=== PATIENT | male | born 1950 | race Caucasian/White ===

== ENCOUNTER 2019-02-28 13:32 | Emergency (ER) | payer OTHER, SELFPAY ==
[2019-02-28 13:33] VITALS: BP 149/76; PULSE 112; RESP 16; TEMP 37.3; O2SAT 96; BMI 23.6
--- NOTE | 2019-02-28 15:13 | RAD_ITS ---
STUDY: X-RAY - LEFT FEMUR REASON FOR STUDY: Male, 68 years old. Fall 3 days ago. Pain. TECHNIQUE: 4 view(s) of the femur. COMPARISON: None. FINDINGS: There is generalized osteopenia. There is a femoral neck fracture with minimal varus angulation at the fracture site. There is osteoarthrosis of the knee. There is soft tissue ossification medial to the distal femur.. RAD/Femur Min 2 Views IMPRESSION: Osteopenia with femoral neck fracture as described. Electronically Signed: Ignacio Valle MD at 16:43 EDT , Service support ,
--- NOTE | 2019-02-28 15:13 | RAD_ITS ---
STUDY: X-RAY CHEST REASON FOR EXAM: Male, 68 years old. Fall 3 days ago out of wheelchair. Pain. TECHNIQUE: Frontal and lateral views of the chest. COMPARISON: None. FINDINGS: The lungs are hyperexpanded. There is no demonstrated pleural abnormality. There is borderline cardiomegaly. Normal mediastinum and xavier. Normal visualized pulmonary arteries. Normal visualized aortic arch and descending thoracic aorta. There are diffuse degenerative changes of the visualized thoracic spine. There are David rods in the lower thoracic spine. Normal visualized ribs, clavicles, and shoulders. There is no demonstrated abnormality of the visualized soft tissue structures of the upper abdomen. RAD/Chest PA and Lateral IMPRESSION: Cardiomegaly with hyperexpansion. No acute finding. Electronically Signed: Ignacio Valle MD at 16:42 EDT , Service support ,
--- NOTE | 2019-02-28 15:13 | RAD_ITS ---
STUDY: X-RAY - PELVIS REASON FOR EXAM: Male, 68 years old. Fall 3 days ago. Pain. TECHNIQUE: One view of the pelvis was obtained. COMPARISON: None. FINDINGS: There is a non-specific bowel gas pattern. Normal visualized soft tissue structures. Normal bilateral iliac wings, sacroiliac joints and visualized sacrum. Normal visualized bilateral superior and inferior pubic rami. Normal pubic symphysis. Normal ischial tuberosities. There is moderate arthrosis of the right hip. There is a femoral neck fracture with slight varus angulation at the fracture site. RAD/Pelvis 1 or 2 Views IMPRESSION: Osteopenia with osteoarthrosis of the right hip. Left femoral neck fracture. Electronically Signed: Ignacio Valle MD at 16:43 EDT , Service support ,
--- NOTE | 2019-02-28 15:13 | ED.VIS.FALL ---
History of Present Illness Chief Complaint: Lower Extremity Injury Informant: Patient, Significant Other Occurred: Days - 3 Mechanism/Context: - - accidentally fell out of wheelchair Quality of Pain: Aching Current Severity: Mild Maximum Severity: Moderate Worsened by: n/a Relieved by: pain pills Associated Symptoms: Parasthesias - chronic BLE, Weakness - chronic BLE. Negative for: Loss of consciousness, Amnesia Narrative: Patient is a paraplegic from a remote spinal injury, wheelchair-bound. He accidentally fell out of bed onto his buttock hitting his left thigh on part of his wheelchair when he accidentally fell out of it 3 days ago. He noticed some fevers lately up to 100's, and was concerned because of the appearance of his left thigh that it might be infected. He has had urinary tract infections in the past. He does not have to self cath. However, he does not have sensation there. He can tell he is hurting in his thigh/buttock somewhere but he cannot tell where. He had no bleeding at the time of the injury. 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 Past Medical History - Allergies and Home Meds Allergies/Adverse Reactions: Allergies amoxicillin Allergy (Verified 02/28/19 13:36) UTI Primary Care Physician: Care Physician,No Primary [Primary Care Provider] - Surgical History: - - back Lives: Spouse/ Significant Other Smoking Status: Never smoker Review of Systems General: Reports: Fever, Malaise Eyes: Denies: Visual changes - bilaterally, Diplopia ENT: Denies: Rhinorrhea, Sore throat Cardiovascular: Denies: Chest pain, Palpitations Respiratory: Denies: Dyspnea, Cough, Dyspnea on exertion Gastrointestinal: Denies: Abdominal pain, Nausea, Vomiting, Diarrhea, Melena, Hematochezia Genitourinary: Denies: Dysuria, Hematuria, Frequency Musculoskeletal: Reports: Swelling - at site of trauma, Extremity Pain Skin: Reports: Wounds - contusion/hematoma left thigh. Denies: Rash Neurological: Reports: Weakness - preexisting deficit, Numbness - preexisting deficit. Denies: Headache Physical Exam Vital Signs/Narrative: Vital Signs Temp Pulse Resp BP Pulse Ox 02/28/19 13:33 99.2 F H 112 H 16 149/76 H 96 Inital Vital Signs reviewed: Yes General: Well nourished, Well developed, - - well-appearing, nad, conversive Head: Normocephalic, Atraumatic Eyes: Perrl, EOMI ENT: No trauma Neck: Nontender, Full ROM Cardiovascular: Regular rate, Regular rhythm, No murmurs. Negative for: Tachycardia Respiratory: No distress, CTA bilaterally, Chest nontender Abdomen: Soft, Nontender, Nondistended, Normal bowel sounds Rectal: Nontender, - - small contusion x 2 mons pubis, no testicular tend or other evidence of scrotal trauma/hematoma; no blood at meatus Back: Nontender. Negative for: CVA Tenderness - Right, CVA Tenderness - Left Skin: No rash, Trauma - large contusion/hematoma left prox medial thigh with majority of it seen dependent at posterior aspect. no breaks in skin. swollen compared with contralateral side, but only at site of hematoma; no distal edema or asymmetry. 3sec CR toes bilat, symmetric; pulses in feet not able to be palpated. Neurological: Alert, Oriented x3, Cranial nerves II-XII grossly intact, Parasthesia - below waist, Weakness - BLE flaccid paralysis Diagnostic/Tx/Re-eval Impressions Chest X-Ray 02/28/19 15:13 IMPRESSION: Cardiomegaly with hyperexpansion. No acute finding. Electronically Signed: Ignacio Valle MD at 16:42 EDT , Service support , Femur X-Ray 02/28/19 15:13 IMPRESSION: Osteopenia with femoral neck fracture as described. Electronically Signed: Ignacio Valle MD at 16:43 EDT , Service support , Pelvis X-Ray 02/28/19 15:13 IMPRESSION: Osteopenia with osteoarthrosis of the right hip. Left femoral neck fracture. Electronically Signed: Ignacio Valle MD at 16:43 EDT , Service support , 02/28/19 15:13 Chest PA and Lateral [RAD] Stat Femur Min 2 Views [RAD] Stat Pelvis 1 or 2 Views [RAD] Stat Laboratory Results 02/28/19 02/28/19 02/28/19 15:35 15:35 15:35 WBC 13.2 H RBC 4.27 L Hgb 12.3 L Hct 36.4 L MCV 85.2 MCH 28.8 MCHC 33.8 RDW 14.0 RDW Differential 43.5 Plt Count 329 MPV 9.1 Immature Gran % (Auto) 0.300 Neut % (Auto) 69.2 Lymph % (Auto) 16.4 L [place] % (Auto) 12.7 H Eos % (Auto) 1.1 Baso % (Auto) 0.3 Absolute Neuts (auto) 9.1 H Absolute Lymphs (auto) 2.17 Total Counted Not Reportable Differential Comment SCANNED Diff Path Review May foll Sodium 135 L Potassium 3.4 L Chloride 102 Carbon Dioxide 25.0 Anion Gap 8 BUN 19 H Creatinine 0.71 Estim Creat Clear Calc 68.40 Est GFR (MDRD) Af Amer 142 Est GFR (MDRD) Non-Af 118 BUN/Creatinine Ratio 26.9 H Glucose 98 Calcium 8.2 L Urine Color Yellow Urine Clarity Clear Urine pH 5.0 Ur Specific Zachary 1.020 Urine Protein 30 H Urine Glucose (UA) Normal Urine Ketones 150 H Urine Occult Blood 10 H Urine Nitrite Negative Urine Bilirubin Negative Urine Urobilinogen 4 H Ur Leukocyte Esterase 25 H Urine RBC 0-5 SEEN Urine WBC 0-5 SEEN Ur Squamous Epith Cells 0-5 SEEN Urine Bacteria RARE Urine Mucus 2+ - Medical Decision Making Blood counts are stable, kidney function is okay, he has no objective sign of any treatable infection to account for the fevers he was experiencing. He is in the 99 range here. He is well-appearing and not clinically septic. X-ray of his chest shows no pneumonia, however x-ray of his femur and pelvis show a femoral neck fracture. He states he is having pain but is tolerating it, and states he has been wheelchair-bound for 43 years and has no interest in seeing an orthopedic surgeon. He does not even want to see one as an outpatient and states he will not require a referral. He states he will let it heal. I advised him with regards to avascular necrosis and other possibilities, and give him a referral anyhow in case he feels that he changes his mind. He is asking for something for pain, will give him a prescription for tramadol after we discussed options. He wants to be discharged home. ED Disposition - Plan for ED Patient: Disposition: Home or Assisted Living Diagnosis: Left displaced femoral neck fracture Instructions: Understanding Hip Fractures, After a Hip Fracture: Common Questions Prescriptions: traMADol [Ultram] 50 mg PO Q4H PRN PRN 3 Days #20 tablet PRN Reason: Pain Referrals: Doctor,Your [STAFF PHYSICIAN] - Kong Anthony DO [STAFF PHYSICIAN] - (Hip fractures can result in a chronic degenerative hip problem called avascular necrosis which can give you chronic pain. If you change your mind about seeing an orthopedic surgeon for a consultation, call this number and schedule an appointment.)
[2019-02-28 15:47] LABS: Color, Urine Yellow (Yellow); Glucose, Dipstick Normal (Normal); Leukocyte Esterase-Dipstick 25 /ul (Negative); Nitrite-Dipstick Negative (Negative); Occult Blood-Urine 10 /ul (Negative); Protein-Dipstick 30 mg/dl (Negative); Urine Bilirubin Dipstick Negative (Negative); Urine Clarity Clear (Clear); Urine Urobilinogen 4 mg/dl (Normal)
[2019-02-28 15:52] LABS: Absolute Lymphocyte Count 2.17 X10^3/ul (0.83-4.51); Absolute Neutrophil Count 9.1 X10^3/uL (2.0-7.7); Basophil# 0.04 X10^3/uL; Basophil% 0.3 % (0-1); Eosinophil# 0.14 X10^3/uL; Eosinophils% 1.1 % (0-5); Hematocrit 36.4 % (40-54); Hemoglobin 12.3 g/dl (13.0-16.5); Lymphocyte # 2.17 X10^3/ul (4.0); Lymphocyte % 16.4 % (19-41); Mean Corp Hgb Conc 33.8 g/gl (32-36); Mean Corpuscular Hgb 28.8 pg (27.0-32.0); Mean Corpuscular Volume 85.2 fL (80-94); Mean Platelet Vol. 9.1 fl (6.2-12.0); Monocyte# 1.68 X10^3/uL; Monocyte% 12.7 % (0-10); Neutrophil # 9.13 X10^3/uL (2.7-7.7); Neutrophil % 69.2 % (47-70); Platelet Count 329 K/mm3 (150-450); RBC Distribution Width SD 43.5 fl (35.1-43.9); Red Blood Count 4.27 M/mm3 (4.6-6.2); White Blood Count 13.2 K/mm3 (4.4-11.0)
[2019-02-28 15:55] LABS: Anion Gap 8 (5-15); BUN 19 mg/dL (7-18); BUN/Creat Ratio 26.9 RATIO (10-20); Calcium,Total 8.2 mg/dL (8.5-10.1); Chloride 102 mmol/L (98-107); Creatinine, Serum 0.71 mg/dL (0.70-1.30); Differential Indicated SCAN CRITERIA MET; EST Glomerular Filtration Rate 118 mL/min (>60); Est Glom Filt Rate - Afr Amer 142 mL/min (>60); Glucose 98 mg/dL (74-106); POSITIVE COUNT NO; POSITIVE DIFFERENTIAL YES; POSITIVE MORPHOLOGY NO; Potassium 3.4 mmol/L (3.5-5.1); Sodium Level 135 mmol/L (136-145)
[2019-02-28 16:06] LABS: Differential Comment SCANNED
[2019-02-28 16:33] LABS: Ketone-Dipstick 150 mg/dl (Negative)
[2019-02-28 16:35] LABS: Bacteria RARE /hpf (None Seen); Mucous, Urine 2+ /hpf (<or=2+); Red Blood Cells-Urine 0-5 SEEN /hpf (0-5); Squamous Epithelial Cells - UA 0-5 SEEN /hpf (0-5); White Blood Cells 0-5 SEEN /hpf (0-5)
[2019-02-28 18:09] VITALS: BP 147/68; PULSE 98; RESP 16; O2SAT 99
[2019-03-03 12:58] LABS: Pathologist Review Reviewed
== END 2019-02-28 18:13 | disposition home or self-care (01) ==
PROVIDERS: Emergency Provider Emergency Medicine
DX: S72.002A Fracture of unspecified part of neck of left femur, initial encounter for closed fracture (principal); G82.20 Paraplegia, unspecified; Z99.3 Dependence on wheelchair; Z87.440 Personal history of urinary (tract) infections; W06.XXXA Fall from bed, initial encounter; Y93.89 Activity, other specified; Y92.89 Other specified places as the place of occurrence of the external cause; Y99.8 Other external cause status
CPT/HCPCS: 36415; 71046; 72170; 73552; 80048; 81001; 85025; 99282

== ENCOUNTER → 2021-08-30 13:06 | Outpatient (CLI) | payer OTHER, SELFPAY ==
--- NOTE | 2021-08-30 13:16 | CT_ITS ---
STUDY: CT ABDOMEN AND PELVIS WITHOUT CONTRAST REASON FOR EXAM: Male, 71 years old. BLADDER-NECK OBSTRUCTION RADIATION DOSAGE (If Supplied By Facility): CTDIvol = ( 7.77 ) mGy, DLP = ( 617.12 ) mGycm TECHNIQUE: Transaxial images were obtained from the dome of the diaphragm to the symphysis pubis without oral contrast, and without intravenous contrast. Sagittal and coronal images were reconstructed. Individualized dose optimization techniques were used for this CT. COMPARISON: None. FINDINGS: The visualized lung bases are unremarkable. The visualized portions of the heart are within normal limits. Normal liver. Normal gallbladder and extrahepatic biliary system. Granulomatous calcifications in the spleen. Normal pancreas. Normal bilateral adrenal glands. Normal right kidney. Normal left kidney. There is a hiatal hernia. Normal small intestine. Normal colon. The appendix is not visualized. Mildly calcified abdominal aorta. Normal inferior vena cava. Normal retroperitoneum. Wall thickening of the urinary bladder. Mild hydrocele. Normal abdominal wall. Degenerative vertebral changes with mild scoliosis. Degenerative changes of the hips. Old left femoral neck fracture. CT/Abdomen/Pelvis without Cont IMPRESSION: Hiatal hernia. Mild hydrocele. Wall thickening of the urinary bladder. Electronically Signed: Jens Askew DO at 19:37 EST Tel [phone], Service support ,
== END ==
PROVIDERS: PCP Nurse Practitioner Family; Referring Provider Urology; Visit Provider Urology
DX: N32.0 Bladder-neck obstruction (principal)
CPT/HCPCS: 74176

== ENCOUNTER 2024-12-12 15:44 | Emergency (ER) | payer MEDICARE, SELFPAY ==
[2024-12-12 15:45] VITALS: BP 159/64; PULSE 83; RESP 16; TEMP 36.6; O2SAT 99; BMI 23.5
--- NOTE | 2024-12-12 15:52 | ED.RN ---
PT BROUGHT IN BY [facility]. C/O RIGHT BACK PAIN, DISTAL TO SHOULDER. ON SUNDAY PT WAS SITTING ON A TOWEL ON THE SIDE OF THE TUB AND LOST BALANCE AND COULD NOT GRAB HIM. STATES HE HIT HIS HEAD VERY HARD BUT DENIES LOC. NO VISIBLE LAC OR ABRASIONS TO THE HEAD. PT IS A PARAPALEGIC FROM 1974 AND USES WHEELCHAIR.
--- NOTE | 2024-12-12 15:58 | ED.VIS.BACK ---
HPI History of Present Illness Chief Complaint: Back Informant: patient Onset/Context/Timing Onset: Days (2) Context: Sudden Onset Injury: fall Timing: Waxes and wanes Quality: Sharp Location: Thoracic Worsened by: improves with Movement Relieved by: Remaining Still Associated Symptoms Associated Symptoms: Unable to Ambulate; Negative for Numbness, Tingling, Abdominal Pain, Dysuria, Urinary Retention, Urinary Incontinence, Constipation or Fecal Incontinence Narrative Narrative: Patient presents with right thoracic back pain that began after a fall 2 days ago. Patient states he fell trying to get out of the bathtub. Patient states he does not ambulate due to a prior spinal cord injury. Patient states he hit his right thoracic area on the edge of the tub when he fell. Patient denies any head injury or loss of consciousness. Patient denies any new paresthesias or weakness. Patient denies any bowel or bladder changes. [facility] Medical History Paraplegic immobility syndrome Liver masses Asthma Candidiasis Pruritus, unspecified Home Medications ?Medication ?Instructions ?Recorded ?Last Taken ?Type aspirin 81 mg tablet,delayed 81 mg PO QDAY 10/20/24 Unknown History release loratadine 10 mg tablet 10 mg PO QDAY 10/20/24 Unknown History multivitamin 1 tab PO QAM 10/20/24 Unknown History Liquid probiotic PO 10/23/24 Unknown History 4 life transfer factor PO 10/23/24 Unknown History D- manose PO 10/23/24 Unknown History Liquid heart drops PO 10/23/24 Unknown History Liquid kidney and bladder PO 10/23/24 Unknown History Resolution PO 10/23/24 Unknown History hydrocodone-acetaminophen 5-325mg 1 tab PO Q6H PRN PRN Pain 3 days 12/12/24 Unknown Rx 5mg-325mg #10 TABLETS Allergy/AdvReac Type Severity Reaction Status Date / Time amoxicillin Allergy UTI Verified 12/12/24 15:53 Family History Father Cancer Brother Cancer Surgical History H/O skin graft Hx of appendectomy Hx of tonsillectomy Social History Smoking Status: Never smoker alcohol intake: never ROS ROS ED Constitutional Constitutional ED: Denies chills or fever(s) Eyes Eyes: Denies blurry vision or change in vision ENT ENT ED: Denies rhinorrhea or sore throat Cardiovascular Cardiovascular: Denies chest pain or palpitations Respiratory/Chest Respiratory/Chest: Denies cough or dyspnea Gastrointestinal Gastrointestinal: Denies nausea or vomiting Genitourinary Genitourinary ED: Denies dysuria or hematuria Musculoskeletal Musculoskeletal: Reports back pain; Denies neck pain Integumentary Denies abscess or rash Neurologic Neurologic: Denies headache(s) or weakness Allergic/Immunologic Allergic/Immunologic ED: Denies mouth swelling or urticaria EXAM Physical Exam Const Vital Signs: 12/12/24 15:45 Temperature 97.9 F Temperature Source Oral Pulse Rate 83 Respiratory Rate 16 Blood Pressure 159/64 H Blood Pressure Mean 95 Pulse Ox 99 Oxygen Delivery Method Room Air Positive well nourished and well developed General Appearance ED: well developed HEENT Reports moist mucous membranes Neck supple and no JVD Resp normal respiratory effort and clear to auscultation bilaterally Cardio regular rate and regular rhythm GI soft to palpation, non-tender and non-distended Back/Spine Back/Spine Narrative: There is tenderness over the right posterior rib just below the scapula on the right. There is no bony crepitance or step-off. There is no subcutaneous emphysema palpated. Neuro oriented x3 and no sensory deficits noted Sensorium / Orientation: alert Motor Exam: strength 5/5 throughout Psych mental status grossly normal MDM MDM MDM Narrative Medical decision making narrative: Differential diagnosis includes rib fracture and contusion. X-rays of the right ribs will be obtained to assess for rib fracture or pneumothorax. Radiography Diagnostic Testing: Clinical Impression(s) from Imaging Studies Ribs w/Chest X-Ray 12/12/24 16:30 IMPRESSION: No acute fracture. [facility] X-[facility] of the right ribs were obtained. There are 5 views. On my independent interpretation, there is no acute fracture. There is no pneumothorax noted. Radiologist also interpreted the x-rays and agrees. Treatment and Re-Evaluation Narrative: Patient was given a dose of [place] here. Patient was advised of his findings. Patient was given a prescription for a short course of [place]. Patient was instructed to take 10-15 deep breaths every hour while awake to prevent atelectasis and pneumonia. Patient was instructed to follow-up with his primary care physician in 5 to 7 days. Patient was instructed to return if worse in any way. Patient understood and was agreeable with the plan. All questions were answered. Discharge Plan Triage Chief Complaint: Back ED Provider: Chevy Mishra Dx/Rx/DC Orders Clinical Impression: Contusion of rib on right side, Fall Instructions: ED Bruise, Rib Prescriptions: New hydrocodone-acetaminophen 5-325 mg tablet 1 tab PO Q6H PRN PRN (Reason: Pain) 3 Days Qty: 10 0RF No Action Liquid kidney and bladder PO Liquid probiotic PO 4 life transfer factor PO Liquid heart drops PO D- manose PO Resolution PO loratadine 10 mg tablet 10 mg PO QDAY aspirin 81 mg tablet,delayed release (DR/EC) 81 mg PO QDAY multivitamin Tablet 1 tab PO QAM Primary Care Provider: Ifeanyi Reese NP Referrals: Ifeanyi Reese NP, [employer] [Primary Care Provider] - 5-7 Days Print Language: Turkmen Disposition Disposition: Home, Self Care
[2024-12-12] MEDS: HYDROcodone Bitartrate/Apap 5/325 Tablet PO (16:20)
--- NOTE | 2024-12-12 16:30 | RAD_ITS ---
PROCEDURE: RIBS UNI MIN 3V W/PA CHEST 12/12/2024 REASON FOR EXAM: PAIN TECHNIQUE: Frontal and bilateral oblique views of the right ribs. Frontal view of the chest. COMPARISON: Chest radiograph dated 02/28/2019 FINDINGS: Heart: The heart size is normal. Lungs: The lungs are clear. Pleura: No pneumothorax. Ribs: No acute fracture. Degenerative changes of the thoracic spine and bilateral shoulder joints. Fixation hardware transverse the lumbar spine. Other: RAD/Ribs Uni Min 3V w/PA Chest IMPRESSION: No acute fracture. Reading Location: [facility]
[2024-12-12 17:45] VITALS: BP 138/72; PULSE 72; RESP 16; O2SAT 96
[2024-12-12 17:56] VITALS: BP 138/82; PULSE 66; RESP 16; TEMP 36.6; O2SAT 96
== END 2024-12-12 18:00 | disposition home or self-care (01) ==
PROVIDERS: Emergency Provider Emergency Medicine; PCP Nurse Practitioner Family; Visit Provider Emergency Medicine
DX: S20.211A Contusion of right front wall of thorax, initial encounter (principal); W18.2XXA Fall in (into) shower or empty bathtub, initial encounter; Y93.E1 Activity, personal bathing and showering; Z88.0 Allergy status to penicillin
CPT/HCPCS: 71101; 99284

== ENCOUNTER 2025-02-23 15:03 | Outpatient (CLI) | payer MEDICARE, SELFPAY | END 2025-02-23 23:59 | disposition home or self-care (01) | LOC: MEDOUTP 15:04 | PROVIDERS: PCP Nurse Practitioner Family; Referring Provider Specialist; Visit Provider Specialist | DX: D50.8 Other iron deficiency anemias (principal); C79.51 Secondary malignant neoplasm of bone; C18.8 Malignant neoplasm of overlapping sites of colon; D64.81 Anemia due to antineoplastic chemotherapy ==

== ENCOUNTER 2025-02-25 06:53 | Day surgery (SDC) | payer MEDICARE, SELFPAY ==
[2025-02-25] VITALS (9 sets, daily range): BP systolic 120–159; BP diastolic 55–75; PULSE 81–88; RESP 16–18; TEMP 36.3–36.6; O2SAT 99–100; BMI 20.5
--- OUTSIDE RECORDS SUMMARY | 2025-02-25 07:06 | XMS RPT_ITS | CCD ---
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 09995, 763, 4698 #### [facility] [address], [address] [place], [place] [id number] Residential Team Leader: Willy Jolly MD #### 211 #### [facility] [address] [place] Residential Team Leader: Marco A Zhang M.D.,PhD CEAon 12-17-2024 CEA 24.3 ng/mL High See Note: [facility] Comment on above: Result Comment: Alphonse pack Range: Non-Smoker: <2.5 Smoker: <5.0 This test was performed using the Siemens chemiluminescent method. Values obtained from different assay methods cannot be used interchangeably. CEA levels, regardless of value, should not be interpreted as absolute evidence of the presence or absence of disease. Performed By: #### 8 99, 978, 367, 21911, 763, 4698 #### [facility] [address] [facility], [address] [place] [address] Residential Team Leader: Willy Jolly MD #### 211 #### [facility] [address] [facility] [place] [address] Residential Team Leader: Marco A Zhang M.D.,PhD Emergency Department Summary on 12-12-2024 Emergency Department Summary [facility] Medical Records Department [address] [place] [address] Emergency Department Summary 12/12/24 MR#: [id number] Acct: [id number] Name: DEXTER RAHMAN Rep #: [id number] : 1950 74 From: Chevy Mishra DO PCP: Kristina Reese NP-Kurtis Status:DEP ER Location: ED HPI History of Present Illness Chief Complaint: Back Informant: patient Onset/Context/Timing Onset: Days (2) Context: Sudden Onset Injury: fall Timing: Waxes and wanes Quality: Sharp Location: Thoracic Worsened by: improves with Movement Relieved by: Remaining Still Associated Symptoms Associated Symptoms: Unable to Ambulate; Negative for Numbness, Tingling, Abdominal Pain, Dysuria, Urinary Retention, Urinary Incontinence, Constipation or Fecal Incontinence Narrative Narrative: Patient presents with right thoracic back pain that began after a fall 2 days ago. Patient states he fell trying to get out of the bathtub. Patient states he does not ambulate due to a prior spinal cord injury. Patient states he hit his right thoracic area on the edge of the tub when he fell. Patient denies any head injury or loss of consciousness. Patient denies any new paresthesias or weakness. Patient denies any bowel or bladder changes. [facility] Medical History Paraplegic immobility syndrome Liver masses Asthma Candidiasis Pruritus, unspecified Home Medications ???Medication ???Instructions ???Recorded ???Last Taken ???Type aspirin 81 mg tablet,delayed 81 mg PO QDAY 10/20/24 Unknown His tory release loratadine 10 mg tablet 10 mg PO QDAY 10/20/24 Unknown His tory multivitamin 1 tab PO QAM 10/20/24 Unknown Hist ory Liquid probiotic PO 10/23/24 Unknown History 4 life transfer factor PO 10/23/24 Unknown History D- manose PO 10/23/24 Unknown History Liquid heart drops PO 10/23/24 Unknown History Liquid kidney and bladder PO 10/23/24 Unknown History Resolution PO 10/23/24 Unknown History hydrocodone-acetaminophen 5-325mg 1 tab PO Q6H PRN PRN Pain 3 days 12/12/24 Unknown Rx 5mg-325mg #10 TABLETS Allergy/AdvReac Type Severity Reaction Status Date / Time amoxicillin Allergy UTI Verified 12/12/24 15:53 Family History Father Cancer Brother Cancer Surgical History H/O skin graft Hx of appendectomy Hx of tonsillectomy Social History Smoking Status: Never smoker alcohol intake: never ROS ROS ED Constitutional Constitutional ED: Denies chills or fever(s) Eyes Eyes: Denies blurry vision or change in vision ENT ENT ED: Denies rhinorrhea or sore throat Cardiovascular Cardiovascular: Denies chest pain or palpitations Respiratory/Chest Respiratory/Chest: Denies cough or dyspnea Gastrointestinal Gastrointestinal: Denies nausea or vomiting Genitourinary Genitourinary ED: Denies dysuria or hematuria Musculoskeletal Musculoskeletal: Reports back pain; Denies neck pain Integumentary Denies abscess or rash Neurologic Neurologic: Denies headache(s) or weakness Allergic/Immunologic Allergic/Immunologic ED: Denies mouth swelling or urticaria EXAM Physical Exam Const Vital Signs: 12/12/24 15:45 Temperature 97.9 F Temperature Source Oral Pulse Rate 83 Respiratory Rate 16 Blood Pressure 159/64 H Blood Pressure Mean 95 Pulse Ox 99 Oxygen Delivery Method Room Air Positive well nourished and well developed General Appearance ED: well developed HEENT Reports moist mucous membranes Neck supple and no JVD Resp normal respiratory effort and clear to auscultation bilaterally Cardio regular rate and regular rhythm GI soft to palpation, non-tender and non-distended Back/Spine Back/Spine Narrative: There is tenderness over the right posterior rib just below the scapula on the right. There is no bony crepitance or step-off. There is no subcutaneous emphysema palpated. Neuro oriented x3 and no sensory deficits noted Sensorium / Orientation: alert Motor Exam: strength 5/5 throughout Psych mental status grossly normal MDM MDM MDM Narrative Medical decision making narrative: Differential diagnosis includes rib fracture and contusion. X-rays of the right ribs will be obtained to assess for rib fracture or pneumothorax. Radiography Diagnostic Testing: Clinical Impression(s) from Imaging Studies Ribs w/Chest X-Ray 12/12/24 16:30 IMPRESSION: No acute fracture. [facility] of the right ribs were obtained. There are 5 views. On my independent interpretati (more content not included)... Normal [facility] Ribs Uni Min 3V w/PA Cheston 12-12-2024 Ribs Uni Min 3V w/PA Chest [facility] Imaging Services [address] [place], [place] [address] Ribs Uni Min 3V w/PA Chest MR#: [id number] Acct: [id number] Name: DEXTER RAHMAN Rep #: [id number] : 1950 M 74 From: Abisai Berg DO PCP: JOURDAN TyC Status: REG ER Study: Ribs Uni Min 3V w/PA Chest Date of Exam: 12/12 Exam# [id number] Ordering Dr: Chevy Mishra DO PROCEDURE: RIBS UNI MIN 3V W/PA CHEST 12/12/2024 REASON FOR EXAM: PAIN TECHNIQUE: Frontal and bilateral oblique views of the right ribs. Frontal view of the chest. COMPARISON: Chest radiograph dated 02/28/2019 FINDINGS: Heart: The heart size is normal. Lungs: The lungs are clear. Pleura: No pneumothorax. Ribs: No acute fracture. Degenerative changes of the thoracic spine and bilateral shoulder joints. Fixation hardware transverse the lumbar spine. Other: RAD/Ribs Uni Min 3V w/PA Chest IMPRESSION: No acute fracture. Reading Location: [facility] CC: ALEKSANDAR Reese; Dr. Chevy Mishra, Trolley Car Mechanic: Signed Normal [facility] ACTH, PLASMAon 11-01-2024 ACTH, PLASMA 7 pg/mL Normal 6-50 [facility] Comment on above: Result Comment: Reference range applies only to specimens collected between 7am-10am. Performed By: #### 8 99, 978, 367, 51899, 763, 4698 #### [facility] [place] [address] Residential Team Leader: Willy Jolly MD #### 211 #### [facility]/[address] [place], [place] Residential Team Leader: Marco A Zhang M.D.,PhD CA 19-9on 11-01-2024 CA 19-9 22 U/mL Normal <34 [facility] Comment on above: Result Comment: This test was performed using the Siemens chemiluminescent method. Values obtained from different assay methods cannot be used interchangeably. CA 19-9 levels, regardless of value, should not be interpreted as absolute evidence of the presence or absence of disease. Performed By: #### 8 99, 978, 367, 40388, 763, 4698 #### [facility] [place] [address] Residential Team Leader: Willy Jolly MD #### 211 #### [facility] [address] [facility] [address] [place], [place] Residential Team Leader: Marco A Zhang M.D.,PhD CEAon 11-01-2024 CEA 67.4 ng/mL High See Note: [facility] Comment on above: Result Comment: Refe rence Range: Non-Smoker: <2.5 Smoker: <5.0 This test was performed using the Siemens chemiluminescent method. Values obtained from different assay methods cannot be used interchangeably. CEA levels, regardless of value, should not be interpreted as absolute evidence of the presence or absence of disease. Performed By: #### 8 99, 978, 367, 01326, 763, 4698 #### [facility] [address] [place] [address], [address] [place] [address] Residential Team Leader: Willy Jolly MD #### 211 #### [facility]/[place] [id number] [facility] [place], [place] Residential Team Leader: Marco A Zhang M.D.,PhD CORTISOL, TOTALon 11-01-2024 CORTISOL, TOTAL 21.1 mcg/dL Normal [facility] Comment on above: Result Comment: Refe rence Range: For 8 a.m.(7-9 a.m.) Specimen: 4.0-22.0 Reference Range: For 4 p.m.(3-5 p.m.) Specimen: 3.0-17.0 * Please interpret above results accordingly * Performed By: #### 8 99, 978, 367, 97726, 763, 4698 #### [facility] [address], [address] [place], [place] [address] Residential Team Leader: Willy Jolly MD #### 211 #### [facility]/[place] [id number] [facility] [place], [place] Residential Team Leader: Marco A Zhang M.D.,PhD PARTIAL THROMBOPLASTIN TIME, ACTIVATEDon 11-01-2024 PARTIAL THROMBOPLASTIN TIME, ACTIVATED 30 sec Normal 23-32 [facility] Comment on above: Result Comment: This test has not been validated for monitoring unfractionated heparin therapy. For testing that is validated for this type of therapy, please refer to the Heparin Anti-Xa assay (test code 07622). For additional information, please refer to http://education.Ontela/faq/WWD964 (This link is being provided for informational/educational purposes only.) Performed By: #### 8 99, 978, 367, 98963, 763, 4698 #### [facility] [address], [address] [place] [address] Residential Team Leader: Willy Jolly MD #### 211 #### [facility]/[address] [place], [place] Residential Team Leader: Marco A Zhang M.D.,PhD TROPONIN I, HIGH SENSITIVITY on 11-01-2024 TROPONIN I, HIGH SENSITIVITY 3 ng/L Normal < OR = 47 [facility] Comment on above: Result Comment: In accord with published recommendations, serial testing of troponin I at intervals of 2 to 4 hours for up to 12 to 24 hours is suggested in order to corroborate a single troponin I result. An elevated troponin alone is not sufficient to make the diagnosis of NM. Performed By: #### 8 99, 978, 367, 24101, 763, 4698 #### [facility] [address], [address] [place] [address] Residential Team Leader: Willy Jolly MD #### 211 #### [facility]/[address] [place], [place] Residential Team Leader: Marco A Zhang M.D.,PhD [facility] TSH Qn 3.27 m[IU]/L Normal 0.40-4.50 [facility] Comment on above: Performed By: #### 8 99, 978, 367, 94612, 763, 4698 #### [facility] [address], [address] [place] [address] Residential Team Leader: Willy Jolly MD #### 211 #### [facility]/[place] [id number] [facility] [place], [place] Residential Team Leader: Marco A Zhang M.D.,PhD XR CHEST 2 VIEWSon XR CHEST 2 VIEWS ORIGINAL EXAMINATION: TWO XRAY VIEWS OF THE CHEST 10/30/2024 11:21 am COMPARISON: None. HISTORY: ORDERING SYSTEM PROVIDED HISTORY: Reason for Exam: cough FINDINGS: Lungs are clear. There is a normal cardiac and pulmonary contour. There is severe osteoarthritis of both shoulders, more marked on the right. No lobar consolidation, pleural effusion or pneumothorax is seen. Skeletal elements show no acute process. IMPRESSION: 1. No acute chest process. 2. Severe osteoarthritis of both shoulders. Interpreted by: Sami Falcon DO Preliminary Report By: Sami Falcon DO Electronically signed By Sami Falcon DO Dictated Date: 10/30/2024 1:12:04 PM Prelim Date: 10/30/2024 1:13:18 PM Sign Date: 10/30/2024 1:13:18 PM Ordering Provider: CHINTAN RILEY [facility] ALPHA FETOPROTEIN, TUMOR MAR Rajesh 10-29-2024 ALPHA FETOPROTEIN, TUMOR MARKER 1.4 ng/mL Normal <6.1 [facility] Comment on above: Result Comment: This test was performed using the Lucy Goltry chemiluminescent method. Values obtained from different assay methods cannot be used interchangeably. AFP levels, regardless of value, should not be interpreted as absolute evidence of the presence or absence of disease. Performed By: #### 2 37 #### [facility] [place] [address] Residential Team Leader: Willy Jolly MD URINALYSIS, COMPLETEon 10-29 Appearance (U) CLEAR Normal CLEAR [facility] Comment on above: Performed By: #### 5 463 #### [facility] [place] [address] Residential Team Leader: Willy Jolly MD BACTERIA NONE SEEN Normal NONE SEEN [facility] Comment on above: Performed By: #### 5 463 #### [facility] [place] [address] Residential Team Leader: Willy Jolly MD Bilirubin Ql (U) Negative Normal NEGATIVE [facility] Comment on above: Performed By: #### 5 463 #### [facility] [place] [address] Residential Team Leader: Willy Jolly MD Color (U) YELLOW Normal YELLOW [facility] Comment on above: Performed By: #### 5 463 #### [facility] of [place] [address] Residential Team Leader: Willy Jolly MD Glucose Ql (U) Negative Normal NEGATIVE [facility] Comment on above: Performed By: #### 5 463 #### [facility] [place] [address] Residential Team Leader: Willy Jolly MD HYALINE CAST NONE SEEN Normal NONE SEEN [facility] Comment on above: Performed By: #### 5 463 #### [facility] [place] [address] Residential Team Leader: Willy Jolly MD Ketones Ql (U) Negative Normal NEGATIVE [facility] Comment on above: Performed By: #### 5 463 #### [facility] [place] [address] Residential Team Leader: Willy Jolly MD Leukocyte esterase Test strip Ql (U) Negative Normal NEGATIVE [facility] Comment on above: Performed By: #### 5 463 #### [facility] [place] [address] Residential Team Leader: Willy Jolly MD Nitrite Ql (U) Negative Normal NEGATIVE [facility] Comment on above: Performed By: #### 5 463 #### [facility] [place] [address] Residential Team Leader: Willy Jolly MD NOTE Normal [facility] Comment on above: Result Comment: This urine was analyzed for the presence of WBC, RBC, bacteria, casts, and other formed elements. Only those elements seen were reported. Performed By: #### 5 463 #### [facility] [place] [address] Residential Team Leader: Willy Jolly MD OCCULT BLOOD Negative Normal NEGATIVE [facility] Comment on above: Performed By: #### 5 463 #### [facility] of [place] [address] Residential Team Leader: Willy Jolly MD pH (U) 5.5 [pH] Normal 5.0-8.0 [facility] Comment on above: Performed By: #### 5 463 #### [facility] [place] [address] Residential Team Leader: Willy Jolly MD Protein Ql (U) Negative Normal NEGATIVE [facility] Comment on above: Performed By: #### 5 463 #### [facility] [place] [address] Residential Team Leader: Willy Jolly MD RBC NONE SEEN Normal < OR = 2 [facility] Comment on above: Performed By: #### 5 463 #### [facility] [place] [address] Residential Team Leader: Willy Jolly MD Specific gravity (U) [Rel density] 1.016 Normal 1.001-1.03 5 [facility] Comment on above: Performed By: #### 5 463 #### [facility] [place] [address] Residential Team Leader: Willy Jolly MD SQUAMOUS EPITHELIAL CELLS NONE SEEN Normal < OR = 5 [facility] Comment on above: Performed By: #### 5 463 #### [facility] [place] [address] Residential Team Leader: Willy Jolly MD WBC NONE SEEN Normal < OR = 5 [facility] Comment on above: Performed By: #### 5 463 #### [facility] of [place] [address] Residential Team Leader: Willy Jolly MD Urine Cultureon 10-26-2024 URC #2 Organism is too fastidious for routine susceptibility studies. Staphylococcus epidermidis [place] Count 80,000-100,000 Aerococcus urinae Aerococcus urinae Staphylococcus epidermidis: REACTION cefOXitin Susc Islt POS Doxycycline Islt NAPOLEON 8 Clindamycin.induced Susc Islt NEG Gentamicin Islt NAPOLEON 1 S Linezolid Islt NAPOLEON 1 S Nitrofurantoin Islt NAPOLEON <=16 S Oxacillin Susc Islt >=4 R Tetracycline Islt NAPOLEON >=16 R TMP SMX Islt NAPOLEON 80 R Vancomycin Islt NAPOLEON 1 S Normal [facility] Comment on above: Performed By: #### M 100.2200, L100.0100, L400.0001, L3300.0700, L500.4050 #### [facility] [address] [place], [place], [id number] AFP, Tumor Markeron 10-25-19 25 AFP TUMOR MAYNOR < 1.8 Normal 0.0-8.4 [facility] Comment on above: Order Comment: N Result Comment: [facility] Electrochemiluminescence Immunoassay (ECLIA) Values obtained with different assay methods or kits cannot be used interchangeably. Results cannot be interpreted as absolute evidence of the presence or absence of malignant disease. This test is not interpretable in females. Performed at: [facility] [id number] Restaurant Maintenance Technician: Pelon Fermin PhD, Phone: [phone] Performed By: #### M 100.2200, L100.0100, L400.0001, L3300.0700, L500.4050 #### [facility] [address] [place], [address] Absolute neutrophil countOrd ered By: Jenny Millard on 10-23-2024 Neutrophils (Bld) [#/Vol] 9.1 10*3/uL High 2.0-7.7 [facility] Albumin to globulin ratioOrd ered By: Jenny Millard on 10-23-2024 Albumin/Globulin [Mass ratio] 0.4 {ratio} Low 0.9-2.4 [facility] Alpha fetoprotein measuremen t as tumor markerOrdered By: Jenny Millard on 10-23-2024 Tumor Marker Alpha Fetoprotein < 1.8 ng/mL 0.0-8.4 [facility] Comment on above: [facility] El ectrochemiluminescence Immunoassay(ECLIA)Values obtained with different assay methods or kits cannotbe used interchangeably. Results cannot be interpreted asabsolute evidence of the presence or absence of malignantdisease.This test is not interpretable in females.Performed at: [address] [id number] Director: Pelon Fermin PhD, Phone: [phone] Bacteria LM.HPF (Urine sed) [#/Area]Ordered By: Jenny Millard on 10-23-2024 Urine Bacteria RARE /hpf None Seen [facility] Basophil percentageOrdered B y: Jenny Millard on 10-23-2024 Basophils/100 WBC (Bld) 1.0 % 0-1 [facility] Bilirubin Test strip Ql (U)O rdered By: Jenny Millard on 10-23-2024 Bilirubin Ql (U) Negative Negative [facility] Bilirubin, totalOrdered By: Jenny Millard on 10-23-2024 Bilirubin [Mass/Vol] 0.60 mg/dL 0.20-1.00 [facility] Comment on above: For patients on eltr ombopag therapy, use of Dimension [place] TBIL is not recommended. Blood urea nitrogen (BUN)/cr eatinine ratioOrdered By: Jenny Milalrd on 10-23-2024 Urea nitrogen/Creatinine [Mass ratio] 20.4 mg/mg High 10-20 [facility] CBC W/Diff, Automatedon 09-26 Absolute Lymph 1.71 X10 3/uL Normal 0.83-4.51 [facility] Comment on above: Performed By: #### M 100.2200, L100.0100, L400.0001, L3300.0700, L500.4050 #### [facility] [address] [place], [address] Absolute Neut 9.1 X10 3/uL High 2.0-7.7 [facility] Comment on above: Performed By: #### M 100.2200, L100.0100, L400.0001, L3300.0700, L500.4050 #### [facility] [address] [place], [address] Basophils/100 WBC (Bld) 1.0 % Normal 0-1 [facility] Comment on above: Performed By: #### M 100.2200, L100.0100, L400.0001, L3300.0700, L500.4050 #### [facility] [address] [place], [address] Eosinophils/100 WBC (Bld) 3.6 % Normal 0-5 [facility] Comment on above: Performed By: #### M 100.2200, L100.0100, L400.0001, L3300.0700, L500.4050 #### [facility] [address] [place], [address] Erythrocyte distribution width (RBC) [Ratio] 16.1 % High 11.6-14.6 [facility] Comment on above: Performed By: #### M 100.2200, L100.0100, L400.0001, L3300.0700, L500.4050 #### [facility] [address] [place], [address] Hematocrit (Bld) [Volume fraction] 36.9 % Low 40-54 [facility] Comment on above: Performed By: #### M 100.2200, L100.0100, L400.0001, L3300.0700, L500.4050 #### [facility] [address] [place], [address] Hemoglobin (Bld) [Mass/Vol] 11.4 g/dL Low 13.0-16.5 [facility] Comment on above: Performed By: #### M 100.2200, L100.0100, L400.0001, L3300.0700, L500.4050 #### [facility] [address] [place], [address] IG% 0.300 Normal 0.0-0.9 [facility] Comment on above: Result Comment: IG% - Immature Granulocytes (promyelocytes, myelocytes and metamyelocytes) > 1% indicates that a LEFT SHIFT is Present. Performed By: #### M 100.2200, L100.0100, L400.0001, L3300.0700, L500.4050 #### [facility] [address] [place], [address] Lymphocytes/100 WBC (Bld) 13.5 % Low 19-41 [facility] Comment on above: Performed By: #### M 100.2200, L100.0100, L400.0001, L3300.0700, L500.4050 #### [facility] [address] [place], [address] MCH (RBC) [Entitic mass] 24.7 pg Low 27.0-32.0 [facility] Comment on above: Performed By: #### M 100.2200, L100.0100, L400.0001, L3300.0700, L500.4050 #### [facility] [address] [place], [address] MCHC (RBC) [Mass/Vol] 30.9 g/dL Low 32-36 [facility] Comment on above: Performed By: #### M 100.2200, L100.0100, L400.0001, L3300.0700, L500.4050 #### [facility] [address] [place], [address] MCV (RBC) [Entitic vol] 80.0 fL Normal 80-94 [facility] Comment on above: Performed By: #### M 100.2200, L100.0100, L400.0001, L3300.0700, L500.4050 #### [facility] [address] [place], [address] Monocytes/100 WBC (Bld) 9.3 % Normal 0-10 [facility] Comment on above: Performed By: #### M 100.2200, L100.0100, L400.0001, L3300.0700, L500.4050 #### [facility] [address] [place], [address] Neutrophils/100 WBC (Bld) 72.3 % High 47-70 [facility] Comment on above: Performed By: #### M 100.2200, L100.0100, L400.0001, L3300.0700, L500.4050 #### [facility] [address] [place], [address] Nucleated RBC (Bld) [#/Vol] 0 10*3/uL Normal 0-5 [facility] Comment on above: Performed By: #### M 100.2200, L100.0100, L400.0001, L3300.0700, L500.4050 #### [facility] [address] [place], [address] Platelet mean volume (Bld) [Entitic vol] 8.7 fL Normal 6.2-12.0 [facility] Comment on above: Performed By: #### M 100.2200, L100.0100, L400.0001, L3300.0700, L500.4050 #### [facility] [address] [place], [address] Platelets (Bld) [#/Vol] 476 10*3/uL High 150-450 [facility] Comment on above: Performed By: #### M 100.2200, L100.0100, L400.0001, L3300.0700, L500.4050 #### [facility] [address] [place], [address] RBC (Bld) [#/Vol] 4.61 10*6/uL Normal 4.6-6.2 [facility] Comment on above: Performed By: #### M 100.2200, L100.0100, L400.0001, L3300.0700, L500.4050 #### [facility] [address] [place], [address] RDW SD 46.7 fl High 35.1-43.9 [facility] Comment on above: Performed By: #### M 100.2200, L100.0100, L400.0001, L3300.0700, L500.4050 #### [facility] [address] [place], [address] WBC (Bld) [#/Vol] 12.7 10*3/uL High 4.4-11.0 [facility] Comment on above: Performed By: #### M 100.2200, L100.0100, L400.0001, L3300.0700, L500.4050 #### [facility] [address] [place], [address] Carbon dioxide measurementOr dered By: Jenny Millard on 10-23-2024 CO2 [Moles/Vol] 25.0 mmol/L 21.0-32.0 [facility] Chloride measurementOrdered By: Jenny Millard on 10-23-2024 Chloride [Moles/Vol] 102 mmol/L 98-107 [facility] Comprehensive Metabolic Prof ilon 10-23-2024 Albumin [Mass/Vol] 2.6 g/dL Low 3.2-5.0 [facility] Comment on above: Performed By: #### M 100.2200, L100.0100, L400.0001, L3300.0700, L500.4050 #### [facility] [address] [place], [address] Albumin/Globulin [Mass ratio] 0.4 {ratio} Low 0.9-2.4 [facility] Comment on above: Performed By: #### M 100.2200, L100.0100, L400.0001, L3300.0700, L500.4050 #### [facility] [address] [place], [address] ALK P 117 U/L Normal 45-117 [facility] Comment on above: Performed By: #### M 100.2200, L100.0100, L400.0001, L3300.0700, L500.4050 #### [facility] [address] [place], [address] ALT [Catalytic activity/Vol] 22 U/L Normal 16-61 [facility] Comment on above: Performed By: #### M 100.2200, L100.0100, L400.0001, L3300.0700, L500.4050 #### [facility] [address] [place], [address] AST [Catalytic activity/Vol] 95 U/L High 15-37 [facility] Comment on above: Performed By: #### M 100.2200, L100.0100, L400.0001, L3300.0700, L500.4050 #### [facility] [address] [place], [address] Bilirubin [Mass/Vol] 0.60 mg/dL Normal 0.20-1.00 [facility] Comment on above: Result Comment: For patients on eltrombopag therapy, use of Dimension [place] TBIL is not recommended. Performed By: #### M 100.2200, L100.0100, L400.0001, L3300.0700, L500.4050 #### [facility] [address] [place], [address] BUN/CRE 20.4 RATIO High 10-20 [facility] Comment on above: Performed By: #### M 100.2200, L100.0100, L400.0001, L3300.0700, L500.4050 #### [facility] [address] [place], [address] CA,Total 9.2 mg/dL Normal 8.5-10.1 [facility] Comment on above: Performed By: #### M 100.2200, L100.0100, L400.0001, L3300.0700, L500.4050 #### [facility] [address] [place], [address] Chloride [Moles/Vol] 102 mmol/L Normal 98-107 [facility] Comment on above: Performed By: #### M 100.2200, L100.0100, L400.0001, L3300.0700, L500.4050 #### [facility] [address] [place], [address] CO2 [Moles/Vol] 25.0 mmol/L Normal 21.0-32.0 [facility] Comment on above: Performed By: #### M 100.2200, L100.0100, L400.0001, L3300.0700, L500.4050 #### [facility] [address] [place], [address] Creatinine [Mass/Vol] 0.74 mg/dL Normal 0.70-1.30 [facility] Comment on above: Result Comment: The validity of the calculated GFR GFRAA in patients over 70 years has not been determined. Clinical correlation is essential. Performed By: #### M 100.2200,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 thickness burn of left thigh, initial encounter Scald burn Castellon involving less than 10% of body surface Burn (any degree) involving less than 10% of body surface with third degree burn of less than 10% or unspecified amount [facility] Diagnosis Scald burn- Primary Scald burn Third degree burn of left thigh Full-thickness skin loss due to burn (third degree nos) of thigh (any part) Castellon involving less than 10% of body surface Burn (any degree) involving less than 10% of body surface with third degree burn of less than 10% or unspecified amount documented [facility]* Diagnosis Castellon involving less than 10% of body surface- Primary Burn (any degree) involving less than 10% of body surface with third degree burn of less than 10% or unspecified amount Scald burn S/P split thickness skin graft Skin donor [facility] Diagnosis Castellon involving less than 10% of body surface- Primary Burn (any degree) involving less than 10% of body surface with third degree burn of less than 10% or unspecified amount Full thickness burn of left thigh, subsequent encounter S/P split thickness skin graft [facility] Diagnosis Onset Date Resolution Status Admit Date Encounter for insertion of v enous access port acute February 23, 2025 3 :34pm Liver cancer acute February 23 3:34pm [facility] Work Phone: Hospital course Narrative No data available for this section [facility] Discharge instructions No data available for this section [facility] Progress note No data available for this section [facility] Reason for referral (narrative)No reason for referral [facility] Work Phone: Summary Purpose Family History No Family History Records Found Relationship Condition Age at Onset Recorded Date/T ben father Malignant neoplasm Unknown brother Malignant neoplasm Unknown Advance Directives No Advanced Directives Records Found Advance Directive Response Recorded Date/ Time Living Will No December 12, 2024 3:49pm Do you have a Healthcare Power of Postal Service Clerk? No December 12, 2024 3:49pm Chief Complaint and Reason for Visit Chief Complaint Admit Date Amb Documentation October 20, 2024 4 :24pm SUSPECT MALIGNANCY LIVER AND BILIARY TRA CT October 23, 2024 2:38pm BACK INJURY December 12, 2024 3:4 4pm Reason for Visit Admit Date Liver masses October 23, 2024 2 :38pm Chief Complaint Admit Date BACK INJURY December 12, 2024 3:4 4pm Malignant neoplasm of overlapping sites of colon February 23, 2025 3:03pm PORT PLACEMENT February 23, 2025 3:34p m Reason for Visit Admit Date Encounter for insertion of venous access port February 23, 2025 3:34pm Liver cancer February 23, 2025 3:34p m Additional Source Comments (unrecognized sect ion and content) No Status Records FoundNo Status Records FoundNo Status Records FoundNo Status Records FoundNo Status Records FoundNo Status Records Found INFORMATION SOURCE (unrecogn ized section and content) DATE CREATED AUTHOR 08/16/2020 [facility] DATE CREATED AUTHOR AUTHOR'S ORGANIZ ATION 08/22/2021 [facility] ([place]) DATE CREATED AUTHOR AUTHOR'S ORGANIZ ATION 05/16/2023 [facility] DATE CREATED AUTHOR AUTHOR'S ORGANIZ ATION 11/01/[address] [facility] DATE CREATED AUTHOR AUTHOR'S ORGANIZ ATION 02/19/2025 [facility] DATE CREATED AUTHOR AUTHOR'S ORGANIZ ATION 02/24/2025 [facility] Care Teams (unrecognized sec tion and content) Long Distance Operator Relationship Specialty Start Date End Date No Primary Care[place] [address] PCP - General Pediatrics 12/07/22 Long Distance Operator Relationship Specialty Start Date End Date No Primary Care, MD [place] [place] [address] PCP - General Pediatrics 12/07/22 Long Distance Operator Relationship Specialty Start Date End Date No Primary Care, MD [place] [facility] [place] [address] PCP - General Pediatrics 12/07/22 Long Distance Operator Relationship Specialty Start Date End Date No Primary Care, MD [place] [facility] [place] [address] PCP - General Pediatrics 12/07/22 Long Distance Operator Relationship Specialty Start Date End Date No Primary Care, MD [place] [facility] [place] [address] PCP - General Pediatrics 12/07/22 Team Status: Active Member Role Status Dates Kristina Reese COURSE DEVELOPER, COURSE DEVELOPER-C Primary Care Provider Active Team Status: Active Member Role Status Dates Kristina Reese COURSE DEVELOPER, COURSE DEVELOPER-C Primary Care Provider Active Start: September Crista Fry Attending Provider Active Start: October 20, 2024 Team Status: Inactive Member Role Status Dates Kristina Reese COURSE DEVELOPER, COURSE DEVELOPER-C Primary Care Provider Active Start: September End: October 23, 2024 Kristina Reese COURSE DEVELOPER, COURSE DEVELOPER-C Referring Provider Active Start: October 23, 2024 End: October 23, 2024 Dr. Jenny Millard MD Attending Provider Active Start: October 23, 2024 End: October 23, 2024 Team Status: Active Member Role Status Dates Kristina Reese COURSE DEVELOPER, COURSE DEVELOPER-C Primary Care Provider Active Start: September Dr. Jenny Millard MD Attending Provider Active Start: October 23, 2024 Dr. Jenny Millard MD Referring Provider Active Start: October 23, 2024 Team Status: Inactive Member Role Status Dates Kristina Reese COURSE DEVELOPER, COURSE DEVELOPER-C Primary Care Provider Active Start: December 12, 2024 End: December 12, 2024 Dr. Chevy iMshra DO Emergency Provider Active Start: December 12, 2024 End: December 12, 2024 Team Status: Active Member Role Status Dates Elzbieta Ivory COURSE DEVELOPER, COURSE DEVELOPER-C Primary Care Provider Active Team Status: Inactive Member Role Status Dates Kristina Reese COURSE DEVELOPER, COURSE DEVELOPER-C Primary Care Provider Active Start: December 12, 2024 End: December 12, 2024 Dr. Chevy Mishra DO Attending Provider Active Start: December 12, 2024 End: December 12, 2024 Dr. Chevy Mishra DO Emergency Provider Active Start: December 12, 2024 End: December 12, 2024 Team Status: Active Member Role Status Dates Kristina Reese COURSE DEVELOPER, COURSE DEVELOPER-C Primary Care Provider Active Start: February 23, 2025 JENNIFER MANCERA MD Attending Provider Active St art: February 23, 2025 JENNIFER MANCERA MD Referring Provider Active St art: February 23, 2025 Team Status: Inactive Member Role Status Dates Kristina Reese COURSE DEVELOPER, COURSE DEVELOPER-C Referring Provider Ac tive Start: February 23, 2025 End: February 23, 2025 Dr. Alicia Benedict MD Attending Provider Active Start: February 23, 2025 End: February 23, 2025 Elzbieta Ivory COURSE DEVELOPER, COURSE DEVELOPER-C Primary Care Provider Active Start: February 23, 2025 End: February 23, 2025 Team Status: Inactive Member Role Status Dates Kristina Reese COURSE DEVELOPER, COURSE DEVELOPER-C Primary Care Provider Active Start: February 23, 2025 End: February 23, 2025 JENNIFER MANCERA MD Attending Provider Active St art: February 23, 2025 End: February 23, 2025 JENNIFER MANCERA MD Referring Provider Active St art: February 23, 2025 End: February 23, 2025 Reason for Visit (unrecogniz ed section and content) Reason Comments Burn Specialty Diagnoses / Procedures Referred By Contximena t Referred To Contact Diagnoses Full thickness burn of left thigh, initial encounter Scald burn Castellon involving less than 10% of body surface Full thickness burn of left thigh, initial encounter [T24.312A] Scald burn [T30.0] Castellon involving less than 10% of body surface [T31.0] Procedures SKIN GRAFT SPLIT THICKNESS - LIMITED AREA (<5% TBSA) [place] [address] Referral ID Status Reason Start Date Expiration Date Visits Re quested Visits Authorized [id number] 1 1 Reason Comments Burn Follow Up PRN Active and Recently Administ ered Medications (unrecognized section and content) Medication Order 12/10/2022 12/11/2022 12/12/2022 BUPivacaine HCl (MARCAINE) 10 mL (CANCELED) PRN, Starting on e 12/12/22 at 1540, Intra-op 1540 (Given - Provid er: Kristina Hairston MD) BUPivacaine liposome (EXPAREL) 1.3 % injection (CANCELED) PRN, Starting on Sun12/12/22 at 1540, Until Sun12/12/22 at 1545, Intra-op 1540 (Given - Provid er: Kristina Hairston MD) EPINEPHrine 1 mL in NaCl 0.9% 1,000 mL (CANCELED) PRN, Starting on Sun12/12/22 at 1448, Intra-op 1448 (Given - Provid er: Kristina Hairston MD - Comment: local injection at skin graft donor site) EPINEPHrine 1:1000 topical (ADRENALIN) 0.1 % 10 mL in NaCl 0.9% for irrigation 1,000 mL (CANCELED) PRN, Starting on Sun12/12/22 at 1452, Intra-op 1452 (Given - Provid er: Kristina Hairston MD - Comment: used throughout procedure) mineral oil (MURILUBE) sterile liquid (CANCELED) PRN, Starting on Sun12/12/22 at 1449, Until 12/12/22 at 1545, Intra-op 1449 (Given - Provid er: Kristina Hairston MD) Oxygen (CANCELED) See Flowsheet Row, PRN, Starting on Sun12/12/22 at 1616, Until Sun12/12/22 at 1649, Keep sats greater or equal to 95% 1545 (Gas Start - Pr ovider: Gala Toscano RN)1555 (Gas Stop - Provider: Gala Toscano RN) XEROFORM PETROLAT GAUZE 5X9 (XEROFORM) 5 x 9 dressing (CANCELED) PRN, Starting on Sun12/12/22 at 1456, Until Sun12/12/22 at 1545, Intra-op 1456 (Given - Provid er: Kristina Hairston MD) Goals (unrecognized section and content) Goals may be documented in a n alternate section FOR RECORDS PERTAINING TO PATIENTS WHO ARE OR HAVE BEEN ENROLLED IN A CHEMICAL DEPENDENCY/SUBSTANCEABUSE PROGRAM, SOME INFORMATION MAY BE OMITTED. This clinical summary was aggregated from multiple sources. Caution should be exercised in using it in the provision of clinical care. This summary normalizes information from multiple sources, and as a consequence, information in this document may materially change the coding, format and clinical context of patient data. In addition, data may be omitted in some cases. CLINICAL DECISIONS SHOULD BE BASED ON THE PRIMARY CLINICAL RECORDS. [facility] [employer] [facility]. provides no warranty or guarantee of the accuracy or completeness of information in this document.
[2025-02-25] MEDS: Lactated Ringers 1,000 ML 15 ML IV (08:02)
--- NOTE | 2025-02-25 08:33 | PCM.PRE.AN2 ---
ASA Classification* ASA Classification ASA Classification: 3 (paraplegic, liver cancer, asthma ) Assessment & Plan Anesthesia* Anesthesia Assessment Anesthesia Assessment: Discussed sedation and/or anesthesia options, risks, benefits, and alternatives with patient/parents/legal guardian/POA. Questions invited. The patient/parents/legal guardian/POA seems to understand and agrees to proceed with anesthesia plan. Reviewed the physical assessment, medical history, allergy history and patient home medications list prior to surgery/procedure/anesthetic and documented any changes. Performed airway and anesthesia risk assessments. Anesthesia Type Anesthesia Type: General (LMA) History Source History Obtained from:: Patient and Chart Anesthesia Focused Assessment* Temperature: 97.9 F Pulse Rate: 82 Blood Pressure: 120/55 Respiratory Rate: 16 Pulse Ox: 100 Oxygen Delivery Method: Room Air Airway Assessment Mouth opens: >3 cm Mallampati Score: II Teeth Condition: Intact Neck Range of motion (ROM): Full ROM Focused Labs Anesthesia Preop lab: CBC WBC 12.7 K/mm3 (4.4-11.0) H 10/23/24 16:10 10/23/24 RBC 4.61 M/mm3 (4.6-6.2) 10/23/24 16:10 10/23/24 Hgb 11.4 g/dL (13.0-16.5) L 10/23/24 16:10 10/23/24 Hct 36.9 % (40-54) L 10/23/24 16:10 10/23/24 Plt Count 476 K/mm3 (150-450) H 10/23/24 16:10 10/23/24 CHEMISTRY Potassium 4.0 mmol/L (3.5-5.1) 10/23/24 16:10 10/23/24 Sodium 134 mmol/L (136-145) L 10/23/24 16:10 10/23/24 BUN 15 mg/dL (7-18) 10/23/24 16:10 10/23/24 Creatinine 0.74 mg/dL (0.70-1.30) 10/23/24 16:10 10/23/24 Glucose 98 mg/dL (74-106) 10/23/24 16:10 10/23/24 COAG Pre-Assessment Diagnosis/Proposed Procedure Planned Operative Procedure(s): LEFT PORT PLACEMENT Anesthesia History Anesthesia History - telegraph office route aide: Anesthesia History - telegraph office route aide Hx Hospitalization No 02/24/25 10:53 Any Problems With Anesthesia No 02/24/25 10:53 Cholinesterase deficiency No 02/24/25 10:53 You/Your Family Experience No 02/24/25 10:53 fever (hyperthermia) with Relationship Recent Exposure to Contagious No 02/25/25 07:58 Disease Does patient have nerve No 02/24/25 10:53 stimulator Patient instructed to have device shut off --Does patient have Pacemaker No 02/25/25 07:58 or ICD? When Was Last Pacemaker Check QUESTION #4 FULL TEXT: You/Your Family Experience fever (hyperthermia) with Anesthesia Last Oral Intake Last Oral intake: Last Oral Intake NPO since 23:00 02/25/25 07:58 Meds taken in AM with sips of No 02/25/25 07:58 water? Meds patient instructed to take am of surgery PONV PONV - telegraph office route aide: PONV - telegraph office route aide Female No 02/24/25 10:53 HX of Motion Sickness No 02/24/25 10:53 HX of N/V After Surgery No 02/24/25 10:53 Non-Smoker Yes 02/24/25 10:53 Duration of Surgery greater No 02/24/25 10:53 than 60 minutes Number of Risk Factors 1 02/24/25 10:53 PONV Score Low Risk 02/24/25 10:53 Height & Weight Height & Weight: Anesthesia: Height & Weight Height 5 ft 8 in 02/25/25 07:58 Weight: 61.235 kg 02/25/25 07:58 Body Mass Index (BMI) 20.5 02/25/25 07:58 Respiratory Assessment Respiratory Assessment - telegraph office route aide: Respiratory Tract Infection Hx - telegraph office route aide Hx Respiratory Tract Infection No 02/24/25 10:53 STOP Sleep Apnea STOP Sleep Apnea - telegraph office route aide: STOP Sleep Apnea - telegraph office route aide Hx Hypertension No 02/24/25 10:53 Hx Sleep Apnea No 02/24/25 10:53 CPAP BIPAP Do you snore loudly (louder No 02/24/25 10:53 than talking or can be heard Do you often feel tired/ No 02/24/25 10:53 fatigued/ sleepy during daytime? Has anyone observed you stop No 02/24/25 10:53 breathing during sleep? STOP Results Negative 02/24/25 10:53 QUESTION #5 FULL TEXT : Do you snore loudly (louder than talking or can be heard through closed doors)? Tobacco Use History Tobacco Use History - telegraph office route aide: Tobacco Use History - telegraph office route aide Tobacco Use Smoking Status Never smoker 02/24/25 10:53 Hx Tobacco Use No 02/24/25 10:53 Years Smoking Packs Smoked per Day Smoking Cessation Date was within the last 15 years Hx Smoking Cessation Date Hx Smoking Cessation Counseling Hematologic Medial History Hematologic Hx - telegraph office route aide: Hematologic Medical Hx - documentation lead Hx of Blood Transfusion No 02/24/25 10:53 Hx of Transfusion in last 3 No 02/24/25 10:53 Months Date of Last Transfusion (if within last 3 months) Ever experience any problems No 02/24/25 10:53 with transfusion(s)? Specify any problems Hx of Preganancy in last 3 N/A 02/24/25 10:53 Months Nurse Filling Out Transfusion [facility] 02/24/25 10:53 & Questions: Date: 02/24/25 02/24/25 10:53 Time: 10:54 02/24/25 10:53 Patient unable to answer at this time (ie. confused, unrespo /Reproduction History /Reproductive History - telegraph office route aide: /Reproductive Hx- telegraph office route aide Hx Now Gestational Age (in weeks): EDC: Hx Hx Para Hx Section SAB Active Medications Active Medications: Current Medications Generic Name Dose Route Start Last Admin Trade Name Freq PRN Reason Stop Dose Admin Cefazolin Sodium 2 gm/ Sodium 110 mls @ 150 mls/hr 02/25/25 09:00 Chloride IV 02/25/25 09:43 INTRAOP ONE Lactated Ringer's 1,000 mls @ 15 mls/hr 02/25/25 07:15 02/25/25 08:02 IV 15 mls/hr .Q48H VINCENZO Administration PFSH Medical History (Updated 02/24/25 @ 11:00 by Ashtyn West) Wears hearing aid Wears glasses Cancer Uses wheelchair Functional voiding disorder Non-smoker Paraplegic immobility syndrome Liver masses Asthma Candidiasis Pruritus, unspecified Home Medications ?Medication ?Instructions ?Recorded ?Last Taken ?Type Liquid probiotic 5 ml PO DAILY 10/23/24 02/24/25 History D- manose 1 ea PO 2XD 10/23/24 02/24/25 History Liquid heart drops 2 gtt PO QHS 10/23/24 02/24/25 History Liquid kidney and bladder 2 gtt PO 1XD 10/23/24 02/24/25 History Resolution 2 ea PO BID 10/23/24 02/24/25 History hydrocodone-acetaminophen 5-325mg 1 tab PO Q6H PRN PRN Pain 3 days 12/12/24 Unknown Rx 5mg-325mg #10 TABLETS Allergy/AdvReac Type Severity Reaction Status Date / Time amoxicillin Allergy UTI Verified 02/25/25 07:56 Family History Father Cancer Brother Cancer Surgical History H/O skin graft Hx of appendectomy Hx of tonsillectomy Social History Smoking Status: Never smoker alcohol intake: never Review of Systems (Anesthesia) ROS Narrative System reviewed and no additional complaints, except as documented. Physical Exam Const alert, oriented x3 and average body habitus Resp normal respiratory effort, normal air movement and clear to auscultation bilaterally Cardio regular rate, regular rhythm, no murmurs and diaphoretic
--- NOTE | 2025-02-25 08:34 | PCM.HP.STD ---
HPI - General General Date of Admission: 02/25/25 Date of Service: 02/25/25 Chief Complaint: Need for Mediport placement HPI Narrative TERI RAHMAN, is a 74 M who presents for elective Mediport placement surgery today. He is undergoing chemotherapy and he was recommended to have a Mediport placement [facility] Medical History (Updated 02/24/25 @ 11:00 by Ashtyn West) Wears hearing aid Wears glasses Cancer Uses wheelchair Functional voiding disorder Non-smoker Paraplegic immobility syndrome Liver masses Asthma Candidiasis Pruritus, unspecified Home Medications ?Medication ?Instructions ?Recorded ?Last Taken ?Type Liquid probiotic 5 ml PO DAILY 10/23/24 02/24/25 History D- manose 1 ea PO 2XD 10/23/24 02/24/25 History Liquid heart drops 2 gtt PO QHS 10/23/24 02/24/25 History Liquid kidney and bladder 2 gtt PO 1XD 10/23/24 02/24/25 History Resolution 2 ea PO BID 10/23/24 02/24/25 History hydrocodone-acetaminophen 5-325mg 1 tab PO Q6H PRN PRN Pain 3 days 12/12/24 Unknown Rx 5mg-325mg #10 TABLETS Allergy/AdvReac Type Severity Reaction Status Date / Time amoxicillin Allergy UTI Verified 02/25/25 07:56 Family History Father Cancer Brother Cancer Surgical History H/O skin graft Hx of appendectomy Hx of tonsillectomy Social History Smoking Status: Never smoker alcohol intake: never Vital Signs Vital Signs Vital Signs: 02/25/25 07:58 02/25/25 07:58 Temperature 97.9 F Temperature Source Temporal Pulse Rate 82 Respiratory Rate 16 Respiratory Pattern Normal Blood Pressure 120/55 L Blood Pressure Mean 76 Blood Pressure Source Monitor Blood Pressure Position Sitting Blood Pressure Location Left Arm Pulse Ox 100 Oxygen Delivery Method Room Air Weight Weight: 135 lb Body Mass Index (BMI) 20.5 Physical Exam Const alert, oriented x3 and no apparent distress Assessment & Plan Assessment/Plan (1) Liver cancer: PLAN: Plan The patient is a 74-year-old male in need of a Mediport placement for chemotherapy purposes. He was seen by one of my partners. They discussed the details of the planned procedure including risks benefits and alternatives. He wishes to proceed. The surgery will begin momentarily. Charges/Coding Visit Charges Inpatient E&M: 46597 Init Hosp L3
[2025-02-25] MEDS: Cefazolin 2 GM in 0.9% Normal Saline (100mL Bag) 100 ML IV (08:44)
[2025-02-25] MEDS: Bupivacaine Mpf 0.5% 30 ML VIAL (09:45)
[2025-02-25] MEDS: Lidocaine 1% /Epi 1:100 (20ml) 20 ML Vial (09:45)
--- NOTE | 2025-02-25 10:12 | PCM.POST.ANE ---
Anesthesia: Postop Eval I Current Vital Signs Temperature: 97.7 F Pulse Rate: 85 Blood Pressure: 159/75 Respiratory Rate: 16 Pulse Ox: 100 Oxygen Delivery Method: Room Air Assessment Airway patent: Yes Spontaneous unlabored respirations: Yes Mental status: Awake and Calm nausea: No Vomiting: No Anesthesia Complication: No Fluid Hydration Crystalloid volume administer (ml): 400 Total IV fluid infused: 400 Progress Note Anesthesia document: Postop Eval 1 completed: Yes
--- NOTE | 2025-02-25 10:14 | EX.PCM.DISCH ---
Discharge Instructions Diet Discharge Diet: Light diet - advance as tolerated Activity Discharge Activity: Return to Normal Activity May shower in (days): 1 Ice area for (Minutes): 30 Dressing / Incision Call your doctor if your incision/area has: Continuous Slow Oozing, Sudden Increased Bleeding, Increased Pain/ Swelling, Increased Redness, Foul Smelling Discharge and Swelling at the incision site Call your doctor if you observe: Fever of 101 or Higher Remove Dressing in: 3 days Cleanse incision/area with: Soap & Water Follow Up Care Please Follow Up With: Harlan Jackson MD When: As needed Test Results: Test results from this visit will be discussed in further detail at your follow-up appointment, if applicable. Discharge Plan Admission Primary Reason for Your Visit: Port placement Attending Provider: Harlan Jackson Primary Care Provider: CHINTAN RILEY Instructions Print Language: Yi Discharge Orders/Prescriptions Prescriptions: New oxycodone-acetaminophen [Percocet] 5-325 mg tablet 1 tab PO Q8H PRN (Reason: pain) 3 Days Qty: 7 0RF Continued Liquid kidney and bladder 2 gtt PO 1XD Liquid probiotic 5 ml PO DAILY Liquid heart drops 2 gtt PO QHS D- manose 1 ea PO 2XD Resolution 2 ea PO BID hydrocodone-acetaminophen 5-325 mg tablet 1 tab PO Q6H PRN PRN (Reason: Pain) 3 Days Qty: 10 0RF Referrals / Follow Up: CHINTAN RILEY, [employer] [Primary Care Provider] - Disposition Disposition (needs filled in before D/C Order can be placed): Home, Self Care
--- NOTE | 2025-02-25 10:17 | SUR.PHASEI ---
NOTED TO HAVE PERIODS OF OBSTRUCTED BREATHING AND APNEA, CURRENTLY NONE NOTED LONGER THAN 10 SECONDS.
--- NOTE | 2025-02-25 10:17 | PCM.OPRPT ---
Problems Associated Problem List Diagnoses (1) Liver cancer: Procedures Cardiovascular CF Procedures [id number]: [id number] Insert tunneled cv cath Operative Report (Standard) Operative Information Date of Procedure: 02/25/25 Pre-Operative Diagnosis: Liver cancer Post-Operative Diagnosis: Same Surgery/Procedure Performed: 1. Attempted left Mediport insertion 2. Successful right subclavian Mediport placement with C arm general assembler installer: No Type of Anesthesia: MAC RN Documented Start/Stop Times: Operation Date: 02/25/25 09:00 Case Time Into Pre-Op 02/25/25 07:07 Anesthesia Start 02/25/25 08:44 Into Room 02/25/25 08:44 Procedure Start 02/25/25 09:07 Procedure End 02/25/25 10:03 Anesthesia End 02/25/25 10:04 Out of Room 02/25/25 10:04 Into Recovery 02/25/25 10:06 Procedure Start Time: 09:07 Procedure Stop Time: 10:03 Select all DRAINS/GRAFTS/IMPLANTS that apply: None Special Medications: 2 g Ancef IV Estimated Blood Loss: 10 mL Specimen collected: No Description of surgery: The patient is a 74-year-old male who is being seen today for Mediport placement. He was seen by 1 my partners day before yesterday to discuss Mediport placement. I was asked to place the port. This was scheduled as a left possible right port placement. We discussed the details of the planned procedure including risks benefits and alternatives. He wished to proceed. He was brought to the operative room today following informed consent. Preoperative antibiotics were given and a timeout was performed. He was placed supine on the operative table with arms at the sides. MAC anesthesia was induced. He was placed in mild Trendelenburg position. Axillary roll was placed between the shoulder blades. The left chest was prepped and draped in the usual sterile manner. Local anesthetic was infiltrated in the left periclavicular area. I was able to gain access to the left subclavian vein on the first pass. Unfortunately, the guidewire did not advance without resistance. This seemed to take a somewhat nontraditional path. This seemed to dive inferiorly and then did cross midline however then stopped rather abruptly and did not go down into the vena cava as this normally would. This was attempted several times. I then switched to a left IJ approach under ultrasound. A similar finding was noted with the guidewire. I did not feel comfortable placing the port on the left side. We then took the drapes down and prepped the right side as well as the left. Local anesthetic was then injected into the right periclavicular area. I was able to gain access to the right subclavian vein on the first pass. Guidewire initially had resistance however under fluoroscopy I was able to direct the guidewire inferiorly into the vena cava and the more traditional path. At this point a marking pen was used to indicate the site of planned incision. Additional local anesthetic was infiltrated. #15 blade was then used to make a skin incision. Bovie electrocautery was then used dissect down through subcutaneous tissues down to the level of the pectoralis fascia. At this level a subcutaneous pocket was created. A #15 blade was also used to make a small skin incision at the entry point of the guidewire. The tubing was then connected to the tunneling device and this was inserted into the larger incision and brought up and out through the smaller incision. the tubing was trimmed to about 21 or 22 cm. The tubing was then connected to the Mediport hub. The hub was then affixed to the chest wall using Prolene suture x 2. The dilator and tear-away sheath were then threaded over the guidewire and advanced. This was performed under C arm fluoroscopy. The dilator and guidewire were then removed thus leaving the sheath in place. This was performed under ultrasound as well. The free end of the tubing was then threaded down the sheath. The sheath was then extracted. This was removed without difficulty. The port was tested. It junie and flushed very easily. It was initially thought that his chemotherapy was to be performed tomorrow and the port was accessed. This junie and flushed easily. It was then flushed with heparin. Gauze dressing was applied. He tolerated the procedure well. Surgical Findings: See operative note Complications Complications: No Admit VTE Documentation VTE Present on Admission: No VTE Mechan Device Prophylaxis: SCD's VTE Pharm Prophylaxis ordered?: No Reason prophylaxis not ordered: Treatment Not Indicated
--- NOTE | 2025-02-25 10:25 | RAD_ITS ---
PROCEDURE: CXR FOR LINE PLACEMENT 02/25/2025 REASON FOR EXAM: PORT INSERTION TECHNIQUE: AP portable upright chest COMPARISON: Chest x-ray 12/12/2024. RAD/CXR for Line Placement IMPRESSION: No interval osseous changes seen. Prominent degenerative changes are seen of t he shoulder joints. Partially visualized thoracolumbar fixation device appear stable. A right subclavian central venous catheter with port is seen, with tip projecti ng near the expected junction of the SVC and right atrium. Chronic lung changes are again seen, but no acute pneumonic process is noted. No pleural effusion or pneumothorax is seen. The cardiomediastinal silhouette is stable, without evidence of cardiomegaly. Reading Location: [id number]
--- NOTE | 2025-02-25 10:55 | POSTOPAN2_ITS ---
Anesthesia Postop Eval I Sum Postop Eval Completion status Anesthesia document: Postop Eval 1 completed: Yes Anesthesia Postop Eval I Summary Anesthesia Postop Eval I Summary: Anesthesia Postop Eval I: Assessment Summary Airway patent Yes 02/25/25 10:13 [email or web address] Spontaneous unlabored Yes 02/25/25 10:13 [email or web address] [email or web address] respirations Mental status Awake,Calm 02/25/25 10:13 [email or web address] [email or web address] nausea No 02/25/25 10:13 [email or web address] [email or web address] Vomiting No 02/25/25 10:13 [email or web address] Anesthesia Postop Eval I: Fluid Summary Crystalloid volume administer 400 02/25/25 10:13 [email or web address] (ml) Colloids volume administered ( ml) Blood Product volume administered (ml) Total IV fluid infused 400 02/25/25 10:13 [email or web address] Anesthesia Postop Eval I: Summary Notes Anesthesia Complication No 02/25/25 10:13 [email or web address] Anesthesia Complication Comment: Post-operative progress note Anesthesia: Postop Eval II Evaluation Mental status: Awake Pain Level: 0 nausea: No Vomiting: No Complications Anesthesia Complication: No
--- NOTE | 2025-02-25 10:55 | PCM.POSTANE2 ---
Anesthesia Postop Eval I Sum Postop Eval Completion status Anesthesia document: Postop Eval 1 completed: Yes Anesthesia Postop Eval I Summary Anesthesia Postop Eval I Summary: Anesthesia Postop Eval I: Assessment Summary Airway patent Yes 02/25/25 10:13 [email or web address] Spontaneous unlabored Yes 02/25/25 10:13 [email or web address] respirations Mental status Awake,Calm 02/25/25 10:13 [email or web address] nausea No 02/25/25 10:13 [email or web address] Vomiting No 02/25/25 10:13 [email or web address] Anesthesia Postop Eval I: Fluid Summary Crystalloid volume administer 400 02/25/25 10:13 [email or web address] (ml) Colloids volume administered ( ml) Blood Product volume administered (ml) Total IV fluid infused 400 02/25/25 10:13 [email or web address] Anesthesia Postop Eval I: Summary Notes Anesthesia Complication No 02/25/25 10:13 [email or web address] [email or web address] Anesthesia Complication Comment: Post-operative progress note Anesthesia: Postop Eval II Evaluation Mental status: Awake Pain Level: 0 nausea: No Vomiting: No Complications Anesthesia Complication: No
== END 2025-02-25 11:50 | disposition home or self-care (01) ==
LOC: SDC 06:54 → AC 06:55
PROVIDERS: PCP Nurse Practitioner Family; Referring Provider Surgery; Visit Provider Surgery
PROC: (CPT 36561; principal; 2025-02-25 08:45)
DX: Z45.2 Encounter for adjustment and management of vascular access device (principal); C22.9 Malignant neoplasm of liver, not specified as primary or secondary
CPT/HCPCS: 36561; 00532; 71045; 77001; A4216; C1788; J2405

== ENCOUNTER 2025-06-23 08:00 | Outpatient (RCR) | payer MEDICARE, SELFPAY ==
[2025-06-18 10:53] VITALS: BP 153/75; PULSE 73; RESP 18; TEMP 35.6
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
--- NOTE | 2025-06-18 14:30 | WC ---
PHOTO-RIGHT LATERAL ANKLE 06/18/25
--- NOTE | 2025-06-18 14:38 | WC ---
PHOTO-RIGHT LAT FOOT 06/18/25
--- NOTE | 2025-06-18 14:46 | WC ---
PHOTO-RIGHT MED ANKLE 06/18/25
--- NOTE | 2025-06-18 14:53 | WC ---
PHOTO-LEFT LAT ANKLE 06/18/25
--- NOTE | 2025-06-18 15:00 | WC ---
PHOTO-LEFT LATERAL FOOT 06/18/25
[2025-06-22 14:28] VITALS: BP 134/76; PULSE 78; RESP 18; TEMP 36.3
--- NOTE | 2025-06-23 07:49 | VDLE_ITS ---
Reason For Study Reason For Study: BLE Wounds RIGHT LEFT CFV is compressible, spontaneous, phasic, competent CFV is compressible, spontaneous, phasic, competent, and demonstrates normal augmentation. and demonstrates normal augmentation. FV is compressible, spontaneous, phasic, competent FV is compressible, spontaneous, phasic, competent and demonstrates normal augmentation. and demonstrates normal augmentation. POP V is compressible, spontaneous, phasic, competent POP V is compressible, spontaneous, phasic, competent and demonstrates normal augmentation. and demonstrates normal augmentation. T/P Trunk is compressible. T/P Trunk is compressible. PTV is compressible. PTV is compressible. RT PerV is compressible. LT PerV is compressible. SFJ is competent and measures 0.41 cm. SFJ is competent and measures 0.44 cm. GSV proximal thigh measures 0.24 x 0.31 cm. GSV proximal thigh measures 0.21 x 0.24 cm. GSV at knee measures 0.21x 0.25 cm. GSV at knee measures 0.19 x 0.21 cm. GSV is competent throughout. GSV is competent throughout. SSV mid calf is competent and measures 0.25 x 0.31 SSV mid calf is competent and measures 0.31x 0.42 cm. cm. Procedure Exam performed in department. This is a venous duplex using B-mode, color flow and spectral Doppler. The exam was diagnostic. Patient was scanned in reverse Trendelenburg position during reflux assessment. VL/Venous Duplex US - Jakob Extrem Interpretation Summary Deep veins of the lower extremities are bilaterally patent and compressible seg mentally. There is no evidence of deep vein thrombosis on either side. Valvular competence appears intact within the p roximal deep venous systems bilaterally. The great saphenous veins appear bilaterally patent and compressible segmentall y. Sapheno-femoral junctions are bilaterally competent . Valvular competence appears to be intact segmentally wi thin the great saphenous veins bilaterally. Small saphenous veins are patent and competent bilaterally. Ordering Physician: Hank Mac Referring Physician: David Camp Performed By: Terry Stafford RVT
--- NOTE | 2025-06-23 07:49 | ART_ITS ---
Reason For Study Reason For Study: PVD Procedure A bilateral lower extremity continuous wave Doppler with analog waveform analysis,segmental pressures,and ankle brachial indexes without exercise. Left Segmental Pressures Left brachial= 137mmHg. Left low thigh = 154mmHg. Left calf = 144mmHg. Left posterior tibial artery = 144mmHg. Left dorsalis pedis artery = 156mmHg. Left digit = 103 mmHg. The left posterior tibial artery waveforms are triphasic. The left dorsalis pedis waveforms are triphasic. Right Segmental Pressures Right brachial= 129mmHg. Right low thigh = 117mmHg. Right posterior tibial artery = 100mmHg. Right dorsalis pedis artery = 104mmHg. Right digit = 53 mmHg. The right posterior tibial artery waveforms are biphasic. The right dorsalis pedis waveforms are biphasic. Indices The right ankle brachial index by the posterior tibial artery is 0.73. The right ankle brachial index by the dorsalis pedis is 0.76. The right digital-brachial index is 0.39. The left ankle brachial index by the posterior tibial artery is 1.05. The left ankle brachial index by the dorsalis pedis is 1.14. The left digital-brachial index is 0.75. VL/Lower Ext Art Exam w/o Exercis Interpretation Summary Biphasic Doppler waveforms are noted at ankle level on the right. Triphasic Dop pler waveforms are noted at ankle level on the left. Pulse-volume recordings appear diminished at digital level on the right, but satisfactory at all other levels bilaterally. The resting right ankle-brachial index is moderately dimini shed. The resting left ankle-brachial index is normal. The right digital-brachial index is moderately diminished. The left digital-brachial index is normal. 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 There is no evidence of significant arterial occlusive disease in the left lower extr emity. Ordering Physician: Hank Mac Referring Physician: David Camp Performed By: JESSICA MACHADO RVT
--- NOTE | 2025-06-23 08:23 | WC ---
Dr. Hines transfers care of this patient over to Dr. Mac as of 06/18/25
--- NOTE | 2025-06-23 09:10 | RAD_ITS ---
PROCEDURE: ANKLE MIN 3 VIEWS 06/23/2025 REASON FOR EXAM: FOOT ULCERS TECHNIQUE: Procedure Code: RADANK Modality: DX Procedure: ANKLE MIN 3 VIEWS Three views of the left ankle COMPARISON: None FINDINGS: There is a soft tissue defect overlying the lateral malleolus. 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 The ankle mortise is not widened. There is no fracture identified. Osteopenia is noted. Atherosclerotic calcifications are visible. RAD/Ankle min 3 Views IMPRESSION: There is a soft tissue defect overlying the lateral malleolus. There is no rad iographically visible osteomyelitis. MRI with and without contrast or three-phase bone scan could be helpful for further characte rization if clinically indicated. Reading Location: [facility]
--- NOTE | 2025-06-23 09:10 | RAD_ITS ---
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 There is no acute fracture or dislocation identified. Osteopenia is noted. There is no focal soft tissue abnormality or visible radiopaque foreign body. Vascular calcifications are visible. RAD/Foot min 3 Views IMPRESSION: No acute fracture or dislocation is identified. Reading Location: [facility]
--- NOTE | 2025-06-23 09:10 | RAD_ITS ---
PROCEDURE: FOOT MIN 3 VIEWS 06/23/2025 REASON FOR EXAM: FOOT ULCERS TECHNIQUE: Procedure Code: RADFO Modality: DX Procedure: FOOT MIN 3 VIEWS Three views of the left foot COMPARISON: None FINDINGS: There is moderate osteoarthritis in the midfoot and 1st tarsometatarsal articulation. No acute fracture or dislocation is identified. Osteopenia is noted. There is no focal soft tissue abnormality or radiopaque foreign body. RAD/Foot min 3 Views IMPRESSION: Degenerative changes with no acute fracture or dislocation identified. Reading Location: [facility]
--- NOTE | 2025-06-23 09:10 | RAD_ITS ---
PROCEDURE: ANKLE MIN 3 VIEWS 06/23/2025 REASON FOR EXAM: FOOT ULCERS TECHNIQUE: Procedure Code: RADANK Modality: DX Procedure: ANKLE MIN 3 VIEWS Three views of the right ankle COMPARISON: None FINDINGS: There is an old healed fracture of the distal 3rd of the tibia which appears well corticated. 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 No acute fracture or dislocation is identified. There is a soft tissue defect over the lateral malleolus. There is no visible osteomyelitis. Vascular calcifications are visible. RAD/Ankle min 3 Views IMPRESSION: There is an old healed fracture of the distal 3rd of the tibia which appears we ll corticated. There is a soft tissue defect over the lateral malleolus. There is no radiogra phically visible osteomyelitis. Reading Location: [facility]
--- NOTE | 2025-06-24 13:17 | HP.PCM_ITS ---
History of Present Illness Date of Service: 06/22/25 Chief Complaint: Bilateral lower extremity ulcerations History of Wound: The patient is a 74-year-old male presenting with severe ankle wounds with exposed bone. 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 Recently, the patient has been undergoing chemotherapy for liver cancer (he takes Avastin), which has contributed to the deterioration of his skin integrity and the development of the current wounds which have been present for several weeks. The ankle wounds have been present for approximately three weeks and are characterized by exposed fibula bone at the lateral malleolus. The patient is neutropenic, with a low white blood cell count of 3.1 and low neutrophils at 25%, which complicates the healing process. The patient has been managing his condition with pressure offloading techniques, including the use of a hobo mattress and sheepskin, to prevent further pressure sores. He has not yet received assistance from home health services for wound care, although they are scheduled to begin soon. ROS: - Musculoskeletal: Reports inability to move legs due to paraplegia. - Integumentary: Reports presence of ankle wounds with exposed bone. - Hematologic: Reports neutropenia. Attestation: Documentation on this patient encounter was supported using ambient scribe technology/ voice AI technology. The patient consented to recording for the purpose of documenting the encounter. Provider reviewed content of the generated note prior to signature. [facility] Medical History (Updated 06/18/25 @ 12:[address] Demarcus Hines, DPM) Wears hearing aid Wears glasses Cancer Uses wheelchair Functional voiding disorder Non-smoker Paraplegic immobility syndrome Liver masses Asthma Candidiasis Pruritus, unspecified Home Medications Medication Instructions Recorded Last Taken Type Liquid probiotic 5 ml PO DAILY 10/23/2402/24 History Liquid heart drops 2 gtt PO QHS 10/23/24 History Liquid kidney and bladder 2 gtt PO 1XD 10/23/24 History Resolution 2 ea PO BID 10/23/24 5 History tramadol 50 mg tablet 50 mg PO Q6H PRN PRN pain Unknown History Allergy/AdvReac Type Severity Reaction Status Date / Time amoxicillin Allergy UTI Verified 02/25/25 07:56 Family History Father Cancer Brother Cancer Surgical History H/O skin graft Hx of appendectomy Hx of tonsillectomy Social History Smoking Status: Never smoker alcohol intake: never Vital Signs Vital Signs Vital Signs: Weight Weight: 140 lb Body Mass Index (BMI) 20.0 Physical Exam Narrative - Musculoskeletal: Exposed fibula bone at the lateral malleolus of the ankles bilaterally and a right medial ankle eschar. - Vascular: Diminished pulses in the lower extremities thready 1+ dorsalis pedis. 6 different pedal/ankle wounds Debridement Note Debridement Note No debridement was completed: No debridement was completed today Post-Debridement Measurements and Additional Note: Post-Debridement Measurements/Treatment WC - Nurse 1 - General Ulcer Assessment Start: 06/18/25 10:48 Freq: Status: Active Protocol: VERNON Activity Type Activity Date Activity User E-sign Co-sign Detail Recorded Client Recorded Date Recorded By Document 06/18/25 10:53 RB [id number] 06/18/25 11:02 RB Document 06/22/25 14:28 [id number] 06/22/25 14:40 06/18/25 06/22/25 10:53 14:28 - Today's Visit Information Type of service Initial Visit Follow-up Visit (Physician/BORDEREAU CLERK ) Arrival Mode Wheelchair Wheelchair Transfer Assistance Manual None Accompanied by Patient Identification Verified (Name & Yes Yes ) Patient Requires Transmission-Based No Precautions Height and Weight Height 5 ft 10 in Weight 140 lb Weight in Pounds 140.0 lbs Body Mass Index (BMI) 20.0 20.0 BMI Classification Normal Normal Vital Signs Temperature (97.8 F-99.1 F) 96.1 F L 97.3 F L Temperature Source Temporal Temporal Pulse Rate (60-100) 73 78 Pulse Location Monitor Monitor Respiratory Rate (12-18) 18 18 Respiratory rate source Observation Observation Oxygen Delivery Method Room Air Blood Pressure (90/60-120/80) 153/75 H 134/76 H Blood Pressure Mean 101 95 Source Monitor Monitor Position Semi-Fowlers Sitting Blood Pressure Location Left Arm Right Arm History Since Last Visit- (Skip if this is Patient's initial visit) Have you changed medications since your No last visit? Any new allergies or adverse reactions No Had a fall/change in ADL's that may No increase risk of falls Signs or symptoms of abuse and/or No neglect since last visit Have you been in the hospital since your No last visit? Has dressing in place as prescribed Yes Has compression in place as prescribed N/A Has offloadiing in place as prescribed Yes Experienced any changes in pain level or No management Left Footwear Regular Shoe Other Footwear (Comment) Right Footwear Regular Shoe Other Footwear (Comment) Other Footwear HEEL BOOTS Pain Scale: 0-10 Numeric Is Patient Pain Free? Yes Yes Neuropathy Assessment Feet - Top Side and Bottom <Entered> (a) Communication Assessment Preferred language Amharic Online Marketing Strategist Required No Able to Read Yes Able to Write Yes Communication Tools None Right Hearing Abillity Normal Left Hearing Abillity Normal Visual Assistive Devices Glasses Teaching Assessment Preferences Written Barriers to Learning None Readiness To Learn Good Willingness to Engage in Self Management Med Activies Readiness to Engage in Self Management Med Activities Anxiety Level Calm Cooperation Cooperative Perception Coherent Interest in Health Problem Asks Questions Education Importance Acknowledges Need Does Patient Smoke tobacco or other No substances Smoking Status Never smoker Is Patient Diabetic No Functional Assessment Recent Decline in Ability to Perform Denies Any Declines Culture/Sikh/Palletiser Operator Cultural/Sikh Needs that may affect No Treatment Plan Would you allow our hospital mental health professional to No meet you for the purpose of spiritual/ emotional support? Palletiser Operator to contact place of evangelical No Teaching: Wound Center *Welcome to the Wound Center -Person Taught Patient,Family -Teaching Method Discussion -Response to teaching Verbalize Understanding (a) 1 - - throughout WC - Nurse 1 - General Ulcer Measurement Start: 06/18/25 10:48 Freq: Status: Active Protocol: Activity Type Activity Date Activity User E-sign Co-sign Detail Recorded Client Recorded Date Recorded By Document 06/18/25 10:53 RB [id number] 06/18/25 11:02 RB Document 06/22/25 14:28 [id number] 06/22/25 14:40 06/18/25 06/22/25 10:53 14:28 Wound Center Nurse 1 #6 left med knee -Current Size (cm) - Length 0.1 -Current Size (cm) - Width 0.1 -Current Size (cm) - Depth 0.1 -Total Square Cm 0.01 -Photo Taken No -Epithelialization Small 1-33% -Tunneling No -Undermining/Tunneling No -Circular Undermining No -Exudate Type Yellow/Green -Granulation Amt Medium (34-66%) -Granulation Quality [place] -Slough/Fibrin No -Necrosis Amt None Present (0 %) -Texture (Ora-wound Skin Appearance) Assessed -Moisture (Ora-wound Skin Appearance) Assessed -Color (Ora-wound Skin Appearance) Assessed -Temperature (Ora-wound Skin No Abnormality Appearance) (Pt Warm) -Tenderness on Palpation (Ora-wound No Skin Appearance) 5. L lat ankle -Combined with other wound No -Current Size (cm) - Length 3.5 0.1 -Current Size (cm) - Width 3 0.1 -Current Size (cm) - Depth 0.3 0.1 -Total Square Cm 10.5 0.01 -Photo Taken Yes No -Epithelialization None Present -Tunneling No No -Undermining/Tunneling No No -Circular Undermining No No -Exudate Amt Medium Medium -Exudate Type Serosanguineous Yellow/Green -Wound Margin Distinct, Distinct, Outline Outline Attached Attached -Granulation Amt Medium (34-66%) Medium (34-66%) -Granulation Quality [place] -Slough/Fibrin Yes Yes -Necrosis Amt Medium (34-66%) Small (1-33%) -Necrotic Tissue Type Adherent Slough Adherent Slough -Structure Exposed N/A -Texture (Ora-wound Skin Appearance) Assessed Assessed -Moisture (Ora-wound Skin Appearance) Assessed Assessed -Color (Ora-wound Skin Appearance) Assessed Assessed -Temperature (Ora-wound Skin No Abnormality No Abnormality Appearance) (Pt Warm) (Pt Warm) -Tenderness on Palpation (Ora-wound No No Skin Appearance) -Ulcer Cleansing Wound Cleanser Soap and Water -Foul Odor after Cleansing No No 4. L lat foot -Combined with other wound No -Current Size (cm) - Length 0.1 0.1 -Current Size (cm) - Width 0.1 0.1 -Current Size (cm) - Depth 0.1 0.1 -Total Square Cm 0.01 0.01 -Photo Taken Yes No -Epithelialization Small 1-33% -Tunneling No No -Undermining/Tunneling No No -Circular Undermining No No -Exudate Amt Medium Small -Exudate Type Serosanguineous Yellow/Green -Wound Margin Distinct, Distinct, Outline Outline Attached Attached -Granulation Amt Medium (34-66%) Small (1-33%) -Granulation Quality [place] -Slough/Fibrin Yes Yes -Necrosis Amt Medium (34-66%) Small (1-33%) -Necrotic Tissue Type Adherent Slough Adherent Slough -Structure Exposed N/A -Texture (Ora-wound Skin Appearance) Assessed, Assessed Friable -Moisture (Ora-wound Skin Appearance) Assessed Assessed -Color (Ora-wound Skin Appearance) Assessed Assessed -Temperature (Ora-wound Skin No Abnormality No Abnormality Appearance) (Pt Warm) (Pt Warm) -Tenderness on Palpation (Ora-wound No No Skin Appearance) -Ulcer Cleansing Wound Cleanser Soap and Water -Foul Odor after Cleansing No No 3. R medial ankle -Combined with other wound No -Current Size (cm) - Length 2 0.1 -Current Size (cm) - Width 1.7 0.1 -Current Size (cm) - Depth 0.1 0.1 -Total Square Cm 3.4 0.01 -Photo Taken Yes No -Epithelialization Small 1-33% -Tunneling No No -Undermining/Tunneling No No -Circular Undermining No No -Exudate Amt Medium Medium -Exudate Type Serosanguineous Yellow/Green -Wound Margin Thickened & Distinct, Rolled Under Outline Attached -Granulation Amt Medium (34-66%) Small (1-33%) -Granulation Quality [place] -Slough/Fibrin Yes No -Necrosis Amt Medium (34-66%) Small (1-33%) -Necrotic Tissue Type Adherent Slough Adherent Slough -Structure Exposed N/A -Texture (Ora-wound Skin Appearance) Assessed Assessed -Moisture (Ora-wound Skin Appearance) Assessed Assessed -Color (Ora-wound Skin Appearance) Assessed Assessed -Temperature (Ora-wound Skin No Abnormality No Abnormality Appearance) (Pt Warm) (Pt Warm) -Tenderness on Palpation (Ora-wound No No Skin Appearance) -Ulcer Cleansing Wound Cleanser Soap and Water -Foul Odor after Cleansing No No 2. R lateral ankle -Combined with other wound No -Current Size (cm) - Length 3.9 0.1 -Current Size (cm) - Width 4 0.1 -Current Size (cm) - Depth 0.3 0.1 -Total Square Cm 15.6 0.01 -Photo Taken Yes No -Epithelialization Small 1-33% -Tunneling No No -Undermining/Tunneling No No -Circular Undermining No No -Exudate Amt Medium Medium -Exudate Type Serosanguineous Yellow/Green -Wound Margin Distinct, Distinct, Outline Outline Attached Attached -Granulation Amt Medium (34-66%) Medium (34-66%) -Granulation Quality [place] -Slough/Fibrin Yes Yes -Necrosis Amt Medium (34-66%) Medium (34-66%) -Necrotic Tissue Type Necrosis of Adherent Slough Bone -Structure Exposed N/A -Texture (Ora-wound Skin Appearance) Assessed Assessed -Moisture (Ora-wound Skin Appearance) Assessed Assessed -Color (Ora-wound Skin Appearance) Assessed Assessed -Temperature (Ora-wound Skin No Abnormality No Abnormality Appearance) (Pt Warm) (Pt Warm) -Tenderness on Palpation (Ora-wound No No Skin Appearance) -Ulcer Cleansing Wound Cleanser Soap and Water -Foul Odor after Cleansing No No -Anesthetic Used 5% Lidocaine Gel 1.R lateral foot/ 5th metatarsal -Combined with other wound No -Current Size (cm) - Length 1.5 0.1 -Current Size (cm) - Width 1 0.1 -Current Size (cm) - Depth 0.1 0.1 -Total Square Cm 1.5 0.01 -Photo Taken Yes No -Epithelialization None Present -Tunneling No No -Undermining/Tunneling No No -Circular Undermining No No -Exudate Amt Medium Small -Exudate Type Serosanguineous Yellow/Green -Wound Margin Distinct, Distinct, Outline Outline Attached Attached -Granulation Amt Medium (34-66%) Small (1-33%) -Granulation Quality [place] -Slough/Fibrin Yes Yes -Necrosis Amt Small (1-33%) Small (1-33%) -Necrotic Tissue Type Adherent Slough Adherent Slough -Structure Exposed N/A -Texture (Ora-wound Skin Appearance) Assessed, Assessed Friable, Localized Edema -Moisture (Ora-wound Skin Appearance) Assessed Assessed -Color (Ora-wound Skin Appearance) Assessed Assessed -Temperature (Ora-wound Skin No Abnormality No Abnormality Appearance) (Pt Warm) (Pt Warm) -Tenderness on Palpation (Ora-wound No No Skin Appearance) -Ulcer Cleansing Wound Cleanser Soap and Water -Foul Odor after Cleansing No No Lower Limb Edema Present Yes Right Calf (cm) 25.5 Right Ankle (cm) 21.5 Left Calf (cm) 26.5 Left Ankle (cm) 21.5 WC - Nurse 2 - General Ulcer CM Notes Start: 06/18/25 10:48 Freq: Status: Active Protocol: Activity Type Activity Date Activity User E-sign Co-sign Detail Recorded Client Recorded Date Recorded By Document 06/18/25 11:25 DS [id number] 06/18/25 11:45 DS Edit Result 06/18/25 11:25 DS (1) [id number] 06/18/25 11:46 DS Edit Result 06/18/25 11:25 DS (2) [id number] 06/19/25 07:29 DS Document 06/22/25 15:05 JF [id number] 06/22/25 15:30 JF (1) #6 left med knee - Time => 11:46 - Correct Patient => Yes - Correct Side, Site, Position => Yes - Procedure Performed => No - Post Debridement (cm) - Length => 0.1 - Post Debridement (cm) - Width => 0.1 - Post Debridement (cm) - Depth => 0.1 - Total Square (Post) (cm) => 0.01 - Area of Debridement (cm) - Length => 0.1 - Area of Debridement (cm) - Width => 0.1 - Total Square (Area) (cm) => 0.01 - Tunneling => No - Undermining/Tunneling => No - Circular Undermining => No - Wound/Ulcer Outcome => Not Healed (2) 4. L lat foot - Clinical Debridement => Subcutaneous - Tissue Removed => Subcutaneous - Debridement - Subq, 1st 20sq cm => No 2. R lateral ankle - Debridement, Bone, ea addt'l 20sq cm => 1 or part thereof 06/18/25 06/22/25 11:25 15:05 Wound Center Nurse 2 #6 left med knee -Time 11:46 -Correct Patient Yes Yes -Correct Side, Site, Position Yes No -Correct Procedure No -Procedure Performed No No -Post Debridement (cm) - Length 0.1 0 -Post Debridement (cm) - Width 0.1 0 -Post Debridement (cm) - Depth 0.1 0 -Total Square (Post) (cm) 0.01 0 -Area of Debridement (cm) - Length 0.1 0 -Area of Debridement (cm) - Width 0.1 0 -Total Square (Area) (cm) 0.01 0 -Tunneling No -Undermining/Tunneling No -Circular Undermining No -Wound/Ulcer Outcome Not Healed Healed- Epithelialized 5. L lat ankle -Time 11:25 -Correct Patient Yes Yes -Correct Side, Site, Position Yes No -Correct Procedure Yes No -Procedure Performed Yes No -Type of Procedure Debridement -Clinical Debridement Bone -Tissue Removed Fascia -Post Debridement (cm) - Length 4.0 -Post Debridement (cm) - Width 3.2 -Post Debridement (cm) - Depth 0.5 -Total Square (Post) (cm) 12.80 -Area of Debridement (cm) - Length 4.0 -Area of Debridement (cm) - Width 3.2 -Total Square (Area) (cm) 12.80 -Tunneling No -Undermining/Tunneling No -Circular Undermining No -Wound/Ulcer Outcome Not Healed -Ulcer Cleansing Rinsed/ Irrigated with Saline -Foul Odor after Cleansing No -Bioengineered Tissue No -Bleeding Controlled with Pressure -Treatment Response Procedure Tolerated Well -Debridement - Bone, 1st 20sq cm No 4. L lat foot -Time 11:26 -Correct Patient Yes Yes -Correct Side, Site, Position Yes No -Correct Procedure Yes No -Procedure Performed Yes No -Type of Procedure Debridement -Clinical Debridement Subcutaneous -Tissue Removed Subcutaneous -Post Debridement (cm) - Length 0.1 -Post Debridement (cm) - Width 0.1 -Post Debridement (cm) - Depth 0.1 -Total Square (Post) (cm) 0.01 -Area of Debridement (cm) - Length 0.1 -Area of Debridement (cm) - Width 0.1 -Total Square (Area) (cm) 0.01 -Tunneling No -Undermining/Tunneling No -Circular Undermining No -Wound/Ulcer Outcome Not Healed Not Healed -Ulcer Cleansing Rinsed/ Irrigated with Saline -Foul Odor after Cleansing No -Bioengineered Tissue No -Bleeding Controlled with Pressure -Treatment Response Procedure Tolerated Well -Debridement - Subq, 1st 20sq cm No 3. R medial ankle -Time 11:26 -Correct Patient Yes Yes -Correct Side, Site, Position Yes No -Correct Procedure Yes No -Procedure Performed Yes No -Type of Procedure Debridement -Clinical Debridement Subcutaneous -Tissue Removed Subcutaneous -Post Debridement (cm) - Length 2.0 -Post Debridement (cm) - Width 1.8 -Post Debridement (cm) - Depth 0.1 -Total Square (Post) (cm) 3.60 -Area of Debridement (cm) - Length 2.0 -Area of Debridement (cm) - Width 1.8 -Total Square (Area) (cm) 3.60 -Tunneling No -Undermining/Tunneling No -Circular Undermining No -Wound/Ulcer Outcome Not Healed Not Healed -Ulcer Cleansing Rinsed/ Irrigated with Saline -Foul Odor after Cleansing No -Bioengineered Tissue No -Bleeding Controlled with Pressure -Treatment Response Procedure Tolerated Well -Debridement - Subq, 1st 20sq cm Yes 2. R lateral ankle -Time 11: 15:27 -Correct Patient Yes Yes -Correct Side, Site, Position Yes No -Correct Procedure Yes No -Procedure Performed Yes No -Type of Procedure Debridement -Clinical Debridement Bone -Tissue Removed Fascia,Tendon -Post Debridement (cm) - Length 3.6 5.7 -Post Debridement (cm) - Width 4.3 4.5 -Post Debridement (cm) - Depth 0.5 0.3 -Total Square (Post) (cm) 15.48 25.65 -Area of Debridement (cm) - Length 3.6 5.7 -Area of Debridement (cm) - Width 4.3 4.5 -Total Square (Area) (cm) 15.48 25.65 -Tunneling No No -Undermining/Tunneling No No -Circular Undermining No No -Wound/Ulcer Outcome Not Healed Not Healed -Ulcer Cleansing Rinsed/ Rinsed/ Irrigated with Irrigated with Saline Saline -Foul Odor after Cleansing No No -Bioengineered Tissue No No -Bleeding Controlled with Pressure Pressure -Treatment Response Procedure Procedure Tolerated Well Tolerated Well -Offloading No -Debridement - Muscle / Fascia, 1st No 20sq cm -Debridement - Bone, 1st 20sq cm Yes -Debridement, Bone, ea addt'l 20sq cm 1 or part thereof 1.R lateral foot/ 5th metatarsal -Time 11:26 -Correct Patient Yes Yes -Correct Side, Site, Position Yes No -Correct Procedure Yes No -Procedure Performed Yes No -Type of Procedure Debridement -Clinical Debridement Subcutaneous -Tissue Removed Subcutaneous -Post Debridement (cm) - Length 1.0 -Post Debridement (cm) - Width 1.5 -Post Debridement (cm) - Depth 0.1 -Total Square (Post) (cm) 1.50 -Area of Debridement (cm) - Length 1.0 -Area of Debridement (cm) - Width 1.5 -Total Square (Area) (cm) 1.50 -Tunneling No -Undermining/Tunneling No -Circular Undermining No -Wound/Ulcer Outcome Not Healed Not Healed -Ulcer Cleansing Rinsed/ Irrigated with Saline -Foul Odor after Cleansing No -Bioengineered Tissue No -Bleeding Controlled with Pressure -Treatment Response Procedure Tolerated Well -Debridement - Subq, 1st 20sq cm No Pain Scale: 0-10 Numeric Is Patient Pain Free? Yes Yes - Nurse 3 - General Ulcer D/C NN Start: 06/18/25 10:48 Freq: Status: Active Protocol: Activity Type Activity Date Activity User E-sign Co-sign Detail Recorded Client Recorded Date Recorded By Document 06/18/25 12:26 RB [id number] 06/18/25 12:28 RB Edit Result 06/18/25 12:26 RB (1) [id number] 06/18/25 12:29 RB Document 06/22/25 15:50 GM [id number] 06/22/25 15:52 GM (1) 5. L lat ankle - Primary Dressing Applied => Hysept - Hysept => 1 06/18/25 06/22/25 12:26 15:50 Wound Care Center Nurse 3 #6 left med knee -Primary Dressing Applied Silicone Border Foam 4x4 -Silicone Border Foam 4x4 2 5. L lat ankle -Ulcer Cleansing Not Cleansed -Foul Odor after Cleansing No -Primary Dressing Applied Hysept -Other Dressing dakins/ABD -Primary Dressing Covered/Secured with Dry Gauze & Dry Gauze & Roll Gauze, Roll Gauze, Secured with Secured with Tape Tape -Other Covering saline wet to dry -Hysept 1 4. L lat foot -Ulcer Cleansing Not Cleansed -Foul Odor after Cleansing No -Primary Dressing Applied Silicone Border Other Foam 4x4 -Other Covering saline wet to dry -Silicone Border Foam 4x4 1 3. R medial ankle -Ulcer Cleansing Not Cleansed -Foul Odor after Cleansing No -Other Dressing dakins saline wet to moistened gauze dry ABD -Primary Dressing Covered/Secured with Dry Gauze & Roll Gauze, Secured with Tape 2. R lateral ankle -Ulcer Cleansing Not Cleansed -Foul Odor after Cleansing No -Other Dressing dakins moistened gauze / ABD -Primary Dressing Covered/Secured with Dry Gauze & Roll Gauze, Secured with Tape -Other Covering saline wet to dry 1.R lateral foot/ 5th metatarsal -Ulcer Cleansing Not Cleansed -Foul Odor after Cleansing No -Primary Dressing Applied Silicone Border Foam 4x4 -Other Covering saline wet to dry -Silicone Border Foam 4x4 1 Treatment Response Procedure Tolerated Well Pain Scale: 0-10 Numeric Is Patient Pain Free? Yes Yes WC - Visit Discharge Discharge Condition Stable Stable Ambulatory Status Wheelchair Wheelchair Transportation Private Auto Private Auto Medication Reconcilliation completed & No provided to patient/care provider Clinical Summary of Care Provided Yes Lab / Micro Data Lab results narrative: - Labs: White blood cell count 3.1, hemoglobin 8.1, neutrophils 25%, albumin 2.6. Micro: Microbiology 06/18/25 15:02 Wound - Leg Gram Stain - Final 06/18/25 15:02 Wound - Leg Wound Culture - Final Enterococcus faecalis Acinetobacter baumannii 06/18/25 15:02 Wound - Leg Anaerobic Culture - Final Bacteroides vulgatus Anaerobic cocci 06/18/25 15:01 Wound - Leg, Right Gram Stain - Final 06/18/25 15:01 Wound - Leg, Right Wound Culture - Final Enterococcus faecalis Staphylococcus lugdunensis 06/18/25 15:01 Wound - Leg, Right Anaerobic Culture - Final No anaerobic bacteria isolated. Imaging Radiology Impression Extremity Arterial Study 06/23/25 07:49 Interpretation Summary Biphasic Doppler waveforms are noted at ankle level on the right. Triphasic Doppler waveforms are noted at ankle level on the left. Pulse-volume recordings appear diminished at digital level on the right, but satisfactory at all other levels bilaterally. The resting right ankle-brachial index is moderately diminished. The resting left ankle-brachial index is normal. The right digital-brachial index is moderately diminished. The left digital-brachial index is normal. 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 There is no evidence of significant arterial occlusive disease in the left lower extremity. Ordering Physician: Hank Mac Referring Physician: David Camp Performed By: TERRY STAFFORD RVT Venous Doppler Study 06/23/25 07:49 Interpretation Summary Deep veins of the lower extremities are bilaterally patent and compressible segmentally. There is no evidence of deep vein thrombosis on either side. Valvular competence appears intact within the proximal deep venous systems bilaterally. The great saphenous veins appear bilaterally patent and compressible segmentally. Sapheno-femoral junctions are bilaterally competent . Valvular competence appears to be intact segmentally within the great saphenous veins bilaterally. Small saphenous veins are patent and competent bilaterally. Ordering Physician: Hank Mac Referring Physician: David Camp Performed By: Terry Stafford RVT Ankle X-Ray 06/23/25 09:10 IMPRESSION: There is a soft tissue defect overlying the lateral malleolus. There is no radiographically visible osteomyelitis. MRI with and without contrast or three-phase bone scan could be helpful for further characterization if clinically indicated. [facility] Ankle X-Ray 06/23/25 09:10 IMPRESSION: There is an old healed fracture of the distal 3rd of the tibia which appears well corticated. There is a soft tissue defect over the lateral malleolus. There is no radiographically visible osteomyelitis. Reading [facility] Foot X-Ray 06/23/25 09:10 IMPRESSION: Degenerative changes with no acute fracture or dislocation identified. Reading Location: [facility] Foot X-Ray 06/23/25 09:10 IMPRESSION: No acute fracture or dislocation is identified. Reading Location: [facility] Charges/Coding Visit Charges Office Visits / Consults: 30101 OV L4 New 45min Assessment/Plan Assessment/Plan (1) Pressure ulcer of left ankle, stage 4: CODE(S): L89.524 - Pressure ulcer of left ankle, stage 4 (2) Pressure ulcer of right ankle, stage 4: CODE(S): L89.514 - Pressure ulcer of right ankle, stage 4 (3) Pressure ulcer of left foot, stage 1: CODE(S): L89.891 - Pressure ulcer of other site, stage 1 (4) Pressure ulcer of right foot, stage 2: CODE(S): L89.892 - Pressure ulcer of other site, stage 2 PLAN: Assessment and Plan 74-year-old male with a history of paraplegia presenting with severe ankle wounds with exposed bone. The patient's paraplegia has led to limited mobility and increased risk for pressure sores, which have been exacerbated by ongoing chemotherapy for liver cancer. The current wounds are complicated by neutropenia, making healing challenging. The exposed fibula bone at the lateral malleolus presents a significant risk for infection and requires careful management to prevent further complications. 1. Liver Cancer The patient is undergoing chemotherapy for liver cancer, which is contributing to the deterioration of skin integrity and complicating wound healing. Coordination with the oncology team is necessary to manage the cancer treatment while addressing the wound care needs. 2. Neutropenia The patient's neutropenia, with a white blood cell count of 3.1 and neutrophils at 25%, poses a challenge for wound healing and increases the risk of infection. Monitoring of blood counts and coordination with hematology is recommended to manage this condition. 3. Ankle Wounds With Exposed Bone The patient presents with severe ankle wounds characterized by exposed fibula bone at the lateral malleolus, requiring urgent intervention to prevent infection and promote healing. A plan for surgical intervention, including debridement and potential use of dermal substitutes, is discussed to facilitate wound closure. Coordination with vascular surgery for assessment of blood flow and potential improvement is also planned. 4. Paraplegia The patient's paraplegia, resulting from an accident 50 years ago, has led to limited mobility and increased risk for pressure sores. Pressure offloading techniques are being utilized to prevent further sores, and ongoing monitoring is necessary to manage this condition. (5) Liver cancer: CODE(S): C22.9 - Malignant neoplasm of liver, not specified as primary or secondary PLAN: Plan - Change dressings twice a day using wet-to-dry or [id number]-ftenu techniques. - Monitor for signs of infection such as redness, fever, or chills and seek emergency care if these occur. - Coordinate with home health services for wound care assistance. - Follow up with vascular surgery for blood flow assessment and potential improvement. - Maintain pressure offloading techniques to prevent further sores. I talked to the patient extensively about return precautions and the seriousness of the wounds. His ABIs were diminished and therefore we are referring to vascular. I spoke to the hematology oncology physician Dr. Kalpesh Haynes over the phone about this patient and we are coordinating care. The Avastin is a veg F inhibitor and will inhibit wound healing. He is going to remove Avastin at this time from the chemotherapy regimen and continue other 2 chemotherapy agents so as to give us a window for wound healing. I am going to coordinate carefully. He reports that the Avastin should be out of the system in about 3 weeks, and therefore this would be a good timeframe for debridement and reconstruction of the wounds versus above-knee amputations. He is also going to provide him with medication to improve the neutropenia in the office visit on 24 June 2025. I talked to the patient regarding the potential for life-threatening infection of lower extremity wounds. He was resistant at this time for above-knee amputations despite his history of paraplegia. I therefore discussed strict return precautions and symptoms and signs of infection. Currently the wounds appear to be colonized and there is no signs of osteomyelitis or any infection of the ankle joints based on clinical exam and x-rays. The lateral malleolus is exposed however and likely colonized and will require significant debridement, followed by likely dermal substitute placement and skin grafting if we are able to get him healed. I will continue to talk to him about my concerns for limb salvage. In the meantime I recommended strict pressure offloading and excellent wound care with wet-to-dry dressings and optimization by vascular surgery for optimization of lower extremity blood flow in the setting of severe limb threatening wounds. Patient will follow-up with me within a week and see vascular surgery. Patient happy with the plan
== END 2025-06-23 23:59 | disposition home or self-care (01) ==
LOC: WC 08:00
PROVIDERS: PCP Nurse Practitioner Family; Referring Provider Specialist; Visit Provider Surgery Plastic and Reconstructive Surgery
DX: L89.514 Pressure ulcer of right ankle, stage 4 (principal); L89.524 Pressure ulcer of left ankle, stage 4; C22.9 Malignant neoplasm of liver, not specified as primary or secondary; G82.20 Paraplegia, unspecified; L89.892 Pressure ulcer of other site, stage 2; D70.9 Neutropenia, unspecified; L89.891 Pressure ulcer of other site, stage 1; I73.9 Peripheral vascular disease, unspecified; I77.1 Stricture of artery; R09.89 Other specified symptoms and signs involving the circulatory and respiratory systems; R60.0 Localized edema
CPT/HCPCS: 11042; 11044; 11047; 73610; 73630; 87070; 87075; 87077; 87186; 87205; 93923; 93970; 99213; 99214; G0463

== ENCOUNTER 2025-07-06 13:00 | Outpatient (RCR) | payer MEDICARE, SELFPAY ==
[2025-06-29 14:07] VITALS: BP 146/85; PULSE 77; RESP 18; TEMP 36.9
--- NOTE | 2025-06-29 14:39 | PN.PCM_ITS ---
History of Present Illness Date of Service: 06/29/25 Chief Complaint: Bilateral lower extremity ulcerations History of Wound: HPI: 06/22/25 Chief Complaint: Bilateral lower extremity ulcerations History of Wound: The patient is a 74-year-old male presenting with severe ankle wounds with exposed bone. 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 Recently, the patient has been undergoing chemotherapy for liver cancer (he takes Avastin), which has contributed to the deterioration of his skin integrity and the development of the current wounds which have been present for several weeks. The ankle wounds have been present for approximately three weeks and are characterized by exposed fibula bone at the lateral malleolus. The patient is neutropenic, with a low white blood cell count of 3.1 and low neutrophils at 25%, which complicates the healing process. The patient has been managing his condition with pressure offloading techniques, including the use of a hobo mattress and sheepskin, to prevent further pressure sores. He has not yet received assistance from home health services for wound care, although they are scheduled to begin soon. ROS: - Musculoskeletal: Reports inability to move legs due to paraplegia. - Integumentary: Reports presence of ankle wounds with exposed bone. - Hematologic: Reports neutropenia. Attestation: Documentation on this patient encounter was supported using ambient scribe technology/ voice AI technology. The patient consented to recording for the purpose of documenting the encounter. Provider reviewed content of the generated note prior to signature. Subjective Subjective Current encounter, 29 June 2025: Patient is here and they endorse excellent dressing changes with wet-to-dry dressings 3 times per day using Dakin's. They also report that they have been following up with her professor of early childhood education for blood draws. I discussed with the patient and his my plans for potential reconstruction as well as my discussion with his medical oncologist. Objective Data Objective Data Vital Signs: Vital Signs Temp Pulse Resp BP O2 Del Method 98.4 F 77 18 146/85 H Room Air 06/29/25 14:07 06/29/25 14:07 06/29/25 14:07 06/29/25 14:07 06/29/25 14:07 Oxygen Delivery Method Room Air Charges/Coding Visit Charges Office Visits / Consults: 96970 OV L2 Est 10min Physical Exam Narrative - Musculoskeletal: Exposed fibula bone at the lateral malleolus of the ankles bilaterally and a right medial ankle eschar. - Vascular: Diminished pulses in the lower extremities thready 1+ dorsalis pedis. 6 different pedal/ankle wounds No signs of infection today Photos taken 24 June 2025 and are largely unchanged Debridement Note Debridement Note No debridement was completed: No debridement was completed today Post-Debridement Measurements and Additional Note: Post-Debridement Measurements/Treatment WC - Nurse 1 - General Ulcer Assessment Start: 06/29/25 14:07 Freq: Status: Active Protocol: VERNON Activity Type Activity Date Activity User E-sign Co-sign Detail Recorded Client Recorded Date Recorded By Document 06/29/25 14:07 DS [id number] 06/29/25 14:09 DS 06/29/25 14:07 Vital Signs Temperature (97.8 F-99.1 F) 98.4 F Temperature Source Temporal Pulse Rate (60-100) 77 Pulse Location Monitor Respiratory Rate (12-18) 18 Respiratory rate source Observation Oxygen Delivery Method Room Air Blood Pressure (90/60-120/80) 146/85 H Blood Pressure Mean (mm Hg) 105 Source Monitor Position Sitting Blood Pressure Location Right Arm History Since Last Visit- (Skip if this is Patient's initial visit) Have you changed medications since your No last visit? Any new allergies or adverse reactions No Had a fall/change in ADL's that may No increase risk of falls Signs or symptoms of abuse and/or No neglect since last visit Have you been in the hospital since your No last visit? Has dressing in place as prescribed Yes Has compression in place as prescribed N/A Has offloadiing in place as prescribed N/A Experienced any changes in pain level or No management Left Footwear No Footwear Right Footwear No Footwear Pain Scale: 0-10 Numeric Is Patient Pain Free? Yes WC - Nurse 1 - General Ulcer Measurement Start: 06/29/25 14:07 Freq: Status: Active Protocol: Activity Type Activity Date Activity User E-sign Co-sign Detail Recorded Client Recorded Date Recorded By Document 06/29/25 14:09 DS [id number] 06/29/25 14:19 DS 06/29/25 14:09 Wound Center Nurse 1 5. L lat ankle -Current Size (cm) - Length 3.5 -Current Size (cm) - Width 3.1 -Current Size (cm) - Depth 0.7 -Total Square Cm 10.85 -Exudate Amt Medium -Exudate Type Serosanguineous -Wound Margin Distinct, Outline Attached -Granulation Amt Small (1-33%) -Granulation Quality [place] -Necrosis Amt Large (67-100%) -Necrotic Tissue Type Adherent Slough -Texture (Ora-wound Skin Appearance) Assessed -Moisture (Ora-wound Skin Appearance) Assessed -Color (Ora-wound Skin Appearance) Assessed -Temperature (Ora-wound Skin No Abnormality Appearance) (Pt Warm) -Tenderness on Palpation (Ora-wound No Skin Appearance) -Ulcer Cleansing Soap and Water -Foul Odor after Cleansing No -Anesthetic Used 5% Lidocaine Gel 4. L lat foot -Current Size (cm) - Length 0.6 -Current Size (cm) - Width 0.3 -Current Size (cm) - Depth 0.1 -Total Square Cm 0.18 3. R medial ankle -Current Size (cm) - Length 3.0 -Current Size (cm) - Width 1.6 -Current Size (cm) - Depth 0.2 -Total Square Cm 4.80 -Exudate Amt Medium -Exudate Type Serosanguineous -Wound Margin Distinct, Outline Attached -Granulation Amt Small (1-33%) -Granulation Quality [place] -Slough/Fibrin Yes -Necrosis Amt Large (67-100%) -Necrotic Tissue Type Adherent Slough -Texture (Ora-wound Skin Appearance) Assessed -Moisture (Ora-wound Skin Appearance) Assessed -Color (Ora-wound Skin Appearance) Assessed -Temperature (Ora-wound Skin No Abnormality Appearance) (Pt Warm) -Tenderness on Palpation (Ora-wound No Skin Appearance) -Ulcer Cleansing Soap and Water -Foul Odor after Cleansing No -Anesthetic Used 5% Lidocaine Gel 2. R lateral ankle -Current Size (cm) - Length 5.2 -Current Size (cm) - Width 3.7 -Current Size (cm) - Depth 0.3 -Total Square Cm 19.24 -Exudate Amt Medium -Exudate Type Serosanguineous -Wound Margin Distinct, Outline Attached -Granulation Amt Small (1-33%) -Granulation Quality [place] -Slough/Fibrin Yes -Necrosis Amt Large (67-100%) -Necrotic Tissue Type Adherent Slough -Texture (Ora-wound Skin Appearance) Assessed -Moisture (Ora-wound Skin Appearance) Assessed -Color (Ora-wound Skin Appearance) Assessed -Temperature (Ora-wound Skin No Abnormality Appearance) (Pt Warm) -Tenderness on Palpation (Ora-wound No Skin Appearance) -Ulcer Cleansing Soap and Water -Foul Odor after Cleansing No -Anesthetic Used 5% Lidocaine Gel 1.R lateral foot/ 5th metatarsal -Current Size (cm) - Length 1.0 -Current Size (cm) - Width 0.8 -Current Size (cm) - Depth 0.1 -Total Square Cm 0.80 -Tunneling No -Undermining/Tunneling No -Circular Undermining No -Exudate Amt Small -Exudate Type Serosanguineous -Necrosis Amt Large (67-100%) -Necrotic Tissue Type Adherent Slough -Texture (Ora-wound Skin Appearance) Assessed -Moisture ([place]-wound Skin Appearance) Assessed -Color (Ora-wound Skin Appearance) Assessed -Temperature (Ora-wound Skin No Abnormality Appearance) (Pt Warm) -Tenderness on Palpation (Ora-wound No Skin Appearance) -Ulcer Cleansing Soap and Water -Foul Odor after Cleansing No -Anesthetic Used 5% Lidocaine Gel WC - Nurse 2 - General Ulcer CM Notes Start: 06/29/25 14:07 Freq: Status: Active Protocol: Activity Type Activity Date Activity User E-sign Co-sign Detail Recorded Client Recorded Date Recorded By Document 06/29/25 14:28 DS [id number] 06/29/25 14:30 DS 06/29/25 14:28 Wound Center Nurse 2 5. L lat ankle -Time 14:28 -Correct Patient Yes -Correct Side, Site, Position Yes -Procedure Performed No -Post Debridement (cm) - Length 3.5 -Post Debridement (cm) - Width 3.5 -Total Square (Post) (cm) 12.25 -Area of Debridement (cm) - Length 3.5 -Area of Debridement (cm) - Width 3.5 -Total Square (Area) (cm) 12.25 -Wound/Ulcer Outcome Not Healed 4. L lat foot -Time 14:29 -Correct Patient Yes -Correct Side, Site, Position Yes -Procedure Performed No -Wound/Ulcer Outcome Not Healed 3. R medial ankle -Time 14:29 -Correct Patient Yes -Correct Side, Site, Position Yes -Procedure Performed No -Post Debridement (cm) - Length 2.0 -Post Debridement (cm) - Width 1.0 -Total Square (Post) (cm) 2.00 -Area of Debridement (cm) - Length 2.0 -Area of Debridement (cm) - Width 1.0 -Total Square (Area) (cm) 2.00 -Wound/Ulcer Outcome Not Healed 2. R lateral ankle -Time 14:29 -Correct Patient Yes -Correct Side, Site, Position Yes -Procedure Performed No -Post Debridement (cm) - Length 4.0 -Post Debridement (cm) - Width 3.5 -Total Square (Post) (cm) 14.00 -Area of Debridement (cm) - Length 4.0 -Area of Debridement (cm) - Width 3.5 -Total Square (Area) (cm) 14.00 -Wound/Ulcer Outcome Not Healed 1.R lateral foot/ 5th metatarsal -Time 14:30 -Correct Patient Yes -Correct Side, Site, Position Yes -Correct Procedure No -Procedure Performed No -Wound/Ulcer Outcome Not Healed Pain Scale: 0-10 Numeric Is Patient Pain Free? Yes Assessment/Plan Assessment/Plan (1) Pressure ulcer of right ankle, stage 4: CODE(S): L89.514 - Pressure ulcer of right ankle, stage 4 (2) Pressure ulcer of left ankle, stage 4: CODE(S): L89.524 - Pressure ulcer of left ankle, stage 4 (3) Pressure ulcer of left foot, stage 1: CODE(S): L89.891 - Pressure ulcer of other site, stage 1 (4) Pressure ulcer of right foot, stage 2: CODE(S): L89.892 - Pressure ulcer of other site, stage 2 (5) Liver cancer: CODE(S): C22.9 - Malignant neoplasm of liver, not specified as primary or secondary (6) Spinal cord injury: PLAN: Plan I talked to the patient extensively about return precautions and the seriousness of the wounds. His ABIs were diminished and therefore we are referring to vascular. I spoke to the hematology oncology physician Dr. Kalpesh Haynes over the phone about this patient and we are coordinating care. The Avastin is a VEGF inhibitor and will inhibit wound healing. He is going to remove Avastin at this time from the chemotherapy regimen and continue other 2 chemotherapy agents so as to give us a window for wound healing. I am going to coordinate carefully. He reports that the Avastin should be out of the system in about 3 weeks, and therefore this would be a good timeframe for debridement and reconstruction of the wounds versus above-knee amputations. He is also going to provide him with medication to improve the neutropenia in the office visit on 24 June 2025. I talked to the patient regarding the potential for life-threatening infection of lower extremity wounds. He was resistant at this time for above-knee amputations despite his history of paraplegia. I therefore discussed strict return precautions and symptoms and signs of infection. Currently the wounds appear to be colonized and there is no signs of osteomyelitis or any infection of the ankle joints based on clinical exam and x-rays. The lateral malleolus is exposed however and likely colonized and will require significant debridement, followed by likely dermal substitute placement and skin grafting if we are able to get him healed. I will continue to talk to him about my concerns for limb salvage. In the meantime I recommended strict pressure offloading and excellent wound care with wet-to-dry dressings and optimization by vascular surgery for optimization of lower extremity blood flow in the setting of severe limb threatening wounds. Patient will follow-up with me within a week and see vascular surgery. Plan from 29 June 2025: I reiterated the seriousness of the problem with the patient and his and gave them strict return precautions for signs of ascending infection. I talked to him about the risks of limb salvage in the setting of severe wounds and neutropenia. He understands that he may need an amputation regardless, but he would like to try limb salvage (not interested in an amputation at this time). I spoke to him extensively about the benefits of limb salvage in a paraplegic patient. He agrees that with positioning and sitting in his chair, his legs balance him and he is not interested in amputation (above-knee is what I offered) as he believes the balancing provides him significant benefit (even though the legs do not move). I will continue to coordinate with his hematology oncology team as they are currently weaning his Avastin and giving him infusions to increase his neutrophil count. In approximately 3 weeks there will be a window where the Avastin is out of his system and we can consider surgical intervention. In the meantime I ordered ABIs and they came back with concern for occlusive disease at the ankle. I am going to refer him to vascular surgery (he has an appointment later this week) for assistance with regards to blood flow and wound healing. Follow-up with me in 1 week for wound check
[2025-07-06 12:58] VITALS: BP 122/61; PULSE 65; RESP 14; TEMP 35.7
--- NOTE | 2025-07-06 13:34 | PCM.WC.PN ---
History of Present Illness Date of Service: 07/06/25 Chief Complaint: Bilateral lower extremity ulcerations History of Wound: HPI: 06/22/25 Chief Complaint: Bilateral lower extremity ulcerations History of Wound: The patient is a 74-year-old male presenting with severe ankle wounds with exposed bone. 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 Recently, the patient has been undergoing chemotherapy for liver cancer (he takes Avastin), which has contributed to the deterioration of his skin integrity and the development of the current wounds which have been present for several weeks. The ankle wounds have been present for approximately three weeks and are characterized by exposed fibula bone at the lateral malleolus. The patient is neutropenic, with a low white blood cell count of 3.1 and low neutrophils at 25%, which complicates the healing process. The patient has been managing his condition with pressure offloading techniques, including the use of a hobo mattress and sheepskin, to prevent further pressure sores. He has not yet received assistance from home health services for wound care, although they are scheduled to begin soon. ROS: - Musculoskeletal: Reports inability to move legs due to paraplegia. - Integumentary: Reports presence of ankle wounds with exposed bone. - Hematologic: Reports neutropenia. Attestation: Documentation on this patient encounter was supported using ambient scribe technology/ voice AI technology. The patient consented to recording for the purpose of documenting the encounter. Provider reviewed content of the generated note prior to signature. Subjective Subjective 29 June 2025: Patient is here and they endorse excellent dressing changes with wet-to-dry dressings 3 times per day using Dakin's. They also report that they have been following up with her meteorological observer for blood draws. I discussed with the patient and his my plans for potential reconstruction as well as my discussion with his medical oncologist. Current encounter, 06 Jul 2025: Doing well overall. Was evaluated by vascular surgery and they are going to recommend coordinating an angiogram. He has not yet seen infectious disease but they are consulted and he is being given appointment. He has been following up with oncology who is discontinuing the Avastin and attempting to increase his white blood cell count in anticipation for surgery and attempted wound healing. Patient is still adamant about keeping his legs. He and his feel that the legs provide help with transfers and with stability in a wheelchair. He is not interested in amputation at this time (I talked him about the risks, benefits, and alternatives of limb salvage, notably in the setting of paraplegia). He would like to attempt continued limb salvage, even in the setting of severe ankle wounds with exposed bone and neutropenia. The wounds could kill him as they could get infected quickly and cause sepsis (I counseled them extensively about this). Patient and his know this and would like to continue with attempted limb salvage. Objective Data Objective Data Vital Signs: Vital Signs Temp Pulse Resp BP O2 Del Method 96.3 F L 65 14 122/61 H Room Air 07/06/25 12:58 07/06/25 12:58 07/06/25 12:58 07/06/25 12:58 06/29/25 14:07 Oxygen Delivery Method Room Air Charges/Coding Procedures Integumentary [id number]: 10843 Jeanne musc/fascia 20 sq cm/< Physical Exam Narrative - Musculoskeletal: Exposed fibula bone at the lateral malleolus of the ankles bilaterally and a right medial ankle eschar. - Vascular: Diminished pulses in the lower extremities thready 1+ dorsalis pedis. The right lateral ankle wound had significant necrotic fibrinous exudate and debris and necrotic tendon that was desiccated. This wound measured 4 x 5 cm and was 0.4 cm deep 6 different pedal/ankle wounds No signs of infection today Photos taken 24 June 2025 and are largely unchanged Debridement Note Debridement Note Wound debrided: Right lateral ankle wound Laterality: Right Wound Grade/Stage: Stage IV Type of Debridement: Selective debridement Anesthesia Used: 4% Lidocaine Solution Depth: to muscle (Fascia was debrided as well as tendon) Percentage of wound debrided: 100 Instrument Used: Forceps and - (Scissors for sharp excision) Tissue Removed: Necrotic desiccated tendon and fibrinous exudate Severity: Necrosis of Bone Amount of bleeding with debridement: Moderate Bleeding Controlled with: Compression and gauze Patient tolerated procedure: Patient tolerated procedure well Post-Debridement Measurements and Additional Note: Post-Debridement Measurements/Treatment REBEL - Nurse 1 - General Ulcer Assessment Start: 06/29/25 14:07 Freq: Status: Active Protocol: VERNON Activity Type Activity Date Activity User E-sign Co-sign Detail Recorded Client Recorded Date Recorded By Document 06/29/25 14:07 DS [id number] 06/29/25 14:09 DS Document 07/06/25 12:58 ML [id number] 07/06/25 13:10 ML 06/29/25 07/06/25 14:07 12:58 - Today's Visit Information Type of service Follow-up Visit (Physician/[employer] ) Arrival Mode Wheelchair Transfer Assistance Manual Patient Identification Verified (Name & Yes ) Patient Requires Transmission-Based No Precautions Vital Signs Temperature (97.8 F-99.1 F) 98.4 F 96.3 F L Temperature Source Temporal Oral Pulse Rate (60-100) 77 65 Pulse Location Monitor Monitor Respiratory Rate (12-18) 18 14 Respiratory rate source Observation Observation Oxygen Delivery Method Room Air Blood Pressure (90/60-120/80) 146/85 H 122/61 H Blood Pressure Mean (mm Hg) 105 81 Source Monitor Monitor Position Sitting Sitting Blood Pressure Location Right Arm Right Arm History Since Last Visit- (Skip if this is Patient's initial visit) Have you changed medications since your No No last visit? Any new allergies or adverse reactions No No Had a fall/change in ADL's that may No No increase risk of falls Signs or symptoms of abuse and/or No No neglect since last visit Have you been in the hospital since your No No last visit? Has dressing in place as prescribed Yes Yes Has compression in place as prescribed N/A Yes Has offloadiing in place as prescribed N/A Yes Experienced any changes in pain level or No No management Left Footwear No Footwear Right Footwear No Footwear Pain Scale: 0-10 Numeric Is Patient Pain Free? Yes Yes - Nurse 1 - General Ulcer Measurement Start: 06/29/25 14:07 Freq: Status: Active Protocol: Activity Type Activity Date Activity User E-sign Co-sign Detail Recorded Client Recorded Date Recorded By Document 06/29/25 14:09 DS [id number] 06/29/25 14:19 DS Document 07/06/25 12:58 ML [id number] 07/06/25 13:10 ML 06/29/25 07/06/25 14:09 12:58 Wound Center Nurse 1 5. L lat ankle -Current Size (cm) - Length 3.5 3.9 -Current Size (cm) - Width 3.1 3.3 -Current Size (cm) - Depth 0.7 0.7 -Total Square Cm 10.85 12.87 -Exudate Amt Medium Medium -Exudate Type Serosanguineous Serosanguineous -Wound Margin Distinct, Distinct, Outline Outline Attached Attached -Granulation Amt Small (1-33%) Medium (34-66%) -Granulation Quality [place] -Necrosis Amt Large (67-100%) Medium (34-66%) -Necrotic Tissue Type Adherent Slough -Structure Exposed Bone -Texture (Ora-wound Skin Appearance) Assessed Assessed -Moisture (Ora-wound Skin Appearance) Assessed Assessed -Color (Ora-wound Skin Appearance) Assessed Assessed -Temperature (Ora-wound Skin No Abnormality No Abnormality Appearance) (Pt Warm) (Pt Warm) -Tenderness on Palpation (Ora-wound No No Skin Appearance) -Ulcer Cleansing Soap and Water Rinsed/ Irrigated with Saline -Foul Odor after Cleansing No No -Anesthetic Used 5% Lidocaine 4% Lidocaine Gel Solution 4. L lat foot -Current Size (cm) - Length 0.6 0.9 -Current Size (cm) - Width 0.3 6 -Current Size (cm) - Depth 0.1 0.1 -Total Square Cm 0.18 5.4 -Epithelialization Medium 34-66% -Exudate Amt Medium -Exudate Type Serosanguineous -Granulation Amt Medium (34-66%) -Necrosis Amt Medium (34-66%) -Necrotic Tissue Type Adherent Slough -Structure Exposed Bone -Texture (Ora-wound Skin Appearance) Assessed -Moisture (Ora-wound Skin Appearance) Assessed -Color (Ora-wound Skin Appearance) Assessed -Temperature (Ora-wound Skin No Abnormality Appearance) (Pt Warm) -Tenderness on Palpation (Ora-wound No Skin Appearance) -Ulcer Cleansing Rinsed/ Irrigated with Saline -Foul Odor after Cleansing No -Anesthetic Used 4% Lidocaine Solution 3. R medial ankle -Current Size (cm) - Length 3.0 3.1 -Current Size (cm) - Width 1.6 2.6 -Current Size (cm) - Depth 0.2 3.1 -Total Square Cm 4.80 8.06 -Epithelialization Medium 34-66% -Exudate Amt Medium Medium -Exudate Type Serosanguineous Serosanguineous -Wound Margin Distinct, Outline Attached -Granulation Amt Small (1-33%) Medium (34-66%) -Granulation Quality [place] -Slough/Fibrin Yes -Necrosis Amt Large (67-100%) Medium (34-66%) -Necrotic Tissue Type Adherent Slough Adherent Slough -Structure Exposed Bone -Texture (Ora-wound Skin Appearance) Assessed Assessed -Moisture (Ora-wound Skin Appearance) Assessed Assessed -Color (Ora-wound Skin Appearance) Assessed Assessed -Temperature (Ora-wound Skin No Abnormality No Abnormality Appearance) (Pt Warm) (Pt Warm) -Tenderness on Palpation (Ora-wound No No Skin Appearance) -Ulcer Cleansing Soap and Water Rinsed/ Irrigated with Saline -Foul Odor after Cleansing No No -Anesthetic Used 5% Lidocaine 4% Lidocaine Gel Solution 2. R lateral ankle -Current Size (cm) - Length 5.2 5 -Current Size (cm) - Width 3.7 4 -Current Size (cm) - Depth 0.3 0.4 -Total Square Cm 19.24 20 -Exudate Amt Medium Medium -Exudate Type Serosanguineous Serosanguineous -Wound Margin Distinct, Distinct, Outline Outline Attached Attached -Granulation Amt Small (1-33%) Medium (34-66%) -Granulation Quality [place] -Slough/Fibrin Yes -Necrosis Amt Large (67-100%) Medium (34-66%) -Necrotic Tissue Type Adherent Slough Adherent Slough -Structure Exposed Bone -Texture (Ora-wound Skin Appearance) Assessed Assessed -Moisture (Ora-wound Skin Appearance) Assessed Assessed -Color (Ora-wound Skin Appearance) Assessed Assessed -Temperature (Ora-wound Skin No Abnormality No Abnormality Appearance) (Pt Warm) (Pt Warm) -Tenderness on Palpation (Ora-wound No No Skin Appearance) -Ulcer Cleansing Soap and Water Rinsed/ Irrigated with Saline -Foul Odor after Cleansing No No -Anesthetic Used 5% Lidocaine 4% Lidocaine Gel Solution 1.R lateral foot/ 5th metatarsal -Current Size (cm) - Length 1.0 5 -Current Size (cm) - Width 0.8 4 -Current Size (cm) - Depth 0.1 0.4 -Total Square Cm 0.80 20 -Tunneling No -Undermining/Tunneling No -Circular Undermining No -Exudate Amt Small Medium -Exudate Type Serosanguineous Serosanguineous -Granulation Amt Medium (34-66%) -Necrosis Amt Large (67-100%) Medium (34-66%) -Necrotic Tissue Type Adherent Slough Adherent Slough -Structure Exposed Bone -Texture (Ora-wound Skin Appearance) Assessed Assessed -Moisture (Ora-wound Skin Appearance) Assessed Assessed -Color (Ora-wound Skin Appearance) Assessed Assessed -Temperature (Ora-wound Skin No Abnormality No Abnormality Appearance) (Pt Warm) (Pt Warm) -Tenderness on Palpation (Ora-wound No No Skin Appearance) -Ulcer Cleansing Soap and Water Rinsed/ Irrigated with Saline -Foul Odor after Cleansing No No -Anesthetic Used 5% Lidocaine 4% Lidocaine Gel Solution WC - Nurse 2 - General Ulcer CM Notes Start: 06/29/25 14:07 Freq: Status: Active Protocol: Activity Type Activity Date Activity User E-sign Co-sign Detail Recorded Client Recorded Date Recorded By Document 06/29/25 14:28 DS [id number] 06/29/25 14:30 DS Document 07/06/25 13:22 JF [id number] 07/06/25 13:30 JF 06/29/25 07/06/25 14:28 13:22 Wound Center Nurse 2 5. L lat ankle -Time 14:28 13:23 -Correct Patient Yes Yes -Correct Side, Site, Position Yes No -Correct Procedure No -Procedure Performed No No -Post Debridement (cm) - Length 3.5 -Post Debridement (cm) - Width 3.5 -Total Square (Post) (cm) 12.25 -Area of Debridement (cm) - Length 3.5 -Area of Debridement (cm) - Width 3.5 -Total Square (Area) (cm) 12.25 -Tunneling No -Undermining/Tunneling No -Circular Undermining No -Wound/Ulcer Outcome Not Healed Not Healed -Ulcer Cleansing Rinsed/ Irrigated with Saline -Foul Odor after Cleansing No -Bioengineered Tissue No -Bleeding Controlled with Pressure -Treatment Response Procedure Tolerated Well -Offloading No 4. L lat foot -Time 14:29 13:23 -Correct Patient Yes Yes -Correct Side, Site, Position Yes No -Correct Procedure No -Procedure Performed No No -Tunneling No -Undermining/Tunneling No -Circular Undermining No -Wound/Ulcer Outcome Not Healed Not Healed -Ulcer Cleansing Rinsed/ Irrigated with Saline -Foul Odor after Cleansing No -Bioengineered Tissue No -Bleeding Controlled with Pressure -Treatment Response Procedure Tolerated Well -Offloading No 3. R medial ankle -Time 14:29 13:23 -Correct Patient Yes Yes -Correct Side, Site, Position Yes No -Correct Procedure No -Procedure Performed No No -Post Debridement (cm) - Length 2.0 -Post Debridement (cm) - Width 1.0 -Total Square (Post) (cm) 2.00 -Area of Debridement (cm) - Length 2.0 -Area of Debridement (cm) - Width 1.0 -Total Square (Area) (cm) 2.00 -Tunneling No -Undermining/Tunneling No -Circular Undermining No -Wound/Ulcer Outcome Not Healed Not Healed -Ulcer Cleansing Rinsed/ Irrigated with Saline -Foul Odor after Cleansing No -Bioengineered Tissue No -Bleeding Controlled with Pressure -Treatment Response Procedure Tolerated Well -Offloading No 2. R lateral ankle -Time 14: 13:24 -Correct Patient Yes Yes -Correct Side, Site, Position Yes Yes -Correct Procedure Yes -Procedure Performed No Yes -Type of Procedure Debridement -Clinical Debridement Muscle / Fascia -Tissue Removed Fascia -Post Debridement (cm) - Length 4.0 5 -Post Debridement (cm) - Width 3.5 4 -Post Debridement (cm) - Depth 0.4 -Total Square (Post) (cm) 14.00 20 -Area of Debridement (cm) - Length 4.0 5 -Area of Debridement (cm) - Width 3.5 4 -Total Square (Area) (cm) 14.00 20 -Tunneling No -Undermining/Tunneling No -Circular Undermining No -Wound/Ulcer Outcome Not Healed Not Healed -Ulcer Cleansing Rinsed/ Irrigated with Saline -Foul Odor after Cleansing No -Bioengineered Tissue No -Bleeding Controlled with Pressure -Treatment Response Procedure Tolerated Well -Offloading No -Debridement - Muscle / Fascia, 1st Yes 20sq cm 1.R lateral foot/ 5th metatarsal -Time 14:30 13:26 -Correct Patient Yes Yes -Correct Side, Site, Position Yes No -Correct Procedure No No -Procedure Performed No No -Tunneling No -Undermining/Tunneling No -Circular Undermining No -Wound/Ulcer Outcome Not Healed Not Healed -Ulcer Cleansing Rinsed/ Irrigated with Saline -Foul Odor after Cleansing No -Bioengineered Tissue No Pain Scale: 0-10 Numeric Is Patient Pain Free? Yes Yes - Nurse 3 - General Ulcer D/C NN Start: 06/29/25 14:07 Freq: Status: Active Protocol: Activity Type Activity Date Activity User E-sign Co-sign Detail Recorded Client Recorded Date Recorded By Document 06/29/25 15:04 [id number] 06/29/25 15:06 06/29/25 15:04 Wound Care Center Nurse 3 5. L lat ankle -Ulcer Cleansing Not Cleansed -Foul Odor after Cleansing No -Negative Pressure Wound Therapy N/A -Primary Dressing Applied Hysept -Primary Dressing Covered/Secured with Dry Gauze & Roll Gauze, Secured with Tape -Other Covering Dakins wet to dry -Hysept 1 4. L lat foot -Ulcer Cleansing Not Cleansed -Primary Dressing Covered/Secured with Dry Gauze -Other Covering Dakins wet to dry 3. R medial ankle -Ulcer Cleansing Not Cleansed -Foul Odor after Cleansing No -Other Dressing Dakins wet to dry -Primary Dressing Covered/Secured with Dry Gauze & Roll Gauze 2. R lateral ankle -Ulcer Cleansing Not Cleansed -Foul Odor after Cleansing No -Primary Dressing Covered/Secured with Dry Gauze -Other Covering Dakins wet to dry 1.R lateral foot/ 5th metatarsal -Ulcer Cleansing Not Cleansed -Foul Odor after Cleansing No -Primary Dressing Covered/Secured with Dry Gauze -Other Covering Dakins wet to dry Pain Scale: 0-10 Numeric Is Patient Pain Free? Yes - Visit Discharge Discharge Condition Stable Ambulatory Status Wheelchair Transportation Private Auto Assessment/Plan Assessment/Plan (1) Pressure ulcer of right ankle, stage 4: CODE(S): L89.514 - Pressure ulcer of right ankle, stage 4 (2) Pressure ulcer of left ankle, stage 4: CODE(S): L89.524 - Pressure ulcer of left ankle, stage 4 (3) Pressure ulcer of left foot, stage 1: CODE(S): L89.891 - Pressure ulcer of other site, stage 1 (4) Pressure ulcer of right foot, stage 2: CODE(S): L89.892 - Pressure ulcer of other site, stage 2 (5) Liver cancer: CODE(S): C22.9 - Malignant neoplasm of liver, not specified as primary or secondary (6) Spinal cord injury: PLAN: Plan I talked to the patient extensively about return precautions and the seriousness of the wounds. His ABIs were diminished and therefore we are referring to vascular. I spoke to the hematology oncology physician Dr. Kalpesh Haynes over the phone about this patient and we are coordinating care. The Avastin is a VEGF inhibitor and will inhibit wound healing. He is going to remove Avastin at this time from the chemotherapy regimen and continue other 2 chemotherapy agents so as to give us a window for wound healing. I am going to coordinate carefully. He reports that the Avastin should be out of the system in about 3 weeks, and therefore this would be a good timeframe for debridement and reconstruction of the wounds versus above-knee amputations. He is also going to provide him with medication to improve the neutropenia in the office visit on 24 June 2025. I talked to the patient regarding the potential for life-threatening infection of lower extremity wounds. He was resistant at this time for above-knee amputations despite his history of paraplegia. I therefore discussed strict return precautions and symptoms and signs of infection. Currently the wounds appear to be colonized and there is no signs of osteomyelitis or any infection of the ankle joints based on clinical exam and x-rays. The lateral malleolus is exposed however and likely colonized and will require significant debridement, followed by likely dermal substitute placement and skin grafting if we are able to get him healed. I will continue to talk to him about my concerns for limb salvage. In the meantime I recommended strict pressure offloading and excellent wound care with wet-to-dry dressings and optimization by vascular surgery for optimization of lower extremity blood flow in the setting of severe limb threatening wounds. Patient will follow-up with me within a week and see vascular surgery. Plan from 29 June 2025: I reiterated the seriousness of the problem with the patient and his and gave them strict return precautions for signs of ascending infection. I talked to him about the risks of limb salvage in the setting of severe wounds and neutropenia. He understands that he may need an amputation regardless, but he would like to try limb salvage (not interested in an amputation at this time). I spoke to him extensively about the benefits of limb salvage in a paraplegic patient. He agrees that with positioning and sitting in his chair, his legs balance him and he is not interested in amputation (above-knee is what I offered) as he believes the balancing provides him significant benefit (even though the legs do not move). I will continue to coordinate with his hematology oncology team as they are currently weaning his Avastin and giving him infusions to increase his neutrophil count. In approximately 3 weeks there will be a window where the Avastin is out of his system and we can consider surgical intervention. In the meantime I ordered ABIs and they came back with concern for occlusive disease at the ankle. I am going to refer him to vascular surgery (he has an appointment later this week) for assistance with regards to blood flow and wound healing. Follow-up with me in 1 week for wound check Plan from 06 July 2025: Continue to follow-up with hematology (next appointment tomorrow). I will continue to coordinate with vascular surgery and we will plan on angiogram (potentially at the same time as the debridement). I talked the patient about the risks, benefits, and alternatives to continued wound salvage versus amputation versus palliative care. I talked to him about debridement of bone and placement of dermal substitute, followed by hopefully eventual skin grafting. I talked him about pressure offloading and continued pressure offloading with the boots as well as return precautions for signs and symptoms of infection (discussed returning to the emergency department immediately if any signs or symptoms of infection occur). They understand that there is no guarantee with limb salvage. I talked to the patient extensively about the risks of surgery, including bleeding, infection, damage to surrounding structures, poor scaring, surgical site dehiscence and wound formation, need for wound care, need for repeat operations, failure to obtain the desired result (eventual amputation despite our best efforts), recurrence of the pressure ulcers, DVT/PE, and the risks of anesthesia including , including stroke (from low blood pressure/ischemia or clot). The benefits and alternatives of this surgery were also discussed. All of their questions were answered, and they agreed to proceed with surgery once the Avastin levels have subsided (I am going to coordinate with the oncology team).
--- NOTE | 2025-07-08 13:52 | WC ---
PHOTO-RIGHT ANKLE/RIGHT LATERAL FOOT 07/06/25
--- NOTE | 2025-07-08 13:54 | WC ---
PHOTO-RIGHT MED ANKLE 07/06/25
--- NOTE | 2025-07-08 13:56 | WC ---
PHOTO-LL ANKLE/LL FOOT 07/06/25
== END 2025-07-24 23:59 | disposition home or self-care (01) ==
LOC: WC 13:00
PROVIDERS: PCP Nurse Practitioner Family; Visit Provider Surgery Plastic and Reconstructive Surgery
DX: L89.524 Pressure ulcer of left ankle, stage 4 (principal); L89.514 Pressure ulcer of right ankle, stage 4; C22.9 Malignant neoplasm of liver, not specified as primary or secondary; G82.20 Paraplegia, unspecified; L89.892 Pressure ulcer of other site, stage 2; D70.9 Neutropenia, unspecified
CPT/HCPCS: 11043; 99213; G0463

== ENCOUNTER 2025-08-11 12:55 | Inpatient (IN) | payer MEDICARE, SELFPAY ==
[2025-08-11] VITALS (11 sets, daily range): BP systolic 92–130; BP diastolic 35–74; PULSE 67–81; RESP 12–16; TEMP 36.4–36.8; O2SAT 96–100; BMI 21.5; BMI 21.4
--- NOTE | 2025-08-11 10:44 | PCM.HP.STD ---
HPI - General General Date of Service: 08/11/25 HPI Narrative TERI RAHMAN, is a 75 M who presents today for bilateral debridement of severe ankle wounds with exposed bone with intraoperative wound VAC placement bilaterally with plans for right leg angiogram with Dr. Menjivar on . Denies changes in health. Denies fever, chills, URI, dental infection. HPI from 07/27/2025: The patient is a 74-year-old male presenting with severe ankle wounds with exposed bone. 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 Recently, the patient has been undergoing chemotherapy for colon cancer that is metastatic to the liver (he takes Avastin), which has contributed to the deterioration of his skin integrity and the development of the current wounds which have been present for several weeks. The ankle wounds have been present for approximately three weeks and are characterized by exposed fibula bone at the lateral malleolus. The patient is neutropenic, with a low white blood cell count of 3.1 and low neutrophils at 25%, which complicates the healing process. The patient has been managing his condition with pressure offloading techniques, including the use of a hobo mattress and sheepskin, to prevent further pressure sores. He has not yet received assistance from home health services for wound care, although they are scheduled to begin soon. ROS: - Musculoskeletal: Reports inability to move legs due to paraplegia. - Integumentary: Reports presence of ankle wounds with exposed bone. - Hematologic: Reports neutropenia. Attestation: Documentation on this patient encounter was supported using ambient scribe technology/ voice AI technology. The patient consented to recording for the purpose of documenting the encounter. Provider reviewed content of the generated note prior to signature. 29 June 2025: Patient is here and they endorse excellent dressing changes with wet-to-dry dressings 3 times per day using Dakin's. They also report that they have been following up with her plant sciences professor for blood draws. I discussed with the patient and his my plans for potential reconstruction as well as my discussion with his medical oncologist. 06 Jul 2025: Doing well overall. Was evaluated by vascular surgery and they are going to recommend coordinating an angiogram. He has not yet seen infectious disease but they are consulted and he is being given appointment. He has been following up with oncology who is discontinuing the Avastin and attempting to increase his white blood cell count in anticipation for surgery and attempted wound healing. Patient is still adamant about keeping his legs. He and his feel that the legs provide help with transfers and with stability in a wheelchair. He is not interested in amputation at this time (I talked him about the risks, benefits, and alternatives of limb salvage, notably in the setting of paraplegia). He would like to attempt continued limb salvage, even in the setting of severe ankle wounds with exposed bone and neutropenia. The wounds could kill him as they could get infected quickly and cause sepsis (I counseled them extensively about this). Patient and his know this and would like to continue with attempted limb salvage. 27 Jul 2025: Patient has been compliant with wound care and has seen vascular. Plan for right leg angiogram is off of his Avastin and seeing his plant sciences professor and rechecking his levles. Dr. Mac have been in contact with his plant sciences professor. His metastatic colon cancer (to liver) is stable based on recent CT scan. FORMERLY [facility], [facility]–1983 Medical History Open wound History of steroid therapy Low iron Difficulty swallowing History of edema Hx of peripheral vascular disease Wears hearing aid Wears glasses Cancer Uses wheelchair Functional voiding disorder Non-smoker Paraplegic immobility syndrome Liver masses Candidiasis Pruritus, unspecified Home Medications ?Medication ?Instructions ?Recorded ?Last Taken ?Type Liquid probiotic 5 ml PO DAILY 10/23/24 08/10/25 History Liquid heart drops 2 gtt PO QHS 10/23/24 08/10/25 History Liquid kidney and bladder 2 gtt PO DAILY 10/23/24 08/10/25 History Resolution 2 tab PO BID 10/23/24 08/10/25 History tramadol 50 mg tablet 50 mg PO Q6H PRN PRN pain 06/18/25 08/10/25 History Liquid Iron 1.5 mg PO DAILY 07/03/25 08/10/25 History Allergy/AdvReac Type Severity Reaction Status Date / Time amoxicillin Allergy UTI Verified 08/05/25 09:28 Family History Father Cancer Brother Cancer Surgical History History of vascular access device H/O skin graft Hx of appendectomy Hx of tonsillectomy Social History Smoking Status: Never smoker alcohol intake: never ROS ROS Narrative General: Denies fever, chills HEENT: Denies headaches, vision changes, sore throat Cardio: Denies chest pain, leg edema Pulmonary: Denies shortness of pain, cough, wheezing GI: Denies nausea, vomiting, diarrhea Physical Exam Narrative Afebrile/VSS. - Musculoskeletal: Exposed fibula bone at the lateral malleolus of the ankles bilaterally and a right medial ankle eschar. - Vascular: Diminished pulses in the lower extremities thready 1+ dorsalis pedis. The right lateral ankle wound had significant necrotic fibrinous exudate and debris and necrotic tendon that was desiccated. No signs of acute infection . No ascending infection no crepitus Assessment & Plan Assessment/Plan (1) Pressure ulcer of right ankle, stage 4: (2) Pressure ulcer of left ankle, stage 4: (3) Liver cancer: (4) PAD (peripheral artery disease): PLAN: Plan Plan for admission after bilateral wound debridement with wound VAC placement with angiogram to follow with Dr. Menjivar on Clindamycin for surgical prophylaxis.
--- NOTE | 2025-08-11 10:49 | PRE.ANES_ITS ---
ASA Classification* ASA Classification ASA Classification: 3 Assessment & Plan Anesthesia* Anesthesia Assessment Anesthesia Assessment: Discussed sedation and/or anesthesia options, risks, benefits, and alternatives with patient/parents/legal guardian/POA. Questions invited. The patient/parents/legal guardian/POA seems to understand and agrees to proceed with anesthesia plan. Reviewed the physical assessment, medical history, allergy history and patient home medications list prior to surgery/procedure/anesthetic and documented any changes. Performed airway and anesthesia risk assessments. Anesthesia Type Anesthesia Type: General and MAC History Source History Obtained from:: Patient and Chart Anesthesia Focused Assessment* Oxygen Delivery Method: Room Air Airway Assessment Mouth opens: >3 cm Mallampati Score: II Teeth Condition: Chipped/Broken Neck Range of motion (ROM): Full ROM Labs Anesthesia Preop lab: CBC WBC, (4.4-11.0) 12.7 K/mm3 H 10/23/24, 16:10 RBC, (4.6-6.2) 4.61 M/mm3 10/23/24, 16:10 Hgb, (13.0-16.5) 11.4 g/dL L 10/23/24, 16:10 Hct, (40-54) 36.9 % L 10/23/24, 16:10 Plt Count, (150-450) 476 K/mm3 H 10/23/24, 16:10 CHEMISTRY Potassium, (3.5-5.1) 4.0 mmol/L 10/23/24, 16:10 Sodium, (136-145) 134 mmol/L L 10/23/24, 16:10 BUN, (7-18) 15 mg/dL 10/23/24, 16:10 Creatinine, (0.70-1.30) 0.74 mg/dL 10/23/24, 16:10 Glucose, (74-106) 98 mg/dL 10/23/24, 16:10 COAG Pre-Assessment Diagnosis/Proposed Procedure Planned Operative Procedure(s): DEBRIDEMENT WOUND VAC PLACEMENT BILAT ANKLES Anesthesia History Anesthesia History - manager mechanical maintenance: Anesthesia History - manager mechanical maintenance Hx Hospitalization No 08/05/25 09:31 Any Problems With Anesthesia No 08/05/25 09:31 Cholinesterase deficiency No 08/05/25 09:31 You/Your Family Experience No 08/05/25 09:31 fever (hyperthermia) with Relationship Recent Exposure to Contagious No 02/25/25 07:58 Disease Does patient have nerve No 08/05/25 09:31 stimulator Patient instructed to have device shut off --Does patient have Pacemaker or ICD? When Was Last Pacemaker Check QUESTION #4 FULL TEXT: You/Your Family Experience fever (hyperthermia) with Anesthesia Last Oral Intake Last Oral intake: Last Oral Intake NPO since Meds taken in AM with sips of water? Meds patient instructed to take am of surgery PONV PONV - manager mechanical maintenance: PONV - manager mechanical maintenance Female No 08/05/25 09:31 HX of Motion Sickness No 08/05/25 09:31 HX of N/V After Surgery No 08/05/25 09:31 Non-Smoker Yes 08/05/25 09:31 Duration of Surgery greater Yes 08/05/25 09:31 than 60 minutes Number of Risk Factors 2 08/05/25 09:31 PONV Score Moderate Risk 08/05/25 09:31 Height & Weight Height & Weight: Anesthesia: Height & Weight Height 5 ft 10 in 07/03/25 10:34 Respiratory Assessment Respiratory Assessment - manager mechanical maintenance: Respiratory Tract Infection Hx - manager mechanical maintenance Hx Respiratory Tract Infection No 08/05/25 09:31 STOP Sleep Apnea STOP Sleep Apnea - manager mechanical maintenance: STOP Sleep Apnea - manager mechanical maintenance Hx Hypertension No 08/05/25 09:31 Hx Sleep Apnea No 08/05/25 09:31 CPAP BIPAP Do you snore loudly (louder Yes 08/05/25 09:31 than talking or can be heard Do you often feel tired/ Yes 08/05/25 09:31 fatigued/ sleepy during daytime? Has anyone observed you stop No 08/05/25 09:31 breathing during sleep? STOP Results Positive 08/05/25 09:31 QUESTION #5 FULL TEXT : Do you snore loudly (louder than talking or can be heard through closed doors)? Tobacco Use History Tobacco Use History - manager mechanical maintenance: Tobacco Use History - manager mechanical maintenance Tobacco Use Smoking Status Never smoker 08/05/25 09:31 Hx Tobacco Use No 08/05/25 09:31 Years Smoking Packs Smoked per Day Smoking Cessation Date was within the last 15 years Hx Smoking Cessation Date Hx Smoking Cessation Counseling Hematologic Medial History Hematologic Hx - manager mechanical maintenance: Hematologic Medical Hx - underwriting assistant Hx of Blood Transfusion No 08/05/25 09:31 Hx of Transfusion in last 3 No 08/05/25 09:31 Months Date of Last Transfusion (if within last 3 months) Ever experience any problems No 08/05/25 09:31 with transfusion(s)? Specify any problems Hx of Preganancy in last 3 N/A 08/05/25 09:31 Months Nurse Filling Out Transfusion DSCHRIBER 08/05/25 09:31 & Questions: Date: 08/05/25 08/05/25 09:31 Time: 09:33 08/05/25 09:31 Patient unable to answer at this time (ie. confused, unrespo /Reproduction History /Reproductive History - manager mechanical maintenance: /Reproductive Hx- manager mechanical maintenance Hx Now No 08/05/25 09:31 Gestational Age (in weeks): EDC: Hx Hx Para Hx Section SAB No 08/05/25 09:31 Does the father of the baby or his family experience fever w Father of the baby Malignant Hypertension history comment Active Medications Active Medications: Current Medications Generic Name Dose Route Start Last Admin Trade Name Freq PRN Reason Stop Dose Admin Lactated Ringer's 1,000 mls @ 15 mls/hr 08/11/25 10:45 IV .Q48H VINCENZO PFSH Medical History Open wound History of steroid therapy Low iron Difficulty swallowing History of edema Hx of peripheral vascular disease Wears hearing aid Wears glasses Cancer Uses wheelchair Functional voiding disorder Non-smoker Paraplegic immobility syndrome Liver masses Candidiasis Pruritus, unspecified Home Medications ?Medication ?Instructions ?Recorded ?Last Taken ?Type Liquid probiotic 5 ml PO DAILY 10/23/2402/24 History Liquid heart drops 2 gtt PO QHS 10/23/24 History Liquid kidney and bladder 2 gtt PO DAILY 10/23/24 06/12/16 History Resolution 2 tab PO BID 10/23/24 History tramadol 50 mg tablet 50 mg PO Q6H PRN PRN pain Unknown History Liquid Iron 1.5 mg PO DAILY 07/03/25 Unk nown History Allergy/AdvReac Type Severity Reaction Status Date / Time amoxicillin Allergy UTI Verified 08/05/25 09:28 Family History Father Cancer Brother Cancer Surgical History History of vascular access device H/O skin graft Hx of appendectomy Hx of tonsillectomy Social History Smoking Status: Never smoker alcohol intake: never Review of Systems (Anesthesia) ROS Narrative System reviewed and no additional complaints, except as documented.
[2025-08-11] MEDS: Lactated Ringers 1,000 ML 15 ML IV (11:30)
[2025-08-11] MEDS: Midazolam 2 MG/2 ML Syringe IV (11:35)
[2025-08-11] MEDS: Lidocaine 1% (5 ml sdv) 5 ML Vial 6 ML IV (11:46)
--- NOTE | 2025-08-11 12:00 | DEB_PTH ---
PATIENT: TERI RAHMAN LOC: 3 U#:[id number] AGE/SX: 75/M ROOM: [facility] [place] RE08/11/[address]: Dr. Jerson Noble MD : 1950 BED: 1 DIS: 08/18/2025 SPEC #: [id number] RECD: 08/11/25 14:30 STATUS: JESUS RESarah #: [id number] GUANAKITO: 08/11/25 12:[address]: Hank Mac DEPT: SURGICAL PATHOLOGY RECD BY: Surya Peterson ENTERED: 08/11/25 15:15 SP TYPE: KOLBY MIDDLETON DR: Dr. Inocente Richards, DO CHINTAN RILEY, [employer]-C Tissues: A - Ankle, NOS B - Ankle, NOS C - Ankle, NOS D - Ankle, NOS Soft tissues, NOS Procedures: Decalcification bone/plaque Surgery Specimen Level IV HEADER OPERATION: Debridement with wound vac placement bilateral ankles PRE-OP DIAGNOSIS: Pressure ulcer right ankle stage 4, pressure ulcer left ankle stage 4 TISSUE SUBMITTED: A- Right lateral ankle biopsy, B- Left lateral ankle bone, C- Right medial ankle bone, D- Right lateral metatarsal bone MICROSCOPIC DIAGNOSIS A. Right lateral ankle bone, debridement: * Bone with acute osteomyelitis B. Left lateral ankle bone, debridement: * Bone with chronic osteomyelitis C. Right medial ankle bone, debridement: * Bone with acute osteomyelitis D. Right lateral metatarsal bone, debridement: * Bone negative for inflammation MICROSCOPIC DESCRIPTION Slides are reviewed. GROSS DESCRIPTION Received in 4 formalin containers labeled with the patient's name and date of . Designated as: A. Right lateral ankle bone is a 2.9 x 2.0 x 0.1 cm irregular portion of valreo-red, focally eburnated bone. Body Builder sections are submitted in 1 cassette, following decalcification. B. Left lateral ankle bone is a 0.8 x 0.8 x 0.2 cm irregular portion of yellow-red trabeculated bone. Entirely submitted in 1 cassette, following decalcification. C. Right medial ankle bone is a 1.6 x 0.7 x 0.2 cm aggregate of pink-red bone and soft tissue fragments. Entirely submitted in 1 cassette, following decalcification. D. Right lateral metatarsal bone is a 0.7 x 0.5 x 0.3 cm portion of yellow-red, trabeculated bone. Entirely submitted in 1 cassette, following decalcification. [place] 08/11/2025 CPT:[id number]
--- NOTE | 2025-08-11 13:17 | PCM.POST.ANE ---
Anesthesia: Postop Eval I Current Vital Signs Temperature: 97.5 F Pulse Rate: 81 Blood Pressure: 100/71 Respiratory Rate: 16 Pulse Ox: 99 Assessment Airway patent: Yes Spontaneous unlabored respirations: Yes nausea: No Vomiting: No Anesthesia Complication: No Fluid Hydration Crystalloid volume administer (ml): 800 Total IV fluid infused: 800 Progress Note Anesthesia document: Postop Eval 1 completed: Yes
[2025-08-11] MEDS: Lidocaine 1% /Epi 1:100 (50ml) 50 ML VIAL (13:25)
--- NOTE | 2025-08-11 13:29 | PCM.OPRPT ---
Operative Report (Standard) Operative Information Date of Procedure: 08/11/25 Pre-Operative Diagnosis: Bilateral ankle pressure sores with exposed bone Post-Operative Diagnosis: Same Surgery/Procedure Performed: 1. Excision right lateral malleolus wound 5 x 4 cm down to bone 2. Excision right lateral foot wound, 1 x 1 cm down to bone 3. excision right medial malleolus wound 3 x 2 cm down to bone 4. Excision left lateral ankle wound 5 x 4 cm down to bone elementary assistant teacher: Yes Industrial Relations Analyst: Brandon Farias Tasks completed by back office medical assistant: Other (Wound VAC placement) Type of Anesthesia: MAC/Supplemental (30 cc of quarter percent Marcaine with 1-200,000 epinephrine (patient is insensate and the epinephrine was used in this concoction to help with hemostasis)) RN Documented Start/Stop Times: Operation Date: 08/11/25 12:00 Case Time Into Pre-Op 08/11/25 10:35 Into Room 08/11/25 11:35 Out of Pre-Op 08/11/25 11:35 Anesthesia Start 08/11/25 11:36 Procedure Start 08/11/25 12:06 Procedure End 08/11/25 13:00 Anesthesia End 08/11/25 13:10 Out of Room 08/11/25 13:10 Into Recovery 08/11/25 13:12 Out of Recovery 08/11/25 13:53 Procedure Start Time: 12:06 Procedure Stop Time: 13:00 Select all DRAINS/GRAFTS/IMPLANTS that apply: None Estimated Blood Loss: 20 cc Specimen collected: Yes Description of specimen(s) removed: Bone biopsies from the right medial and lateral malleolus, as well as the left lateral malleolus and right lateral metatarsal Description of surgery: Indications: Patient is a 75-year-old male with paraplegia and history of metastatic colon cancer on Avastin (has been held for the past 5 weeks for improved wound healing) who presents today for debridement of his severe ankle pressure injuries. Vascular surgery has been consulted for ankle-brachial indices abnormalities and concern for malperfusion to the bilateral feet, and they are performing an angiogram during this admission (planned for , 13 August 2025). Patient consented today for debridement of the wounds on the ankles and feet bilaterally with placement of an irrigating wound VAC to promote granulation and hopefully make placement of a dermal substitute and eventual skin grafting possible. He understands the risks, benefits, and alternatives and elected to proceed. Procedure details: Patient was correctly identified in preoperative holding and taken back to the operating room where he was administered sedation and local anesthesia as noted above. He was prepped and draped in sterile fashion all proper timeouts were performed. Osteotomes, scissors, 10 blade scalpel, and rongeur's were used for sharp excision of the above-noted wounds down to healthy bleeding bone at the base of the wound. All fibrinous exudate and sequestrum ( bone at the base of the wound) was removed. Bone cultures from each wound were taken with clean instruments. The wounds at the following measurements: 1. Excision right lateral malleolus wound 5 x 4 cm down to bone 2. Excision right lateral foot wound, 1 x 1 cm down to bone 3. excision right medial malleolus wound 3 x 2 cm down to bone 4. Excision left lateral ankle wound 5 x 4 cm down to bone Hemostasis was obtained with the above-noted local solution, and Bovie electrocautery. The wounds were irrigated with copious amounts of normal saline and Irrisept. An irrigating wound VAC was applied on each of the wounds, and was holding suction at the end of the case. The patient was awakened and transferred to the PACU in stable condition. Postoperative plan: Patient will be admitted to the floor for irrigating wound VAC and pressure offloading bed/boots. He will get an angiogram later this week with vascular surgery. Plan to leave the irrigating wound vacs on for 2 days before changing. Anticipate discharge home with wound VAC. Surgical Findings: Healthy bone beneath the excised bone that was exposed. Appear to be bleeding well. No fluid collections. Complications Complications: No
--- NOTE | 2025-08-11 13:49 | SUR.PHASEI ---
[place] noted in pacu
--- NOTE | 2025-08-11 14:12 | PCM.CONS.GEN ---
Assessment & Plan Assessment/Plan (1) Pressure ulcer of right ankle, stage 4: (2) Pressure ulcer of left ankle, stage 4: (3) PAD (peripheral artery disease): (4) Acute postoperative anemia due to expected blood loss: PLAN: Plan Patient is a 75-year-old male who presented [facility] on 08/11/2025 for planned plastic surgery procedure on his bilateral ankle wounds. Medicine consulted postoperatively for medical management. 1. Bilateral ankle pressure ulcers in setting of paraplegia ? Plastic surgery primary. Wound care consulted. History of paraplegia for 50 years due to spinal cord injury, and is wheelchair-bound at baseline. S/p excision down to the bone of multiple bilateral ankle wounds with bilateral wound VAC placement with Dr. Mac on 08/11. Tolerated procedure well, no intraoperative complications noted. Postoperative pain control with Tylenol and oxycodone as needed. Per plastics, postoperative plan is to leave wound vacs on for 2 days before changing, with plan for angiogram with vascular surgery on as below; anticipating discharge home with wound VAC. Eventual plan is for skin grafting. Further management per primary. 2. Peripheral artery disease ? Vascular surgery consulted. Patient saw vascular surgery in the office on 07/03, was noted on ABIs to have moderate RLE PAD that would typically be sufficient to heal in a nondiabetic patient but this patient has added complexity of immunosuppression and surgical intervention above. Patient will have angiogram done with vascular surgery on 08/13 to assess vascular flow and healing potential. 3. Liver cancer ? Follows with [facility] in [place]. Had CT abdomen pelvis done on 10/15/2024 at [facility] that showed large metastatic lesions occupying the majority of the liver with probable central necrosis. Patient saw Dr. Millard on 10/23 who recommended liver biopsy to confirm cancer. Difficult to find further records but cancer was confirmed and patient had port placed in early February and has been undergoing chemotherapy with Avastin since then. Avastin has been on hold recently to provide best chance for healing of his ulcers as above. No inpatient needs, continue outpatient follow-up. 4. Postoperative anemia in setting of chronic iron deficiency anemia ? Hemoglobin 8.3 postoperatively. Most recent prior hemoglobin in our system was 11.4 back on 10/23. Patient hemodynamically stable postoperatively. Presume hemoglobin drop is secondary to expected operative blood loss. Is on a liquid iron supplement at home that we unfortunately do not have on formulary here. Follow-up a.m. CBC. 5. Chronic back pain ? Is on tramadol at home for chronic back pain. Treating pain as above while inpatient. DVT prophylaxis: Lovenox per plastics Total clinical time spent by myself addressing the patient's medical issues, reviewing all the data, and collaborating with patient's care team: 42 minutes. HPI Consult Data Date of Consult: 08/11/25 HPI Narrative Reason for Consultation: Postoperative medical management HPI Narrative: TERI RAHMAN, is a 75 M who presented to [facility] on 08/11/2025 for planned surgical procedure. Medicine consulted postoperatively for medical management. Patient has history of bilateral ankle pressure sores with exposed bone. He had excision of the right lateral malleolus wound, right lateral foot wound, right medial malleolus wound and left lateral ankle wound down to the bone done with Dr. Mac today. Tolerated procedure well, no intraoperative complications noted. I saw the patient at bedside this evening, several family members present. Patient had wound vacs in place on both legs and was in a pressure offloading bed/boots. Plan is for patient to have an angiogram done later this week with vascular surgery given his significant known peripheral vascular disease. Patient reports feeling fatigued but denies any significant pain in his legs currently. Denies any other acute concerns currently. [facility] Medical History Open wound History of steroid therapy Low iron Difficulty swallowing History of edema Hx of peripheral vascular disease Wears hearing aid Wears glasses Cancer Uses wheelchair Functional voiding disorder Non-smoker Paraplegic immobility syndrome Liver masses Candidiasis Pruritus, unspecified Home Medications ?Medication ?Instructions ?Recorded ?Last Taken ?Type Liquid probiotic 5 ml PO DAILY 10/23/24 08/10/25 History Liquid heart drops 2 gtt PO QHS 10/23/24 08/10/25 History Liquid kidney and bladder 2 gtt PO DAILY 10/23/24 08/10/25 History Resolution 2 tab PO BID 10/23/24 08/10/25 History tramadol 50 mg tablet 50 mg PO Q6H PRN PRN pain 06/18/25 08/10/25 History Liquid Iron 1.5 mg PO DAILY 10/10/25 11/17/25 History Allergy/AdvReac Type Severity Reaction Status Date / Time amoxicillin Allergy UTI Verified 08/05/25 09:28 Family History Father Cancer Brother Cancer Surgical History History of vascular access device H/O skin graft Hx of appendectomy Hx of tonsillectomy Social History Smoking Status: Never smoker alcohol intake: never ROS Constitutional Constitutional: Reports fatigue; Denies chills, fever(s) or weakness Cardiovascular Cardiovascular: Denies chest pain Respiratory/Chest Respiratory/Chest: Denies shortness of breath at rest Gastrointestinal Gastrointestinal: Denies abdominal pain Musculoskeletal Musculoskeletal: Reports other Details: Bilateral leg pain ; Denies arthralgias or myalgias Neurologic Neurologic: Denies dizziness, focal weakness, headache(s), numbness or tingling Physical Exam Const alert, oriented x3, no apparent distress and average body habitus Constitutional Narrative: Elderly [place] male, fatigued appearing, otherwise laying fairly comfortably on his side in bed and answering questions appropriately for me. General Appearance: cooperative and comfortable HEENT normocephalic, head/scalp atraumatic, hearing grossly normal bilaterally, nasal mucous membranes and turbinates normal and moist oral mucous membranes Eyes PERRL, EOMs intact bilaterally and conjunctivae normal Neck full ROM Chest inspection of chest normal Resp normal respiratory effort, normal air movement, no use of accessory muscles and clear to auscultation bilaterally Cardio regular rate, regular rhythm, no murmurs and peripheral pulses 2+ throughout GI normal to inspection, nondistended, normoactive bowel sounds, soft to palpation, non-tender and non-distended Back/Spine normal ROM Extremity Extremity Narrative: Bilateral wound vacs in place on the lower legs with serosanguineous drainage noted. Skin no rashes or lesions noted Psych mental status grossly normal Lab / Micro Data 08/11/25 15:25 08/11/25 15:25 Charges/Coding Visit Charges Inpatient E&M: 98574 Subs Hosp L2
--- NOTE | 2025-08-11 15:14 | WOUNDNOTE ---
In to assess wound VAC dressings to bilateral ankle wounds. good seal noted on both VAC's at 125mmHg. nursing aware to reapply the heel boots when patient is finished eating. did not want toes touching the bottom of the tray while patient was eating so did not apply at this time. Family present in room. will switch to Dakins irrigation when up from pharmacy or first thing in am since NS was placed in the OR.
[2025-08-11 15:37] LABS: Hematocrit 26.3 % (40-54); Hemoglobin 8.3 g/dL (13.0-16.5); Immature Granulocytes Count 0.030 X10^3/uL (0.0-0.0); Mean Corp Hgb Conc 31.6 g/dL (32-36); Mean Corpuscular Volume 105.6 fL (80-94); Mean Platelet Vol. 8.6 fl (6.2-12.0); NRBC Flagged by Analyzer 0 % (0-5); POSITIVE MORPHOLOGY YES; Platelet Count 299 K/mm3 (150-450); RBC Distribution Width CV 17.2 % (11.6-14.6); RBC Distribution Width SD 66.8 fl (35.1-43.9); Red Blood Count 2.49 M/mm3 (4.6-6.2); White Blood Count 8.0 K/mm3 (4.4-11.0)
[2025-08-11 15:44] LABS: Differential Indicated SCAN CRITERIA MET
[2025-08-11] MEDS: 0.9% Normal Saline (1000mL) 1,000 ML 75 ML IV (15:57)
[2025-08-11] MEDS: Lactobacillis Acidophilus 1 CAP PO ×2 (15:58→22:05)
[2025-08-11 16:08] LABS: AST(SGOT) 28 U/L (<=37); Alanine Aminotransfer ALT/SGPT 15 U/L (<=46); Albumin, Serum 2.9 g/dL (3.4-4.8); Alkaline Phosphatase 61 U/L (40-129); Anion Gap 8 (5-15); BUN 18 mg/dL (4-19); BUN/Creat Ratio 36.8 RATIO (10-20); Calcium,Total 8.2 mg/dL (7.6-11.0); Carbon Dioxide 25.7 mmol/L (21.0-32.0); Chloride 106 mmol/L (98-108); Estimated Creatinine Clearance 76.78 ml/min (50-250); Globulin 4.1 g/dL (2.2-4.2); Glucose 121 mg/dL (70-99); Potassium 3.8 mmol/L (3.3-5.1)
[2025-08-11 16:09] LABS: Anisocytosis RARE
--- NOTE | 2025-08-11 16:28 | POSTOPAN2_ITS ---
Anesthesia Postop Eval I Sum Postop Eval Completion status Anesthesia document: Postop Eval 1 completed: Yes Anesthesia Postop Eval I Summary Anesthesia Postop Eval I Summary: Anesthesia Postop Eval I: Assessment Summary Airway patent Yes 08/11/25 13:17 [email or web address] Spontaneous unlabored Yes 08/11/25 13:17 [email or web address] SETTER [email or web address] respirations Mental status nausea No 08/11/25 13:17 KNIFE SETTER [email or web address] Vomiting No 08/11/25 13:17 KNIFE SETTER [email or web address] Anesthesia Postop Eval I: Fluid Summary Crystalloid volume administer 800 08/11/25 13:17 [email or web address] SETTER [email or web address] (ml) Colloids volume administered ( ml) Blood Product volume administered (ml) Total IV fluid infused 800 08/11/25 13:17 [email or web address] SETTER [email or web address] Anesthesia Postop Eval I: Summary Notes Anesthesia Complication No 08/11/25 13:17 [email or web address] SETTER [email or web address] Anesthesia Complication Comment: Post-operative progress note Anesthesia: Postop Eval II Evaluation Mental status: Awake and Calm Pain Level: 1 nausea: No Vomiting: No Complications Anesthesia Complication: No
--- NOTE | 2025-08-11 16:28 | PCM.POSTANE2 ---
Anesthesia Postop Eval I Sum Postop Eval Completion status Anesthesia document: Postop Eval 1 completed: Yes Anesthesia Postop Eval I Summary Anesthesia Postop Eval I Summary: Anesthesia Postop Eval I: Assessment Summary Airway patent Yes 08/11/25 13:17 TURRET [email or web address] [email or web address] Spontaneous unlabored Yes 08/11/25 13:17 TURRET LATHE [email or web address] respirations Mental status nausea No 08/11/25 13:17 TURRET LATHE [email or web address] Vomiting No 08/11/25 13:17 TURRET LATHE [email or web address] Anesthesia Postop Eval I: Fluid Summary Crystalloid volume administer 800 08/11/25 13:17 TURRET LATHE [email or web address] (ml) Colloids volume administered ( ml) Blood Product volume administered (ml) Total IV fluid infused 800 08/11/25 13:17 TURRET LATHE [email or web address] Anesthesia Postop Eval I: Summary Notes Anesthesia Complication No 08/11/25 13:17 TURRET [email or web address] [email or web address] Anesthesia Complication Comment: Post-operative progress note Anesthesia: Postop Eval II Evaluation Mental status: Awake and Calm Pain Level: 1 nausea: No Vomiting: No Complications Anesthesia Complication: No
--- OUTSIDE RECORDS SUMMARY | 2025-08-11 18:21 | XMS RPT_ITS | CCD ---
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 [address] Dot Compliance Specialist: Willy Jolly MD CXR for Line Placementon CXR for Line Placement [facility] Imaging Services [address] [place] [address] CXR for Line Placement MR#: [id number] Acct: [id number] Name: DEXTER RAHMAN Rep #: [id number] : 1950 M 74 From: Jerson Barker PCP: CHINTAN CAMP Status: [facility] Study: CXR for Line Placement Date of Exam: 02/25/25 Exam# [id number] Ordering Dr: Harlan Jackson MD PROCEDURE: CXR FOR LINE PLACEMENT 02/25/2025 REASON FOR EXAM: PORT INSERTION TECHNIQUE: AP portable upright chest COMPARISON: Chest x-ray 12/12/2024. RAD/CXR for Line Placement IMPRESSION: No interval osseous changes seen. Prominent degenerative changes are seen of the shoulder joints. Partially visualized thoracolumbar fixation device appear stable. A right subclavian central venous catheter with port is seen, with tip projecting near the expected junction of the SVC and right atrium. Chronic lung changes are again seen, but no acute pneumonic process is noted. No pleural effusion or pneumothorax is seen. The cardiomediastinal silhouette is stable, without evidence of cardiomegaly. Reading Location: [id number] CC: Dr. Harlan Jackson MD; CHINTAN CAMP Management Analyst: Signed Normal [facility] Discharge Instructionon Discharge Instruction [facility] Medical Records Department [address] [place] [address] Instructions for Home/Discharge Instructions 02/25/25 1014 MR#: [id number] Acct: [id number] Name: DEXTER RAHMAN Rep #: [id number] : 1950 74 From: Harlan Jackson MD PCP: CHINTAN CAMP Status:REG [facility] Discharge Instructions Diet Discharge Diet: Light diet - advance as tolerated Activity Discharge Activity: Return to Normal Activity May shower in (days): 1 Ice area for (Minutes): 30 Dressing / Incision Call your doctor if your incision/area has: Continuous Slow Oozing, Sudden Increased Bleeding, Increased Pain/ Swelling, Increased Redness, Foul Smelling Discharge and Swelling at the incision site Call your doctor if you observe: Fever of 101 or Higher Remove Dressing in: 3 days Cleanse incision/area with: Soap Water Follow Up Care Please Follow Up With: Harlan Jackson MD When: As needed Test Results: Test results from this visit will be discussed in further detail at your follow-up appointment, if applicable. Discharge Plan Admission Primary Reason for Your Visit: Port placement Attending Provider: Harlan Jackson Primary Care Provider: CHINTAN CAMP Instructions Print Language: Filipino Discharge Orders/Prescriptions Prescriptions: New oxycodone-acetaminophen [Percocet] 5-325 mg tablet 1 tab PO Q8H PRN (Reason: pain) 3 Days Qty: 7 0RF Continued Liquid kidney and bladder 2 gtt PO 1XD Liquid probiotic 5 ml PO DAILY Liquid heart drops 2 gtt PO QHS D- manose 1 ea PO 2XD Resolution 2 ea PO BID hydrocodone-acetaminophen 5-325 mg tablet 1 tab PO Q6H PRN PRN (Reason: Pain) 3 Days Qty: 10 0RF Referrals / Follow Up: CHINTAN CAMP NP-C [Primary Care Provider] - Disposition Disposition (needs filled in before D/C Order can be placed): Home, Self Care 02/25/25 1017 Harlan Jackson MD CC: CHINTAN CAMP Signed Normal [facility] MR/POSTOP.Evangelina 02-25-2025 MR/POSTOP.[facility] Medical Records Department [address] [place] [address] Anesthesia Postop Eval I 02/25/25 1012 MR#: [id number] Acct: [id number] Name: DEXTER RAHMAN Rep #: [id number] : 1950 74 From: Ginny Luevano DIRECTOR MOBILE PCP: CHINTAN CAMP HVAC R TECHJean PaulC Status:REG SDC Y Race: C Location: [place] [address] Anesthesia: Postop Eval I Current Vital Signs Temperature: 97.7 F Pulse Rate: 85 Blood Pressure: 159/75 Respiratory Rate: 16 Pulse Ox: 100 Oxygen Delivery Method: Room Air Assessment Airway patent: Yes Spontaneous unlabored respirations: Yes Mental status: Awake and Calm nausea: No Vomiting: No Anesthesia Complication: No Fluid Hydration Crystalloid volume administer (ml): 400 Total IV fluid infused: 400 Progress Note Anesthesia document: Postop Eval 1 completed: Yes 02/25/25 1013 Date Ginny Luevano DIRECTOR MOBILE Cosigner Signature: Date CC: Signed Normal [facility] MR/MSEJRGAU9ji 02-25-2025 [facility] Medical Records Department [address] [place] [address] Anesthesia Postop Eval II 02/25/25 1055 MR#: [id number] Acct: [id number] Name: DEXTER RAHMAN Rep #: [id number] : 1950 74 From: Won Valenzuela MD PCP: CHINTAN CAMP HVAC R TECHBelén Status:REG SDC Y Race: C Location: [place] [address] Anesthesia Postop Eval I Sum Postop Eval Completion status Anesthesia document: Postop Eval 1 completed: Yes Anesthesia Postop Eval I Summary Anesthesia Postop Eval I Summary: Anesthesia Postop Eval I: Assessment Summary Airway patent Yes 02/25/25 10:13 DIRECTOR MOBILE.LMIL Spontaneous unlabored Yes 02/25/25 10:13 DIRECTOR MOBILE.LMIL respirations Mental status Awake,Calm 02/25/25 10:13 DIRECTOR MOBILE.LMIL nausea No 02/25/25 10:13 DIRECTOR MOBILE.LMIL Vomiting No 02/25/25 10:13 DIRECTOR MOBILE.LMIL Anesthesia Postop Eval I: Fluid Summary Crystalloid volume administer 400 02/25/25 10:13 DIRECTOR MOBILE.LMIL (ml) Colloids volume administered ( ml) Blood Product volume administered (ml) Total IV fluid infused 400 02/25/25 10:13 DIRECTOR MOBILE.LMIL Anesthesia Postop Eval I: Summary Notes Anesthesia Complication No 02/25/25 10:13 DIRECTOR MOBILE.LMIL Anesthesia Complication Comment: Post-operative progress note Anesthesia: Postop Eval II Evaluation Mental status: Awake Pain Level: 0 nausea: No Vomiting: No Complications Anesthesia Complication: No 02/25/25 1055 Date Won Valenzuela MD Cosigner Signature: Date CC: Signed Normal [facility] Operative Reporton 5 Operative Report [facility] Medical Records Department [address] [place] [address] Operative Report 02/25/25 1017 MR#: [id number] Acct: [id number] Name: DEXTER RAHMAN Rep #: [id number] : 1950 74 From: Harlan Jackson MD PCP: CHINTAN CAMP HVAC R TECH-C Status:REG [facility] Location: [place] [address] Problems Associated Problem List Diagnoses (1) Liver cancer: Procedures Cardiovascular CF Procedures [id number]: [id number] Insert tunneled cv cath Operative Report (Standard) Operative Information Date of Procedure: 02/25/25 Pre-Operative Diagnosis: Liver cancer Post-Operative Diagnosis: Same Surgery/Procedure Performed: 1. Attempted left Mediport insertion 2. Successful right subclavian Mediport placement with C arm publishing agent: No Type of Anesthesia: MAC RN Documented Start/Stop Times: Operation Date: 02/25/25 09:00 Case Time Into Pre-Op 02/25/25 07:07 Anesthesia Start 02/25/25 08:44 Into Room 02/25/25 08:44 Procedure Start 02/25/25 09:07 Procedure End 02/25/25 10:03 Anesthesia End 02/25/25 10:04 Out of Room 02/25/25 10:04 Into Recovery 02/25/25 10:06 Procedure Start Time: 09:07 Procedure Stop Time: 10:03 Select all DRAINS/GRAFTS/IMPLANTS that apply: None Special Medications: 2 g Ancef IV Estimated Blood Loss: 10 mL Specimen collected: No Description of surgery: The patient is a 74-year-old male who is being seen today for Mediport placement. He was seen by 1 my partners day before yesterday to discuss Mediport placement. I was asked to place the port. This was scheduled as a left possible right port placement. We discussed the details of the planned procedure including risks benefits and alternatives. He wished to proceed. He was brought to the operative room today following informed consent. Preoperative antibiotics were given and a timeout was performed. He was placed supine on the operative table with arms at the sides. MAC anesthesia was induced. He was placed in mild Trendelenburg position. Axillary roll was placed between the shoulder blades. The left chest was prepped and draped in the usual sterile manner. Local anesthetic was infiltrated in the left periclavicular area. I was able to gain access to the left subclavian vein on the first pass. Unfortunately, the guidewire did not advance without resistance. This seemed to take a somewhat nontraditional path. This seemed to dive inferiorly and then did cross midline however then stopped rather abruptly and did not go down into the vena cava as this normally would. This was attempted several times. I then switched to a left IJ approach under ultrasound. A similar finding was noted with the guidewire. I did not feel comfortable placing the port on the left side. We then took the drapes down and prepped the right side as well as the left. Local anesthetic was then injected into the right periclavicular area. I was able to gain access to the right subclavian vein on the first pass. Guidewire initially had resistance however under fluoroscopy I was able to direct the guidewire inferiorly into the vena cava and the more traditional path. At this point a marking pen was used to indicate the site of planned incision. Additional local anesthetic was infiltrated. #15 blade was then used to make a skin incision. Bovie electrocautery was then used dissect down through subcutaneous tissues down to the level of the pectoralis fascia. At this level a subcutaneous pocket was created. A #15 blade was also used to make a small skin incision at the entry point of the guidewire. The tubing was then connected to the tunneling device and this was inserted into the larger incision and brought up and out through the smaller incision. the tubing was trimmed to about 21 or 22 cm. The tubing was then connected to the Mediport hub. The hub was then affixed to the chest wall using Prolene suture x 2. The dilator and tear-away sheath were then threaded over the guidewire and advanced. This was performed under C arm fluoroscopy. The dilator and guidewire were then removed thus leaving the sheath in place. This was performed under ultrasound as well. The free end of the tubing was then threaded down the sheath. The sheath was then extracted. This was removed without difficulty. The port was tested. It junie and flushed very easily. It was initially thought that his chemotherapy was to be performed tomorrow and the port was accessed. This junie and flushed easily. It was then flushed with heparin. Gauze dressing was applied. He tolerated the procedure well. Surgical Findings: See operative note Complications Complications: No Admit VTE Documentation VTE Present on Admission: No VTE Mechan Device Prophylaxis: SCD's VTE Pharm Prophylaxis ordered?: No Reason prophylaxis not ordered: Treatment Not Indicated 02/25/25 1027 Cosigner Signature (if applicab (more content not included)... Normal [facility] Surgery Visit Reporton 02-23 Surgery Visit Report [facility] [address] [place] [address]. [address] [place] [address] OFFICE VISIT Date of Service: 02/23/25 MR#: [id number] Acct: [id number] Name: DEXTER RAHMAN Rep #: [id number] : 1950 Provider: Dr. Alicia herrera MD Age/Sex: 74/M Location: [facility] Status: Signed Intake Vital Signs 12/12/24 15:45 [...] port placement. Patient was initially seen at [facility] and they went to [facility]. Order was sent to central scheduling who placed an order for patient to have a port draw and cancer center. Patient was brought up to our office from cancer center. Patient is taking part in a clinical trial there for liver cancer per patient and his . We do not have any records from the [facility] currently. Patient's last treatment was about 2 [...] healthy appearing, comfortable and no acute distress [facility] Head: normocephalic and atraumatic Neck Neck: [...] the pa (more content not included)... Normal [facility] ANTIBODY SCREEN, RBC W/REFL ID, TITER [...] of an alloimmunized . Performed By: #### 5 463 #### [facility] [address], [address] [place] [address] Dot Compliance Specialist: Willy Jolly MD PARTIAL THROMBOPLASTIN TIME, ACTIVATEDon 02-13-2025 PARTIAL THROMBOPLASTIN TIME, ACTIVATED 20 sec Low -32 [facility] Comment on above: Result Comment: This test has not been validated for monitoring unfractionated heparin therapy. For testing that is validated for this type of therapy, please refer to the Heparin Anti-Xa assay (test code 00797). For additional information, please refer to http://education.[employer]/faq/SVV191 (This link is being provided for informational/educational purposes only.) Performed By: #### 5 463 #### [facility] [place] [address] Dot Compliance Specialist: Willy Jolly MD T3, FREE 02-13-2025 Free T3 [Mass/Vol] 3.1 pg/mL Normal 2.3-4.2 [facility] Comment on above: Performed By: #### 5 463 #### [facility] [place] [address] Dot Compliance Specialist: Willy Jolly MD T4, FREE 02-13-2025 Free T4 [Mass/Vol] 1.4 ng/dL Normal 0.8-1.8 [facility] Comment on above: Performed By: #### 5 463 #### [facility] [address], [address] [place] [address] Dot Compliance Specialist: Willy Jolly MD TSHon 02-13-2025 TSH Qn 3.16 m[IU]/L Normal 0.40-4.50 [facility] Comment on above: Performed By: #### 5 463 #### [facility] [address], [address] [place] [address] Dot Compliance Specialist: Willy Jolly MD CEAon 02-12-2025 CEA 39.7 ng/mL High See Note: [...] Performed By: #### 8 99, 978, 367, 73567, 763, 4698 #### [facility] [address], [address] [place] [address] Dot Compliance Specialist: Willy Jolly MD #### 211 #### [facility]/[place] [id number] [facility] [place], [place] Dot Compliance Specialist: Marco A Zhang M.D.,PhD CEA 01-28-2025 CEA 30.2 ng/mL High See Note: [...] Performed By: #### 8 99, 978, 367, 89493, 763, 4698 #### [facility] [address], [address] [place] [address] Dot Compliance Specialist: Willy Jolly MD #### 211 #### [facility] [address] [facility] [place], [place] Dot Compliance Specialist: Marco A Zhang M.D.,PhD CEA 01-08-2025 CEA 26.4 ng/mL High See Note: [facility] Comment on above: Result Comment: Refe rence Range: Non-Smoker: <2.5 Smoker: <5.0 This test was performed using the Siemens chemiluminescent method. Values obtained from different assay methods cannot be used interchangeably. CEA levels, regardless of value, should not be interpreted as absolute evidence of the presence or absence of disease. Performed By: #### 5 463 #### [facility] [address], [address] [place] [address] Dot Compliance Specialist: Willy Jolly MD CEAon 12-31-2024 CEA 28.6 ng/mL High See Note: [...] By: #### 9 78 #### [facility] [address], [address] [place] [address] Dot Compliance Specialist: Willy Jolly MD CEAon 12-17-2024 CEA 24.3 ng/mL High See Note: [facility] Comment on above: Result Comment: Refe rence Range: Non-Smoker: <2.5 Smoker: <5.0 This test was performed using the Siemens chemiluminescent method. Values obtained from different assay methods cannot be used interchangeably. CEA levels, regardless of value, should not be interpreted as absolute evidence of the presence or absence of disease. Performed By: #### 5 463 #### [facility] [address], [address] [place] [address] Dot Compliance Specialist: Willy Jolly MD Emergency Department Summary on 12-12-2024 Emergency Department Summary [facility] Medical Records Department [address] [place] [address] Emergency Department Summary 12/12/24 MR#: [id number] Acct: [id number] Name: DEXTER RAHMAN Mariaelena Rep #: [id number] : 1950 74 From: Chevy Mishra DO PCP: ALEKSANDAR Ty Status:DEP ER Location: ED HPI History of [...] Patient denies any bowel or bladder changes. [facility] Medical History Paraplegic immobility syndrome Liver [...] 16:30 IMPRESSION: No acute fracture. Reading Location: ZBIGNIEWRODOLFO X-rays of the right ribs were obtained. There are 5 views. On my independent interpretati (more content not included)... Normal [facility] Ribs Uni Min 3V w/PA Cheston 12-12-2024 Ribs Uni Min 3V w/PA Chest [facility] Imaging Services [address] [place] [address] Ribs Uni Min 3V w/PA Chest MR#: [id number] Acct: [id number] Name: DEXTER RAHMAN Rep #: [id number] : 1950 M 74 From: Abisai Berg DO PCP: ALEKSANDAR Ty Status: REG ER Study: Ribs Uni Min 3V w/PA Chest Date of Exam: 12/12 Exam# [id number] Ordering Dr: Chevy Mishra DO PROCEDURE: RIBS [...] No acute fracture. Reading Location: GÉNESIS CC: HVAC R TECH-C Kristina Reese; Dr. Chevy Mishra DO Management Analyst: Signed Normal [facility] ACTH, PLASMAon 11-01-2024 ACTH, PLASMA 7 pg/mL Normal 6-50 [facility] Comment on above: Result Comment: Reference range applies only to specimens collected between 7am-10am. Performed By: #### 8 99, 978, 367, 05517, 763, 4698 #### [facility] [address], [address] [place] [id number] Dot Compliance Specialist: Willy Jolly MD #### 211 #### [facility] [address] [facility] [place] [address] Dot Compliance Specialist: Marco A Zhang M.D.,PhD CA 19-9on 11-01-2024 [...] Performed By: #### 8 99, 978, 367, 93320, 763, 4698 #### [facility] [address], [address] [place] [address] Dot Compliance Specialist: Willy Jolly MD #### 211 #### [facility]/[place] [id number] [facility] [place] Dot Compliance Specialist: Marco A Zhang M.D.,PhD CEAon 11-01-2024 CEA 67.4 ng/mL High See Note: [facility] Comment on above: Result Comment: Refe rence Range: Non-Smoker: <2.5 Smoker: <5.0 This test was performed using the Siemens chemiluminescent method. Values obtained from different assay methods cannot be used interchangeably. CEA levels, regardless of value, should not be interpreted as absolute evidence of the presence or absence of disease. Performed By: #### 8 99, 978, 367, 69771, 763, 4698 #### [facility] [address], [address] [place] [address] Dot Compliance Specialist: Willy Jolly MD #### 211 #### [facility] [address] [place] [address] [place], [place] Dot Compliance Specialist: Marco A Zhang M.D.,PhD CORTISOL, TOTALon 11-01-2024 CORTISOL, TOTAL 21.1 mcg/dL Normal [facility] Comment on above: Result Comment: Refe rence Range: For 8 a.m.(7-9 a.m.) Specimen: 4.0-22.0 Reference Range: For 4 p.m.(3-5 p.m.) Specimen: 3.0-17.0 * Please interpret above results accordingly * Performed By: #### 8 99, 978, 367, 12363, 763, 4698 #### [facility] [address], [address] [place] [address] Dot Compliance Specialist: Willy Jolly MD #### 211 #### [facility]/[place] [address] [facility] [address] [place] Dot Compliance Specialist: Macro A Zhang M.D.,PhD PARTIAL THROMBOPLASTIN TIME, ACTIVATEDon 11-01-2024 PARTIAL THROMBOPLASTIN TIME, ACTIVATED 30 sec Normal 23-32 [facility] Comment on above: Result Comment: This test has not been validated for monitoring unfractionated heparin therapy. For testing that is validated for this type of therapy, please refer to the Heparin Anti-Xa assay (test code 59524). For additional information, please refer to http://education.[employer]/faq/BDM227 (This link is being provided for informational/educational purposes only.) Performed By: #### 8 99, 978, 367, 78791, 763, 4698 #### [facility] [address], [address] [place] [address] Dot Compliance Specialist: Willy Jolly MD #### 211 #### [facility] [address] [place] Dot Compliance Specialist: Marco A Zhang M.D.,PhD TROPONIN I, HIGH [...] not sufficient to make the diagnosis of AR. Performed By: #### 8 99, 978, 367, 61173, 763, 4698 #### [facility] [address], [address] [place] [address] Dot Compliance Specialist: Willy Jolly MD #### 211 #### [facility]/[place] [address] [facility] [place] Dot Compliance Specialist: Marco A Zhang M.D.,PhD TSHon 11-01-2024 TSH Qn 3.27 m[IU]/L Normal 0.40-4.50 [facility] Comment on above: Performed By: #### 8 99, 978, 367, 52926, 763, 4698 #### [facility] [address], [address] [place] [address] Dot Compliance Specialist: Willy Jolly MD #### 211 #### [facility] [address] [facility] [place], [place] Dot Compliance Specialist: Marco A Zhang M.D.,PhD XR CHEST 2 [...] Date: 10/30/2024 1:13:18 PM Ordering Provider: CHINTAN Biggs [facility] ALPHA FETOPROTEIN, TUMOR MAR Rajesh 10-29-2024 ALPHA FETOPROTEIN, TUMOR MARKER 1.4 ng/mL Normal <6.1 [facility] Comment on above: Result Comment: This test was performed using the [place] chemiluminescent method. Values obtained from different assay methods cannot be used interchangeably. AFP levels, regardless of value, should not be interpreted as absolute evidence of the presence or absence of disease. Performed By: #### 8 99, 978, 367, 49496, 763, 4698 #### [facility] [address], [address] [place] [address] Dot Compliance Specialist: Willy Jolly MD #### 211 #### [facility] [address] [facility] [place], [place] Dot Compliance Specialist: Marco A Zhang M.D.,PhD URINALYSIS, [facility] 10-29 Appearance (U) CLEAR Normal CLEAR [facility] Comment on above: Performed By: #### 5 463 #### [facility] [place] [address] [address] [place] [address] Dot Compliance Specialist: Willy Jolly MD BACTERIA NONE SEEN Normal NONE SEEN [facility] Comment on above: Performed By: #### 5 463 #### [facility] [place] [address] [address] [place] [address] Dot Compliance Specialist: Willy Jolly MD Bilirubin Ql (U) Negative Normal NEGATIVE [facility] Comment on above: Performed By: #### 5 463 #### [facility] [place] [address] [place] [address] Dot Compliance Specialist: Willy Jolly MD Color (U) YELLOW Normal YELLOW [facility] Comment on above: Performed By: #### 5 463 #### [facility] [place] [address] [address] [place] [address] Dot Compliance Specialist: Willy Jolly MD Glucose Ql (U) Negative Normal NEGATIVE [facility] Comment on above: Performed By: #### 5 463 #### [facility] [place] [address] [address] [place] [address] [employer] Specialist: Willy Jolly MD HYALINE CAST NONE SEEN Normal NONE SEEN [facility] Comment on above: Performed By: #### 5 463 #### [facility] [place] [address], [address] [place] [address] [employer] Specialist: Willy Jolly MD Ketones Ql (U) Negative Normal NEGATIVE [facility] Comment on above: Performed By: #### 5 463 #### [facility] [place] [address], [address] [place] [address] [employer] Specialist: Willy Jolly MD Leukocyte esterase Test strip Ql (U) Negative Normal NEGATIVE [facility] Comment on above: Performed By: #### 5 463 #### [facility] [place] [address] [employer] Specialist: Willy Jolly MD Nitrite Ql (U) Negative Normal NEGATIVE [facility] Comment on above: Performed By: #### 5 463 #### [facility] [place] [address] [employer] Specialist: Willy Jolly MD NOTE Normal [facility] Comment on above: Result Comment: This urine was analyzed for the presence of WBC, RBC, bacteria, casts, and other formed elements. Only those elements seen were reported. Performed By: #### 5 463 #### [facility] [place] [address] [employer] Specialist: Willy Jolly MD OCCULT BLOOD Negative Normal NEGATIVE [facility] Comment on above: Performed By: #### 5 463 #### [facility] [place] [address] [employer] Specialist: Willy Jolly MD pH (U) 5.5 [pH] Normal 5.0-8.0 [facility] Comment on above: Performed By: #### 5 463 #### [facility] [place] [address] [employer] Specialist: Willy Jolly MD Protein Ql (U) Negative Normal NEGATIVE [facility] Comment on above: Performed By: #### 5 463 #### [facility] [place] [address] [employer] Compl[employer] Specialist: Willy Jolly MD RBC NONE SEEN Normal < OR = 2 [facility] Comment on above: Performed By: #### 5 463 #### [facility] [place] [address] [employer] Specialist: Willy Jolly MD Specific gravity (U) [Rel density] 1.016 Normal 1.001-1.03 5 [facility] Comment on above: Performed By: #### 5 463 #### [facility] [address] , [address] [place] [address] Dot Compliance Specialist: Willy Jolly MD SQUAMOUS EPITHELIAL CELLS NONE SEEN Normal < OR = 5 [facility] Comment on above: Performed By: #### 5 463 #### [facility] [address] , [address] [place] [address] Dot Compliance Specialist: Willy Jolly MD WBC NONE SEEN Normal < OR = 5 [facility] Comment on above: Performed By: #### 5 463 #### [facility] [address], [address] [place] [address] Dot Compliance Specialist: Willy Jolly MD Urine Cultureon 10-26-2024 URC #2 Organism is too fastidious for routine susceptibility studies. Staphylococcus epidermidis [place] Count 80,000-100,000 Aerococcus urinae Aerococcus urinae Staphylococcus epidermidis: REACTION cefOXitin Susc Islt POS Doxycycline Islt NAPOLEON 8 Clindamycin.induced Susc Islt NEG Gentamicin Islt NAPOLEON 1 S Linezolid Islt NAPOLEON 1 S Nitrofurantoin Islt NAPOLEON <=16 S Oxacillin Susc Islt >=4 R Tetracycline Islt NAPOLEON >=16 R TMP SMX Islt NAPOLEON 80 R Vancomycin Islt NAPOLEON 1 S Normal [facility] Comment on above: Performed By: #### L 3300.0700, L500.4050, M100.2200, L100.0100, L400.0001 ####[facility] [address] [place], [place], [address] AFP, Tumor Markeron 10-25-19 25 AFP TUMOR MAYNOR < 1.8 Normal 0.0-8.4 [facility] Comment on above: Order Comment: N Result Comment: [facility] Electrochemiluminescence Immunoassay (ECLIA) Values obtained with different assay methods or kits cannot be used interchangeably. Results cannot be interpreted as absolute evidence of the presence or absence of malignant disease. This test is not interpretable in females. Performed at: [address] [id number] Budget Coordinator: Pelon Fermin PhD, Phone: [phone] Performed By: #### L 3300.0700, L500.4050, M100.2200, L100.0100, L400.0001 ####[facility] [address] [place], [address] Absolute neutrophil countOrd ered By: Jenny Millard on 10-23-2024 Neutrophils (Bld) [#/Vol] 9.1 10*3/uL High 2.0-7.7 [facility] Albumin to globulin ratioOrd ered By: Jenny Millard on 10-23-2024 Albumin/Globulin [Mass ratio] 0.4 {ratio} Low 0.9-2.4 [facility] Alpha fetoprotein measuremen t as tumor markerOrdered By: Jenny Millard on 10-23-2024 Tumor Marker Alpha Fetoprotein < 1.8 ng/mL 0.0-8.4 [facility] Comment on above: [facility] El ectrochemiluminescence Immunoassay(ECLIA)Values obtained with different assay methods or kits cannotbe used interchangeably. Results cannot be interpreted asabsolute evidence of the presence or absence of malignantdisease.This test is not interpretable in females.Performed at: [place] [id number] [place] [address]Lab Director: Pelon Fermin PhD, Phone: [phone] Bacteria LM.HPF (Urine sed) [#/Area]Ordered By: Jenny Millard on 10-23-2024 Urine Bacteria RARE /hpf None Seen [facility] Basophil percentageOrdered B y: Jenny Millard on 10-23-2024 Basophils/100 WBC (Bld) 1.0 % 0-1 [facility] Bilirubin Test strip Ql (U)O rdered By: Jenny Millard on 10-23-2024 Bilirubin Ql (U) Negative Negative [facility] Bilirubin, totalOrdered By: Jenny Millard on 10-23-2024 Bilirubin [Mass/Vol] 0.60 mg/dL 0.20-1.00 [facility] Comment on above: For patients on eltr ombopag therapy, use of Dimension [place] TBIL is not recommended. Blood urea nitrogen (BUN)/cr eatinine ratioOrdered By: Jenny Millard on 10-23-2024 Urea nitrogen/Creatinine [Mass ratio] 20.4 mg/mg High 10-20 [facility] CBC W/Diff, Automatedon 09-26 Absolute Lymph 1.71 X10 3/uL Normal 0.83-4.51 [facility] Comment on above: Performed By: #### L 3300.0700, L500.4050, M100.2200, L100.0100, L400.0001 ####[facility] [address] [place], [address] Absolute Neut 9.1 X10 3/uL High 2.0-7.7 [facility] Comment on above: Performed By: #### L 3300.0700, L500.4050, M100.2200, L100.0100, L400.0001 ####[facility] [address] [place], [address] Basophils/100 WBC (Bld) 1.0 % Normal 0-1 [facility] Comment on above: Performed By: #### L 3300.0700, L500.4050, M100.2200, L100.0100, L400.0001 ####[facility] [address] [place], [address] Eosinophils/100 WBC (Bld) 3.6 % Normal 0-5 [facility] Comment on above: Performed By: #### L 3300.0700, L500.4050, M100.2200, L100.0100, L400.0001 ####[facility] [address] [place], [address] Erythrocyte distribution width (RBC) [Ratio] 16.1 % High 11.6-14.6 [facility] Comment on above: Performed By: #### L 3300.0700, L500.4050, M100.2200, L100.0100, L400.0001 ####[facility] [address] [place], [address] Hematocrit (Bld) [Volume fraction] 36.9 % Low 40-54 [facility] Comment on above: Performed By: #### L 3300.0700, L500.4050, M100.2200, L100.0100, L400.0001 ####[facility] [address] [place], [address] Hemoglobin (Bld) [Mass/Vol] 11.4 g/dL Low 13.0-16.5 [facility] Comment on above: Performed By: #### L 3300.0700, L500.4050, M100.2200, L100.0100, L400.0001 ####[facility] [address] [place], [address] IG% 0.300 Normal 0.0-0.9 [facility] Comment on above: Result Comment: IG% - Immature Granulocytes (promyelocytes, myelocytes and metamyelocytes) > 1% indicates that a LEFT SHIFT is Present. Performed By: #### L 3300.0700, L500.4050, M100.2200, L100.0100, L400.0001 ####[facility] [address] [place], [address] Lymphocytes/100 WBC (Bld) 13.5 % Low 19-41 [facility] Comment on above: Performed By: #### L 3300.0700, L500.4050, M100.2200, L100.0100, L400.0001 ####[facility] [address] [place], [address] MCH (RBC) [Entitic mass] 24.7 pg Low 27.0-32.0 [facility] Comment on above: Performed By: #### L 3300.0700, L500.4050, M100.2200, L100.0100, L400.0001 ####[facility] [address] [place], [address] MCHC (RBC) [Mass/Vol] 30.9 g/dL Low 32-36 [facility] Comment on above: Performed By: #### L 3300.0700, L500.4050, M100.2200, L100.0100, L400.0001 ####[facility] [address] [place], [address] MCV (RBC) [Entitic vol] 80.0 fL Normal 80-94 [facility] Comment on above: Performed By: #### L 3300.0700, L500.4050, M100.2200, L100.0100, L400.0001 ####[facility] [address] [place], [address] Monocytes/100 WBC (Bld) 9.3 % Normal 0-10 [facility] Comment on above: Performed By: #### L 3300.0700, L500.4050, M100.2200, L100.0100, L400.0001 ####[facility] [address] [place], [address] Neutrophils/100 WBC (Bld) 72.3 % High 47-70 [facility] Comment on above: Performed By: #### L 3300.0700, L500.4050, M100.2200, L100.0100, L400.0001 ####[facility] [address] [place], [address] Nucleated RBC (Bld) [#/Vol] 0 10*3/uL Normal 0-5 [facility] Comment on above: Performed By: #### L 3300.0700, L500.4050, M100.2200, L100.0100, L400.0001 ####[facility] [address] [place], [address] Platelet mean volume (Bld) [Entitic vol] 8.7 fL Normal 6.2-12.0 [facility] Comment on above: Performed By: #### L 3300.0700, L500.4050, M100.2200, L100.0100, L400.0001 ####[facility] [address] [place], [address] Platelets (Bld) [#/Vol] 476 10*3/uL High 150-450 [facility] Comment on above: Performed By: #### L 3300.0700, L500.4050, M100.2200, L100.0100, L400.0001 ####[facility] [address] [place], [address] RBC (Bld) [#/Vol] 4.61 10*6/uL Normal 4.6-6.2 [facility] Comment on above: Performed By: #### L 3300.0700, L500.4050, M100.2200, L100.0100, L400.0001 ####[facility] [address] [place], [address] RDW SD 46.7 fl High 35.1-43.9 [facility] Comment on above: Performed By: #### L 3300.0700, L500.4050, M100.2200, L100.0100, L400.0001 ####[facility] [address] [place], [address] WBC (Bld) [#/Vol] 12.7 10*3/uL High 4.4-11.0 [facility] Comment on above: Performed By: #### L 3300.0700, L500.4050, M100.2200, L100.0100, L400.0001 ####[facility] [address] [place], [address] Carbon dioxide measurementOr dered By: Jenny Millard on 10-23-2024 CO2 [Moles/Vol] 25.0 mmol/L 21.0-32.0 [facility] Chloride measurementOrdered By: Jenny Millard on 10-23-2024 Chloride [Moles/Vol] 102 mmol/L 98-107 [facility] Comprehensive Metabolic Prof ilon 10-23-2024 Albumin [Mass/Vol] 2.6 g/dL Low 3.2-5.0 [place] Comment on above: Performed By: #### L 3300.0700, L500.4050, M100.2200, L100.0100, L400.0001 ####[facility] [address] [place], [address] Albumin/Globulin [Mass ratio] 0.4 {ratio} Low 0.9-2.4 [facility] Comment on above: Performed By: #### L 3300.0700, L500.4050, M100.2200, L100.0100, L400.0001 ####[facility] [address] [place], [address] ALK P 117 U/L Normal 45-117 [facility] Comment on above: Performed By: #### L 3300.0700, L500.4050, M100.2200, L100.0100, L400.0001 ####[facility] [address] [place], [address] ALT [Catalytic activity/Vol] 22 U/L Normal 16-61 [facility] Comment on above: Performed By: #### L 3300.0700, L500.4050, M100.2200, L100.0100, L400.0001 ####[facility] [address] [place], [address] AST [Catalytic activity/Vol] 95 U/L High 15-37 [facility] Comment on above: Performed By: #### L 3300.0700, L500.4050, M100.2200, L100.0100, L400.0001 ####[facility] [address] [place], [address] Bilirubin [Mass/Vol] 0.60 mg/dL Normal 0.20-1.00 [facility] Comment on above: Result Comment: For patients on eltrombopag therapy, use of Dimension [place] TBIL is not recommended. Performed By: #### L 3300.0700, L500.4050, M100.2200, L100.0100, L400.0001 ####[facility] [address] [place], [address] BUN/CRE 20.4 RATIO High 10-20 [facility] Comment on above: Performed By: #### L 3300.0700, L500.4050, M100.2200, L100.0100, L400.0001 ####[facility] [address] [place], [address] CA,Total 9.2 mg/dL Normal 8.5-10.1 [facility] Comment on above: Performed By: #### L 3300.0700, L500.4050, M100.2200, L100.0100, L400.0001 ####[facility] [address] [place], [address] Chloride [Moles/Vol] 102 mmol/L Normal 98-107 [facility] Comment on above: Performed By: #### L 3300.0700, L500.4050, M100.2200, L100.0100, L400.0001 ####[facility] [address] [place], [address] CO2 [Moles/Vol] 25.0 mmol/L Normal 21.0-32.0 [facility] Comment on above: Performed By: #### L 3300.0700, L500.4050, M100.2200, L100.0100, L400.0001 ####[facility] [address] [place], [address] Creatinine [Mass/Vol] 0.74 mg/dL Normal 0.70-1.30 [facility] Comment on above: Result Comment: The validity of the calculated GFR GFRAA in patients over 70 years has not been determined. Clinical correlation is essential. Performed By: #### L 3300.0700, L500.4050, M100.2200, L100.0100, L400.0001 ####[facility] [address] [place], [address] EST GFR - AA 134 mL/min Normal >60 [facility] Comment on above: Result Comment: Afri can [place]raini GFR Calc Performed By: #### L 3300.0700, L500.4050, M100.2200, L100.0100, L400.0001 ####[facility] [address] [place], [address] GAP 7 Normal 5-15 [facility] Comment on above: Performed By: #### L 3300.0700, L500.4050, M100.2200, L100.0100, L400.0001 ####[facility] [address] [place], [address] GFR/1.73 sq M.predicted among non-blacks MDRD (S/P/Bld) [Vol rate/Area] 111 mL/min/{1.73_m2} Normal >60 [facility] Comment on above: Result Comment: Non- GFR Calc Performed By: #### L 3300.0700, L500.4050, M100.2200, L100.0100, L400.0001 ####[facility] [address] [place], [address] Globulin (S) [Mass/Vol] 6.4 g/dL High 2.2-4.2 [facility] Comment on above: Performed By: #### L 3300.0700, L500.4050, M100.2200, L100.0100, L400.0001 ####[facility] [address] [place], [address] Glucose [Mass/Vol] 98 mg/dL Normal 74-106 [place] Comment on above: Performed By: #### L 3300.0700, L500.4050, M100.2200, L100.0100, L400.0001 ####[facility] [address] [place], [address] Potassium [Moles/Vol] 4.0 mmol/L Normal 3.5-5.1 [facility] Comment on above: Performed By: #### L 3300.0700, L500.4050, M100.2200, L100.0100, L400.0001 ####[facility] [address] [place], [address] Sodium [Moles/Vol] 134 mmol/L Low 136-145 [facility] Comment on above: Performed By: #### L 3300.0700, L500.4050, M100.2200, L100.0100, L400.0001 ####[facility] [address] [place], [address] T PROT 9.0 g/dL High 6.4-8.2 [facility] Comment on above: Performed By: #### L 3300.0700, L500.4050, M100.2200, L100.0100, L400.0001 ####[facility] [address] [place], [address] Urea nitrogen [Mass/Vol] 15 mg/dL Normal 7-18 [facility] Comment on above: Performed By: #### L 3300.0700, L500.4050, M100.2200, L100.0100, L400.0001 ####[facility] [address] [place], [address] Eosinophil percentageOrdered By: Jenny Millard on 10-23-2024 Eosinophils/100 WBC (Bld) 3.6 % 0-5 [facility] Epithelial cells.squamous LM Ql (Urine sed)Ordered By: Jenny Millard on 10-23-2024 Epithelial cells.squamous LM.HPF (Urine sed) [#/Area] 0 /[HPF] 0-5 [facility] Erythrocyte distribution wid th ratioOrdered By: Jenny Millard on 10-23-2024 Erythrocyte distribution width (RBC) [Ratio] 16.1 % High 11.6-14.6 [facility] Erythrocyte distribution wid th standard deviationOrdered By: Jenny Millard on 10-23-2024 Erythrocyte distribution width (RBC) [Entitic vol] 46.7 fL High 35.1-43.9 [facility] Estimated glomerular filtrat ion rate (GFR) AmericanOrdered By: Jenny Millard on 10-23-2024 Estimated GFR (MDRD) Amer 134 mL/min >60 [facility] Comment on above: GFR Calc Glomerular filtration rate ( GFR) estimationOrdered By: Jenny Millard on 10-23-2024 Estimated GFR (MDRD) Non-Af Amer 111 mL/min >60 [facility] Comment on above: Non- GFR Calc Glucose Ql (U)Ordered By: Paulo Millard on 10-23-2024 Urine Glucose (UA) Normal mg/dl Normal [facility] Glucose measurementOrdered B y: Jenny Millard on 10-23-2024 Glucose [Mass/Vol] 98 mg/dL 74-106 [place] Hematocrit Auto (Bld) [Volum e fraction]Ordered By: Jenny Millard on 10-23-2024 Hematocrit (Bld) [Volume fraction] 36.9 % Low 40-54 [facility] Hemoglobin measurementOrdere d By: Jenny Millard on 10-23-2024 Hemoglobin (Bld) [Mass/Vol] 11.4 g/dL Low 13.0-16.5 [facility] Immature granulocytes/100 WB C Auto (Bld)Ordered By: Jenny Millard on 10-23-2024 Immature granulocytes/100 WBC (Bld) 0.300 % 0.0-0.9 [facility] Comment on above: IG% - Immature Granu locytes (promyelocytes, myelocytes and metamyelocytes) > 1% indicates that a LEFT SHIFT is Present. Ketones Test strip Ql (U)Ord ered By: Jenny Millard on 10-23-2024 Ketones Ql (U) Negative Negative [facility] Laboratory - Chemistry and C hemistry - challengeOrdered By: Jenny Millard on 10-23-2024 AST [Catalytic activity/Vol] 95 U/L High 15-37 [facility] Lymphocytes Auto (Unsp spec) [#/Vol]Ordered By: Jenny Millard on 10-23-2024 Lymphocytes (Bld) [#/Vol] 1.71 10*3/uL 0.83-4.51 [facility] Lymphocytes/100 WBC Auto (Un sp spec)Ordered By: Jenny Millard on 10-23-2024 Lymphocytes/100 WBC (Bld) 13.5 % Low 19-41 [facility] MCV (mean corpuscular volume ) determinationOrdered By: [facility] on 10-23-2024 MCV (RBC) [Entitic vol] 80.0 fL 80-94 [facility] Mean corpuscular hemoglobin (MCH) determinationOrdered By: [facility] on 10-23-2024 MCH (RBC) [Entitic mass] 24.7 pg Low 27.0-32.0 [facility] Mean corpuscular hemoglobin concentration (MCHC) determinationOrdered By: Jenny Millard on 10-23-2024 MCHC (RBC) [Mass/Vol] 30.9 g/dL Low 32-36 [facility] Mean platelet volume determi nationOrdered By: [facility] on 10-23-2024 Platelet mean volume (Bld) [Entitic vol] 8.7 fL 6.2-12.0 [facility] Microscopic analysis of urin e for red blood cells (RBC)Ordered By: Jenny Millard on 10-23-2024 Urine RBC 0-5 SEEN /hpf 0-5 [facility] Monocyte percentageOrdered B y: Jenny Millard on 10-23-2024 Monocytes/100 WBC (Bld) 9.3 % 0-10 [facility] Mucus LM Ql (Urine sed)Order ed By: Jenny Millard on 10-23-2024 Mucus Ql (Urine sed) 1+ /hpf [facility] Neutrophil percentageOrdered By: Jenny Millard on 10-23-2024 Neutrophils/100 WBC (Bld) 72.3 % High 47-70 [facility] Nitrite Test strip Ql (U)Ord ered By: Jenny Millard on 10-23-2024 Nitrite Ql (U) Negative Negative [facility] Nucleated red blood cell per centageOrdered By: Jenny Millard on 10-23-2024 Nucleated RBC/100 WBC (Bld) [Ratio] 0 % 0-5 [facility] Oncology Visit Reporton 09-26 Oncology Visit Report [facility] [address] [place] [address] OFFICE VISIT Date of Service: 10/23/24 1452 MR#: [id number] Acct: [id number] Name: DEXTER RAHMAN Rep #: [id number] 1 : 1950 From: Jenny Millard MD Age/Sex: 74/M [place] [facility] [place] Status: Signed HPI Subjective Date of Service [...] 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 Exam Physical Exam Narrative Patient was seen in a wheelchair, ECOG 2-3 Const General Appearance: ill appearing Positive for chronically and frail HEENT Face and Sinu (more content not included)... Normal [facility] Platelet countOrdered By: Paulo Millard on 10-23-2024 Platelets (Bld) [#/Vol] 476 10*3/uL High 150-450 [facility] Potassium measurementOrdered By: Jenny Millard on 10-23-2024 Potassium [Moles/Vol] 4.0 mmol/L 3.5-5.1 [facility] Protein Test strip Ql (U)Ord ered By: Jenny Millard on 10-23-2024 Protein Ql (U) 30 mg/dl High Negative [facility] RBC Auto (Bld) [#/Vol]Ordere d By: Jenny Millard on 10-23-2024 RBC (Bld) [#/Vol] 4.61 10*6/uL 4.6-6.2 [facility] Serum anion gap measurementO rdered By: Jenny Millard on 10-23-2024 Anion gap [Moles/Vol] 7 mmol/L 5-15 [facility] Serum globulin measurementOr dered By: Jenny Millard on 10-23-2024 Globulin (S) [Mass/Vol] 6.4 g/dL High 2.2-4.2 [facility] Serum or plasma alanine sanders otransferase (ALT) measurementOrdered By: Jenny Millard on 10-23-2024 ALT [Catalytic activity/Vol] 22 U/L 16-61 [facility] Serum or plasma albumin cassi urement (mass/volume)Ordered By: Jenny Millard on 10-23-2024 Albumin [Mass/Vol] 2.6 g/dL Low 3.2-5.0 [place] Serum or plasma alkaline almaz sphatase measurementOrdered By: Jenny Millard on 10-23-2024 ALP [Catalytic activity/Vol] 117 U/L 45-117 [facility] Serum or plasma calcium cassi urement (mass/volume)Ordered By: Jenny Millard on 10-23-2024 Calcium [Mass/Vol] 9.2 mg/dL 8.5-10.1 [place] Serum or plasma creatinine m easurement (mass/volume)Ordered By: Jenny Millard on 10-23-2024 Creatinine [Mass/Vol] 0.74 mg/dL 0.70-1.30 [facility] Comment on above: The validity of the calculated GFR & GFRAA in patients over 70 years has not been determined. Clinical correlation is essential. Serum or plasma urea nitroge n measurement (mass/volume)Ordered By: Jenny Millard on 10-23-2024 Urea nitrogen [Mass/Vol] 15 mg/dL 7-18 [facility] Sodium levelOrdered By: Naveen Millard on 10-23-2024 Sodium [Moles/Vol] 134 mmol/L Low 136-145 [facility] Total proteinOrdered By: Edward Millard on 10-23-2024 Protein [Mass/Vol] 9.0 g/dL High 6.4-8.2 [place] Urinalysis, Completeon 10-23 BACTERIA RARE Normal None Seen [facility] Comment on above: Order Comment: COLLE CTOR TO SPECIFY Performed By: #### L 3300.0700, L500.4050, M100.2200, L100.0100, L400.0001 ####[facility] [address] [place], [address] CAST,WBC 0-5 SEEN Normal None Seen [facility] Comment on above: Order Comment: COLLE CTOR TO SPECIFY Performed By: #### L 3300.0700, L500.4050, M100.2200, L100.0100, L400.0001 ####[facility] [address] [place], [address] Mucus Ql (Urine sed) 1+ /hpf Normal [facility] Comment on above: Order Comment: YESSI CTOR TO SPECIFY Performed By: #### L 3300.0700, L500.4050, M100.2200, L100.0100, L400.0001 ####[facility] [address] [place], [address] RBC 0-5 SEEN Normal 0-5 [facility] Comment on above: Order Comment: YESSI CTOR TO SPECIFY Performed By: #### L 3300.0700, L500.4050, M100.2200, L100.0100, L400.0001 ####[facility] [address] [place], [address] WBC 50-100 SEEN Normal 0-5 [facility] Comment on above: Order Comment: YESSI CTOR TO SPECIFY Performed By: #### L 3300.0700, L500.4050, M100.2200, L100.0100, L400.0001 ####[facility] [address] [place], [address] EPI,SQUAMOUS 0 SEEN Normal 0-5 [facility] Comment on above: Order Comment: YESSI CTOR TO SPECIFY Performed By: #### L 3300.0700, L500.4050, M100.2200, L100.0100, L400.0001 ####[facility] [address] [place], [address] Urine blood detectionOrdered By: Jenny Millard on 10-23-2024 Urine Occult Blood 25 /ul High Negative [place] Urine clarityOrdered By: Edward abraham Millard on 10-23-2024 Clarity (U) Cloudy Clear [facility] Urine color determinationOrd ered By: Jenny Millard on 10-23-2024 Color (U) Yellow Yellow [facility] Urine cultureOrdered By: Edward abraham Millard on 10-23-2024 Bacteria identified Cx Nom (U) Staphylococcus epidermidis Abnormal [facility] Bacteria identified Cx Nom (U) Aerococcus urinae Abnormal [facility] Urine leukocyte esterase det ection by dipstickOrdered By: Jenny Millard on 10-23-2024 Leukocyte esterase Test strip Ql (U) 500 /ul High Negative [facility] Urine pHOrdered By: Jenny Millard on 10-23-2024 pH (U) 6.0 [pH] 5.0 - 8.0 [facility] Urine specific gravity measu rementOrdered By: Jenny Millard on 10-23-2024 Specific gravity (U) [Rel density] 1.010 1.002-1.03 0 [facility] Urobilinogen Ql (U)Ordered B y: Jenny Millard on 10-23-2024 Urine Urobilinogen Normal mg/dl Normal [facility] WBC casts LM.LPF (Urine sed) [#/Area]Ordered By: Jenny Millard on 10-23-2024 Urine White Blood Cell Casts 0-5 SEEN /lpf None Seen [facility] White blood cell (WBC) count Ordered By: Jenny Millard on 10-23-2024 WBC (Bld) [#/Vol] 12.7 10*3/uL High 4.4-11.0 [facility] White blood cell countOrdere d By: Jenny Millard on 10-23-2024 Urine WBC 50-100 SEEN /hpf 0-[address] [facility] [address] ABDOMEN W/ CONTRASTon CT ABDOMEN [...] 10/15/2024 8:35:39 PM Ordering Provider: KRISTINA REESE Normal [facility] Type AND Antibody Screenon 0 12-08-2022 Direct Antiglobulin Test Negative Normal [facility] Comment on above: Performed By: #### T /S #### [place] [address] Screening Cells Negative Normal [facility] Comment on above: Performed By: #### T /S #### [address] [address] ABO Type O Normal [facility] Comment on above: Performed By: #### T /S #### [address] [address] RH Type Negative Normal [facility] Comment on above: Performed By: #### T /S #### [address] [address] CHEST AP ONLYon 12-07-2022 CHEST AP ONLY [...] Dr. Sylvester Hernandez at 12/07/2022 15:03 Normal [facility] Comp Metabolic Panelon 12-07 Calcium [Mass/Vol] 8.9 mg/dL Normal 7.6-11.0 [facility] Comment on above: Order Comment: Relea se to patient->Automatic 62623&Blood Performed By: #### C MP #### [address] [address] CO2 [Moles/Vol] 26.0 mmol/L Normal 22.0-29.0 [facility] Comment on above: Order Comment: Relea se to patient->Automatic 36184&Blood Performed By: #### C MP #### [address] [id number] Creatinine [Mass/Vol] 0.62 mg/dL Low 0.70-1.20 [facility] Comment on above: Order Comment: Relea se to patient->Automatic 74912&Blood Performed By: #### C MP #### [address] [address] Glucose [Mass/Vol] 114 mg/dL High 70-99 [facility] Comment on above: Order Comment: Relea se to patient->Automatic 66536&Blood Result Comment: Brandon vega for Diagnosis of Diabetes: Fasting Specimen (no caloric intake for at least 8 hours): <100 mg/dL Normal 100-125 mg/dL Increased risk for Diabetes >125 mg/dL Diagnostic for Diabetes Random Glucose (any time of day without regard to last meal): > or = 200 mg/dL plus Classic Symptoms of Diabetes Performed By: #### C MP #### [address] [address] Protein [Mass/Vol] 7.4 g/dL Normal 5.9-8.4 [facility] Comment on above: Order Comment: Relea se to patient->Automatic 20095&Blood Performed By: #### C MP #### [address] [address] Urea nitrogen [Mass/Vol] 11 mg/dL Normal 4-19 [facility] Comment on above: Order Comment: Relea se to patient->Automatic 16704&Blood Performed By: #### C MP #### [address] [address] Albumin [Mass/Vol] 3.7 g/dL Normal 3.4-4.8 [facility] Comment on above: Order Comment: Relea se to patient->Automatic 57290&Blood Performed By: #### C MP #### [address] [address] ALP [Catalytic activity/Vol] 58 U/L Normal 40-129 [facility] Comment on above: Order Comment: Relea se to patient->Automatic 61736&Blood Performed By: #### C MP #### [address] [address] ALT [Catalytic activity/Vol] 21 U/L Normal 0-46 [facility] Comment on above: Order Comment: Relea se to patient->Automatic 37532&Blood Performed By: #### C MP #### [address] [address] AST [Catalytic activity/Vol] 20 U/L Normal 0-37 [facility] Comment on above: Order Comment: Relea se to patient->Automatic 00540&Blood Performed By: #### C MP #### [address] [address] Bili,Total 0.5 mg/dL Normal [facility] Comment on above: Order Comment: Relea se to patient->Automatic 97389&Blood Performed By: #### C MP #### [address] [address] Chloride [Moles/Vol] 99 mmol/L Normal 96-108 [facility] Comment on above: Order Comment: Relea se to patient->Automatic 36403&Blood Performed By: #### C MP #### [address] [address] Potassium [Moles/Vol] 3.7 mmol/L Normal 3.3-5.1 [facility] Comment on above: Order Comment: Relea se to patient->Automatic 67872&Blood Performed By: #### C MP #### [address] [address] Sodium [Moles/Vol] 137 mmol/L Normal 133-145 [facility] Comment on above: Order Comment: Relea se to patient->Automatic 99379&Blood Performed By: #### C MP #### [address] [address] Complete Blood Counton 12-07 Differential Complete Manual Normal [facility] Comment on above: Order Comment: Relea se to patient->Automatic 27430&Blood Performed By: #### C BC #### [address] [id number] Erythrocyte distribution width (RBC) [Ratio] 13.6 % Normal 0.0-14.4 [facility] Comment on above: Order Comment: Relea se to patient->Automatic 02815&Blood Performed By: #### C BC #### [address] [address] Hematocrit (Bld) [Volume fraction] 40.1 % Low 41.0-50.0 [facility] Comment on above: Order Comment: Relea se to patient->Automatic 32638&Blood Performed By: #### C BC #### [address] [address] Hemoglobin (Bld) [Mass/Vol] 13.3 g/dL Low 13.5-16.5 [facility] Comment on above: Order Comment: Relea se to patient->Automatic 60958&Blood Performed By: #### C BC #### [address] [address] Immature granulocytes/100 WBC (Bld) 0.30 % Normal [facility] Comment on above: Order Comment: Relea se to patient->Automatic 86497&Blood Result Comment: Maira ture Granulocyte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 BIPAP Do you snore loudly (louder No 02/24/25 10:53 than talking or can be heard Do you often feel tired/ No 02/24/25 10:53 fatigued/ sleepy during daytime? Has anyone observed you stop No 02/24/25 10:53 breathing during sleep? STOP Results Negative 02/24/25 10:53 QUESTION #5 FULL TEXT : Do you snore loudly (louder than talking or can be heard through closed doors)? 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 Specify any problems Hx of Preganancy in last 3 N/A 02/24/25 10:53 Months Nurse Filling Out Transfusion [facility] 02/24/25 10:53 & Questions: Date: 02/24/25 02/24/25 10:53 Time: 10:54 02/24/25 10:53 Patient unable to answer at this time (ie. confused, unrespo /Reproduction History /Reproductive History - stave grader: /Reproductive Hx- stave grader Hx Now Gestational Age (in weeks): EDC: Hx Hx Para Hx Section SAB Active Medications Active Medications: Current Medications Generic Name Dose Route Start Last Admin Trade Name Freq PRN Reason Stop Dose Admin Cefazolin Sodium 2 gm/ Sodium 110 mls @ 150 mls/hr 02/25/25 09:00 Chloride IV 02/25/25 09:43 INTRAOP ONE Lactated Ringer's 1,000 mls @ 15 mls/hr 02/25/25 07:15 02/25/25 08:02 IV 15 mls/hr .Q48H VINCENZO Administration PFSH Medical History (Updated 02/24/25 @ 11:00 by Ashtyn West) Wears hearing aid Wears glasses Cancer Uses wheelchair Functional voiding disorder Non-smoker Paraplegic immobility syndrome Liver masses Asthma Candidiasis Pruritus, unspecified Home Medications ?Medication ?Instructions ?Recorded ?Last Taken ?Type Liquid probiotic 5 ml PO DAILY 10/23/2402/24 History D- manose 1 ea PO 2XD 10/23/24 5 History Liquid heart drops 2 gtt PO QHS 10/23/24 History Liquid kidney and bladder 2 gtt PO 1XD 10/23/24 History Resolution 2 ea PO BID 10/23/24 5 History hydrocodone-acetaminophen 5-325mg 1 tab PO Q6H PRN PRN Pain 3 days 12/12/24 Unknown Rx 5mg-325mg #10 TABLETS Allergy/AdvReac Type Severity Reaction Status Date / Time amoxicillin Allergy UTI Verified 02/25/25 07:56 Family History Father Cancer Brother Cancer Surgical History H/O skin graft Hx of appendectomy Hx of tonsillectomy Social History Smoking Status: Never smoker alcohol intake: never Review of Systems (Anesthesia) ROS Narrative System reviewed and no additional complaints, except as documented. Physical Exam Const alert, oriented x3 and average body habitus Resp normal respiratory effort, normal air movement and clear to auscultation bilaterally Cardio regular rate, regular rhythm, no murmurs and diaphoretic 02/25/25 0837 <Electronically signed by Won Valenzuela MD> Date _ Won Valenzuela MD Cosigner Signature: Date CC: ~ Signed [facility] Work Phone: 1(536) 665-304806-04-2025 History and physical note Author Harlan Jackson [facility] Note Date/Time February 25, 2025 8:35a m [facility] Medical Records Department [address] [place] [address] History & Physical Exam 02/25/25 0834 MR#: [id number] Acct: [id number] Name: DEXTER RAHMAN Rep #:[id number] : 1950 74 From: Harlan Jackson MD PCP: CHINTAN CAMP HVAC R TECHBelén Status:REG S DC Location: [address] HPI - General General Date of Admission: 02/25/25 Date of Service: 02/25/25 Chief Complaint: Need for Mediport placement HPI Narrative DEXTER RAHMAN, is a 74 M who presents for elective Mediport placement surgerytoday. He is undergoing chemotherapy and he was recommended to have a Mediport placement [facility] Medical History (Updated 02/24/25 @ 11:00 by Ashtyn West) Wears hearing aid Wears glasses Cancer Uses wheelchair Functional voiding disorder Non-smoker Paraplegic immobility syndrome Liver masses Asthma Candidiasis Pruritus, unspecified Home Medications ?Medication ?Instructions ?Recorded ?Last Taken ?Type Liquid probiotic 5 ml PO DAILY 10/23/2402/24 History D- manose 1 ea PO 2XD 10/23/24 5 History Liquid heart drops 2 gtt PO QHS 10/23/24 History Liquid kidney and bladder 2 gtt PO 1XD 10/23/24 History Resolution 2 ea PO BID 10/23/24 5 History hydrocodone-acetaminophen 5-325mg 1 tab PO Q6H PRN PRN Pain 3 days 12/12/24 Unknown Rx 5mg-325mg #10 TABLETS Allergy/AdvReac Type Severity Reaction Status Date / Time amoxicillin Allergy UTI Verified 02/25/25 07:56 Family History Father Cancer Brother Cancer Surgical History H/O skin graft Hx of appendectomy Hx of tonsillectomy Social History Smoking Status: Never smoker alcohol intake: never Vital Signs Vital Signs Vital Signs: 02/25/25 07:58 02/25/25 07:58 Temperature 97.9 F Temperature Source Temporal Pulse Rate 82 Respiratory Rate 16 Respiratory Pattern Normal Blood Pressure 120/55 L Blood Pressure Mean 76 Blood Pressure Source Monitor Blood Pressure Position Sitting Blood Pressure Location Left Arm Pulse Ox 100 Oxygen Delivery Method Room Air Weight Weight: 135 lb Body Mass Index (BMI) 20.5 Physical Exam Const alert, oriented x3 and no apparent distress Assessment & Plan Assessment/Plan (1) Liver cancer: PLAN: Plan The patient is a 74-year-old male in need of a Mediport placement for chemotherapy purposes. He was seen by one of my partners. They discussed the details of the planned procedure including risks benefits and alternatives. He wishes to proceed. The surgery will begin momentarily. Charges/Coding Visit Charges Inpatient E&M: 35501 Init Hosp L3 02/25/25 0835 <Electronically signed by Harlan Jackson MD> Cosigner Signature (if applicable): CC: Dr. Harlan Jackson MD; CHINTAN CAMP~ Signed [facility] Work Phone: 1(199) 364-810906-04-2025 Procedure note [facility] Medical Records Department [address] [place] [address] Operative Report 02/25/25 1017 MR#: [id number] Acct: [id number] Name: DEXTER RAHMAN Rep #:[id number] : 1950 74 From: Harlan Jackson MD PCP: CHINTAN CAMP Status:REG S DC Location: [place] [address] Problems Associated Problem List Diagnoses (1) Liver cancer: Procedures Cardiovascular CF Procedures [id number]: [id number] Insert tunneled cv cath Operative Report (Standard) Operative Information Date of Procedure: 02/25/25 Pre-Operative Diagnosis: Liver cancer Post-Operative Diagnosis: Same Surgery/Procedure Performed: 1. Attempted left Mediport insertion 2. Successful right subclavian Mediport placement with C arm publishing agent: No Type of Anesthesia: MAC RN Documented Start/Stop Times: Operation Date: 02/25/25 09:00 Case Time Into Pre-Op 02/25/25 07:07 Anesthesia Start 02/25/25 08:44 Into Room 02/25/25 08:44 Procedure Start 02/25/25 09:07 Procedure End 02/25/25 10:03 Anesthesia End 02/25/25 10:04 Out of Room 02/25/25 10:04 Into Recovery 02/25/25 10:06 Procedure Start Time: 09:07 Procedure Stop Time: 10:03 Select all DRAINS/GRAFTS/IMPLANTS that apply: None Special Medications: 2 g Ancef IV Estimated Blood Loss: 10 mL Specimen collected: No Description of surgery: The patient is a 74-year-old male who is being seen today for Mediport placement. He was seen by 1 my partners day before yesterday to discuss Mediport placement. I was asked to place the port. This was scheduled as a left possible right port placement. We discussed the details of the planned procedure including risks benefits and alternatives. He wished to proceed. He was brought to the operative room today following informed consent. Preoperative antibiotics were given and a timeout was performed. He was placed supine on the operative table with arms at the sides. MAC anesthesia was induced. He was placed in mild Trendelenburg position. Axillary roll was placed between the shoulder blades. The left chest was prepped and draped in the usual sterile manner. Local anesthetic was infiltrated in the left periclavicular area. I was able to gain access to the left subclavian vein on the first pass. Unfortunately, the guidewire did not advance without resistance. This seemed to take a somewhat nontraditional path. This seemed to dive inferiorly and then did cross midline however then stopped rather abruptly and did not go down into the vena cava as this normally would. This was attempted several times. I then switched to a left IJ approach under ultrasound. A similar finding was noted with the guidewire. I did not feel comfortable placing the port on the left side. We then took the drapes down and prepped theright side as well as the left. Local anesthetic was then injected into the right periclavicular area. I was able to gain access to the right subclavian vein on the first pass. Guidewire initially had resistance however under fluoroscopy I was able to direct the guidewire inferiorly into the vena cava andthe more traditional path. At this point a marking pen was used to indicate thesite of planned incision. Additional local anesthetic wasinfiltrated. #15 blade was then used to make a skin incision. Bovie electrocautery was then useddissect down through subcutaneous tissues down to the level of the pectoralis fascia. At this level a subcutaneous pocket was created. A #15 blade was also used to make a small skin incision at the entrypoint of the guidewire. The tubing was then connected to the tunneling device and this was insertedinto thelarger incision and brought up and out through the smaller incision. the tubingwas trimmed to about 21 or 22 cm. The tubing was then connected to the Mediporthub. The hub was then affixed to the chest wall using Prolene suture x 2. The dilator and tear-away sheath were then threaded over the guidewire and advanced. This was performed under C arm fluoroscopy. The dilator and guidewire werethen removed thus leaving the sheath in place. This was performed under ultrasound as well. The free end of the tubing was then threaded down the sheath. The sheath was then extracted. This was removed without difficulty. The port was tested. It junie and flushed very easily. It was initially thoughtthat his chemotherapy was to be performed tomorrow and the port was accessed. This junie and flushedeasily. It was then flushed with heparin. Gauze dressingwas applied. He tolerated the procedure well . Surgical Findings: See operative note Complications Complications: No Admit VTE Documentation VTE Present on Admission: No VTE Mechan Device Prophylaxis: SCD's VTE Pharm Prophylaxis ordered?: No Reason prophylaxis not ordered: Treatment Not Indicated 02/25/25 1027 Cosigner Signature (if applicable): CC: Dr. Harlan Jackson MD; CHINTAN CAMP~ Signed [facility]06-04-2025 Discharge summary [facility] Medical Records Department [address] [place] [address] Instructions for Home/Discharge Instructions 02/25/25 1014 MR#: [id number] Acct: [id number] Name: DEXTER RAHMAN Rep #:[id number] : 1950 74 From: Harlan Jackson MD PCP: CHINTAN CAMP Status:REG S DC Discharge Instructions Diet Discharge Diet: Light diet - advance as tolerated Activity Discharge Activity: Return to Normal Activity May shower in (days): 1 Ice area for (Minutes): 30 Dressing / Incision Call your doctor if your incision/area has: Continuous Slow Oozing, Sudden Increased Bleeding, Increased Pain/ Swelling, Increased Redness, Foul Smelling Discharge and Swelling at the incision site Call your doctor if you observe: Fever of 101 or Higher Remove Dressing in: 3 days Cleanse incision/area with: Soap & Water Follow Up Care Please Follow Up With: Harlan Jackson MD When: As needed Test Results: Test results from this visit will be discussed in further detail at your follow- up appointment, if applicable. Discharge Plan Admission Primary Reason for Your Visit: Port placement Attending Provider: Harlan Jackson Primary Care Provider: CHINTAN CAMP Instructions Print Language: Filipino Discharge Orders/Prescriptions Prescriptions: New oxycodone-acetaminophen [Percocet] 5-325 mg tablet 1 tab PO Q8H PRN (Reason: pain) 3 Days Qty: 7 0RF Continued Liquid kidney and bladder 2 gtt PO 1XD Liquid probiotic 5 ml PO DAILY Liquid heart drops 2 gtt PO QHS D- manose 1 ea PO 2XD Resolution 2 ea PO BID hydrocodone-acetaminophen 5-325 mg tablet 1 tab PO Q6H PRN PRN (Reason: Pain) 3 Days Qty: 10 0RF Referrals / Follow Up: CHINTAN CAMP HVAC R TECH-C [Primary Care Provider] - Disposition Disposition (needs filled in before D/C Order can be placed): Home, Self Care 02/25/25 1017Harlan Jackson MD CC: CHINTAN LOPES-C ROSEMARY ~ Signed [facility]06-04-[address] [facility] Medical Records Department [address] [place] [address] Anesthesia Postop Eval I 02/25/25 1012 MR#: [id number] Acct: [id number] Name: DEXTER RAHMAN Rep #:[id number] : 1950 74 From: Ginny Luevano CRNA PCP: CHINTAN CAMP HVAC R TECHBelén Status:REG S DC Y Race: C Location: [place] [address] Anesthesia: Postop Eval I Current Vital Signs Temperature: 97.7 F Pulse Rate: 85 Blood Pressure: 159/75 Respiratory Rate: 16 Pulse Ox: 100 Oxygen Delivery Method: Room Air Assessment Airway patent: Yes Spontaneous unlabored respirations: Yes Mental status: Awake and Calm nausea: No Vomiting: No Anesthesia Complication: No Fluid Hydration Crystalloid volume administer (ml): 400 Total IV fluid infused: 400 Progress Note Anesthesia document: Postop Eval 1 completed: Yes 02/25/25 1013 c DIRECTOR MOBILE> Date _ Ginny Luevano CRNA Cosigner Signature: Date CC: ~ Signed [facility]06-04-[address] [facility] Medical Records Department [address] [place] [address] Pre-Anesthesia Evaluation 02/25/25 0833 MR#: [id number] Acct: [id number] Name: DEXTER RAHMAN Rep #:[id number] : 1950 74 From: Won Valenzuela MD PCP: CHINTAN CAMP HVAC R TECHBelén Status:REG S DC Y Race: C Location: [place] [address] ASA Classification* ASA Classification ASA Classification: 3 (paraplegic, liver cancer, asthma ) Assessment & Plan Anesthesia* Anesthesia Assessment Anesthesia Assessment: Discussed sedation and/or anesthesia options, risks, benefits, and alternatives with patient/parents/legal guardian/POA. Questions invited. The patient/parents/legal guardian/POA seems to understand and agrees to proceedwith anesthesia plan. Reviewed the physical assessment, medical history, allergy history and patient home medications list prior to surgery/procedure/anesthetic and documented any changes. Performed airway and anesthesia risk assessments. Anesthesia Type Anesthesia Type: General (LMA) History Source History Obtained from:: Patient and Chart Anesthesia Focused Assessment* Temperature: 97.9 F Pulse Rate: 82 Blood Pressure: 120/55 Respiratory Rate: 16 Pulse Ox: 100 Oxygen Delivery Method: Room Air Airway Assessment Mouth opens: >3 cm Mallampati Score: II Teeth Condition: Intact Neck Range of motion (ROM): Full ROM Focused Labs Anesthesia Preop lab: CBC WBC 12.7 K/mm3 (4.4-11.0) H 10/23/24 16:10 5 RBC 4.61 M/mm3 (4.6-6.2) 10/23/24 16:10 10/23/24 Hgb 11.4 g/dL (13.0-16.5) L 10/23/24 16:10 5 Hct 36.9 % (40-54) L 10/23/24 16:10 10/23/24 Plt Count 476 K/mm3 (150-450) H 10/23/24 16:10 10/23/24 CHEMISTRY Potassium 4.0 mmol/L (3.5-5.1) 10/23/24 16:10 10/23/24 Sodium 134 mmol/L (136-145) L 10/23/24 16:10 10/23/24 BUN 15 mg/dL (7-18) 10/23/24 16:10 10/23/24 Creatinine 0.74 mg/dL (0.70-1.30) 10/23/24 16:10 10/23/24 Glucose 98 mg/dL (74-106) 10/23/24 16:10 10/23/24 COAG Pre-Assessment Diagnosis/Proposed Procedure Planned Operative Procedure(s): LEFT PORT PLACEMENT Anesthesia History Anesthesia History - stave grader: Anesthesia History - stave grader Hx Hospitalization No 02/24/25 10:53 Any Problems With Anesthesia No 02/24/25 10:53 Cholinesterase deficiency No 02/24/25 10:53 You/Your Family Experience No 02/24/25 10:53 fever (hyperthermia) with Relationship Recent Exposure to Contagious No 02/25/25 07:58 Disease Does patient have nerve No 02/24/25 10:53 stimulator Patient instructed to have device shut off --Does patient have Pacemaker No 02/25/25 07:58 or ICD? When Was Last Pacemaker Check QUESTION #4 FULL TEXT: You/Your Family Experience fever (hyperthermia) with Anesthesia Last Oral Intake Last Oral intake: Last Oral Intake NPO since 23:00 02/25/25 07:58 Meds taken in AM with sips of No 02/25/25 07:58 water? Meds patient instructed to take am of surgery PONV PONV - stave grader: PONV - stave grader Female No 02/24/25 10:53 HX of Motion Sickness No 02/24/25 10:53 HX of N/V After Surgery No 02/24/25 10:53 Non-Smoker Yes 02/24/25 10:53 Duration of Surgery greater No 02/24/25 10:53 than 60 minutes Number of Risk Factors 1 02/24/25 10:53 PONV Score Low Risk 02/24/25 10:53 Height & Weight Height & Weight: Anesthesia: Height & Weight Height 5 ft 8 in 02/25/25 07:58 Weight: 61.235 kg 02/25/25 07:58 Body Mass Index (BMI) 20.5 02/25/25 07:58 Respiratory Assessment Respiratory Assessment - stave grader: Respiratory Tract Infection Hx - stave grader Hx Respiratory Tract Infection No 02/24/25 10:53 STOP Sleep Apnea STOP Sleep Apnea - stave grader: STOP Sleep Apnea - stave grader Hx Hypertension No 02/24/25 10:53 Hx Sleep Apnea No 02/24/25 10:53 CPAP BIPAP Do you snore loudly (louder No 02/24/25 10:53 than talking or can be heard Do you often feel tired/ No 02/24/25 10:53 fatigued/ sleepy during daytime? Has anyone observed you stop No 02/24/25 10:53 breathing during sleep? STOP Results Negative 02/24/25 10:53 QUESTION #5 FULL TEXT : Do you snore loudly (louder than talking or can be heard through closeddoors)? 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 Specify any problems Hx of Preganancy in last 3 N/A 02/24/25 10:53 Months Nurse Filling Out Transfusion [facility] 02/24/25 10:53 & Questions: Date: 02/24/25 02/24/25 10:53 Time: 10:54 02/24/25 10:53 Patient unable to answer at this time (ie. confused, unrespo /Reproduction History /Reproductive History - stave grader: /Reproductive Hx- stave grader Hx Now Gestational Age (in weeks): EDC: Hx Hx Para Hx Section SAB Active Medications Active Medications: Current Medications Generic Name Dose Route Start Last Admin Trade Name Freq PRN Reason Stop Dose Admin Cefazolin Sodium 2 gm/ Sodium 110 mls @ 150 mls/hr 02/25/25 09:00 Chloride IV 02/25/25 09:43 INTRAOP ONE Lactated Ringer's 1,000 mls @ 15 mls/hr 02/25/25 07:15 02/25/25 08:02 IV 15 mls/hr .Q48H VINCENZO Administration PFSH Medical History (Updated 02/24/25 @ 11:00 by Ashtyn West) Wears hearing aid Wears glasses Cancer Uses wheelchair Functional voiding disorder Non-smoker Paraplegic immobility syndrome Liver masses Asthma Candidiasis Pruritus, unspecified Home Medications ?Medication ?Instructions ?Recorded ?Last Taken ?Type Liquid probiotic 5 ml PO DAILY 10/23/2402/24 History D- manose 1 ea PO 2XD 10/23/24 5 History Liquid heart drops 2 gtt PO QHS 10/23/24 History Liquid kidney and bladder 2 gtt PO 1XD 10/23/24 History Resolution 2 ea PO BID 10/23/24 5 History hydrocodone-acetaminophen 5-325mg 1 tab PO Q6H PRN PRN Pain 3 days 12/12/24 Unknown Rx 5mg-325mg #10 TABLETS Allergy/AdvReac Type Severity Reaction Status Date / Time amoxicillin Allergy UTI Verified 02/25/25 07:56 Family History Father Cancer Brother Cancer Surgical History H/O skin graft Hx of appendectomy Hx of tonsillectomy Social History Smoking Status: Never smoker alcohol intake: never Review of Systems (Anesthesia) ROS Narrative System reviewed and no additional complaints, except as documented. Physical Exam Const alert, oriented x3 and average body habitus Resp normal respiratory effort, normal air movement and clear to auscultation bilaterally Cardio regular rate, regular rhythm, no murmurs and diaphoretic 02/25/25 0837 > Date _ Won Valenzuela MD Cosigner Signature: Date CC: ~ Signed [facility]06-04-2025 History and physical note [facility] Medical Records Department [address] [place] [address] History & Physical Exam 02/25/25 0834 MR#: [id number] Acct: [id number] Name: DEXTER RAHMAN Rep #:[id number] : 1950 74 From: Harlan Jackson MD PCP: CHINTAN CAMP HVAC R TECHJean PaulC Status:REG S DC Location: [place] [address] HPI - General General Date of Admission: 02/25/25 Date of Service: 02/25/25 Chief Complaint: Need for Mediport placement HPI Narrative DEXTER RAHMAN, is a 74 M who presents for elective Mediport placement surgerytoday. He is undergoing chemotherapy and he was recommended to have a Mediport placement [facility] Medical History (Updated 02/24/25 @ 11:00 by Ashtyn West) Wears hearing aid Wears glasses Cancer Uses wheelchair Functional voiding disorder Non-smoker Paraplegic immobility syndrome Liver masses Asthma Candidiasis Pruritus, unspecified Home Medications ?Medication ?Instructions ?Recorded ?Last Taken ?Type Liquid probiotic 5 ml PO DAILY 10/23/2402/24 History D- manose 1 ea PO 2XD 10/23/24 5 History Liquid heart drops 2 gtt PO QHS 10/23/24 History Liquid kidney and bladder 2 gtt PO 1XD 10/23/24 History Resolution 2 ea PO BID 10/23/24 5 History hydrocodone-acetaminophen 5-325mg 1 tab PO Q6H PRN PRN Pain 3 days 12/12/24 Unknown Rx 5mg-325mg #10 TABLETS Allergy/AdvReac Type Severity Reaction Status Date / Time amoxicillin Allergy UTI Verified 02/25/25 07:56 Family History Father Cancer Brother Cancer Surgical History H/O skin graft Hx of appendectomy Hx of tonsillectomy Social History Smoking Status: Never smoker alcohol intake: never Vital Signs Vital Signs Vital Signs: 02/25/25 07:58 02/25/25 07:58 Temperature 97.9 F Temperature Source Temporal Pulse Rate 82 Respiratory Rate 16 Respiratory Pattern Normal Blood Pressure 120/55 L Blood Pressure Mean 76 Blood Pressure Source Monitor Blood Pressure Position Sitting Blood Pressure Location Left Arm Pulse Ox 100 Oxygen Delivery Method Room Air Weight Weight: 135 lb Body Mass Index (BMI) 20.5 Physical Exam Const alert, oriented x3 and no apparent distress Assessment & Plan Assessment/Plan (1) Liver cancer: PLAN: Plan The patient is a 74-year-old male in need of a Mediport placement for chemotherapy purposes. He wasseen by one of my partners. They discussed the details of the planned procedure including risks benefits and alternatives. He wishes to proceed. The surgery will begin momentarily. Charges/Coding Visit Charges Inpatient E&M: 01486 Init Hosp L3 02/25/25 0835 Cosigner Signature (if applicable): CC: Dr. Haraln Jackson MD; CHINTAN CAMP~ Signed [facility]06-04-2025 [facility] Medical Records Department [address] [place] [address] History Physical Exam 02/25/25 0834 MR#: [id number] Acct: [id number] Name: DEXTER RAHMAN Rep #: [id number] : 1950 74 From: Harlan Jackson MD PCP: CHINTAN CAMP Status:[facility] Location: [place] [address] HPI - General General Date of Admission: 02/25/25 Date of Service: 02/25/25 Chief Complaint: Need for Mediport placement HPI Narrative DEXTER RAHMAN, is a 74 M who presents for elective Mediport placement surgery today. He is undergoing chemotherapy and he was recommended to have a Mediport placement [facility] Medical History (Updated 02/24/25 @ 11:00 by Ashtyn West) Wears hearing aid Wears glasses Cancer Uses wheelchair Functional voiding disorder Non-smoker Paraplegic immobility syndrome Liver masses Asthma Candidiasis Pruritus, unspecified Home Medications ???Medication ???Instructions ???Recorded ???Last Taken ???Type Liquid probiotic 5 ml PO DAILY 10/23/24 02/24/25 Hi story D- manose 1 ea PO 2XD 10/23/24 02/24/25 Hist ory Liquid heart drops 2 gtt PO QHS 10/23/24 02/24/25 His tory Liquid kidney and bladder 2 gtt PO 1XD 10/23/24 02/24/25 His tory Resolution 2 ea PO BID 10/23/24 02/24/25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
[2025-08-11] MEDS: Clindamycin 900 MG/50 ML BAG 75 MG IV (19:02)
[2025-08-12] VITALS (15 sets, daily range): BP systolic 95–146; BP diastolic 35–78; PULSE 76–93; RESP 16–18; TEMP 36.2–37.4; O2SAT 98–100
[2025-08-12] MEDS: Clindamycin 900 MG/50 ML BAG 75 MG IV ×3 (03:13→19:30)
[2025-08-12] MEDS: 0.9% Normal Saline (1000mL) 1,000 ML 75 ML IV ×2 (03:14→20:38)
[2025-08-12] MEDS: 0.9% Saline Lock 10 ML Syringe IV ×2 (05:40→11:56)
[2025-08-12 06:15] LABS: Hematocrit 20.8 % (40-54); Hemoglobin 6.6 g/dL (13.0-16.5); Immature Granulocytes Count 0.050 X10^3/uL (0.0-0.0); Mean Corp Hgb Conc 31.7 g/dL (32-36); Mean Corpuscular Volume 105.6 fL (80-94); Mean Platelet Vol. 8.9 fl (6.2-12.0); NRBC Flagged by Analyzer 0 % (0-5); POSITIVE MORPHOLOGY YES; Platelet Count 225 K/mm3 (150-450); RBC Distribution Width CV 17.3 % (11.6-14.6); RBC Distribution Width SD 66.2 fl (35.1-43.9); Red Blood Count 1.97 M/mm3 (4.6-6.2); White Blood Count 8.4 K/mm3 (4.4-11.0)
[2025-08-12 06:25] LABS: Differential Indicated SCAN CRITERIA MET
[2025-08-12] MEDS: Lactobacillis Acidophilus 1 CAP PO ×3 (06:25→22:03)
[2025-08-12 06:51] LABS: Anion Gap 6 (5-15); BUN 21 mg/dL (4-19); BUN/Creat Ratio 45.5 RATIO (10-20); Calcium,Total 7.6 mg/dL (7.6-11.0); Carbon Dioxide 24.0 mmol/L (21.0-32.0); Chloride 104 mmol/L (98-108); Estimated Creatinine Clearance 76.78 ml/min (50-250); Glucose 113 mg/dL (70-99); Potassium 4.4 mmol/L (3.3-5.1)
[2025-08-12 07:08] LABS: Anisocytosis 1+
[2025-08-12 07:41] LABS: Immature Reticulocyte Fraction 24.50 % (3.00-15.90); Platelet Count 218 K/mm3 (150-450); Reticulocyte Count 4.34 % (0.5-1.5)
[2025-08-12 08:17] LABS: Iron 24 ug/dL (65-175); Iron Binding Capacity,Unsat 113 ug/dL (228-428)
[2025-08-12 08:37] LABS: Ferritin 2761 ng/mL (37-417)
[2025-08-12 08:50] LABS: Iron Binding Capacity,Total 137 ug/dL (250-450)
[2025-08-12] MEDS: Ensure Plus High Protein 120 ML LIQUID PO ×3 (11:15→22:03)
--- NOTE | 2025-08-12 11:26 | PN.HOSP_ITS ---
Subjective Subjective Pt laying in bed with family member present, only complaint is itching on his back which is not new and he reports that's how they found out he had liver cancer, due to itching, no different from usual, denies any other acute complaints, just feels tired Objective Data Objective Data Vital Signs: Vital Signs Temp Pulse Resp BP Pulse Ox O2 Del Method 99.3 F H 83 18 107/35 L 100 Room Air 08/12/25 16:21 08/12/25 16:21 08/12/25 16:21 08/12/25 16:21 08/12/25 16:21 08/12/25 16:21 Oxygen Delivery Method Room Air Weight: 68.04 kg Body Mass Index (BMI) 21.4 Intake & Output: Intake and Output for Last 24 Hours 08/10/25 08/11/25 08/12/25 23:59 23:59 23:59 Intake Total 169 / 169 2066.25 / 2066.25 Output Total 650 / 650 Balance 149 / 149 1416.25 / 1416.25 Lab / Micro Data 08/12/25 05:45 08/12/25 05:45 Labs: Laboratory Results - last 24 hr 08/12/25 05:45: WBC 8.4, RBC 1.97 L, Hgb 6.6 L, Hct 20.8 L, MCV 105.6 H, MCH 33.5 H, MCHC 31.7 L, RDW Std Deviation 66.2 H, RDW Coeff of Juvencio 17.3 H, Plt Count 225, MPV 8.9, Immature Gran % (Auto) 0.600, Neut % (Auto) 63.9, Lymph % (Auto) 13.1 L, [place] % (Auto) 17.0 H, Eos % (Auto) 4.4, Baso % (Auto) 1.0, Absolute Neuts (auto) 5.4, Absolute Lymphs (auto) 1.10, Nucleated RBC % 0, Anisocytosis 1+, Sodium 134, Potassium 4.4, Chloride 104, Carbon Dioxide 24.0, Anion Gap 6, BUN 21 H, Creatinine 0.47 L, Estim Creat Clear Calc 76.78, Est GFR (MDRD) Non-Af 109, BUN/Creatinine Ratio 45.5 H, Glucose 113 H, Calcium 7.6 08/12/25 07:15: Retic Count 4.34 H, Immature Retic Fraction 24.50 H, Retic Hgb Equivalent 32.3, Iron 24 L, TIBC 137 L, Iron Saturation 17.5, Unsaturated IBC 113 L, Ferritin 2761 H 08/12/25 08:06: Blood Type O NEGATIVE, Antibody Screen NEGATIVE, Crossmatch See Detail Micro: Microbiology 08/11/25 13:15 Wound - Leg, Right Gram Stain - Final 08/11/25 13:15 Wound - Leg, Right Wound Culture - Preliminary GNR lactose rough carpenter 08/11/25 13:15 Wound - Leg, Left Gram Stain - Final 08/11/25 13:15 Wound - Leg, Left Wound Culture - Preliminary GNR lactose rough carpenter 08/11/25 13:15 Wound - Ankle Gram Stain - Final 08/11/25 13:15 Wound - Ankle Wound Culture - Preliminary Mixed Gram Pos & Gram Neg Org 08/11/25 13:15 Bone - Right Foot Gram Stain - Final 08/11/25 13:15 Bone - Right Foot Wound Culture - Preliminary GNR lactose rough carpenter Physical Exam Narrative General: Awake and alert HEENT: Atraumatic Eyes: Extraocular movements grossly intact Neck: Supple Respiratory: No overt wheezes or rhonchi, normal respiratory effort Cardiovascular: Regular rate GI: Soft, nontender, nondistended Extremities: Wound VAC in place Musculoskeletal: Patient quadriplegic Neuro: Baseline neurodeficits Skin: Wound VAC in place Psych: Cooperative Assessment & Plan Assessment/Plan (1) Pressure ulcer of right ankle, stage 4: (2) Pressure ulcer of left ankle, stage 4: (3) PAD (peripheral artery disease): (4) Acute postoperative anemia due to expected blood loss: PLAN: Plan Patient is a 75-year-old male who presented [facility] on 08/11/2025 for planned plastic surgery procedure on his bilateral ankle wounds. Medicine consulted postoperatively for medical management. 1. Bilateral ankle pressure ulcers in setting of paraplegia ? Plastic surgery primary. Wound care consulted. History of paraplegia for 50 years due to spinal cord injury, and is wheelchair-bound at baseline. S/p excision down to the bone of multiple bilateral ankle wounds with bilateral wound VAC placement with Dr. Mac on 08/11. Tolerated procedure well, no intraoperative complications noted. Postoperative pain control with Tylenol and oxycodone as needed. Per plastics, postoperative plan is to leave wound vacs on for 2 days before changing, with plan for angiogram with vascular surgery on as below; anticipating discharge home with wound VAC. Eventual plan is for skin grafting. Further management per primary. -08/12: Management per plastics, wound VAC in place, plan for angiography with vascular surgery tomorrow 2. Peripheral artery disease ? Vascular surgery consulted. Patient saw vascular surgery in the office on 07/03, was noted on ABIs to have moderate RLE PAD that would typically be sufficient to heal in a nondiabetic patient but this patient has added complexity of immunosuppression and surgical intervention above. Patient will have angiogram done with vascular surgery on 08/13 to assess vascular flow and healing potential. -08/12: To go for angio with possible stenting with vascular tomorrow 3. Liver cancer ? Follows with [facility] in [place]. Had CT abdomen pelvis done on 10/15/2024 at [facility] that showed large metastatic lesions occupying the majority of the liver with probable central necrosis. Patient saw Dr. Millard on 10/23 who recommended liver biopsy to confirm cancer. Difficult to find further records but cancer was confirmed and patient had port placed in early February and has been undergoing chemotherapy with Avastin since then. Avastin has been on hold recently to provide best chance for healing of his ulcers as above. No inpatient needs, continue outpatient follow-up. -08/12: Reports being itchy on his back and reports this goes along with his liver cancer, usually uses topical Benadryl at home, does not seem we have a topical antihistamine, will add lotion to try to keep the area from getting dry and increasing itching will add oral loratadine to see if this gives any additional benefit 4. Postoperative anemia in setting of chronic iron deficiency anemia ? Hemoglobin 8.3 postoperatively. Most recent prior hemoglobin in our system was 11.4 back on 10/23. Patient hemodynamically stable postoperatively. Presume hemoglobin drop is secondary to expected operative blood loss. Is on a liquid iron supplement at home that we unfortunately do not have on formulary here. Follow-up a.m. CBC. -08/12: Hemoglobin this a.m. 6.6, patient transfused, iron studies obtained and they appear consistent with anemia of chronic disease but also does have elevated retake count so likely also component of blood loss/multifactorial, repeat the a.m. 5. Chronic back pain ? Is on tramadol at home for chronic back pain. Treating pain as above while inpatient. -08/12: Supportive care DVT prophylaxis: Lovenox per plastics Time spent in the patient's overall evaluation,decision-making process, review of diagnostic data, adjustment of management, discussion with other providers, nursing nursing and ancillary staff involved in patient's care documentation, 36 minutes Charges/Coding Visit Charges Inpatient E&M: 93695 Subs Hosp L2
--- NOTE | 2025-08-12 11:51 | PCM.PN.SRG ---
Subjective Subjective Patient seen with , Dr. Mac, Radha wound RN at bedside. He was sitting up in bed. No concerns overnight. His right ankle wound VAC had more output than left and Radha changed out the cartridge. He denies chest pain, shortness of breath. 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 Objective Data Objective Data Vital Signs: Vital Signs Temp Pulse Resp BP Pulse Ox O2 Del Method 98.0 F 79 16 95/52 L 100 Room Air 08/12/25 11:27 08/12/25 11:27 08/12/25 11:27 08/12/25 11:27 08/12/25 11:08/12/25 11:27 Oxygen Delivery Method Room Air Weight: 150 lb 0.005 oz Body Mass Index (BMI) 21.4 Intake & Output: Intake and Output for Last 24 Hours 08/10/25 08/11/25 08/12/25 23:59 23:59 23:59 Intake Total 169 / 169 896.25 / 896.25 Output Total 350 / 350 Balance 149 / 149 546.25 / 546.25 Lab / Micro Data Attestation: I reviewed the patient's lab results. 08/12/25 05:45 08/12/25 05:45 Labs: Laboratory Results - last 24 hr 08/11/25 15:25: WBC 8.0, RBC 2.49 L, Hgb 8.3 L, Hct 26.3 L, MCV 105.6 H, MCH 33.3 H, MCHC 31.6 L, RDW Std Deviation 66.8 H, RDW Coeff of Juvencio 17.2 H, Plt Count 299, MPV 8.6, Immature Gran % (Auto) Not Reportable, Neut % (Auto) Not Reportable, Lymph % (Auto) Not Reportable, [place] % (Auto) Not Reportable, Eos % (Auto) Not Reportable, Baso % (Auto) Not Reportable, Absolute Neuts (auto) 4.9, Absolute Lymphs (auto) 1.58, Nucleated RBC % 0, Anisocytosis RARE, Sodium 139, Potassium 3.8, Chloride 106, Carbon Dioxide 25.7, Anion Gap 8, BUN 18, Creatinine 0.50 L, Estim Creat Clear Calc 76.78, Est GFR (MDRD) Non-Af 106, BUN/Creatinine Ratio 36.8 H, Glucose 121 H, Calcium 8.2, Total Bilirubin 0.43, AST 28, ALT 15, Alkaline Phosphatase 61, Total Protein 7.0, Albumin 2.9 L, Globulin 4.1, Albumin/Globulin Ratio 0.7 L 08/12/25 05:45: WBC 8.4, RBC 1.97 L, Hgb 6.6 L, Hct 20.8 L, MCV 105.6 H, MCH 33.5 H, MCHC 31.7 L, RDW Std Deviation 66.2 H, RDW Coeff of Juvencio 17.3 H, Plt Count 225, MPV 8.9, Immature Gran % (Auto) 0.600, Neut % (Auto) 63.9, Lymph % (Auto) 13.1 L, [place] % (Auto) 17.0 H, Eos % (Auto) 4.4, Baso % (Auto) 1.0, Absolute Neuts (auto) 5.4, Absolute Lymphs (auto) 1.10, Nucleated RBC % 0, Anisocytosis 1+, Sodium 134, Potassium 4.4, Chloride 104, Carbon Dioxide 24.0, Anion Gap 6, BUN 21 H, Creatinine 0.47 L, Estim Creat Clear Calc 76.78, Est GFR (MDRD) Non-Af 109, BUN/Creatinine Ratio 45.5 H, Glucose 113 H, Calcium 7.6 08/12/25 07:15: Retic Count 4.34 H, Immature Retic Fraction 24.50 H, Retic Hgb Equivalent 32.3, Iron 24 L, TIBC 137 L, Iron Saturation 17.5, Unsaturated IBC 113 L, Ferritin 2761 H 08/12/25 08:06: Blood Type O NEGATIVE, Antibody Screen NEGATIVE, Crossmatch See Detail Micro: Microbiology 08/11/25 13:15 Bone - Right Foot Wound Culture - Preliminary GNR lactose supervisor wash house 08/11/25 13:15 Wound - Leg, Right Wound Culture - Preliminary GNR lactose supervisor wash house 08/11/25 13:15 Wound - Leg, Left Wound Culture - Preliminary GNR lactose supervisor wash house 08/11/25 13:15 Wound - Ankle Wound Culture - Preliminary Mixed Gram Pos & Gram Neg Org Physical Exam Narrative Afebrile/VSS. Conversational. In no acute distress Bilateral lower extremity: Ankle Irrigating wound vac in place bilaterally with good seal. Had multipodus boots in place. Assessment & Plan Assessment/Plan (1) Pressure ulcer of left ankle, stage 4: (2) Pressure ulcer of right ankle, stage 4: (3) Acute postoperative anemia due to expected blood loss: PLAN: Plan POD#1: Bilateral ankle wound debridement with irrigating wound VAC placement Plan: Continue Clindamycin 900mg Q8hr. Right foot cultures shows GNR fermenters. 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 Pain control: per MAR Incision care: Irrigating wound VAC, will possibly take it down Sunday and assess wound. Plan to return to OR for repeat debridement in the next few days. Angiogram with Dr. Menjivar tomorrow. Received 2 units of PRBC for postop anemia. Appreciate hospitalist for management. DVT ppx: Lovenox started today
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
[2025-08-12] MEDS: Sodium Hypochlorite 473 ML, Sodium Chloride Irrig Solution 473 ML IRRIGATION (15:11)
[2025-08-13 01:33] VITALS: BP 107/31; PULSE 85; RESP 18; TEMP 37.2; O2SAT 97
[2025-08-13] MEDS: Clindamycin 900 MG/50 ML BAG 75 MG IV (04:00)
[2025-08-13 05:12] LABS: Hematocrit 24.8 % (40-54); Hemoglobin 8.3 g/dL (13.0-16.5); Mean Corp Hgb Conc 33.5 g/dL (32-36); Mean Corpuscular Volume 97.6 fL (80-94); Mean Platelet Vol. 8.9 fl (6.2-12.0); POSITIVE MORPHOLOGY YES; Platelet Count 235 K/mm3 (150-450); RBC Distribution Width CV 20.7 % (11.6-14.6); RBC Distribution Width SD 72.9 fl (35.1-43.9); Red Blood Count 2.54 M/mm3 (4.6-6.2); White Blood Count 10.0 K/mm3 (4.4-11.0)
[2025-08-13 05:13] LABS: Scan Indicated on CBC? Y/N YES- FLAGS NOTED
[2025-08-13 05:25] LABS: Anion Gap 6 (5-15); BUN 23 mg/dL (4-19); BUN/Creat Ratio 37.8 RATIO (10-20); Calcium,Total 7.1 mg/dL (7.6-11.0); Carbon Dioxide 21.3 mmol/L (21.0-32.0); Chloride 105 mmol/L (98-108); Estimated Creatinine Clearance 76.78 ml/min (50-250); Glucose 89 mg/dL (70-99); Potassium 4.2 mmol/L (3.3-5.1)
[2025-08-13] MEDS: 0.9% Saline Lock 10 ML Syringe IV ×4 (07:16→22:19)
--- NOTE | 2025-08-13 09:58 | PCM.RX.CS ---
Consult Antibiotic Management Pharmacy has been consulted to manage selected antibiotic: Vancomycin Type of Intervention Type of Consult: New start Suspected Infection Suspected Infection: Skin/Soft tissue Labs Labs: Sodium 132 mmol/L (133-145) L 08/13/25 04:35 Potassium 4.2 mmol/L (3.3-5.1) 08/13/25 04:35 Chloride 105 mmol/L (98-108) 08/13/25 04:35 Carbon Dioxide 21.3 mmol/L (21.0-32.0) 08/13/25 04:35 Anion Gap 6 (5-15) 08/13/25 04:35 BUN 23 mg/dL (4-19) H 08/13/25 04:35 Creatinine 0.60 mg/dL (0.70-1.20) L 08/13/25 04:35 Est GFR (MDRD) Non-Af 101 (>60) 08/13/25 04:35 BUN/Creatinine Ratio 37.8 RATIO (10-20) H 08/13/25 04:35 Glucose 89 mg/dL (70-99) 08/13/25 04:35 Microbiology Microbiology: Microbiology 08/11/25 13:15 Wound - Leg, Right Gram Stain - Final 08/11/25 13:15 Wound - Leg, Right Wound Culture - Preliminary Enterobacter cloacae complex Gram negative eileen Gram positive organism#2 08/11/25 13:15 Wound - Leg, Left Gram Stain - Final 08/11/25 13:15 Wound - Leg, Left Wound Culture - Preliminary GNR lactose family service aide 08/11/25 13:15 Bone - Right Foot Gram Stain - Final 08/11/25 13:15 Bone - Right Foot Wound Culture - Preliminary Enterobacter cloacae complex Gram positive organism Gram positive organism#2 Gram positive organism#3 08/11/25 13:15 Wound - Ankle Gram Stain - Final 08/11/25 13:15 Wound - Ankle Wound Culture - Preliminary Mixed Gram Pos & Gram Neg Org Dosing Weight Weight used for dosin kg Estimated Creatinine Clearance Estimated Creatinine Clearance: 76.8 Goal Trough Goal Trough: 15-20 mcg/mL Pharmacy Plan for Drug Dosing Pharmacy Plan for Drug Dosing: Pharmacy Service will continue to monitor and adjust dosing as required. NEW START IV VANCOMYCIN Consulting Physician: Dr. Anton Indication: Pressure ulcers (bilateral ankles) Goal Trough: 15-20 SrCr: 0.6 CrCl: 76.8 mL/min Vancomycin Dose: 1000 mg Q12H with first dose 08/13 @ 2199 Pending Level: 08/14/25 @ 2129 Date/Time Labs Ordered Labs to be done on [date and time ordered]: 08/14 @ 2129
--- NOTE | 2025-08-13 10:31 | PCM.OPRPT ---
Operative Report (Standard) Operative Information Date of Procedure: 08/13/25 Pre-Operative Diagnosis: Atherosclerosis with nonhealing wound of the right lower extremity; lateral ankle and forefoot Post-Operative Diagnosis: Same Surgery/Procedure Performed: Aortogram, right lower extremity angiogram Intravascular ultrasound right common and external iliac artery Angioplasty and stent right common iliac artery health sciences manager: No Type of Anesthesia: Local and Sedation,Conscious RN Documented Start/Stop Times: Operation Date: 08/11/25 12:00 Case Time Into Pre-Op 08/11/25 10:35 Into Room 08/11/25 11:35 Out of Pre-Op 08/11/25 11:35 Anesthesia Start 08/11/25 11:36 Procedure Start 08/11/25 12:06 Procedure End 08/11/25 13:00 Anesthesia End 08/11/25 13:10 Out of Room 08/11/25 13:10 Into Recovery 08/11/25 13:12 Out of Recovery 08/11/25 13:53 Procedure Start Time: 08:30 Procedure Stop Time: 09:45 Select all DRAINS/GRAFTS/IMPLANTS that apply: Implanted device Implanted device details: [employer] [place] 7 x 60 Estimated Blood Loss: 5 Specimen collected: No Description of surgery: HPI: Patient is a 75-year-old male with longstanding paraplegia who has developed bilateral lower extremity pressure wounds. The wounds on the right lateral ankle and forefoot have worsened in appearance with necrosis and is found to have arterial insufficiency. He is taken now for angiogram with possible invention to aid in wound healing. Description of procedure: Upon obtaining informed consent and verification correct patient procedure site the patient was taken to the User Experience Analyst where he was positioned prepped and draped in usual sterile fashion. Timeouts performed, sedation ministered Versed and fentanyl. Skin overlying the left common femoral artery was anesthetized 1% lidocaine the vessel accessed under ultrasound guidance with a micropuncture needle wire. This then exchanged for micropuncture sheath through which injection iliofemoral angiograms performed revealing satisfactory position with no extravasation or dissection. Through the micropuncture sheath a [employer] 3son wire was advanced into the abdominal aorta and the micropuncture exchanged for a short 6 Togolese sheath. Through the 6 Togolese sheath an Omni Flush catheter was advanced into the abdominal aorta and digital subtraction aortogram pelvic angiogram was performed. This revealed 2 tandem stenoses in the right common iliac artery the more proximal which was greater than 75% and just distal to the aortic bifurcation. The distal common iliac and external iliac artery were patent with no significant atherosclerosis or stenosis. Using a Bentson wire and the Omni Flush catheter we advanced into the distal external iliac artery and from this position obtain sequential subtraction angiography the right lower extremity. The right common femoral artery and its bifurcation of the profunda and superficial femoral arteries were widely patent with no atherosclerosis or stenosis. The superficial femoral artery and popliteal artery were widely patent throughout with no atherosclerosis or stenosis. The popliteal trifurcation and tibial outflow vessels were all widely patent with no atherosclerosis or stenosis. Given the severity of stenosis in the iliac and his overall insufficiency is felt this warranted treatment so the patient was then heparinized and allowed to circulate for 3 minutes. Bentson wire then readvanced through the Omni Flush catheter and the catheter and short 6 Togolese sheath exchanged for a 6 Togolese Ansell 2 sheath which was advanced to the aortic bifurcation. The Omni Flush catheter was then readvanced and the Bentson wire exchanged for a command 18 wire. Over this an intravascular ultrasound probe was advanced and recorded pullback performed of the right external iliac artery, common iliac artery to the aortic bifurcation. This confirmed presence within true lumen, the extent of the plaque and the severe stenosis of greater than 75%. Reference vessel sizes were obtained from the IVUS imaging and a 6 mm x 40 markel angioplasty balloon was brought onto the field prep for parts salesperson instructions. The IVUS catheter was withdrawn and the balloon advanced in position inflated for nominal across the extent of the lesion. There was an area of resistant stenosis at the superior aspect of the lesion so a [employer] 6 x 20 scoring balloon was advanced and centered on the lesion and inflated to nominal for 2 minutes and deflated withdrawn. A [employer] [place] 7 x 60 paclitaxel coated self-expanding stent was then selected and prepped manufactures instructions. It was then advanced over the wire and positioned covering the entirety of the lesion with the superior edge at the aortic bifurcation. The stent was then deployed in satisfactory position and postdilated with a 7 mm x 40 markel angioplasty balloon there was inflated to nominal across the entirety of the stented segment. Completion angiography revealed satisfactory stent placement with no residual stenosis and no extravasation or dissection. The long 6 Togolese sheath and exchanged for a short 6 Togolese sheath and a minx closure device deployed followed by 5 minutes of manual pressure. The patient was then taken to recovery for bedrest with planned return to the hospital MedSurg redd for ongoing care. Surgical Findings: See above Complications Complications: No
--- NOTE | 2025-08-13 10:31 | PCM.PN.ID ---
ID ID: Route of nutrition/ use of supplements: [] Nutritional Intake: [] IV Site: [] Callahan Catheter: [] Assessment & Plan Assessment/Plan (1) Ankle osteomyelitis, right: PLAN: Pt gone to angio this AM. Bone cx with enterobacter, gram pos x3. Prior wound cx with enterococcus and Acinetobacter. Will cover with vanc/meropenem for now. Will do full consult in AM tomorrow.
--- NOTE | 2025-08-13 10:49 | CASEMGMT ---
Spoke with ID, pt will need IV atb at dc. Spoke with who states plan will be for pt to dc on Sunday with two wound vacs. RN CM to discuss IV at home, pt is off of the floor at this time.
[2025-08-13 12:12] VITALS: BP 125/67; PULSE 72; RESP 18; TEMP 36.1; O2SAT 100
[2025-08-13] MEDS: Vancomycin HCl 1,750 MG in 0.9% Normal Saline (500mL Bag) 500 ML 250 MG IV (13:01)
[2025-08-13 13:28] VITALS: O2SAT 100
[2025-08-13] MEDS: Meropenem 1 GM in 0.9% Normal Saline (100mL MB+) 100 ML IV ×2 (13:31→22:24)
--- NOTE | 2025-08-13 16:05 | PN.SURG_ITS ---
Subjective Subjective Patient seen this afternoon with at bedside. He voices no concerns. He underwent angiogram and stenting today with Dr. Menjivar. He states his pain is well controlled. Objective Data Objective Data afebrile/VSS Bilateral wound VAC Vital Signs: Vital Signs Temp Pulse Resp BP Pulse Ox O2 Del Method 97 F L 72 18 125/67 H 100 Room Air 08/13/25 12:12 08/13/25 12:12 08/13/25 12:12 08/13/25 12:12 08/13/25 13:28 08/13/25 13:28 Oxygen Delivery Method Room Air Weight: 150 lb 0.04 oz Body Mass Index (BMI) 21.4 Intake & Output: Intake and Output for Last 24 Hours 08/11/25 08/12/25 08/13/25 23:59 23:59 23:59 Intake Total 169 / 169 2636. / 2886.25 1662.5 / 1662.5 Output Total 650 / 1300 850 / 850 Balance 149 / 149 1986. / 1586.25 812.5 / 812.5 Lab / Micro Data Attestation: I reviewed the patient's lab results. 08/13/25 04:20 08/13/25 04:35 Labs: Laboratory Results - last 24 hr 08/12/25 08:06: Crossmatch See Detail 08/13/25 04:20: WBC 10.0, RBC 2.54 L, Hgb 8.3 L, Hct 24.8 L, MCV 97.6 H D, MCH 32.7 H, MCHC 33.5 D, RDW Std Deviation 72.9 H, RDW Coeff of Juvencio 20.7 H, Plt Count 235, MPV 8.9, Differential Comment 08/13/25 04:35: Sodium 132 L, Potassium 4.2, Chloride 105, Carbon Dioxide 21.3, Anion Gap 6, BUN 23 H, Creatinine 0.60 L, Estim Creat Clear Calc 76.78, Est GFR (MDRD) Non-Af 101, BUN/Creatinine Ratio 37.8 H, Glucose 89, Calcium 7.1 L Micro: Microbiology 08/11/25 13:15 Wound - Ankle Gram Stain - Final 08/11/25 13:15 Wound - Ankle Wound Culture - Preliminary GNR lactose academic registrar Gram negative eileen Gram Positive Cocci 08/11/25 13:15 Wound - Ankle Anaerobic Culture - Preliminary Checking for anaerobes, further studies to follow. 08/11/25 13:15 Wound - Leg, Left Gram Stain - Final 08/11/25 13:15 Wound - Leg, Left Wound Culture - Preliminary GNR lactose academic registrar 08/11/25 13:15 Wound - Leg, Left Anaerobic Culture - Preliminary No growth in 48 hours. 08/11/25 13:15 Bone - Right Foot Gram Stain - Final 08/11/25 13:15 Bone - Right Foot Wound Culture - Preliminary Enterobacter cloacae complex Gram positive organism Gram positive eileen Gram positive organism#3 08/11/25 13:15 Bone - Right Foot Anaerobic Culture - Preliminary 08/11/25 13:15 Wound - Leg, Right Gram Stain - Final 08/11/25 13:15 Wound - Leg, Right Wound Culture - Preliminary Enterobacter cloacae complex Gram negative eileen Gram positive organism#2 08/11/25 13:15 Wound - Leg, Right Anaerobic Culture - Preliminary Checking for anaerobes, further studies to follow. Physical Exam Narrative Afebrile/VSS Bilateral ankle wound VAC with good seal, bloody output in both cartridge. Feet in multipodus boots. Bony prominence of bilateral legs are offloaded without redness. No calf swelling. 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 Pain control: per NOV Incision care: Irrigating wound VAC, will possibly take it down Sunday and assess wound. Plan to return to OR for repeat debridement with wound VAC placement on Sunday. Preop Sunday. Appreciate hospitalist for management. Started Aspirin 81mg, Plavix. Anticoagulation per vascular surgery. DVT ppx: Holding Lovenox. Charges/Coding Procedures Integumentary [id number]: [id number] Global Visit
--- NOTE | 2025-08-13 17:12 | PN.HOSP_ITS ---
Subjective Subjective Patient seen after angiogram and stenting, being medicated for pain but overall it is well-controlled, no new or acute complaints at time of exam Objective Data Objective Data Vital Signs: Vital Signs Temp Pulse Resp BP Pulse Ox O2 Del Method 97 F L 72 18 125/67 H 100 Room Air 08/13/25 12:12 08/13/25 12:12 08/13/25 12:12 08/13/25 12:12 08/13/25 13:28 08/13/25 13:28 Oxygen Delivery Method Room Air Weight: 68.04 kg Body Mass Index (BMI) 21.4 Intake & Output: Intake and Output for Last 24 Hours 08/11/25 08/12/25 08/13/25 23:59 23:59 23:59 Intake Total 169 / 169 2636.25 / 2886.25 1762.5 / 1762.5 Output Total 650 / 1300 850 / 850 Balance 149 / 149 1986.25 / 1586.25 912.5 / 912.5 Lab / Micro Data 08/13/25 04:20 08/13/25 04:35 Labs: Laboratory Results - last 24 hr 08/12/25 08:06: Crossmatch See Detail 08/13/25 04:20: WBC 10.0, RBC 2.54 L, Hgb 8.3 L, Hct 24.8 L, MCV 97.6 H D, MCH 32.7 H, MCHC 33.5 D, RDW Std Deviation 72.9 H, RDW Coeff of Juvencio 20.7 H, Plt Count 235, MPV 8.9, Differential Comment 08/13/25 04:35: Sodium 132 L, Potassium 4.2, Chloride 105, Carbon Dioxide 21.3, Anion Gap 6, BUN 23 H, Creatinine 0.60 L, Estim Creat Clear Calc 76.78, Est GFR (MDRD) Non-Af 101, BUN/Creatinine Ratio 37.8 H, Glucose 89, Calcium 7.1 L Micro: Microbiology 08/11/25 13:15 Wound - Ankle Gram Stain - Final 08/11/25 13:15 Wound - Ankle Wound Culture - Preliminary 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 08/11/25 13:15 Wound - Leg, Left Gram Stain - Final 08/11/25 13:15 Wound - Leg, Left Wound Culture - Preliminary GNR lactose fuel retrofitting technician 08/11/25 13:15 Wound - Leg, Left Anaerobic Culture - Preliminary No growth in 48 hours. 08/11/25 13:15 Bone - Right Foot Gram Stain - Final 08/11/25 13:15 Bone - Right Foot Wound Culture - Preliminary Enterobacter cloacae complex Gram positive organism Gram positive eileen Gram positive organism#3 08/11/25 13:15 Bone - Right Foot Anaerobic Culture - Preliminary 08/11/25 13:15 Wound - Leg, Right Gram Stain - Final 08/11/25 13:15 Wound - Leg, Right Wound Culture - Preliminary Enterobacter cloacae complex Gram negative eileen Gram positive organism#2 08/11/25 13:15 Wound - Leg, Right Anaerobic Culture - Preliminary Checking for anaerobes, further studies to follow. Physical Exam Narrative General: Awake and alert HEENT: Atraumatic Eyes: Extraocular movements grossly intact Neck: Supple Respiratory: No overt wheezes or rhonchi, normal respiratory effort Cardiovascular: Regular rate GI: Soft, nontender, nondistended Extremities: Wound VAC in place Musculoskeletal: Patient quadriplegic Neuro: Baseline neurodeficits Skin: Wound VAC in place Psych: Cooperative Assessment & Plan Assessment/Plan (1) Pressure ulcer of right ankle, stage 4: (2) Pressure ulcer of left ankle, stage 4: (3) PAD (peripheral artery disease): (4) Acute postoperative anemia due to expected blood loss: PLAN: Plan Patient is a 75-year-old male who presented [facility] on 08/11/2025 for planned plastic surgery procedure on his bilateral ankle wounds. Medicine consulted postoperatively for medical management. 1. Bilateral ankle pressure ulcers in setting of paraplegia ? Plastic surgery primary. Wound care consulted. History of paraplegia for 50 years due to spinal cord injury, and is wheelchair-bound at baseline. S/p excision down to the bone of multiple bilateral ankle wounds with bilateral wound VAC placement with Dr. Mac on 08/11. Tolerated procedure well, no intraoperative complications noted. Postoperative pain control with Tylenol and oxycodone as needed. Per plastics, postoperative plan is to leave wound vacs on for 2 days before changing, with plan for angiogram with vascular surgery on as below; anticipating discharge home with wound VAC. Eventual plan is for skin grafting. Further management per primary. -08/12: Management per plastics, wound VAC in place, plan for angiography with vascular surgery tomorrow -08/13: Patient underwent angiogram and stenting with vascular, started on aspirin and Plavix per vascular surgery. Plan is for patient to go back to the OR on Sunday with plastic surgery. ID managing antibiotics, presently on Merrem and vancomycin 2. Peripheral artery disease ? Vascular surgery consulted. Patient saw vascular surgery in the office on 07/03, was noted on ABIs to have moderate RLE PAD that would typically be sufficient to heal in a nondiabetic patient but this patient has added complexity of immunosuppression and surgical intervention above. Patient will have angiogram done with vascular surgery on 08/13 to assess vascular flow and healing potential. -08/12: To go for angio with possible stenting with vascular tomorrow 3. Liver cancer ? Follows with [facility] in [place]. Had CT abdomen pelvis done on 10/15/2024 at [facility] that showed large metastatic lesions occupying the majority of the liver with probable central necrosis. Patient saw Dr. Millard on 10/23 who recommended liver biopsy to confirm cancer. Difficult to find further records but cancer was confirmed and patient had port placed in early February and has been undergoing chemotherapy with Avastin since then. Avastin has been on hold recently to provide best chance for healing of his ulcers as above. No inpatient needs, continue outpatient follow-up. -08/12: Reports being itchy on his back and reports this goes along with his liver cancer, usually uses topical Benadryl at home, does not seem we have a topical antihistamine, will add lotion to try to keep the area from getting dry and increasing itching will add oral loratadine to see if this gives any additional benefit -08/13: Continue supportive care for symptoms, outpatient follow-up 4. Postoperative anemia in setting of chronic iron deficiency anemia ? Hemoglobin 8.3 postoperatively. Most recent prior hemoglobin in our system was 11.4 back on 10/23. Patient hemodynamically stable postoperatively. Presume hemoglobin drop is secondary to expected operative blood loss. Is on a liquid iron supplement at home that we unfortunately do not have on formulary here. Follow-up a.m. CBC. -08/12: Hemoglobin this a.m. 6.6, patient transfused, iron studies obtained and they appear consistent with anemia of chronic disease but also does have elevated retake count so likely also component of blood loss/multifactorial, repeat the a.m. -08/13: Hemoglobin 8.3 this a.m., stable, repeat in the a.m. and transfuse if necessary 5. Chronic back pain ? Is on tramadol at home for chronic back pain. Treating pain as above while inpatient. -08/12: Supportive care -08/13: Continue supportive care DVT prophylaxis: Per primary Charges/Coding Visit Charges Inpatient E&M: 61572 Subs Hosp L1
[2025-08-13 17:31] VITALS: BP 139/79; PULSE 70; RESP 18; TEMP 37.2; O2SAT 100
--- NOTE | 2025-08-13 17:50 | CASEMGMT ---
Addendum entered by Zofia Estevez 08/14/25 12:01: EMILY FIGUEROA did broach topic of SNF as well and discussed insurance benefits and referral process. Pt and family decline wanting pt to go to SNF. Original Note: EMILY FIGUEROA NOTE: EMILY FIGUEROA to room. Pt resting in bed, , son, and son's family @ bedside. They were made aware pt will need IV atb's @ discharge. They were made aware it is unknown at this time how frequent IV atb's will need infused, but it could once a day or up to 3-4 or more times a day, depending on what kind of IV atb is needed and if more than one kind of atb is needed. They were made aware [facility] nurse would initially educate on IV administration and then would do them from there on out. Further questions answered. They would still like pt to discharge home and is willing to learn how to administer the IV atb's & do them as frequently as needed. Discussed infusion companies, they voice having no preference, and agreeable to [facility]. Pt states they are now interested in getting a hospital bed as well. Pt already has a trapeze @ home that they purchased on their own. They are not sure if the one they have would be able to attach to the bed frame or not. Further questions answered. They voice appreciation for info provided and deny having further discharge questions or needs at this time. Brian SIGALA RN, CM
[2025-08-13 20:24] VITALS: BP 114/55; PULSE 72; RESP 16; TEMP 36.2; O2SAT 99
[2025-08-13] MEDS: Vancomycin HCl 1,000 MG in 0.9% Normal Saline (250mL Bag) 250 ML 250 MG IV (22:20)
[2025-08-13] MEDS: Ensure Plus High Protein 120 ML LIQUID PO (22:28)
[2025-08-13] MEDS: Lactobacillis Acidophilus 1 CAP PO (22:28)
[2025-08-14 02:12] VITALS: BP 127/56; PULSE 80; RESP 18; TEMP 37.1; O2SAT 98
[2025-08-14] MEDS: Meropenem 1 GM in 0.9% Normal Saline (100mL MB+) 100 ML IV ×3 (05:36→22:03)
[2025-08-14] MEDS: Lactobacillis Acidophilus 1 CAP PO ×3 (05:37→22:03)
--- NOTE | 2025-08-14 06:57 | WOUNDNOTE ---
Home VAC approved for when patient gets discharged home.
[2025-08-14 07:41] LABS: Hematocrit 26.6 % (40-54); Hemoglobin 8.9 g/dL (13.0-16.5); Mean Corp Hgb Conc 33.5 g/dL (32-36); Mean Corpuscular Volume 97.8 fL (80-94); Mean Platelet Vol. 8.7 fl (6.2-12.0); POSITIVE MORPHOLOGY YES; Platelet Count 222 K/mm3 (150-450); RBC Distribution Width CV 19.3 % (11.6-14.6); RBC Distribution Width SD 68.7 fl (35.1-43.9); Red Blood Count 2.72 M/mm3 (4.6-6.2); White Blood Count 9.5 K/mm3 (4.4-11.0)
[2025-08-14 07:51] LABS: Scan Indicated on CBC? Y/N YES- FLAGS NOTED
[2025-08-14 08:00] VITALS: BP 146/83; PULSE 84; RESP 18; TEMP 36.6; O2SAT 98
[2025-08-14 08:04] LABS: Anion Gap 6 (5-15); BUN 19 mg/dL (4-19); BUN/Creat Ratio 37.8 RATIO (10-20); Calcium,Total 6.9 mg/dL (7.6-11.0); Carbon Dioxide 19.8 mmol/L (21.0-32.0); Chloride 107 mmol/L (98-108); Estimated Creatinine Clearance 76.78 ml/min (50-250); Glucose 93 mg/dL (70-99); Potassium 4.3 mmol/L (3.3-5.1)
[2025-08-14 08:25] VITALS: O2SAT 96
[2025-08-14] MEDS: 0.9% Saline Lock 10 ML Syringe IV (08:59)
[2025-08-14] MEDS: Ensure Plus High Protein 120 ML LIQUID PO (09:14)
[2025-08-14] MEDS: Aspirin E.C. 81 MG Tablet PO (09:16)
[2025-08-14] MEDS: Mineral Oil/Petrolatum Cr 1.75oz Bottle 1 APPLIC TOPICAL (09:16)
--- NOTE | 2025-08-14 10:35 | WOUNDNOTE ---
In to see patient this am with Dr Mac. plan is to leave veraflo VAC's in place to bilateral ankle wounds with return to the OR Sunday for placement of Integra and reapplication of the wound VAC. Pt will be switched over to the home VAC on Sunday with probable discharge home that day. Pt and agreeable to plan. PT ordered per Dr Mac for overall strengthening.
--- NOTE | 2025-08-14 10:59 | PCM.CONS.GEN ---
Assessment & Plan Assessment/Plan (1) Ankle osteomyelitis, right: QUALIFIERS: Osteomyelitis type: other chronic Qualified Code(s): M86.671 - Other chronic osteomyelitis, right ankle and foot PLAN: Wound cx with enterobacter, MSSL, enterococcus, PsA, corynebacter. 05/2025 wound cx with E faecalis, AcB, and anaerobes. Reports amoxicillin allergy is years ago, had uti two weeks after completing course of amox. On vanc/chip. OR planned for today. Will follow, thank you (2) PAD (peripheral artery disease): (3) Paraplegia following spinal cord injury: HPI Consult Data Date of Consult: 08/14/25 HPI Narrative Reason for Consultation: osteo HPI Narrative: TERI RAHMAN, is a 75 M with paraplegia, metastatic colon cancer, several months of worsening BLE ulcers likely related to chemo. Follows at wound center, saw ID about a month ago, augmentin written to cover wound cx with E faecalis, AcB, and anaerobes. He never took any doses of that antibiotic since he and felt the wounds were doing fine. Now admitted with exposed ankle bone, plan on surgical debridement. Had angioplasty and stent placed 08/13/[address] Brown. Feeling ok this AM, no fever, no n/v/d. Full ROS performed and neg except as noted above. [facility] Medical History Open wound History of steroid therapy Low iron Difficulty swallowing History of edema Hx of peripheral vascular disease Wears hearing aid Wears glasses Cancer Uses wheelchair Functional voiding disorder Non-smoker Paraplegic immobility syndrome Liver masses Candidiasis Pruritus, unspecified Home Medications ?Medication ?Instructions ?Recorded ?Last Taken ?Type Liquid probiotic 5 ml PO DAILY 10/23/24 08/10/25 History Liquid heart drops 2 gtt PO QHS 10/23/24 08/10/25 History Liquid kidney and bladder 2 gtt PO DAILY 10/23/24 08/10/25 History Resolution 2 tab PO BID 10/23/24 08/10/25 History tramadol 50 mg tablet 50 mg PO Q6H PRN PRN pain 06/18/25 08/10/25 History Liquid Iron 1.5 mg PO DAILY 07/03/25 08/10/25 History aspirin 81 mg tablet 81 mg PO QDAY #90 tabs 08/13/25 Unknown Rx clopidogrel 75 mg tablet (Plavix) 75 mg PO DAILY #90 tabs 08/13/25 Unknown Rx Allergy/AdvReac Type Severity Reaction Status Date / Time amoxicillin Allergy UTI Verified 08/05/25 09:28 Family History Father Cancer Brother Cancer Surgical History History of vascular access device H/O skin graft Hx of appendectomy Hx of tonsillectomy Social History Smoking Status: Never smoker alcohol intake: never Physical Exam Const alert, oriented x3 and no apparent distress General Appearance: cooperative HEENT normocephalic and head/scalp atraumatic Eyes PERRL and EOMs intact bilaterally Neck supple and No nodes Resp normal air movement and clear to auscultation bilaterally Cardio regular rate and regular rhythm GI soft to palpation, non-tender and non-distended Extremity General Extremity: edema Skin Skin Narrative: reviewed wound photos, BLE wrapped Neuro CN's II-XII intact bilaterally Neuro Narrative: paraplegic Lab / Micro Data Attestation: I reviewed the patient's lab results. 08/14/25 07:11 08/14/25 07:11 Labs: Laboratory Results - last 24 hr 08/14/25 07:11: WBC 9.5, RBC 2.72 L, Hgb 8.9 L, Hct 26.6 L, MCV 97.8 H, MCH 32.7 H, MCHC 33.5, RDW Std Deviation 68.7 H, RDW Coeff of Juvencio 19.3 H, Plt Count 222, MPV 8.7, Differential Comment , Sodium 133, Potassium 4.3, Chloride 107, Carbon Dioxide 19.8 L, Anion Gap 6, BUN 19, Creatinine 0.51 L, Estim Creat Clear Calc 76.78, Est GFR (MDRD) Non-Af 106, BUN/Creatinine Ratio 37.8 H, Glucose 93, Calcium 6.9 L Micro: Microbiology 08/11/25 13:15 Wound - Ankle Gram Stain - Final 08/11/25 13:15 Wound - Ankle Wound Culture - Preliminary Enterobacter cloacae complex Pseudomonas aeruginosa Staphylococcus lugdunensis 08/11/25 13:15 Wound - Ankle Anaerobic Culture - Preliminary Checking for anaerobes, further studies to follow. 08/11/25 13:15 Bone - Right Foot Gram Stain - Final 08/11/25 13:15 Bone - Right Foot Wound Culture - Final Enterobacter cloacae complex Staphylococcus lugdunensis Corynebact. pseudodiphtheritic Enterococcus faecalis 08/11/25 13:15 Wound - Leg, Right Gram Stain - Final 08/11/25 13:15 Wound - Leg, Right Wound Culture - Preliminary Enterobacter cloacae complex Pseudomonas aeruginosa Enterococcus faecalis 08/11/25 13:15 Wound - Leg, Right Anaerobic Culture - Preliminary Checking for anaerobes, further studies to follow. 08/11/25 13:15 Wound - Leg, Left Gram Stain - Final 08/11/25 13:15 Wound - Leg, Left Wound Culture - Final Enterobacter cloacae complex 08/11/25 13:15 Wound - Leg, Left Anaerobic Culture - Preliminary No growth in 48 hours.
[2025-08-14] MEDS: Vancomycin HCl 1,000 MG in 0.9% Normal Saline (250mL Bag) 250 ML 250 MG IV ×2 (11:14→22:46)
--- NOTE | 2025-08-14 11:29 | CASEMGMT ---
Addendum entered by Zofia Estevez 08/14/25 15:21: states if pt unable to dc to [facility] and goes to another SNF, they would be able to transport pt to a SNF @ discharge, as they have a W/C accessible van and the son could drive him. Addendum entered by Zofia Estevez 08/14/25 15:04: EMILY FIGUEROA to room. and family @ bedside. They have reviewed the list. [facility] is 1st preference. They have not made decision on 2nd or 3rd preferences yet, but are aware to pick 2 more places. Message sent to Korina @ [facility] and referral made. She was made aware plan is for discharge Tu. Addendum entered by Zofia Estevez 08/14/25 12:27: Radha wound nurse, made aware plan is now for pt to dc to SNF. Addendum entered by Zofia Estevez 08/14/25 12:26: EMILY FIGUEROA to room. verifies they have talked things over and they would now like pt to dc to SNF. SNF list that was prepared by guanaco Landrum it assistant, given to & pt and asked for them to choose top 3 preferences. Addendum entered by Zofia Estevez 08/14/25 12:02: Call received from Gaye [facility]. She staets she spoke w/pt's who now states she is concerned pt's care needs are more than she can handle at this time. Original Note: EMILY FIGUEROA note: Per Radha wound nurse, wound vac has been approved. Radha also made aware pt would like hospital bed @ discharge. She recommends for pt to have a low air loss mattress. Per Dr Anton, he anticipates pt will discharge on IV meropenem Q 8 hrs. Call placed to Romi @ [facility]. She was made aware pt to discharge home next week on IV meropenem Q 8 hrs. Discussed IV access, as pt has a PORT. Per Romi, they would prefer pt have a different IV access than the PORT for IV atb's @ home. Call then received from Gaye [facility]. Per Gaye, she feels pt's needs may be too much to be managed @ home and may be better manages @ a SNF. She offered to talk w/pt's to discuss pt's care needs. made aware and states she would be willing to talk w/her. She was provided Gaye's # and states she will call her this morning. Brian BSN RN CM
--- NOTE | 2025-08-14 11:46 | PN.SURG_ITS ---
Subjective Subjective Patient postop day 1 from right iliac stenting with vascular surgery, now on aspirin and Plavix. Doing well. Hemoglobin stable. Medicine following. His pain is under control Objective Data Objective Data Vital Signs: Vital Signs Temp Pulse Resp BP Pulse Ox O2 Del Method 97.9 F 84 18 146/83 H 96 Room Air 08/14/25 08:00 08/14/25 08:00 08/14/25 08:00 08/14/25 08:00 08/14/25 08:25 08/14/25 08:25 Oxygen Delivery Method Room Air Weight: 150 lb 0.04 oz Body Mass Index (BMI) 21.4 Intake & Output: Intake and Output for Last 24 Hours 08/12/25 08/13/25 08/14/25 23:59 23:59 23:59 Intake Total 2636.25 / 2886.25 2422.5 / 2422.5 300 / 300 Output Total 650 / 1300 1625 / 1625 400 / 400 Balance 1986.25 / 1586.25 797.5 / 797.5 -100 / -100 Lab / Micro Data 08/14/25 07:11 08/14/25 07:11 Labs: Laboratory Results - last 24 hr 08/14/25 07:11: WBC 9.5, RBC 2.72 L, Hgb 8.9 L, Hct 26.6 L, MCV 97.8 H, MCH 32.7 H, MCHC 33.5, RDW Std Deviation 68.7 H, RDW Coeff of Juvencio 19.3 H, Plt Count 222, MPV 8.7, Differential Comment , Sodium 133, Potassium 4.3, Chloride 107, Carbon Dioxide 19.8 L, Anion Gap 6, BUN 19, Creatinine 0.51 L, Estim Creat Clear Calc 76.78, Est GFR (MDRD) Non-Af 106, BUN/Creatinine Ratio 37.8 H, Glucose 93, C alcium 6.9 L Micro: Microbiology 08/11/25 13:15 Wound - Ankle Gram Stain - Final 08/11/25 13:15 Wound - Ankle Wound Culture - Preliminary Enterobacter cloacae complex Pseudomonas aeruginosa Staphylococcus lugdunensis 08/11/25 13:15 Wound - Ankle Anaerobic Culture - Preliminary Checking for anaerobes, further studies to follow. 08/11/25 13:15 Bone - Right Foot Gram Stain - Final 08/11/25 13:15 Bone - Right Foot Wound Culture - Final Enterobacter cloacae complex Staphylococcus lugdunensis Corynebact. pseudodiphtheritic Enterococcus faecalis 08/11/25 13:15 Wound - Leg, Right Gram Stain - Final 08/11/25 13:15 Wound - Leg, Right Wound Culture - Preliminary Enterobacter cloacae complex Pseudomonas aeruginosa Enterococcus faecalis 08/11/25 13:15 Wound - Leg, Right Anaerobic Culture - Preliminary Checking for anaerobes, further studies to follow. 08/11/25 13:15 Wound - Leg, Left Gram Stain - Final 08/11/25 13:15 Wound - Leg, Left Wound Culture - Final Enterobacter cloacae complex 08/11/25 13:15 Wound - Leg, Left Anaerobic Culture - Preliminary No growth in 48 hours. Physical Exam Narrative Bilateral lower extremity wound vacs holding suction No blood in the wound vacs They are irrigating the wounds Assessment & Plan Assessment/Plan (1) Ankle osteomyelitis, right: QUALIFIERS: Osteomyelitis type: other chronic Qualified Code(s): M86.671 - Other chronic osteomyelitis, right ankle and foot PLAN: Discussed with infectious disease and they are going to place him on meropenem and vancomycin for now for the positive cultures (2) Pressure ulcer of left ankle, stage 4: (3) Pressure ulcer of right ankle, stage 4: PLAN: Plan Anticipate return to operating room on Sunday, 17 August 2025, for VAC change/repeat debridement and Integra placement Patient happy with the plan I discussed with him and his the importance of pressure offloading and continuing a pressure offloading bed as we do not want him getting any pressure sore in the pelvic region. Will continue high-protein diet and PT consultation
--- NOTE | 2025-08-14 12:07 | CASEMGMT ---
Discharge Planning A list of?SNF providers including quality and resource use data and consistent with the patient's preferred geographic region, medical needs, and insurance network was created in [facility] Guide.? This list was provided to the RN HENRY. Lucita Sotelo, Discharge Planning Asst.
--- NOTE | 2025-08-14 15:52 | WOUNDNOTE ---
wound photo: left lateral knee
--- NOTE | 2025-08-14 15:53 | WOUNDNOTE ---
wound photo: left medial knee
--- NOTE | 2025-08-14 15:54 | WOUNDNOTE ---
wound photo: right medial knee
[2025-08-14 17:00] VITALS: BP 118/51; PULSE 79; RESP 18; TEMP 36.7; O2SAT 98
--- NOTE | 2025-08-14 17:50 | PCM.PN.HOSP ---
Subjective Subjective Sitting up in bed with family present, denies any acute complaints, no chest pain or shortness of breath Objective Data Objective Data Vital Signs: Vital Signs Temp Pulse Resp BP Pulse Ox O2 Del Method 98.0 F 79 18 118/51 L 98 Room Air 08/14/25 17:00 08/14/25 17:00 08/14/25 17:00 08/14/25 17:00 08/14/25 17:00 08/14/25 17:00 Oxygen Delivery Method Room Air Weight: 68.04 kg Body Mass Index (BMI) 21.4 Intake & Output: Intake and Output for Last 24 Hours 08/12/25 08/13/25 08/14/25 23:59 23:59 23:59 Intake Total 2636.25 / 2886.25 2422.5 / 2422.5 1220 / 1220 Output Total 650 / 1300 1625 / 1625 750 / 750 Balance 1986.25 / 1586.25 797.5 / 797.5 470 / 470 Lab / Micro Data 08/14/25 07:11 08/14/25 07:11 Labs: Laboratory Results - last 24 hr 08/14/25 07:11: WBC 9.5, RBC 2.72 L, Hgb 8.9 L, Hct 26.6 L, MCV 97.8 H, MCH 32.7 H, MCHC 33.5, RDW Std Deviation 68.7 H, RDW Coeff of Juvencio 19.3 H, Plt Count 222, MPV 8.7, Differential Comment , Sodium 133, Potassium 4.3, Chloride 107, Carbon Dioxide 19.8 L, Anion Gap 6, BUN 19, Creatinine 0.51 L, Estim Creat Clear Calc 76.78, Est GFR (MDRD) Non-Af 106, BUN/Creatinine Ratio 37.8 H, Glucose 93, Calcium 6.9 L Micro: Microbiology 08/11/25 13:15 Wound - Ankle Gram Stain - Final 08/11/25 13:15 Wound - Ankle Wound Culture - Preliminary Enterobacter cloacae complex Pseudomonas aeruginosa Staphylococcus lugdunensis 08/11/25 13:15 Wound - Ankle Anaerobic Culture - Preliminary Checking for anaerobes, further studies to follow. 08/11/25 13:15 Bone - Right Foot Gram Stain - Final 08/11/25 13:15 Bone - Right Foot Wound Culture - Final Enterobacter cloacae complex Staphylococcus lugdunensis Corynebact. pseudodiphtheritic Enterococcus faecalis 08/11/25 13:15 Wound - Leg, Right Gram Stain - Final 08/11/25 13:15 Wound - Leg, Right Wound Culture - Preliminary Enterobacter cloacae complex Pseudomonas aeruginosa Enterococcus faecalis 08/11/25 13:15 Wound - Leg, Right Anaerobic Culture - Preliminary Checking for anaerobes, further studies to follow. 08/11/25 13:15 Wound - Leg, Left Gram Stain - Final 08/11/25 13:15 Wound - Leg, Left Wound Culture - Final Enterobacter cloacae complex 08/11/25 13:15 Wound - Leg, Left Anaerobic Culture - Preliminary No growth in 48 hours. Physical Exam Narrative General: Awake and alert HEENT: Atraumatic Eyes: Extraocular movements grossly intact Neck: Supple Respiratory: No overt wheezes or rhonchi, normal respiratory effort Cardiovascular: Regular rate GI: Soft, nontender, nondistended Extremities: Wound VAC in place Musculoskeletal: Patient quadriplegic Neuro: Baseline neurodeficits Skin: Wound VAC in place Psych: Cooperative Assessment & Plan Assessment/Plan (1) Pressure ulcer of right ankle, stage 4: (2) Pressure ulcer of left ankle, stage 4: (3) PAD (peripheral artery disease): (4) Acute postoperative anemia due to expected blood loss: PLAN: Plan Patient is a 75-year-old male who presented [facility] on 08/11/2025 for planned plastic surgery procedure on his bilateral ankle wounds. Medicine consulted postoperatively for medical management. 1. Bilateral ankle pressure ulcers in setting of paraplegia ? Plastic surgery primary. Wound care consulted. History of paraplegia for 50 years due to spinal cord injury, and is wheelchair-bound at baseline. S/p excision down to the bone of multiple bilateral ankle wounds with bilateral wound VAC placement with Dr. Mac on 08/11. Tolerated procedure well, no intraoperative complications noted. Postoperative pain control with Tylenol and oxycodone as needed. Per plastics, postoperative plan is to leave wound vacs on for 2 days before changing, with plan for angiogram with vascular surgery on as below; anticipating discharge home with wound VAC. Eventual plan is for skin grafting. Further management per primary. -08/12: Management per plastics, wound VAC in place, plan for angiography with vascular surgery tomorrow -08/13: Patient underwent angiogram and stenting with vascular, started on aspirin and Plavix per vascular surgery. Plan is for patient to go back to the OR on Sunday with plastic surgery. ID managing antibiotics, presently on Merrem and vancomycin -08/14: Management per primary 2. Peripheral artery disease ? Vascular surgery consulted. Patient saw vascular surgery in the office on 07/03, was noted on ABIs to have moderate RLE PAD that would typically be sufficient to heal in a nondiabetic patient but this patient has added complexity of immunosuppression and surgical intervention above. Patient will have angiogram done with vascular surgery on 08/13 to assess vascular flow and healing potential. -08/12: To go for angio with possible stenting with vascular tomorrow -08/13: Patient with stenting -08/14: Management per vascular, presently on DAPT 3. Liver cancer ? Follows with [facility] in [place]. Had CT abdomen pelvis done on 10/15/2024 at [facility] that showed large metastatic lesions occupying the majority of the liver with probable central necrosis. Patient saw Dr. Millard on 10/23 who recommended liver biopsy to confirm cancer. Difficult to find further records but cancer was confirmed and patient had port placed in early February and has been undergoing chemotherapy with Avastin since then. Avastin has been on hold recently to provide best chance for healing of his ulcers as above. No inpatient needs, continue outpatient follow-up. -08/12: Reports being itchy on his back and reports this goes along with his liver cancer, usually uses topical Benadryl at home, does not seem we have a topical antihistamine, will add lotion to try to keep the area from getting dry and increasing itching will add oral loratadine to see if this gives any additional benefit -08/13: Continue supportive care for symptoms, outpatient follow-up -08/14: No new or acute complaints today 4. Postoperative anemia in setting of chronic iron deficiency anemia ? Hemoglobin 8.3 postoperatively. Most recent prior hemoglobin in our system was 11.4 back on 10/23. Patient hemodynamically stable postoperatively. Presume hemoglobin drop is secondary to expected operative blood loss. Is on a liquid iron supplement at home that we unfortunately do not have on formulary here. Follow-up a.m. CBC. -08/12: Hemoglobin this a.m. 6.6, patient transfused, iron studies obtained and they appear consistent with anemia of chronic disease but also does have elevated retake count so likely also component of blood loss/multifactorial, repeat the a.m. -08/13: Hemoglobin 8.3 this a.m., stable, repeat in the a.m. and transfuse if necessary -08/14: Hemoglobin 8.9, remained stable 5. Chronic back pain ? Is on tramadol at home for chronic back pain. Treating pain as above while inpatient. -08/12: Supportive care -08/13: Continue supportive care -08/14: Patient had asked about resuming home tramadol as the seem to be more helpful for him, will place order DVT prophylaxis: Per primary Charges/Coding Visit Charges Inpatient E&M: 15336 Subs Hosp L1
[2025-08-14 20:51] VITALS: BP 123/60; PULSE 78; RESP 16; TEMP 36.6; O2SAT 100
[2025-08-14 22:08] LABS: Vancomycin, Trough Level 19.2 ug/mL (5.0-15.0)
--- NOTE | 2025-08-14 22:17 | PCM.RX.CS ---
Consult Antibiotic Management Pharmacy has been consulted to manage selected antibiotic: Vancomycin Type of Intervention Type of Consult: Follow-up Suspected Infection Suspected Infection: Skin/Soft tissue Labs Labs: Sodium 133 mmol/L (133-145) 08/14/25 07:11 Potassium 4.3 mmol/L (3.3-5.1) 08/14/25 07:11 Chloride 107 mmol/L (98-108) 08/14/25 07:11 Carbon Dioxide 19.8 mmol/L (21.0-32.0) L 08/14/25 07:11 Anion Gap 6 (5-15) 08/14/25 07:11 BUN 19 mg/dL (4-19) 08/14/25 07:11 Creatinine 0.51 mg/dL (0.70-1.20) L 08/14/25 07:11 Est GFR (MDRD) Non-Af 106 (>60) 08/14/25 07:11 BUN/Creatinine Ratio 37.8 RATIO (10-20) H 08/14/25 07:11 Glucose 93 mg/dL (70-99) 08/14/25 07:11 Vancomycin Trough 19.2 ug/mL (5.0-15.0) H 08/14/25 21:25 Microbiology Microbiology: Microbiology 08/11/25 13:15 Wound - Ankle Gram Stain - Final 08/11/25 13:15 Wound - Ankle Wound Culture - Preliminary Enterobacter cloacae complex Pseudomonas aeruginosa Staphylococcus lugdunensis 08/11/25 13:15 Wound - Ankle Anaerobic Culture - Preliminary Checking for anaerobes, further studies to follow. 08/11/25 13:15 Bone - Right Foot Gram Stain - Final 08/11/25 13:15 Bone - Right Foot Wound Culture - Final Enterobacter cloacae complex Staphylococcus lugdunensis Corynebact. pseudodiphtheritic Enterococcus faecalis 08/11/25 13:15 Wound - Leg, Right Gram Stain - Final 08/11/25 13:15 Wound - Leg, Right Wound Culture - Preliminary Enterobacter cloacae complex Pseudomonas aeruginosa Enterococcus faecalis 08/11/25 13:15 Wound - Leg, Right Anaerobic Culture - Preliminary Checking for anaerobes, further studies to follow. 08/11/25 13:15 Wound - Leg, Left Gram Stain - Final 08/11/25 13:15 Wound - Leg, Left Wound Culture - Final Enterobacter cloacae complex 08/11/25 13:15 Wound - Leg, Left Anaerobic Culture - Preliminary No growth in 48 hours. Dosing Weight Weight used for dosin kg Estimated Creatinine Clearance Estimated Creatinine Clearance: 77 Goal Trough Goal Trough: 15-20 mcg/mL Pharmacy Plan for Drug Dosing Pharmacy Plan for Drug Dosing: Vancomycin trough level of 19.2, drawn 10.2hrs post-dose, was within the target range of 15-20. Will continue dosing at 1000mg q12h, and will draw another trough level in two days. Pharmacy Service will continue to monitor and adjust dosing as required. Follow-Up Labs Follow-Up Labs: Trough: Vancomycin Date/Time Labs Ordered Labs to be done on [date and time ordered]: 08/16/25 @1121
[2025-08-15 02:16] VITALS: BP 113/59; PULSE 74; RESP 15; TEMP 37.2; O2SAT 99
[2025-08-15 05:15] LABS: Hematocrit 26.0 % (40-54); Hemoglobin 8.4 g/dL (13.0-16.5); Mean Corp Hgb Conc 32.3 g/dL (32-36); Mean Corpuscular Volume 99.2 fL (80-94); Mean Platelet Vol. 8.9 fl (6.2-12.0); POSITIVE MORPHOLOGY YES; Platelet Count 259 K/mm3 (150-450); RBC Distribution Width CV 18.3 % (11.6-14.6); RBC Distribution Width SD 66.7 fl (35.1-43.9); Red Blood Count 2.62 M/mm3 (4.6-6.2); White Blood Count 9.7 K/mm3 (4.4-11.0)
[2025-08-15 05:46] LABS: Anion Gap 6 (5-15); BUN 18 mg/dL (4-19); BUN/Creat Ratio 38.3 RATIO (10-20); Calcium,Total 7.0 mg/dL (7.6-11.0); Carbon Dioxide 19.9 mmol/L (21.0-32.0); Chloride 107 mmol/L (98-108); Estimated Creatinine Clearance 76.78 ml/min (50-250); Glucose 110 mg/dL (70-99); Potassium 4.4 mmol/L (3.3-5.1)
[2025-08-15 05:52] LABS: Scan Indicated on CBC? Y/N YES- FLAGS NOTED
[2025-08-15 06:33] LABS: Differential Comment SCANNED
[2025-08-15] MEDS: Meropenem 1 GM in 0.9% Normal Saline (100mL MB+) 100 ML IV ×3 (06:33→21:26)
[2025-08-15] MEDS: Lactobacillis Acidophilus 1 CAP PO ×3 (06:33→21:27)
[2025-08-15] MEDS: 0.9% Normal Saline (500mL Bag) 500 ML 15 ML IV ×2 (08:54→10:49)
[2025-08-15] MEDS: Vancomycin HCl 1,000 MG in 0.9% Normal Saline (250mL Bag) 250 ML 250 MG IV ×2 (08:55→21:26)
[2025-08-15] MEDS: Aspirin E.C. 81 MG Tablet PO (08:58)
[2025-08-15 09:01] VITALS: BP 110/54; PULSE 66; RESP 16; TEMP 36.4; O2SAT 97
[2025-08-15] MEDS: Mineral Oil/Petrolatum Cr 1.75oz Bottle 1 APPLIC TOPICAL (10:17)
[2025-08-15] MEDS: 0.9% Saline Lock 10 ML Syringe IV ×2 (10:49→19:51)
--- NOTE | 2025-08-15 11:30 | PCM.PN.SRG ---
Subjective Subjective Doing well overall today. Reports good turns and excellent nursing care. I updated him again on the plan for surgery for Sunday. Objective Data Objective Data Vital Signs: Vital Signs Temp Pulse Resp BP Pulse Ox O2 Del Method 97.5 F L 66 16 110/54 L 97 Room Air 08/15/25 09:01 08/15/25 09:01 08/15/25 09:01 08/15/25 09:01 08/15/25 09:01 08/15/25 09:01 Oxygen Delivery Method Room Air Weight: 150 lb 0.04 oz Body Mass Index (BMI) 21.4 Intake & Output: Intake and Output for Last 24 Hours 08/13/25 08/14/25 08/15/25 23:59 23:59 23:59 Intake Total 2422.5 / 2422.5 2120 / 2120 648.75 / 648.75 Output Total 1625 / 1625 750 / 1050 300 / 300 Balance 797.5 / 797.5 1370 / 1070 348.75 / 348.75 Lab / Micro Data 08/15/25 04:50 08/15/25 04:50 Labs: Laboratory Results - last 24 hr 08/14/25 21:25: Vancomycin Trough 19.2 H 08/15/25 04:50: WBC 9.7, RBC 2.62 L, Hgb 8.4 L, Hct 26.0 L, MCV 99.2 H, MCH 32.1 H, MCHC 32.3, RDW Std Deviation 66.7 H, RDW Coeff of Juvencio 18.3 H, Plt Count 259, MPV 8.9, Differential Comment SCANNED, Sodium 133, Potassium 4.4, Chloride 107, Carbon Dioxide 19.9 L, Anion Gap 6, BUN 18, Creatinine 0.47 L, Estim Creat Clear Calc 76.78, Est GFR (MDRD) Non-Af 109, BUN/Creatinine Ratio 38.3 H, Glucose 110 H, Calcium 7.0 L Micro: Microbiology 08/11/25 13:15 Wound - Leg, Right Gram Stain - Final 08/11/25 13:15 Wound - Leg, Right Wound Culture - Final Enterobacter cloacae complex Pseudomonas aeruginosa Enterococcus faecalis 08/11/25 13:15 Wound - Leg, Right Anaerobic Culture - Final Anaerobic cocci 08/11/25 13:15 Bone - Right Foot Gram Stain - Final 08/11/25 13:15 Bone - Right Foot Wound Culture - Final Enterobacter cloacae complex Staphylococcus lugdunensis Corynebact. pseudodiphtheritic Enterococcus faecalis 08/11/25 13:15 Bone - Right Foot Anaerobic Culture - Final Anaerobic cocci 08/11/25 13:15 Wound - Ankle Gram Stain - Final 08/11/25 13:15 Wound - Ankle Wound Culture - Final Enterobacter cloacae complex Pseudomonas aeruginosa Staphylococcus lugdunensis 08/11/25 13:15 Wound - Ankle Anaerobic Culture - Final No anaerobic bacteria isolated. 08/11/25 13:15 Wound - Leg, Left Gram Stain - Final 08/11/25 13:15 Wound - Leg, Left Wound Culture - Final Enterobacter cloacae complex 08/11/25 13:15 Wound - Leg, Left Anaerobic Culture - Preliminary No growth in 48 hours. Physical Exam Narrative Lower extremities: Feet are warm and well perfused bilaterally No pressure points/new wounds. Ankles and legs are padded appropriately Irrigating VACs holding suction Const alert and oriented x3 Resp normal respiratory effort Cardio regular rate Assessment & Plan Assessment/Plan (1) Ankle osteomyelitis, right: QUALIFIERS: Osteomyelitis type: other chronic Qualified Code(s): M86.671 - Other chronic osteomyelitis, right ankle and foot PLAN: Discussed with infectious disease and they are going to place him on meropenem and vancomycin for now for the positive cultures (2) Pressure ulcer of left ankle, stage 4: (3) Pressure ulcer of right ankle, stage 4: PLAN: Plan Anticipate return to operating room on Sunday, 17 August 2025, for VAC change/repeat debridement and Integra placement Patient happy with the plan I discussed with him and his the importance of pressure offloading and continuing a pressure offloading bed as we do not want him getting any pressure sore in the pelvic region. Will continue high-protein diet and PT consultation
[2025-08-15] MEDS: Sodium Hypochlorite 473 ML, Sodium Chloride Irrig Solution 473 ML IRRIGATION (11:58)
[2025-08-15 14:11] VITALS: BP 131/76; PULSE 70; RESP 15; TEMP 36.4; O2SAT 100
--- NOTE | 2025-08-15 16:12 | PCM.HOSP.N ---
Hospitalist Note Patient evaluated bedside today, pleasant and cooperative, no new or acute complaints. Denies any needs at this time. Vitals and labs have been stable. Patient go to the OR Sunday.
[2025-08-15 21:25] VITALS: BP 122/55; PULSE 78; RESP 16; TEMP 37.4; O2SAT 99
[2025-08-16 03:16] VITALS: BP 132/66; PULSE 71; RESP 16; TEMP 36.8; O2SAT 98
[2025-08-16] MEDS: Meropenem 1 GM in 0.9% Normal Saline (100mL MB+) 100 ML IV ×3 (05:53→21:34)
[2025-08-16] MEDS: Lactobacillis Acidophilus 1 CAP PO ×3 (05:53→21:34)
[2025-08-16 06:17] LABS: Hematocrit 26.6 % (40-54); Hemoglobin 8.6 g/dL (13.0-16.5); Mean Corp Hgb Conc 32.3 g/dL (32-36); Mean Corpuscular Volume 99.3 fL (80-94); Mean Platelet Vol. 8.9 fl (6.2-12.0); Platelet Count 302 K/mm3 (150-450); RBC Distribution Width CV 17.7 % (11.6-14.6); RBC Distribution Width SD 64.9 fl (35.1-43.9); Red Blood Count 2.68 M/mm3 (4.6-6.2); White Blood Count 8.7 K/mm3 (4.4-11.0)
[2025-08-16 06:54] LABS: AST(SGOT) 26 U/L (<=37); Alanine Aminotransfer ALT/SGPT 15 U/L (<=46); Albumin, Serum 2.0 g/dL (3.4-4.8); Alkaline Phosphatase 65 U/L (40-129); Anion Gap 5 (5-15); BUN 16 mg/dL (4-19); BUN/Creat Ratio 42.0 RATIO (10-20); Calcium,Total 6.6 mg/dL (7.6-11.0); Carbon Dioxide 19.4 mmol/L (21.0-32.0); Chloride 111 mmol/L (98-108); Estimated Creatinine Clearance 76.78 ml/min (50-250); Globulin 3.2 g/dL (2.2-4.2); Glucose 85 mg/dL (70-99); Potassium 4.1 mmol/L (3.3-5.1)
[2025-08-16 08:00] VITALS: BP 119/63; PULSE 77; RESP 14; TEMP 36.4; O2SAT 98
[2025-08-16] MEDS: Aspirin E.C. 81 MG Tablet PO (08:53)
[2025-08-16] MEDS: Mineral Oil/Petrolatum Cr 1.75oz Bottle 1 APPLIC TOPICAL (08:55)
[2025-08-16] MEDS: Vancomycin HCl 1,000 MG in 0.9% Normal Saline (250mL Bag) 250 ML 250 MG IV (10:52)
--- NOTE | 2025-08-16 11:37 | PCM.PN.HOSP ---
Subjective Subjective Sitting up in bed with present, no acute complaints, no chest pain or shortness of breath Objective Data Objective Data Vital Signs: Vital Signs Temp Pulse Resp BP Pulse Ox O2 Del Method 97.6 F L 77 14 119/63 98 Room Air 08/16/25 08:00 08/16/25 08:00 08/16/25 08:00 08/16/25 08:00 08/16/25 08:00 08/16/25 08:00 Oxygen Delivery Method Room Air Weight: 68.04 kg Body Mass Index (BMI) 21.4 Intake & Output: Intake and Output for Last 24 Hours 08/14/25 08/15/25 08/16/25 23:59 23:59 23:59 Intake Total 2120 / 2120 1288.75 / 1488.75 500 / 500 Output Total 750 / 1050 650 / 1300 1200 / 1200 Balance 1370 / 1070 638.75 / 188.75 -700 / -700 Lab / Micro Data 08/16/25 05:52 08/16/25 05:52 Labs: Laboratory Results - last 24 hr 08/16/25 05:52: WBC 8.7, RBC 2.68 L, Hgb 8.6 L, Hct 26.6 L, MCV 99.3 H, MCH 32.1 H, MCHC 32.3, RDW Std Deviation 64.9 H, RDW Coeff of Juvencio 17.7 H, Plt Count 302, MPV 8.9, Sodium 136, Potassium 4.1, Chloride 111 H, Carbon Dioxide 19.4 L, Anion Gap 5, BUN 16, Creatinine 0.38 L, Estim Creat Clear Calc 76.78, Est GFR (MDRD) Non-Af 115, BUN/Creatinine Ratio 42.0 H, Glucose 85, Hemoglobin A1c 4.6, Calcium 6.6 L, Total Bilirubin 0.39, AST 26, ALT 15, Alkaline Phosphatase 65, Total Protein 5.3 L, Albumin 2.0 L, Globulin 3.2, Albumin/Globulin Ratio 0.6 L Micro: Microbiology 08/11/25 13:15 Wound - Leg, Left Gram Stain - Final 08/11/25 13:15 Wound - Leg, Left Wound Culture - Final Enterobacter cloacae complex 08/11/25 13:15 Wound - Leg, Left Anaerobic Culture - Final No growth in 5 days. 08/11/25 13:15 Wound - Leg, Right Gram Stain - Final 08/11/25 13:15 Wound - Leg, Right Wound Culture - Final Enterobacter cloacae complex Pseudomonas aeruginosa Enterococcus faecalis 08/11/25 13:15 Wound - Leg, Right Anaerobic Culture - Final Anaerobic cocci 08/11/25 13:15 Bone - Right Foot Gram Stain - Final 08/11/25 13:15 Bone - Right Foot Wound Culture - Final Enterobacter cloacae complex Staphylococcus lugdunensis Corynebact. pseudodiphtheritic Enterococcus faecalis 08/11/25 13:15 Bone - Right Foot Anaerobic Culture - Final Anaerobic cocci 08/11/25 13:15 Wound - Ankle Gram Stain - Final 08/11/25 13:15 Wound - Ankle Wound Culture - Final Enterobacter cloacae complex Pseudomonas aeruginosa Staphylococcus lugdunensis 08/11/25 13:15 Wound - Ankle Anaerobic Culture - Final No anaerobic bacteria isolated. Physical Exam Narrative General: Awake and alert HEENT: Atraumatic Eyes: Extraocular movements grossly intact Neck: Supple Respiratory: No overt wheezes or rhonchi, normal respiratory effort Cardiovascular: Regular rate GI: Soft, nontender, nondistended Extremities: Wound VAC in place Musculoskeletal: Patient quadriplegic Neuro: Baseline neurodeficits Skin: Wound VAC in place Psych: Cooperative Assessment & Plan Assessment/Plan (1) Pressure ulcer of right ankle, stage 4: (2) Pressure ulcer of left ankle, stage 4: (3) PAD (peripheral artery disease): (4) Acute postoperative anemia due to expected blood loss: PLAN: Plan Patient is a 75-year-old male who presented [facility] on 08/11/2025 for planned plastic surgery procedure on his bilateral ankle wounds. Medicine consulted postoperatively for medical management. 1. Bilateral ankle pressure ulcers in setting of paraplegia ? Plastic surgery primary. Wound care consulted. History of paraplegia for 50 years due to spinal cord injury, and is wheelchair-bound at baseline. S/p excision down to the bone of multiple bilateral ankle wounds with bilateral wound VAC placement with Dr. Mac on 08/11. Tolerated procedure well, no intraoperative complications noted. Postoperative pain control with Tylenol and oxycodone as needed. Per plastics, postoperative plan is to leave wound vacs on for 2 days before changing, with plan for angiogram with vascular surgery on as below; anticipating discharge home with wound VAC. Eventual plan is for skin grafting. Further management per primary. -08/12: Management per plastics, wound VAC in place, plan for angiography with vascular surgery tomorrow -08/13: Patient underwent angiogram and stenting with vascular, started on aspirin and Plavix per vascular surgery. Plan is for patient to go back to the OR on Sunday with plastic surgery. ID managing antibiotics, presently on Merrem and vancomycin -08/14: Management per primary -08/16: Wound vacs in place, patient for OR tomorrow 2. Peripheral artery disease ? Vascular surgery consulted. Patient saw vascular surgery in the office on 07/03, was noted on ABIs to have moderate RLE PAD that would typically be sufficient to heal in a nondiabetic patient but this patient has added complexity of immunosuppression and surgical intervention above. Patient will have angiogram done with vascular surgery on 08/13 to assess vascular flow and healing potential. -08/12: To go for angio with possible stenting with vascular tomorrow -08/13: Patient with stenting -08/14: Management per vascular, presently on DAPT -08/16: Patient on DAPT given stenting Chronic medical problems and/or problems not being actively addressed during today's encounter: 3. Liver cancer ? Follows with [facility] oncology in [place]. Had CT abdomen pelvis done on 10/15/2024 at [facility] that showed large metastatic lesions occupying the majority of the liver with probable central necrosis. Patient saw Dr. Millard on 10/23 who recommended liver biopsy to confirm cancer. Difficult to find further records but cancer was confirmed and patient had port placed in early February and has been undergoing chemotherapy with Avastin since then. Avastin has been on hold recently to provide best chance for healing of his ulcers as above. No inpatient needs, continue outpatient follow-up. -08/12: Reports being itchy on his back and reports this goes along with his liver cancer, usually uses topical Benadryl at home, does not seem we have a topical antihistamine, will add lotion to try to keep the area from getting dry and increasing itching will add oral loratadine to see if this gives any additional benefit -08/13: Continue supportive care for symptoms, outpatient follow-up -08/14: No new or acute complaints today 4. Postoperative anemia in setting of chronic iron deficiency anemia ? Hemoglobin 8.3 postoperatively. Most recent prior hemoglobin in our system was 11.4 back on 10/23. Patient hemodynamically stable postoperatively. Presume hemoglobin drop is secondary to expected operative blood loss. Is on a liquid iron supplement at home that we unfortunately do not have on formulary here. Follow-up a.m. CBC. -08/12: Hemoglobin this a.m. 6.6, patient transfused, iron studies obtained and they appear consistent with anemia of chronic disease but also does have elevated retake count so likely also component of blood loss/multifactorial, repeat the a.m. -08/13: Hemoglobin 8.3 this a.m., stable, repeat in the a.m. and transfuse if necessary -08/14: Hemoglobin 8.9, remained stable 5. Chronic back pain ? Is on tramadol at home for chronic back pain. Treating pain as above while inpatient. -08/12: Supportive care -08/13: Continue supportive care -08/14: Patient had asked about resuming home tramadol as the seem to be more helpful for him, will place order DVT prophylaxis: Per primary Charges/Coding Visit Charges Inpatient E&M: 53056 Subs Hosp L1
--- NOTE | 2025-08-16 13:25 | PCM.PN.SRG ---
Subjective Subjective Working with PT today when seen on rounds. Working on upper body strength. VACs holding suction. Understands plan for OR tomorrow. Objective Data Objective Data Vital Signs: Vital Signs Temp Pulse Resp BP Pulse Ox O2 Del Method 97.6 F L 77 14 119/63 98 Room Air 08/16/25 08:00 08/16/25 08:00 08/16/25 08:00 08/16/25 08:00 08/16/25 08:00 08/16/25 08:00 Oxygen Delivery Method Room Air Weight: 150 lb 0.04 oz Body Mass Index (BMI) 21.4 Intake & Output: Intake and Output for Last 24 Hours 08/14/25 08/15/25 08/16/25 23:59 23:59 23:59 Intake Total 2120 / 2120 1288.75 / 1488.75 500 / 500 Output Total 750 / 1050 650 / 1300 1200 / 1200 Balance 1370 / 1070 638.75 / 188.75 -700 / -700 Lab / Micro Data 08/16/25 05:52 08/16/25 05:52 Labs: Laboratory Results - last 24 hr 08/16/25 05:52: WBC 8.7, RBC 2.68 L, Hgb 8.6 L, Hct 26.6 L, MCV 99.3 H, MCH 32.1 H, MCHC 32.3, RDW Std Deviation 64.9 H, RDW Coeff of Juvencio 17.7 H, Plt Count 302, MPV 8.9, Sodium 136, Potassium 4.1, Chloride 111 H, Carbon Dioxide 19.4 L, Anion Gap 5, BUN 16, Creatinine 0.38 L, Estim Creat Clear Calc 76.78, Est GFR (MDRD) Non-Af 115, BUN/Creatinine Ratio 42.0 H, Glucose 85, Hemoglobin A1c 4.6, Calcium 6.6 L, Total Bilirubin 0.39, AST 26, ALT 15, Alkaline Phosphatase 65, Total Protein 5.3 L, Albumin 2.0 L, Globulin 3.2, Albumin/Globulin Ratio 0.6 L Micro: Microbiology 08/11/25 13:15 Wound - Leg, Left Gram Stain - Final 08/11/25 13:15 Wound - Leg, Left Wound Culture - Final Enterobacter cloacae complex 08/11/25 13:15 Wound - Leg, Left Anaerobic Culture - Final No growth in 5 days. 08/11/25 13:15 Wound - Leg, Right Gram Stain - Final 08/11/25 13:15 Wound - Leg, Right Wound Culture - Final Enterobacter cloacae complex Pseudomonas aeruginosa Enterococcus faecalis 08/11/25 13:15 Wound - Leg, Right Anaerobic Culture - Final Anaerobic cocci 08/11/25 13:15 Bone - Right Foot Gram Stain - Final 08/11/25 13:15 Bone - Right Foot Wound Culture - Final Enterobacter cloacae complex Staphylococcus lugdunensis Corynebact. pseudodiphtheritic Enterococcus faecalis 08/11/25 13:15 Bone - Right Foot Anaerobic Culture - Final Anaerobic cocci 08/11/25 13:15 Wound - Ankle Gram Stain - Final 08/11/25 13:15 Wound - Ankle Wound Culture - Final Enterobacter cloacae complex Pseudomonas aeruginosa Staphylococcus lugdunensis 08/11/25 13:15 Wound - Ankle Anaerobic Culture - Final No anaerobic bacteria isolated. Physical Exam Narrative Lower extremities: Feet are warm and well perfused bilaterally No pressure points/new wounds. Ankles and legs are padded appropriately Irrigating VACs holding suction Const alert and oriented x3 Resp normal respiratory effort Cardio regular rate Assessment & Plan Assessment/Plan (1) Ankle osteomyelitis, right: QUALIFIERS: Osteomyelitis type: other chronic Qualified Code(s): M86.671 - Other chronic osteomyelitis, right ankle and foot PLAN: Discussed with infectious disease and they are going to place him on meropenem and vancomycin for now for the positive cultures (2) Pressure ulcer of left ankle, stage 4: (3) Pressure ulcer of right ankle, stage 4: PLAN: Plan Anticipate return to operating room on Sunday, 17 August 2025, for VAC change/repeat debridement and Integra placement Patient happy with the plan I discussed with him and his the importance of pressure offloading and continuing a pressure offloading bed as we do not want him getting any pressure sore in the pelvic region. Will continue high-protein diet Albumin 2 (weekly nutrition labs in setting of protein malnutrition). Consult from nutrition ordered. Supplemental Ensure ordered
[2025-08-16] MEDS: Ensure Plus High Protein 120 ML LIQUID PO ×2 (15:07→21:38)
[2025-08-16 16:00] VITALS: BP 153/80; PULSE 77; RESP 16; TEMP 36.8; O2SAT 94
[2025-08-16] MEDS: 0.9% Saline Lock 10 ML Syringe IV (18:26)
[2025-08-16] MEDS: Vancomycin Trough/Random Due 1 LAB MC (21:38)
[2025-08-16 21:58] LABS: Vancomycin, Trough Level 27.4 ug/mL (5.0-15.0)
--- NOTE | 2025-08-16 22:09 | PCM.RX.CS ---
Consult Antibiotic Management Pharmacy has been consulted to manage selected antibiotic: Vancomycin Type of Intervention Type of Consult: Follow-up Suspected Infection Suspected Infection: Skin/Soft tissue Labs Labs: Sodium 136 mmol/L (133-145) 08/16/25 05:52 Potassium 4.1 mmol/L (3.3-5.1) 08/16/25 05:52 Chloride 111 mmol/L (98-108) H 08/16/25 05:52 Carbon Dioxide 19.4 mmol/L (21.0-32.0) L 08/16/25 05:52 Anion Gap 5 (5-15) 08/16/25 05:52 BUN 16 mg/dL (4-19) 08/16/25 05:52 Creatinine 0.38 mg/dL (0.70-1.20) L 08/16/25 05:52 Est GFR (MDRD) Non-Af 115 (>60) 08/16/25 05:52 BUN/Creatinine Ratio 42.0 RATIO (10-20) H 08/16/25 05:52 Glucose 85 mg/dL (70-99) 08/16/25 05:52 Vancomycin Trough 27.4 ug/mL (5.0-15.0) H 08/16/25 21:34 Microbiology Microbiology: Microbiology 08/11/25 13:15 Wound - Leg, Left Gram Stain - Final 08/11/25 13:15 Wound - Leg, Left Wound Culture - Final Enterobacter cloacae complex 08/11/25 13:15 Wound - Leg, Left Anaerobic Culture - Final No growth in 5 days. 08/11/25 13:15 Wound - Leg, Right Gram Stain - Final 08/11/25 13:15 Wound - Leg, Right Wound Culture - Final Enterobacter cloacae complex Pseudomonas aeruginosa Enterococcus faecalis 08/11/25 13:15 Wound - Leg, Right Anaerobic Culture - Final Anaerobic cocci 08/11/25 13:15 Bone - Right Foot Gram Stain - Final 08/11/25 13:15 Bone - Right Foot Wound Culture - Final Enterobacter cloacae complex Staphylococcus lugdunensis Corynebact. pseudodiphtheritic Enterococcus faecalis 08/11/25 13:15 Bone - Right Foot Anaerobic Culture - Final Anaerobic cocci 08/11/25 13:15 Wound - Ankle Gram Stain - Final 08/11/25 13:15 Wound - Ankle Wound Culture - Final Enterobacter cloacae complex Pseudomonas aeruginosa Staphylococcus lugdunensis 08/11/25 13:15 Wound - Ankle Anaerobic Culture - Final No anaerobic bacteria isolated. Dosing Weight Weight used for dosin kg Estimated Creatinine Clearance Estimated Creatinine Clearance: 77 Goal Trough Goal Trough: 15-20 mcg/mL Pharmacy Plan for Drug Dosing Pharmacy Plan for Drug Dosing: Vancomycin trough level of 27.4, drawn 10.75hrs post-dose, was above the target range of 15-20. Will suspend current dosing, and will draw a random vanco level in 12 hours to determine further orders. Pharmacy Service will continue to monitor and adjust dosing as required. Follow-Up Labs Follow-Up Labs: Trough: Vancomycin (random) Date/Time Labs Ordered Labs to be done on [date and time ordered]: 08/17/25 @0930 (random)
[2025-08-16 23:57] VITALS: BP 138/70; PULSE 79; RESP 16; TEMP 37; O2SAT 97
[2025-08-17] VITALS (11 sets, daily range): BP systolic 127–154; BP diastolic 51–98; PULSE 66–84; RESP 16–18; TEMP 36.1–37.1; O2SAT 98–100; BMI 21.5
[2025-08-17] MEDS: 0.9% Saline Lock 10 ML Syringe IV ×2 (05:27→13:11)
[2025-08-17] MEDS: Meropenem 1 GM in 0.9% Normal Saline (100mL MB+) 100 ML IV ×3 (05:27→21:36)
[2025-08-17 05:33] LABS: Hematocrit 27.7 % (40-54); Hemoglobin 8.8 g/dL (13.0-16.5); Mean Corp Hgb Conc 31.8 g/dL (32-36); Mean Corpuscular Volume 100.4 fL (80-94); Mean Platelet Vol. 8.8 fl (6.2-12.0); Platelet Count 329 K/mm3 (150-450); RBC Distribution Width CV 17.2 % (11.6-14.6); RBC Distribution Width SD 62.1 fl (35.1-43.9); Red Blood Count 2.76 M/mm3 (4.6-6.2); White Blood Count 8.9 K/mm3 (4.4-11.0)
[2025-08-17 05:51] LABS: Anion Gap 7 (5-15); BUN 19 mg/dL (4-19); BUN/Creat Ratio 38.6 RATIO (10-20); Calcium,Total 8.3 mg/dL (7.6-11.0); Carbon Dioxide 22.2 mmol/L (21.0-32.0); Chloride 105 mmol/L (98-108); Estimated Creatinine Clearance 76.78 ml/min (50-250); Glucose 94 mg/dL (70-99); Potassium 5.0 mmol/L (3.3-5.1)
--- NOTE | 2025-08-17 07:35 | PCM.PN.HOSP ---
Subjective Subjective Patient is a 75-year-old paraplegic who presented with bilateral ankle ulcers admitted by plastic surgery Objective Data Objective Data Vital Signs: Vital Signs Temp Pulse Resp BP Pulse Ox O2 Del Method 97.5 F L 84 16 135/60 H 99 Room Air 08/17/25 05:38 08/17/25 05:38 08/17/25 05:38 08/17/25 05:38 08/17/25 05:38 08/17/25 05:38 Oxygen Delivery Method Room Air Weight: 68.04 kg Body Mass Index (BMI) 21.4 Intake & Output: Intake and Output for Last 24 Hours 08/15/25 08/16/25 08/17/25 23:59 23:59 23:59 Intake Total 1288.75 / 1488.75 1370 / 1670 400 / 400 Output Total 650 / 1300 2850 / 3450 1000 / 1000 Balance 638.75 / 188.75 -1480 / -1780 -600 / -600 Lab / Micro Data 08/17/25 05:20 08/17/25 05:20 Labs: Laboratory Results - last 24 hr 08/16/25 21:34: Vancomycin Trough 27.4 H 08/17/25 05:20: WBC 8.9, RBC 2.76 L, Hgb 8.8 L, Hct 27.7 L, MCV 100.4 H, MCH 31.9, MCHC 31.8 L, RDW Std Deviation 62.1 H, RDW Coeff of Juvencio 17.2 H, Plt Count 329, MPV 8.8, Sodium 135, Potassium 5.0, Chloride 105, Carbon Dioxide 22.2, Anion Gap 7, BUN 19, Creatinine 0.48 L, Estim Creat Clear Calc 76.78, Est GFR (MDRD) Non-Af 108, BUN/Creatinine Ratio 38.6 H, Glucose 94, Calcium 8.3 Micro: Microbiology 08/11/25 13:15 Wound - Leg, Left Gram Stain - Final 08/11/25 13:15 Wound - Leg, Left Wound Culture - Final Enterobacter cloacae complex 08/11/25 13:15 Wound - Leg, Left Anaerobic Culture - Final No growth in 5 days. 08/11/25 13:15 Wound - Leg, Right Gram Stain - Final 08/11/25 13:15 Wound - Leg, Right Wound Culture - Final Enterobacter cloacae complex Pseudomonas aeruginosa Enterococcus faecalis 08/11/25 13:15 Wound - Leg, Right Anaerobic Culture - Final Anaerobic cocci 08/11/25 13:15 Bone - Right Foot Gram Stain - Final 08/11/25 13:15 Bone - Right Foot Wound Culture - Final Enterobacter cloacae complex Staphylococcus lugdunensis Corynebact. pseudodiphtheritic Enterococcus faecalis 08/11/25 13:15 Bone - Right Foot Anaerobic Culture - Final Anaerobic cocci 08/11/25 13:15 Wound - Ankle Gram Stain - Final 08/11/25 13:15 Wound - Ankle Wound Culture - Final Enterobacter cloacae complex Pseudomonas aeruginosa Staphylococcus lugdunensis 08/11/25 13:15 Wound - Ankle Anaerobic Culture - Final No anaerobic bacteria isolated. Physical Exam Narrative GENERAL: cooperative HEENT: Atraumatic; normocephalic EYES; Anicteric, Normal Conjunctiva NECK; supple, normal thyroid, RESPIRATORY: Diminished to auscultation CARDIOVASCULAR: Regular S1 S2, GI: soft, normoactive bowel sounds, : No Renal angle tenderness; EXTREMITIES: No edema, no clubbing, MUSCULOSKELETAL: Wound VAC involving both ankles NEURO: Paraplegic Skin: No rash Assessment & Plan Assessment/Plan (1) Pressure ulcer of right ankle, stage 4: (2) Pressure ulcer of left ankle, stage 4: (3) PAD (peripheral artery disease): (4) Acute postoperative anemia due to expected blood loss: PLAN: Plan Patient is a 75-year-old paraplegic who presented with bilateral ankle ulcers admitted by plastic surgery 1. Bilateral ankle pressure ulcers in setting of paraplegia ?Patient underwent S/p excision down to the bone of multiple bilateral ankle wounds with bilateral wound VAC placement with Dr. Mac on 08/11.. Plan is for patient to undergo wound VAC change and repeat debridement and Integra placement by plastic surgery on 08/17/2025 2. Spinal cord injury ? With resultant paraplegia patient is wheelchair-bound 3. Peripheral arterial disease Patient is followed by vascular surgery and was noted to have moderate RLE PAD on ABIs. Patient underwent angiography with stenting on 08/12/2025 subsequently placed on dual antiplatelet therapy 4. Liver cancer ? Patient is followed by oncology in [place]. Per patient and the patient is in remission 5. Anemia ? Secondary to acute blood loss anemia following surgery. Patient hemoglobin did drop to 6.6 on 1119 was transfused with 1 unit PRBC, subsequent monitoring H&H and transfuse if patient becomes symptomatic or hemoglobin falls below 7 6. Chronic back pain ? Patient is on tramadol 7. DVT prophylaxis - defer to primary service Time spent in the patient's overall evaluation,decision-making process, review of diagnostic data, adjustment of management, discussion with other providers, nursing nursing and ancillary staff involved in patient's care documentation, 38 Minutes Charges/Coding Visit Charges Inpatient E&M: 39585 Subs Hosp L2
[2025-08-17 10:04] LABS: Vancomycin, Random Level 21.3 ug/mL (0.0-15.0)
--- NOTE | 2025-08-17 10:12 | PCM.RX.CS ---
Consult Antibiotic Management Pharmacy has been consulted to manage selected antibiotic: Vancomycin Type of Intervention Type of Consult: Follow-up Suspected Infection Suspected Infection: Skin/Soft tissue Prior Doses of Antibiotics Prior Doses of Antibiotics Received/Current Regimen: Vancomycin 1000 mg Q12H last dose given 08/16/25 @ 1052 Labs Labs: Sodium 135 mmol/L (133-145) 08/17/25 05:20 Potassium 5.0 mmol/L (3.3-5.1) 08/17/25 05:20 Chloride 105 mmol/L (98-108) 08/17/25 05:20 Carbon Dioxide 22.2 mmol/L (21.0-32.0) 08/17/25 05:20 Anion Gap 7 (5-15) 08/17/25 05:20 BUN 19 mg/dL (4-19) 08/17/25 05:20 Creatinine 0.48 mg/dL (0.70-1.20) L 08/17/25 05:20 Est GFR (MDRD) Non-Af 108 (>60) 08/17/25 05:20 BUN/Creatinine Ratio 38.6 RATIO (10-20) H 08/17/25 05:20 Glucose 94 mg/dL (70-99) 08/17/25 05:20 Vancomycin Trough 27.4 ug/mL (5.0-15.0) H 08/16/25 21:34 Random Vancomycin 21.3 ug/mL (0.0-15.0) H 08/17/25 09:23 Microbiology Microbiology: Microbiology 08/11/25 13:15 Wound - Leg, Left Gram Stain - Final 08/11/25 13:15 Wound - Leg, Left Wound Culture - Final Enterobacter cloacae complex 08/11/25 13:15 Wound - Leg, Left Anaerobic Culture - Final No growth in 5 days. 08/11/25 13:15 Wound - Leg, Right Gram Stain - Final 08/11/25 13:15 Wound - Leg, Right Wound Culture - Final Enterobacter cloacae complex Pseudomonas aeruginosa Enterococcus faecalis 08/11/25 13:15 Wound - Leg, Right Anaerobic Culture - Final Anaerobic cocci 08/11/25 13:15 Bone - Right Foot Gram Stain - Final 08/11/25 13:15 Bone - Right Foot Wound Culture - Final Enterobacter cloacae complex Staphylococcus lugdunensis Corynebact. pseudodiphtheritic Enterococcus faecalis 08/11/25 13:15 Bone - Right Foot Anaerobic Culture - Final Anaerobic cocci 08/11/25 13:15 Wound - Ankle Gram Stain - Final 08/11/25 13:15 Wound - Ankle Wound Culture - Final Enterobacter cloacae complex Pseudomonas aeruginosa Staphylococcus lugdunensis 08/11/25 13:15 Wound - Ankle Anaerobic Culture - Final No anaerobic bacteria isolated. Dosing Weight Weight used for dosin kg Estimated Creatinine Clearance Estimated Creatinine Clearance: ~ 77 Goal Trough Goal Trough: 15-20 mcg/mL Pharmacy Plan for Drug Dosing Pharmacy Plan for Drug Dosing: Vancomycin random level = 21.3, get another random level in 12 hours Pharmacy Service will continue to monitor and adjust dosing as required. Follow-Up Labs Follow-Up Labs: Trough: Vancomycin Date/Time Labs Ordered Labs to be done on [date and time ordered]: 08/17/25 @ 7829
--- NOTE | 2025-08-17 11:10 | CASEMGMT ---
Addendum entered by Geeta Coulter 08/17/25 13:03: Spoke with ID and received IV atb rx. Emailed IV rx for pt to admissions in TCU per request. Addendum entered by Geeta Coulter 08/17/25 12:17: EMILY FIGUEROA into pt room, pt awake and had same discussion with pt as . He is agreeable to holding oncology appts and treatments until after his stay at [facility]. Addendum entered by Geeta Coulter 08/17/25 12:13: Precert will not be started until after surgery this date. Addendum entered by Geeta Coulter 08/17/25 12:07: Pt is accepted at [facility] and precert will be started. Original Note: Per Korina in TCU, pt will need to be agreeable to oncology appt being rescheduled after TCU stay and off chemo. RN HENRY into pt room, pt present. Pt resting with eyes closed. Pt states pt has not had chemo in over a month and they hope to not do any further. She states she and her discussed this and they feel right now pt needs to be in a facility for rehab so they are agreeable to continue with oncology after the TCU stay. She states that they had an appt tomorrow with oncology which she cancelled and they told her to contact them when he was ready for an appt. She states she will also cancel the 08/25 appt. Updated TCU admissions.
--- NOTE | 2025-08-17 12:17 | PCM.PN.SRG ---
Subjective Subjective Patient seen this morning with Dr. Mac, spouse and nurse at bedside. No concerns overnight. Dr. Mac discussed his low albumin and encouraged increasing protein intake. Objective Data Objective Data Vital Signs: Vital Signs Temp Pulse Resp BP Pulse Ox O2 Del Method 97.7 F L 75 16 130/70 H 100 Room Air 08/17/25 08:51 08/17/25 08:51 08/17/25 08:51 08/17/25 08:51 08/17/25 08:51 08/17/25 09:08 Oxygen Delivery Method Room Air Weight: 150 lb 0.04 oz Body Mass Index (BMI) 21.5 Intake & Output: Intake and Output for Last 24 Hours 08/15/25 08/16/25 08/17/25 23:59 23:59 23:59 Intake Total 1288.75 / 1488.75 1370 / 1670 500 / 500 Output Total 650 / 1300 2850 / 3450 1000 / 1000 Balance 638.75 / 188.75 -1480 / -1780 -500 / -500 Lab / Micro Data Attestation: I reviewed the patient's lab results. 08/17/25 05:20 08/17/25 05:20 Labs: Laboratory Results - last 24 hr 08/16/25 21:34: Vancomycin Trough 27.4 H 08/17/25 05:20: WBC 8.9, RBC 2.76 L, Hgb 8.8 L, Hct 27.7 L, MCV 100.4 H, MCH 31.9, MCHC 31.8 L, RDW Std Deviation 62.1 H, RDW Coeff of Juvencio 17.2 H, Plt Count 329, MPV 8.8, Sodium 135, Potassium 5.0, Chloride 105, Carbon Dioxide 22.2, Anion Gap 7, BUN 19, Creatinine 0.48 L, Estim Creat Clear Calc 76.78, Est GFR (MDRD) Non-Af 108, BUN/Creatinine Ratio 38.6 H, Glucose 94, Calcium 8.3 08/17/25 09:23: Random Vancomycin 21.3 H Micro: Microbiology 08/11/25 13:15 Wound - Leg, Left Gram Stain - Final 08/11/25 13:15 Wound - Leg, Left Wound Culture - Final Enterobacter cloacae complex 08/11/25 13:15 Wound - Leg, Left Anaerobic Culture - Final No growth in 5 days. 08/11/25 13:15 Wound - Leg, Right Gram Stain - Final 08/11/25 13:15 Wound - Leg, Right Wound Culture - Final Enterobacter cloacae complex Pseudomonas aeruginosa Enterococcus faecalis 08/11/25 13:15 Wound - Leg, Right Anaerobic Culture - Final Anaerobic cocci 08/11/25 13:15 Bone - Right Foot Gram Stain - Final 08/11/25 13:15 Bone - Right Foot Wound Culture - Final Enterobacter cloacae complex Staphylococcus lugdunensis Corynebact. pseudodiphtheritic Enterococcus faecalis 08/11/25 13:15 Bone - Right Foot Anaerobic Culture - Final Anaerobic cocci 08/11/25 13:15 Wound - Ankle Gram Stain - Final 08/11/25 13:15 Wound - Ankle Wound Culture - Final Enterobacter cloacae complex Pseudomonas aeruginosa Staphylococcus lugdunensis 08/11/25 13:15 Wound - Ankle Anaerobic Culture - Final No anaerobic bacteria isolated. Physical Exam Narrative Afebrile/VSS Bilateral ankle wound VAC in place with good seal. Irrigating cartridge with cola colored output Bilateral leg prominence are well padded, no erythema or skin changes Toes are pink and well perfused. Assessment & Plan Assessment/Plan (1) Ankle osteomyelitis, right: QUALIFIERS: Osteomyelitis type: other chronic Qualified Code(s): M86.671 - Other chronic osteomyelitis, right ankle and foot PLAN: Discussed with infectious disease and they are going to place him on meropenem and vancomycin for now for the positive cultures (2) Pressure ulcer of left ankle, stage 4: (3) Pressure ulcer of right ankle, stage 4: PLAN: Plan Anticipate return to operating room today on Sunday, 17 August 2025, for VAC change/repeat debridement and Integra placement On Vancomycin and Merepenem Will continue high-protein diet Albumin (weekly nutrition labs in setting of protein malnutrition). Encouraged ensure intake. On Vancomycin and Merepenem Charges/Coding Procedures Integumentary [id number]: [id number] Global Visit
--- NOTE | 2025-08-17 12:55 | PCM.PN.ID ---
Physical Exam Narrative Feeling ok, no n/v/d, no fever Const alert and no apparent distress Resp normal air movement and clear to auscultation bilaterally Cardio regular rate and regular rhythm GI soft to palpation, non-tender and non-distended Skin Skin Narrative: wound vac in place ID ID: Route of nutrition/ use of supplements: [] Nutritional Intake: [] IV Site: [] Callahan Catheter: [] Assessment & Plan Assessment/Plan (1) Ankle osteomyelitis, right: QUALIFIERS: Osteomyelitis type: other chronic Qualified Code(s): M86.671 - Other chronic osteomyelitis, right ankle and foot PLAN: Wound cx with enterobacter, MSSL, enterococcus, PsA, corynebacter. 05/2025 wound cx with E faecalis, AcB, and anaerobes. Reports amoxicillin allergy is years ago, had uti two weeks after completing course of amox. On vanc/chip. OR planned for today after initial surgery 08/14/25. Will stop vanc. Will order 6 weeks meropenem, stop date 09/22/25 with weekly labs and ID followup. Will follow (2) PAD (peripheral artery disease): (3) Paraplegia following spinal cord injury:
[2025-08-17] MEDS: Lactated Ringers 1,000 ML 15 ML IV (14:03)
--- NOTE | 2025-08-17 14:10 | PCM.PRE.AN2 ---
ASA Classification* ASA Classification ASA Classification: 3 (Peripheral artery disease, spinal cord injury / paraplegia, ) Assessment & Plan Anesthesia* Anesthesia Assessment Anesthesia Assessment: Discussed sedation and/or anesthesia options, risks, benefits, and alternatives with patient/parents/legal guardian/POA. Questions invited. The patient/parents/legal guardian/POA seems to understand and agrees to proceed with anesthesia plan. Reviewed the physical assessment, medical history, allergy history and patient home medications list prior to surgery/procedure/anesthetic and documented any changes. Performed airway and anesthesia risk assessments. Anesthesia Type Anesthesia Type: MAC History Source History Obtained from:: Patient and Chart Anesthesia Focused Assessment* Temperature: 97.6 F Pulse Rate: 71 Blood Pressure: 143/60 Respiratory Rate: 16 Pulse Ox: 100 Oxygen Delivery Method: Room Air Airway Assessment Mouth opens: >3 cm Mallampati Score: II Teeth Condition: Chipped/Broken Neck Range of motion (ROM): Full ROM Labs Anesthesia Preop lab: CBC WBC, (4.4-11.0) 8.9 K/mm3 Today, 05:20 RBC, (4.6-6.2) 2.76 M/mm3 L Today, 05:20 Hgb, (13.0-16.5) 8.8 g/dL L Today, 05:20 Hct, (40-54) 27.7 % L Today, 05:20 Plt Count, (150-450) 329 K/mm3 Today, 05:20 CHEMISTRY Potassium, (3.3-5.1) 5.0 mmol/L Today, 05:20 Sodium, (133-145) 135 mmol/L Today, 05:20 BUN, (4-19) 19 mg/dL Today, 05:20 Creatinine, (0.70-1.20) 0.48 mg/dL L Today, 05:20 Glucose, (70-99) 94 mg/dL Today, 05:20 COAG Pre-Assessment Diagnosis/Proposed Procedure Planned Operative Procedure(s): DEBRIDEMENT WOUND VAC PLACEMENT BILAT ANKLES Anesthesia History 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 When Was Last Pacemaker Check QUESTION #4 FULL TEXT: You/Your Family Experience fever (hyperthermia) with Anesthesia Last Oral Intake Last Oral intake: Last Oral Intake NPO since 10:00 08/17/25 13:04 Meds taken in AM with sips of Yes 08/17/25 13:04 water? Meds patient instructed to plavix - dr aware and wanted 08/17/25 13:04 take am of surgery it given PONV PONV - diesel service journeyman: PONV - diesel service journeyman Female No 08/05/25 09:31 HX of Motion Sickness No 08/05/25 09:31 HX of N/V After Surgery No 08/05/25 09:31 Non-Smoker Yes 08/05/25 09:31 Duration of Surgery greater Yes 08/05/25 09:31 than 60 minutes Number of Risk Factors 2 08/05/25 09:31 PONV Score Moderate Risk 08/05/25 09:31 Height & Weight Height & Weight: Anesthesia: Height & Weight Height 5 ft 10 in 08/17/25 13:04 Weight: 68.04 kg 08/17/25 13:04 Body Mass Index (BMI) 21.5 08/17/25 13:04 Respiratory Assessment Respiratory Assessment - diesel service journeyman: Respiratory Tract Infection Hx - diesel service journeyman Hx Respiratory Tract Infection No 08/17/25 05:39 STOP Sleep Apnea STOP Sleep Apnea - diesel service journeyman: STOP Sleep Apnea - diesel service journeyman Hx Hypertension No 08/05/25 09:31 Hx Sleep Apnea No 08/05/25 09:31 CPAP BIPAP Do you snore loudly (louder Yes 08/05/25 09:31 than talking or can be heard Do you often feel tired/ Yes 08/05/25 09:31 fatigued/ sleepy during daytime? Has anyone observed you stop No 08/05/25 09:31 breathing during sleep? STOP Results Positive 08/11/25 13:12 QUESTION #5 FULL TEXT : Do you snore loudly (louder than talking or can be heard through closed doors)? Tobacco Use History Tobacco Use History - diesel service journeyman: Tobacco Use History - diesel service journeyman Tobacco Use Smoking Status Never smoker 08/05/25 09:31 Hx Tobacco Use No 08/05/25 09:31 Years Smoking Packs Smoked per Day Smoking Cessation Date was within the last 15 years Hx Smoking Cessation Date Hx Smoking Cessation Counseling Hematologic Medial History Hematologic Hx - diesel service journeyman: Hematologic Medical Hx - documentation designer Hx of Blood Transfusion No 08/05/25 09:31 Hx of Transfusion in last 3 No 08/05/25 09:31 Months Date of Last Transfusion (if within last 3 months) Ever experience any problems No 08/05/25 09:31 with transfusion(s)? Specify any problems Hx of Preganancy in last 3 N/A 08/05/25 09:31 Months Nurse Filling Out Transfusion DSCHRIBER 08/05/25 09:31 & Questions: Date: 08/05/25 08/05/25 09:31 Time: 09:33 08/05/25 09:31 Patient unable to answer at this time (ie. confused, unrespo /Reproduction History /Reproductive History - diesel service journeyman: /Reproductive Hx- diesel service journeyman Hx Now No 08/17/25 05:39 Gestational Age (in weeks): EDC: Hx Hx Para Hx Section SAB No 08/17/25 05:39 Does the father of the baby or his family experience fever w Father of the baby Malignant Hypertension history comment Active Medications Active Medications: Current Medications Generic Name Dose Route Start Last Admin Trade Name Freq PRN Reason Stop Dose Admin Acetaminophen 650 mg 08/11/25 12:54 08/12/25 16:30 Acetaminophen 325 Mg Tablet PO 650 mg Q6H PRN PRN Administration Pain 1-3 Or Fever>100.7 Aspirin 81 mg 08/14/25 08:00 08/17/25 07:18 Aspirin E.C. 81 Mg Tablet PO Not Given BREAKFAST VINCENZO Bisacodyl 5 mg 08/11/25 12:54 Bisacodyl 5 Mg Tablet PO DAILY PRN PRN Constipation Calcium Carbonate 1,000 mg 08/15/25 17:00 08/17/25 07:18 Calcium Carbonate 500 Mg Tablet PO 08/19/25 23:59 Not Given BIDCM VINECNZO Clopidogrel Bisulfate 75 mg 08/14/25 10:00 08/17/25 09:04 Clopidogrel Bisulfate 75 Mg Tablet PO 75 mg DAILY VINCENZO Administration Sodium Hypochlorite 473 ml/ 0 ml 08/11/25 15:10 08/16/25 16:12 Sodium Chloride 473 ml IRRIGATION Not Given UD VINCENZO Docusate Sodium 100 mg 08/11/25 12:54 Docusate Sodium 100 Mg Capsule PO BID PRN PRN Constipation Enoxaparin Sodium 40 mg 08/12/25 07:00 08/17/25 09:04 Enoxaparin 40 Mg/0.4 Ml Syringe SC 40 mg DAILY VINCENZO Administration Sodium Chloride 500 mls @ 15 mls/hr 08/12/25 10:51 08/16/25 20:09 IV Infused PRN PRN Infusion Blood Transfusion Meropenem 1 gm/ Sodium 100 mls @ 33 mls/hr 08/13/25 11:00 08/17/25 08:29 Chloride IV Infused Q8 VINCENZO Infusion Lactated Ringer's 1,000 mls @ 15 mls/hr 08/17/25 14:15 08/17/25 14:03 IV 15 mls/hr .Q48H VINCENZO Administration Loratadine 10 mg 08/13/25 10:00 08/17/25 09:17 Loratadine 10 Mg Tablet PO Not Given DAILY [facility] Magnesium Hydroxide 30 ml 08/11/25 12:54 Magnesium Hydroxide 30 Ml Udc PO DAILY PRN PRN Constipation Melatonin 3 mg 08/11/25 14:15 Melatonin 3 Mg Tablet PO QHS PRN SLEEP Morphine Sulfate 2 mg 08/13/25 06:43 08/17/25 13:11 Morphine 2 Mg/Ml Syringe IV 2 mg Q3H PRN PRN Administration Pain Score 6-10 Multi-Ingredient Ointment 1 applic 08/13/25 10:00 08/17/25 09:06 Mineral Oil/Petrolatum Cr 1.75oz Bottle TOPICAL Not Given DAILY [facility] Protocol Nutritional Formula (Lactose Free) 120 ml 08/12/25 10:00 08/17/25 11:23 Ensure Plus High Protein 120 Ml Liquid PO Not Given 4X/DAY [facility] Ondansetron HCl 4 mg 08/11/25 12:54 Ondansetron 4 Mg/2 Ml Vial IV Q8H PRN PRN NAUSEA/VOMITING Psyllium Hydrophilic Mucilloid 1 packet 08/11/25 12:54 Psyllium 1 Packet PO DAILY PRN PRN Constipation Senna/Docusate Sodium 2 tablet 08/11/25 12:54 Senna/Docusate Sodium 1 Tablet PO BID PRN PRN Constipation Sodium Chloride 10 - 40 ml 08/11/25 11:03 08/17/25 13:11 0.9% Saline Lock 10 Ml Syringe IV 40 ml UD PRN Administration Port-a-Cath (VAD)/R Port Flush Sodium Chloride 10 - 40 ml 08/11/25 11:03 0.9 % Nacl (Sterile) Posiflush 10 Ml IV UD PRN Port access or dressing change Sodium Chloride 10 - 40 ml 08/11/25 15:08 0.9% Saline Lock 10 Ml Syringe IV UD PRN Port-a-Cath (VAD)/R Port Flush Sodium Chloride 10 - 40 ml 08/11/25 15:08 0.9 % Nacl (Sterile) Posiflush 10 Ml IV UD PRN Port access or dressing change Tramadol HCl 50 mg 08/14/25 17:53 Tramadol 50 Mg Tablet PO Q6H PRN PRN Pain Score 4-10 PFSH Medical History Open wound History of steroid therapy Low iron Difficulty swallowing History of edema Hx of peripheral vascular disease Wears hearing aid Wears glasses Cancer Uses wheelchair Functional voiding disorder Non-smoker Paraplegic immobility syndrome Liver masses Candidiasis Pruritus, unspecified Home Medications ?Medication ?Instructions ?Recorded ?Last Taken ?Type Liquid probiotic 5 ml PO DAILY 10/23/24 08/10/25 History Liquid heart drops 2 gtt PO QHS 10/23/24 08/10/25 History Liquid kidney and bladder 2 gtt PO DAILY 10/23/24 08/10/25 History Resolution 2 tab PO BID 10/23/24 08/10/25 History tramadol 50 mg tablet 50 mg PO Q6H PRN PRN pain 06/18/25 08/10/25 History Liquid Iron 1.5 mg PO DAILY 07/03/25 08/10/25 History aspirin 81 mg tablet 81 mg PO QDAY #90 tabs 08/13/25 Unknown Rx clopidogrel 75 mg tablet (Plavix) 75 mg PO DAILY #90 tabs 08/13/25 Unknown Rx meropenem 1 gram intravenous 1 g IV Q8 37 days #111 ea 08/17/25 Unknown Rx solution Allergy/AdvReac Type Severity Reaction Status Date / Time amoxicillin Allergy UTI Verified 08/05/25 09:28 Family History Father Cancer Brother Cancer Surgical History History of vascular access device H/O skin graft Hx of appendectomy Hx of tonsillectomy Social History Smoking Status: Never smoker alcohol intake: never Review of Systems (Anesthesia) ROS Narrative System reviewed and no additional complaints, except as documented. Physical Exam Const alert, oriented x3 and average body habitus Resp normal respiratory effort, normal air movement and clear to auscultation bilaterally Cardio regular rate, regular rhythm and no murmurs; Negative for diaphoretic
--- NOTE | 2025-08-17 14:12 | PCM.HP.STD ---
HPI - General General Date of Admission: 08/11/25 HPI Narrative TERI RAHMAN, is a 75 M who presents with bilateral lower extremity wounds. Presents today for debridement and placement of Integra [facility] Medical History Open wound History of steroid therapy Low iron Difficulty swallowing History of edema Hx of peripheral vascular disease Wears hearing aid Wears glasses Cancer Uses wheelchair Functional voiding disorder Non-smoker Paraplegic immobility syndrome Liver masses Candidiasis Pruritus, unspecified Home Medications ?Medication ?Instructions ?Recorded ?Last Taken ?Type Liquid probiotic 5 ml PO DAILY 10/23/24 08/10/25 History Liquid heart drops 2 gtt PO QHS 10/23/24 08/10/25 History Liquid kidney and bladder 2 gtt PO DAILY 10/23/24 08/10/25 History Resolution 2 tab PO BID 10/23/24 08/10/25 History tramadol 50 mg tablet 50 mg PO Q6H PRN PRN pain 06/18/25 08/10/25 History Liquid Iron 1.5 mg PO DAILY 07/03/25 08/10/25 History aspirin 81 mg tablet 81 mg PO QDAY #90 tabs 08/13/25 Unknown Rx clopidogrel 75 mg tablet (Plavix) 75 mg PO DAILY #90 tabs 08/13/25 Unknown Rx meropenem 1 gram intravenous 1 g IV Q8 37 days #111 ea 08/17/25 Unknown Rx solution Allergy/AdvReac Type Severity Reaction Status Date / Time amoxicillin Allergy UTI Verified 08/05/25 09:28 Family History Father Cancer Brother Cancer Surgical History History of vascular access device H/O skin graft Hx of appendectomy Hx of tonsillectomy Social History Smoking Status: Never smoker alcohol intake: never Vital Signs Vital Signs Vital Signs: 08/16/25 16:00 08/16/25 16:00 08/16/25 21:33 Temperature 98.3 F Temperature Source Temporal Pulse Rate 77 Pulse Strength Respiratory Rate 16 Respiratory Effort Normal Normal Non-Labored Respiratory Depth Normal Normal Respiratory Pattern Normal Normal Blood Pressure 153/80 H Blood Pressure Mean 104 Blood Pressure Source Monitor Blood Pressure Position Supine Blood Pressure Location Left Arm Pulse Ox 94 Oxygen Delivery Method Room Air Room Air EtCo2 - Document during CPR and with ROSC 08/16/25 22:00 08/16/25 23:57 08/17/25 05:38 Temperature 98.6 F 97.5 F L Temperature Source Temporal Axillary Pulse Rate 79 84 Pulse Strength Weak (1+) Respiratory Rate 16 16 Respiratory Effort Respiratory Depth Respiratory Pattern Blood Pressure 138/70 H 135/60 H Blood Pressure Mean 92 85 Blood Pressure Source Monitor Monitor Blood Pressure Position Semi-Fowlers Left Lateral Blood Pressure Location Right Arm Right Arm Pulse Ox 97 99 Oxygen Delivery Method Room Air Room Air EtCo2 - Document during CPR and with ROSC 08/17/25 08:51 08/17/25 09:08 08/17/25 10:00 Temperature 97.7 F L Temperature Source Oral Pulse Rate 75 Pulse Strength Weak (1+) Respiratory Rate 16 Respiratory Effort Normal Non-Labored Respiratory Depth Normal Respiratory Pattern Normal Blood Pressure 130/70 H Blood Pressure Mean 90 Blood Pressure Source Monitor Blood Pressure Position Blood Pressure Location Pulse Ox 100 Oxygen Delivery Method Room Air Room Air EtCo2 - Document during CPR and with ROSC 08/17/25 13:04 Temperature 97.6 F L Temperature Source Oral Pulse Rate 71 Pulse Strength Respiratory Rate 16 Respiratory Effort Respiratory Depth Respiratory Pattern Blood Pressure 143/60 H Blood Pressure Mean 87 Blood Pressure Source Monitor Blood Pressure Position Sitting Blood Pressure Location Right Arm Pulse Ox 100 Oxygen Delivery Method Room Air EtCo2 - Document during CPR and with ROSC 143 Weight Weight: 150 lb 0.04 oz Body Mass Index (BMI) 21.5 Physical Exam Narrative VACs holding suction on bilateral lower extremities. Results Lab / Micro Data 08/17/25 05:20 08/17/25 05:20 Labs: Laboratory Results - last 24 hr 08/16/25 21:34: Vancomycin Trough 27.4 H 08/17/25 05:20: WBC 8.9, RBC 2.76 L, Hgb 8.8 L, Hct 27.7 L, MCV 100.4 H, MCH 31.9, MCHC 31.8 L, RDW Std Deviation 62.1 H, RDW Coeff of Juvencio 17.2 H, Plt Count 329, MPV 8.8, Sodium 135, Potassium 5.0, Chloride 105, Carbon Dioxide 22.2, Anion Gap 7, BUN 19, Creatinine 0.48 L, Estim Creat Clear Calc 76.78, Est GFR (MDRD) Non-Af 108, BUN/Creatinine Ratio 38.6 H, Glucose 94, Calcium 8.3 08/17/25 09:23: Random Vancomycin 21.3 H Micro: Microbiology 08/11/25 13:15 Wound - Leg, Left Gram Stain - Final 08/11/25 13:15 Wound - Leg, Left Wound Culture - Final Enterobacter cloacae complex 08/11/25 13:15 Wound - Leg, Left Anaerobic Culture - Final No growth in 5 days. Assessment & Plan Assessment/Plan (1) Ankle osteomyelitis, right: QUALIFIERS: Osteomyelitis type: other chronic Qualified Code(s): M86.671 - Other chronic osteomyelitis, right ankle and foot (2) Pressure ulcer of left ankle, stage 4: (3) Pressure ulcer of right ankle, stage 4: PLAN: Plan I talked to the patient extensively about the risks of surgery, including bleeding, infection, damage to surrounding structures, Integra Failure, Sepsis (from ankle/septic ankle joints), poor scaring, surgical site dehiscence and wound formation, need for wound care, failure to save legs, need for amputations, need for repeat operations, failure to obtain the desired result, DVT/PE, and the risks of anesthesia including , including stroke (from low blood pressure/ischemia or clot). The benefits and alternatives of this surgery were also discussed. All of their questions were answered, and they agreed to proceed with surgery. He understands plan for Integra placement followed by VAC therapy (weekly changes) and hopefully eventual skin grafting. He elected to proceed.
--- NOTE | 2025-08-17 14:46 | PCM.OPRPT ---
Operative Report (Standard) Operative Information Date of Procedure: 08/17/25 Pre-Operative Diagnosis: Bilateral full-thickness ankle wounds down to bone Post-Operative Diagnosis: Same Surgery/Procedure Performed: 1. Placement of Integra right lateral malleolus wound 5 x 4 cm down to bone 2. Placement of Integra right lateral foot wound, 1 x 1 cm down to bone 3. Placement of Integra right medial malleolus wound 3 x 2 cm down to bone 4. Placement of Integra left lateral ankle wound 5 x 4 cm down to bone center rep: Yes Knife Finisher: Brandon Farias Tasks completed by administrative office assistant: Other (Placement of dermal substitutes and placement of wound VAC) Type of Anesthesia: IV Sedation RN Documented Start/Stop Times: Operation Date: 08/17/25 14:30 Case Time Into Pre-Op 08/17/25 13:38 Anesthesia Start 08/17/25 14:41 Into Room 08/17/25 14:41 Procedure Start 08/17/25 15:11 Procedure End 08/17/25 15:45 Anesthesia End 08/17/25 15:48 Out of Room 08/17/25 15:48 Into Recovery 08/17/25 15:56 Out of Recovery 08/17/25 16:24 Procedure Start Time: 15:11 Procedure Stop Time: 15:45 Select all DRAINS/GRAFTS/IMPLANTS that apply: Tissue (Integra Neodermis) Tissue details: Integra placed in the wound beds Estimated Blood Loss: 10 cc Specimen collected: No Description of surgery: Indications: patient is a 75-year-old male with paraplegia and history of metastatic colon cancer on Avastin (has been held for the past 5 weeks for improved wound healing) who presents today 5 days after debridement of his severe ankle pressure injuries with irrigating wound VAC placement. Vascular surgery performed stenting of the right iliac on , 13 August 2025. Patient consented today for debridement of the wounds on the ankles and feet bilaterally with placement of dermal substitute (Integra) which will hopefully prepare the wounds for skin graft. He understands the risks, benefits, and alternatives and elected to proceed Procedure details: Patient was correctly identified in preoperative holding and taken back to the operating room where he was administered sedation and local anesthesia as noted above. He was prepped and draped in sterile fashion all proper timeouts were performed. The above-noted wounds were debrided with osteotomes curettes and 10 blade scalpel for excision of fibrinous exudate and biofilm from the wound base for preparation of Integra placement (dermal substitute). The wounds were irrigated with copious amounts normal saline and Irrisept. Hemostasis was obtained with Bovie electrocautery. Integra dermal substitute was then placed on the wounds and stapled into place for the following measurements: 1. Placement of Integra right lateral malleolus wound 5 x 4 cm down to bone 2. Placement of Integra right lateral foot wound, 1 x 1 cm down to bone 3. Placement of Integra right medial malleolus wound 3 x 2 cm down to bone 4. Placement of Integra left lateral ankle wound 5 x 4 cm down to bone Wound vacs were applied holding suction at the end of the case. Patient was taken to the PACU in stable condition. Postoperative plan: Patient will be admitted to the floor for monitoring and for pressure offloading bed/boots. We will plan for discharge home with wound vacs with weekly VAC changes in clinic until ready for skin grafting (anticipate 3 to 4 weeks). Surgical Findings: Healthy wound beds after irrigating wound VAC Complications Complications: No
[2025-08-17] MEDS: Midazolam 2 MG/2 ML Syringe 1 MG IV (14:52)
[2025-08-17] MEDS: Bupiv/Epi 0.25% 30 ML Vial (15:30)
[2025-08-17] MEDS: Lidocaine 1% /Epi 1:100 (20ml) 20 ML Vial (15:30)
--- NOTE | 2025-08-17 16:00 | PCM.POST.ANE ---
Anesthesia: Postop Eval I Current Vital Signs Temperature: 98.7 F Pulse Rate: 66 Blood Pressure: 147/67 Respiratory Rate: 16 Pulse Ox: 100 Oxygen Delivery Method: Room Air Assessment Airway patent: Yes Spontaneous unlabored respirations: Yes Mental status: Awake and Calm nausea: No Vomiting: No Anesthesia Complication: No Fluid Hydration Crystalloid volume administer (ml): 200 Total IV fluid infused: 200 Progress Note Anesthesia document: Postop Eval 1 completed: Yes
--- NOTE | 2025-08-17 16:33 | POSTOPAN2_ITS ---
Anesthesia Postop Eval I Sum Postop Eval Completion status Anesthesia document: Postop Eval 1 completed: Yes Anesthesia Postop Eval I Summary Anesthesia Postop Eval I Summary: Anesthesia Postop Eval I: Assessment Summary Airway patent Yes 08/17/25 16:01 MEDICAL SCRIBE.DESIOBDilip Spontaneous unlabored Yes 08/17/25 16:01 MEDICAL [email or web address].FEROZ respirations Mental status Awake,Calm 08/17/25 16:01 MEDICAL SCRIBE.FEROZ nausea No 08/17/25 16:01 MEDICAL SCRIBE.FEROZ Vomiting No 08/17/25 16:01 MEDICAL SCRIBE.FEROZ Anesthesia Postop Eval I: Fluid Summary Crystalloid volume administer 200 08/17/25 16:01 MEDICAL SCRIBE.SKOBY (ml) Colloids volume administered ( ml) Blood Product volume administered (ml) Total IV fluid infused 200 08/17/25 16:01 MEDICAL SCRIBE.FEROZ Anesthesia Postop Eval I: Summary Notes Anesthesia Complication No 08/17/25 16:01 MEDICAL SCRIBE.FEROZ Anesthesia Complication Comment: Post-operative progress note Anesthesia: Postop Eval II Evaluation Mental status: Awake Pain Level: 0 nausea: No Vomiting: No Complications Anesthesia Complication: No
--- NOTE | 2025-08-17 16:33 | PCM.POSTANE2 ---
Anesthesia Postop Eval I Sum Postop Eval Completion status Anesthesia document: Postop Eval 1 completed: Yes Anesthesia Postop Eval I Summary Anesthesia Postop Eval I Summary: Anesthesia Postop Eval I: Assessment Summary Airway patent Yes 08/17/25 16:01 BUDGET AND POLICY ANALYST.DESIOBDilip Spontaneous unlabored Yes 08/17/25 16:01 BUDGET AND POLICY ANALYST.FEROZ respirations Mental status Awake,Calm 08/17/25 16:01 BUDGET AND POLICY ANALYST.FEROZ nausea No 08/17/25 16:01 BUDGET AND POLICY ANALYST.FEROZ Vomiting No 08/17/25 16:01 BUDGET AND POLICY ANALYST.FEROZ Anesthesia Postop Eval I: Fluid Summary Crystalloid volume administer 200 08/17/25 16:01 BUDGET AND POLICY ANALYST.SKOBY (ml) Colloids volume administered ( ml) Blood Product volume administered (ml) Total IV fluid infused 200 08/17/25 16:01 BUDGET AND POLICY ANALYST.FEROZ Anesthesia Postop Eval I: Summary Notes Anesthesia Complication No 08/17/25 16:01 BUDGET AND POLICY ANALYST.FEROZ Anesthesia Complication Comment: Post-operative progress note Anesthesia: Postop Eval II Evaluation Mental status: Awake Pain Level: 0 nausea: No Vomiting: No Complications Anesthesia Complication: No
--- NOTE | 2025-08-17 16:36 | ANES.CONFIRM ---
Anesthesia: Confirm Documents Multiple Procedures on Account (2) Confirmed Documents: Yes
[2025-08-17] MEDS: 0.9% Normal Saline (500mL Bag) 500 ML 15 ML IV (17:58)
[2025-08-17] MEDS: Ensure Plus High Protein 120 ML LIQUID PO (21:36)
[2025-08-17] MEDS: Lactobacillis Acidophilus 1 CAP PO (21:36)
[2025-08-18 02:00] VITALS: BP 136/67; PULSE 80; RESP 16; TEMP 36.6; O2SAT 98
[2025-08-18 05:00] LABS: Hematocrit 24.1 % (40-54); Hemoglobin 7.7 g/dL (13.0-16.5); Mean Corp Hgb Conc 32.0 g/dL (32-36); Mean Corpuscular Volume 100.4 fL (80-94); Mean Platelet Vol. 8.7 fl (6.2-12.0); Platelet Count 326 K/mm3 (150-450); RBC Distribution Width CV 16.9 % (11.6-14.6); RBC Distribution Width SD 61.4 fl (35.1-43.9); Red Blood Count 2.40 M/mm3 (4.6-6.2); White Blood Count 8.8 K/mm3 (4.4-11.0)
[2025-08-18 05:20] LABS: Anion Gap 7 (5-15); BUN 21 mg/dL (4-19); BUN/Creat Ratio 40.0 RATIO (10-20); Calcium,Total 8.2 mg/dL (7.6-11.0); Carbon Dioxide 22.8 mmol/L (21.0-32.0); Chloride 106 mmol/L (98-108); Estimated Creatinine Clearance 76.78 ml/min (50-250); Glucose 93 mg/dL (70-99); Potassium 4.7 mmol/L (3.3-5.1)
[2025-08-18] MEDS: Lactobacillis Acidophilus 1 CAP PO (05:28)
[2025-08-18] MEDS: Meropenem 1 GM in 0.9% Normal Saline (100mL MB+) 100 ML IV (05:29)
--- NOTE | 2025-08-18 07:32 | PCM.PN.HOSP ---
Subjective Subjective Patient underwent repeat wound debridement with wound VAC exchange. Objective Data Objective Data Vital Signs: Vital Signs Temp Pulse Resp BP Pulse Ox O2 Del Method 98 F 80 16 136/67 H 98 Room Air 08/18/25 02:00 08/18/25 02:00 08/18/25 02:00 08/18/25 02:00 08/18/25 02:00 08/18/25 02:00 Oxygen Delivery Method Room Air Weight: 68.04 kg Body Mass Index (BMI) 21.5 Intake & Output: Intake and Output for Last 24 Hours 08/16/25 08/17/25 08/18/25 23:59 23:59 23:59 Intake Total 1370 / 1670 1018.25 / 1018.25 100 / 100 Output Total 2850 / 3450 1810 / 2110 700 / 700 Balance -1480 / -1780 -791.75 / -1091.75 -600 / -600 Lab / Micro Data 08/18/25 04:50 08/18/25 04:50 Labs: Laboratory Results - last 24 hr 08/17/25 09:23: Random Vancomycin 21.3 H 08/18/25 04:50: WBC 8.8, RBC 2.40 L, Hgb 7.7 L, Hct 24.1 L, MCV 100.4 H, MCH 32.1 H, MCHC 32.0, RDW Std Deviation 61.4 H, RDW Coeff of Juvencio 16.9 H, Plt Count 326, MPV 8.7, Sodium 135, Potassium 4.7, Chloride 106, Carbon Dioxide 22.8, Anion Gap 7, BUN 21 H, Creatinine 0.53 L, Estim Creat Clear Calc 76.78, Est GFR (MDRD) Non-Af 105, BUN/Creatinine Ratio 40.0 H, Glucose 93, Calcium 8.2 Micro: Microbiology 08/11/25 13:15 Wound - Leg, Left Gram Stain - Final 08/11/25 13:15 Wound - Leg, Left Wound Culture - Final Enterobacter cloacae complex 08/11/25 13:15 Wound - Leg, Left Anaerobic Culture - Final No growth in 5 days. 08/11/25 13:15 Wound - Leg, Right Gram Stain - Final 08/11/25 13:15 Wound - Leg, Right Wound Culture - Final Enterobacter cloacae complex Pseudomonas aeruginosa Enterococcus faecalis 08/11/25 13:15 Wound - Leg, Right Anaerobic Culture - Final Anaerobic cocci 08/11/25 13:15 Bone - Right Foot Gram Stain - Final 08/11/25 13:15 Bone - Right Foot Wound Culture - Final Enterobacter cloacae complex Staphylococcus lugdunensis Corynebact. pseudodiphtheritic Enterococcus faecalis 08/11/25 13:15 Bone - Right Foot Anaerobic Culture - Final Anaerobic cocci 08/11/25 13:15 Wound - Ankle Gram Stain - Final 08/11/25 13:15 Wound - Ankle Wound Culture - Final Enterobacter cloacae complex Pseudomonas aeruginosa Staphylococcus lugdunensis 08/11/25 13:15 Wound - Ankle Anaerobic Culture - Final No anaerobic bacteria isolated. Physical Exam Narrative GENERAL: cooperative HEENT: Atraumatic; normocephalic EYES; Anicteric, Normal Conjunctiva NECK; supple, normal thyroid, RESPIRATORY: Diminished to auscultation CARDIOVASCULAR: Regular S1 S2, GI: soft, normoactive bowel sounds, : No Renal angle tenderness; EXTREMITIES: No edema, no clubbing, MUSCULOSKELETAL: Wound VAC involving both ankles NEURO: Paraplegic Skin: No rash Assessment & Plan Assessment/Plan (1) Pressure ulcer of right ankle, stage 4: (2) Pressure ulcer of left ankle, stage 4: (3) PAD (peripheral artery disease): (4) Acute postoperative anemia due to expected blood loss: PLAN: Plan Patient is a 75-year-old paraplegic who presented with bilateral ankle ulcers admitted by plastic surgery 1. Bilateral ankle pressure ulcers in setting of paraplegia ?Patient underwent S/p excision down to the bone of multiple bilateral ankle wounds with bilateral wound VAC placement with Dr. Mac on 08/11.. Plan is for patient to undergo wound VAC change and repeat debridement and Integra placement by plastic surgery on 08/17/2025 ? 08/18/2025 patient underwent repeat wound VAC exchange and wound debridement. Seen in consultation by ID recommended meropenem for 6-week with stop date of 09/22/2025 2. Spinal cord injury ? With resultant paraplegia patient is wheelchair-bound 3. Peripheral arterial disease Patient is followed by vascular surgery and was noted to have moderate RLE PAD on ABIs. Patient underwent angiography with stenting on 08/12/2025 subsequently placed on dual antiplatelet therapy 4. Liver cancer ? Patient is followed by oncology in [place]. Per patient and the patient is in remission 5. Anemia ? Secondary to acute blood loss anemia following surgery. Patient hemoglobin did drop to 6.6 on 1119 was transfused with 1 unit PRBC, subsequent monitoring H&H and transfuse if patient becomes symptomatic or hemoglobin falls below 7 6. Chronic back pain ? Patient is on tramadol 7. DVT prophylaxis - defer to primary service 8. Physical deconditioning ? Requested for PT OT eval and director of social media marketing to assist with discharge planning Time spent in the patient's overall evaluation,decision-making process, review of diagnostic data, adjustment of management, discussion with other providers, nursing nursing and ancillary staff involved in patient's care documentation, 36 Minutes Charges/Coding Visit Charges Inpatient E&M: 12305 Subs Hosp L2
[2025-08-18] MEDS: Aspirin E.C. 81 MG Tablet PO (08:44)
[2025-08-18] MEDS: Ensure Plus High Protein 120 ML LIQUID PO (08:44)
[2025-08-18 08:50] VITALS: BP 140/95; PULSE 92; RESP 18; TEMP 36.6; O2SAT 99
--- NOTE | 2025-08-18 09:42 | CASEMGMT ---
Addendum entered by Geeta Coulter 08/18/25 10:45: Updated [facility] that pt will be trf'ing to [facility] today. Addendum entered by Geeta Coulter 08/18/25 10:42: Signed med list and trf to ext care tubed to [facility]. Signed med list filed in chart. Notified pt nurse she may call report. Addendum entered by Geeta Coulter 08/18/25 10:17: Spoke with ID, pt does not need PICC. RN CM into pt room, pt and aware that precert has been received and pt will dc to [facility] today. They both deny further needs at this time. Original Note: Precert received, hospitalist reports pt is medically ready for dc. Updated , who states pt is medically ready for dc. Dr. Mac's PA verifying with ID if pt needs picc line. Updated TCU admissions.
--- NOTE | 2025-08-18 10:10 | TREXTCAR_ITS ---
Diet Diet Order/Speech Therapy: INPATIENT Hospital Diet / Speech Therapy Order(s) 08/17/25 16:44 Diet: Cardiac - Heart Healthy Type of Dietary Supplement:: Angel Diet Comments: Angel with Breakfast and Dinner tray DC O2, CPAP, BIPAP needs Home O2 Discharge instructions: No Wound(s) right ankle: Wound Type: Surgical Incision left ankle: Wound Type: Surgical Incision RT HIP: Wound Type: Pressure Injury left lat knee: Wound Type: Pressure Injury Dressing Change: foam dressing left medial knee: Wound Type: healed pressure injury Dressing Change: foam dressing left groin: Wound Type: Surgical Incision Right knee: Wound Type: Pressure Injury rt elbow: Wound Type: Pressure Injury Suggestions for Active Care Change Position every (hours): 2 Therapies Physical Therapy: Eval and Treat Occupational Therapy: Eval and Treat Problem/Diagnosis (1) Pressure ulcer of right ankle, stage 4: Status: Acute Code(s): L89.514 - Pressure ulcer of right ankle, stage 4 (2) Pressure ulcer of left ankle, stage 4: Status: Acute Code(s): L89.524 - Pressure ulcer of left ankle, stage 4 (3) PAD (peripheral artery disease): Status: Acute Code(s): I73.9 - Peripheral vascular disease, unspecified (4) Acute postoperative anemia due to expected blood loss: Status: Acute Code(s): D62 - Acute posthemorrhagic anemia Plan POD#1 repeat wound debridement with wound VAC placement, POD#5 angioplasty and stenting, POD#7 initial wound debridement. He was accepted at [facility]. ID recommending Merepenem for 6 weeks via his port with stop date 09/22/25 with weekly labs and ID followup. Will continue high-protein diet Albumin (weekly nutrition labs in setting of protein malnutrition). Encouraged ensure intake. Allergies/Procedures Done in Hospital Allergies amoxicillin Allergy (Verified 08/05/25 09:28) UTI Type of Care/Length of Stay Estimated LOS: Convalescent Care Less Than 30 days Type of Care Needed: Skilled (TCU) Rehab Potential: Good Prognosis: Good Additional Orders/Day of Discharge Day of Discharge: 08/18/25 Dietary and Speech Recommendations Dietitian Recommendations/Changes: Will continue regular diet. Will continue 120mL ensure plus HP 4 times per day w/ medpass and Angel BID w/ breakfast and dinner to help support wound healing. Discharge Plan Admission Admit Date/Time: 08/11/25 12:55 Primary Reason for Your Visit: Bilateral ankle wound debridement and angiogram with stent Attending Provider: Jerson Noble Primary Care Provider: CHINTAN RILEY Consulting Providers: Juliana Yee; Hank Anton; Hank Mac Instructions Additional Instructions / Restrictions: Operations Performed: Bilateral ankle wound debridement with Integra and wound VAC placement Instructions for My Care at Home or Healthcare Facility The following instructions will help you know what to expect in the days following surgery. These are general instructions. Your surgeon and therapist may give you special instructions, which vary to some degree based on your specific procedure -- follow those as directed. Do not, however, hesitate to call if you have any questions or concerns. Wound Care * Weekly wound VAC changes * Position changes every 2 hours. * Must use pressure-offloading air mattress * Pad and monitor for pressure injury of bony prominences as he is at high risk for pressure injuries. [ ] ? Activities * Continue PT, OT * Pain Control/Medications * Resume all home meds as well his chronic Tramadol. * If you received an anesthetic block, your hand or arm may be numb for several hours. You will be discharged to home with medications, including an oral pain medication (analgesic). Rest and elevation are still one of the most important factors for pain control. Take your pain medication as needed, but do not wait for the pain to become out of control. * For severe pain, you may take prescription pain medication as directed, but please note that this may also contain Tylenol (e.g. Percocet). Do not take more than 4000mg of Tylenol (acetaminophen) from all sources daily.? * Pain medication may cause some lethargy, nausea, and or constipation. You should not drive/operate dangerous machinery while taking these medications. If these or other symptoms become significantly problematic, please your surgeon's office. * If prescribed oral antibiotics (Keflex, Clindamycin, or others), please take prescription for full duration as instructed. You should not have any pills remaining once completed (refills are written for your convenience should the course need to be extended, but generally they are not required). Diet (what I can eat): High protein diet with Angel/Ensure supplement as nutrition recommended. Follow up * Follow up with vascular surgery and Plastics. Plastics will continue to follow while in TCU. Follow-up appointment reminders:? (A list of any scheduled appointments is at the end of this document)? At your earliest convenience, please call [phone] to confirm/schedule a follow-up appointment with [ ] in clinic. When to call your surgeon: * If any signs of surgical site infection develop: redness, pus, pain, increased swelling or foul odor at the incision site, fever, cold and clammy skin, or confusion. * Consistent temperature above 101?F (38.3?C). * The affected area gets swollen or much more painful. * You have excessive bleeding from surgical site (soaking through). If you experience difficulty breathing and/or shortness of breath, seek immedi ate medical attention. If experiencing any of the above complications or if you have any questions, call [phone] Discharge Orders/Prescriptions Prescriptions: New meropenem 1 gram Recon Soln 1 g IV Q8 37 Days Qty: 111 0RF Rx Instructions: stop date 09/22/25. Weekly bmp, cbc, LFT and esr. Fax to [phone]. Routine picc care per protocol. aspirin 81 mg Tablet,Delayed Release (Dr/Ec) 81 mg PO BREAKFAST Qty: 30 0RF clopidogrel 75 mg Tablet 75 mg PO DAILY Qty: 30 0RF enoxaparin 40 mg/0.4 mL Syringe 40 mg subcut DAILY 7 Days Qty: 2.8 0RF L.acidoph,saliva-B.bif-S.therm 175 mg Capsule 1 cap PO TID Qty: 21 0RF Ensure Plus High Protein 0.08 gram-1.5 kcal/mL Liquid 120 ml PO 4X/DAY 7 Days Qty: 5688 0RF tramadol 50 mg Tablet 50 mg PO Q6H PRN PRN (Reason: Pain Score 4-10) 7 Days Qty: 28 0RF Discontinued Liquid kidney and bladder 2 gtt PO DAILY Liquid heart drops 2 gtt PO QHS Resolution 2 tab PO BID Liquid Iron 1.5 mg PO DAILY Rx Instructions: daily tramadol 50 mg tablet 50 mg PO Q6H PRN PRN (Reason: pain) clopidogrel [Plavix] 75 mg tablet 75 mg PO DAILY Qty: 90 1RF aspirin 81 mg tablet 81 mg PO QDAY Qty: 90 1RF No Action Liquid probiotic 5 ml PO DAILY Referrals / Follow Up: CHINTAN RILEY, [employer] [Primary Care Provider, Family Practice] Disposition Disposition (needs filled in before D/C Order can be placed): Home Health Service Charges/Coding Procedures Integumentary [id number]: [id number] Global Visit
--- NOTE | 2025-08-18 10:52 | WOUNDNOTE ---
Had been in this am to assess the wound VAC dressings to bilateral ankle wounds with ED Taylor. nursing stated they had to apply extra drape to the left ankle wound last evening d/t getting a blockage alarm. good seal noted from bilateral ankle VAC's at this time. dressings are intact. plan per Dr Mac's note will be weekly VAC changes with possible skin grafts in 2-3 weeks. pt is to go to TCU at discharge for a while. will monitor. preventative dressings intact to the left lateral and medial knee and hte right medial knee. pt remains on a low air loss mattress as well with heel protectors on as well.
[2025-08-18 11:09] LABS: Prealbumin 8 mg/dL (9-32)
--- NOTE | 2025-08-18 11:17 | NURSING ---
Report called to nurse on TCU, pt needs to go over around 13:00.
--- NOTE | 2025-08-25 12:15 | DS.PCM_ITS ---
Providers Date of Admission: 08/11/25 Date of Discharge: 08/18/25 Primary Care Physician: ALEKSANDAR LAGUNA Consultations 08/11/25 12:56 Consult: Onc/Wound/budget analyst Routine Comment: 08/11/25 13:01 Consult: Hospitalist Routine Consulting Provider: Inocente Richards Reason for Consult: medical comanagement EMERGENT Consult: No MD Notified: Yes Date Notified: 08/11/25 Time Notified: 13:01 Method of Notification: Text 08/12/25 12:58 Consult: Infectious Disease Routine Consulting Provider: Hank Anton Reason for Consult: Osteomyelitis EMERGENT Consult: No Notified: Yes Date Notified: 08/12/25 Time Notified: 12:58 Method of Notification: Text Reason For Visit: Peripheral vascular disease, unspecified Diagnosis Discharge Diagnosis (1) Pressure ulcer of right ankle, stage 4: Status: Acute Code(s): L89.514 - Pressure ulcer of right ankle, stage 4 (2) Pressure ulcer of left ankle, stage 4: Status: Acute Code(s): L89.524 - Pressure ulcer of left ankle, stage 4 (3) PAD (peripheral artery disease): Status: Acute Code(s): I73.9 - Peripheral vascular disease, unspecified (4) Acute postoperative anemia due to expected blood loss: Status: Acute Code(s): D62 - Acute posthemorrhagic anemia Plan POD#1 repeat wound debridement with wound VAC placement, POD#5 angioplasty and stenting, POD#7 initial wound debridement. He was accepted at [facility] TCU. ID recommending Merepenem for 6 weeks via his port with stop date 09/22/25 with weekly labs and ID followup. Will continue high-protein diet Albumin (weekly nutrition labs in setting of protein malnutrition). Encouraged ensure intake. Medications at Discharge Home Medications Liquid probiotic 5 ml PO DAILY 10/23/24 meropenem 1 gram intravenous solution 1 g IV Q8 wound infection 37 days #111 ea 08/17/25 L.acidophil,salivari-Bifido bifidum-Strep thermoph 175 mg capsule 1 cap PO TID probiotic #21 caps 08/18/25 aspirin 81 mg tablet,delayed release 81 mg PO BREAKFAST blood thinner #30 tabs 08/18/25 clopidogrel 75 mg tablet 75 mg PO DAILY antiplatelet #30 tabs 08/18/25 enoxaparin 40 mg/0.4 mL subcutaneous syringe 40 mg (0.4 mL) subcut DAILY blood thinner 7 days #2.8 mL 08/18/25 food supplemt, lactose-reduced 0.08 gram-1.5 kcal/mL oral liquid (Ensure Plus High Protein) 120 ml PO 4X/DAY supplement 7 days #5,688 mL 08/18/25 tramadol 50 mg tablet 50 mg PO Q6H PRN PRN Pain Score 4-10 7 days #28 tabs 08/18/25 Hospital Course Operations - (Bilateral ankle and right foot debridement with wound VAC placement) Summary of Care Provided Minutes Spent on Discharge: 30 Hospital Course: On 08/11/25 he underwent bilateral ankle wound debridement and irrigating wound VAC placement. He awoke from anesthesia without issues and transferred to surgical floor with pressure-offloading air mattress. Hospital medicine was consulted for medical comanagement. He received 2 units of pRBC the following day when his hemoglobin decreased to 6.6 from 8.3. He remained stable. On 08/13/25 he underwent planned right lower extremity angiogram with Dr. Menjivar and had an external iliac artery angioplasty and right common iliac artery stent and was started on dual antiplatelet therapy with aspirin and plavix. His nutrition labs returned with low albumin levels and nutrition was consulted and Angel/Ensure was added to his meals and encouraged increased protein intake to help with healing. On 08/17/25 he underwent planned wound VAC removal with repeat debridement and placement of wound VAC. His hemoglobin remained stable overnight. Today is POD#1 repeat wound debridement with wound VAC placement, POD#5 angioplasty and stenting, POD#7 initial wound debridement. He was accepted at [facility] TCU. Physical Exam Narrative Afebrile/VSS Bilateral ankle wound VAC in place with good seal. Irrigating cartridge with cola colored output Bilateral leg prominence are well padded, no erythema or skin changes Toes are pink and well perfused. Weight / BMI Weight Weight: 150 lb 0.04 oz Body Mass Index (BMI) 21.5 ABG / Lab / Microbiology Data 08/18/25 04:50 08/18/25 04:50 Microbiology: Microbiology 08/11/25 13:15 Wound - Leg, Left Gram Stain - Final 08/11/25 13:15 Wound - Leg, Left Wound Culture - Final Enterobacter cloacae complex 08/11/25 13:15 Wound - Leg, Left Anaerobic Culture - Final No growth in 5 days. 08/11/25 13:15 Wound - Leg, Right Gram Stain - Final 08/11/25 13:15 Wound - Leg, Right Wound Culture - Final Enterobacter cloacae complex Pseudomonas aeruginosa Enterococcus faecalis 08/11/25 13:15 Wound - Leg, Right Anaerobic Culture - Final Anaerobic cocci 08/11/25 13:15 Bone - Right Foot Gram Stain - Final 08/11/25 13:15 Bone - Right Foot Wound Culture - Final Enterobacter cloacae complex Staphylococcus lugdunensis Corynebact. pseudodiphtheritic Enterococcus faecalis 08/11/25 13:15 Bone - Right Foot Anaerobic Culture - Final Anaerobic cocci 08/11/25 13:15 Wound - Ankle Gram Stain - Final 08/11/25 13:15 Wound - Ankle Wound Culture - Final Enterobacter cloacae complex Pseudomonas aeruginosa Staphylococcus lugdunensis 08/11/25 13:15 Wound - Ankle Anaerobic Culture - Final No anaerobic bacteria isolated. D/C Instructions DC O2, CPAP, BIPAP Needs Home O2 Discharge instructions: No Meaningful Use Info Meaningful Use Meaningful Use Diagnoses (Choose all that apply): None applicable Discharge Plan Admission Admit Date/Time: 08/11/25 12:55 Primary Reason for Your Visit: Bilateral ankle wound debridement and angiogram with stent Attending Provider: Jerson Noble Primary Care Provider: CHINTAN RILEY Consulting Providers: Juliana Yee; Hank Anton; Hank Mac Instructions Additional Instructions / Restrictions: Operations Performed: Bilateral ankle wound debridement with Integra and wound VAC placement Instructions for My Care at Home or Healthcare Facility The following instructions will help you know what to expect in the days following surgery. These are general instructions. Your surgeon and therapist may give you special instructions, which vary to some degree based on your specific procedure -- follow those as directed. Do not, however, hesitate to call if you have any questions or concerns. Wound Care * Weekly wound VAC changes * Position changes every 2 hours. * Must use pressure-offloading air mattress * Pad and monitor for pressure injury of bony prominences as he is at high risk for pressure injuries. [ ] ? Activities * Continue PT, OT * Pain Control/Medications * Resume all home meds as well his chronic Tramadol. * If you received an anesthetic block, your hand or arm may be numb for several hours. You will be discharged to home with medications, including an oral pain medication (analgesic). Rest and elevation are still one of the most important factors for pain control. Take your pain medication as needed, but do not wait for the pain to become out of control. * For severe pain, you may take prescription pain medication as directed, but please note that this may also contain Tylenol (e.g. Percocet). Do not take more than 4000mg of Tylenol (acetaminophen) from all sources daily.? * Pain medication may cause some lethargy, nausea, and or constipation. You should not drive/operate dangerous machinery while taking these medications. If these or other symptoms become significantly problematic, please your surgeon's office. * If prescribed oral antibiotics (Keflex, Clindamycin, or others), please take prescription for full duration as instructed. You should not have any pills remaining once completed (refills are written for your convenience should the course need to be extended, but generally they are not required). Diet (what I can eat): High protein diet with Angel/Ensure supplement as nutrition recommended. Follow up * Follow up with vascular surgery and Plastics. Plastics will continue to follow while in TCU. Follow-up appointment reminders:? (A list of any scheduled appointments is at the end of this document)? At your earliest convenience, please call [phone] to confirm/schedule a follow-up appointment with [ ] in clinic. When to call your surgeon: * If any signs of surgical site infection develop: redness, pus, pain, increased swelling or foul odor at the incision site, fever, cold and clammy skin, or confusion. * Consistent temperature above 101?F (38.3?C). * The affected area gets swollen or much more painful. * You have excessive bleeding from surgical site (soaking through). If you experience difficulty breathing and/or shortness of breath, seek immediate medical attention. If experiencing any of the above complications or if you have any questions, call [phone] Discharge Orders/Prescriptions Prescriptions: New meropenem 1 gram Recon Soln 1 g IV Q8 37 Days Qty: 111 0RF Rx Instructions: stop date 09/22/25. Weekly bmp, cbc, LFT and esr. Fax to [phone]. Routine picc care per protocol. aspirin 81 mg Tablet,Delayed Release (Dr/Ec) 81 mg PO BREAKFAST Qty: 30 0RF clopidogrel 75 mg Tablet 75 mg PO DAILY Qty: 30 0RF enoxaparin 40 mg/0.4 mL Syringe 40 mg subcut DAILY 7 Days Qty: 2.8 0RF L.acidoph,saliva-B.bif-S.therm 175 mg Capsule 1 cap PO TID Qty: 21 0RF Ensure Plus High Protein 0.08 gram-1.5 kcal/mL Liquid 120 ml PO 4X/DAY 7 Days Qty: 5688 0RF tramadol 50 mg Tablet 50 mg PO Q6H PRN PRN (Reason: Pain Score 4-10) 7 Days Qty: 28 0RF Discontinued Liquid kidney and bladder 2 gtt PO DAILY Liquid heart drops 2 gtt PO QHS Resolution 2 tab PO BID Liquid Iron 1.5 mg PO DAILY Rx Instructions: daily tramadol 50 mg tablet 50 mg PO Q6H PRN PRN (Reason: pain) clopidogrel [Plavix] 75 mg tablet 75 mg PO DAILY Qty: 90 1RF aspirin 81 mg tablet 81 mg PO QDAY Qty: 90 1RF No Action Liquid probiotic 5 ml PO DAILY Referrals / Follow Up: CHINTAN RILEY [facility] [Primary Care Provider, Family Practice] Disposition Disposition (needs filled in before D/C Order can be placed): Long-Term Facility Charges/Coding Procedures Integumentary 111xxx-113xx: [id number] Global Visit
== END 2025-08-18 13:04 | disposition skilled nursing facility (03) | DRG 252 ==
LOC: SDC 14:00 → MS3 14:00
PROVIDERS: Hospitalist; Internal Medicine; Internal Medicine Infectious Disease; Physician Assistant; Admitting Provider Surgery Plastic and Reconstructive Surgery; PCP Nurse Practitioner Family; Referring Provider Surgery Plastic and Reconstructive Surgery; Visit Provider Internal Medicine
PROC: 0QBG0ZZ Excision of Right Tibia, Open Approach (ICD-10-PCS; principal; 2025-08-11 11:45)
PROC: 0HRMXK3 Replacement of Right Foot Skin with Nonautologous Tissue Substitute, Full Thickness, External Approach (ICD-10-PCS; principal; 2025-08-17 14:15)
DX: I70.233 Atherosclerosis of native arteries of right leg with ulceration of ankle (principal); L89.524 Pressure ulcer of left ankle, stage 4; L89.514 Pressure ulcer of right ankle, stage 4; E44.1 Mild protein-calorie malnutrition; M86.671 Other chronic osteomyelitis, right ankle and foot; C78.7 Secondary malignant neoplasm of liver and intrahepatic bile duct; G82.20 Paraplegia, unspecified; D62 Acute posthemorrhagic anemia; C18.9 Malignant neoplasm of colon, unspecified; D70.9 Neutropenia, unspecified; I73.9 Peripheral vascular disease, unspecified; D63.8 Anemia in other chronic diseases classified elsewhere; M62.3 Immobility syndrome (paraplegic); M54.9 Dorsalgia, unspecified; I70.243 Atherosclerosis of native arteries of left leg with ulceration of ankle; I70.234 Atherosclerosis of native arteries of right leg with ulceration of heel and midfoot; B95.2 Enterococcus as the cause of diseases classified elsewhere; Z68.21 Body mass index [BMI] 21.0-21.9, adult; G89.29 Other chronic pain; Z79.899 Other long term (current) drug therapy; B96.89 Other specified bacterial agents as the cause of diseases classified elsewhere; B95.7 Other staphylococcus as the cause of diseases classified elsewhere
CPT/HCPCS: 36200; 36245; 36415; 37221; 37252; 37253; 75625; 75710; 76937; 80048; 80053; 80202; 82728; 83036; 83540; 83550; 84134; 85025; 85027; 85045; 86850; 86900; 86901; 87015; 87070; 87075; 87077; 87102; 87116; 87176; 87184; 87186; 87205; 87206; 88305; 88311; 94668; 97163; 97166; 97530; 97535; 97802; 99152; 99153; C1725; C1753; C1760; C1769; C1874; C1894; J2185; P9016; Q9967; A4216

== ENCOUNTER 2025-08-18 13:24 | Inpatient (IN) | payer MEDICARE, SELFPAY ==
[2025-08-18 13:59] VITALS: BP 132/72; PULSE 76; RESP 17; TEMP 36.6; O2SAT 100; BMI 21.5
[2025-08-18] MEDS: Ensure Plus High Protein 120 ML LIQUID PO ×2 (17:36→21:09)
--- NOTE | 2025-08-18 19:17 | PCM.HP.STD ---
HPI - General General Date of Admission: 08/18/25 Date of Service: 08/18/25 Chief Complaint: Here for rehabilitation, intravenous antibiotics. HPI Narrative TERI RAHMAN, is a 75 Male who presents with followin08/11/2025 Patient has severe bilateral ankle wounds, bone exposed. Patient is paraplegic. Refuses limb amputation, requested limb salvage therapy knowing risk of sepsis, . 08/11/2025 Dr. Mac performed excision bilateral ankle wounds down to bone. 08/11/2025 Tylenol, Oxycodone for pain. Vascular planning angiogram 08/13/2025. Follows Dr. Haynes for liver cancer. 08/12/2025 Itching of back, chronic 2/2 liver cancer, tired. Wound VAC in place. Add lotion, Add loratadine for itching of back. Hemoglobin 6.6, transfuse patient. 08/13/2025 Dr. Anton recommended Vancomycin, Meropenem for Enterobacter/Acinetobacter right ankle osteomyelitis. 08/13/2025 Dr. Menjivar performed Aortogram, right lower extremity angiogram with stent. 08/13/2025 Pain well controlled after Aortogram. Aspirin, Plavix started for PAD. Supportive care for liver cancer. Hemoglobin 8.3 after transfusion. 08/14/2025 No complaints. DAPT for PAD. Hemoglobin 8.9, stable. Recommend Tramadol for chronic low back pain. 08/15/2025 No acute events overnight. 08/16/[address], OR 08/17/2025. 08/16/2025 Dr. Mac plans VAC change/repeat debridement and Integra placement 08/17/2025. 08/17/2025 Dr. Mac placed Integra right ankle x 3, left ankle x 1. 08/18/2025 Admit to TCU with debility, here for rehabilitation, wound care, intravenous antibiotics, prior to discharge home with . [facility] Medical History Open wound History of steroid therapy Low iron Difficulty swallowing History of edema Hx of peripheral vascular disease Wears hearing aid Wears glasses Cancer Uses wheelchair Functional voiding disorder Non-smoker Paraplegic immobility syndrome Liver masses Candidiasis Pruritus, unspecified Home Medications ?Medication ?Instructions ?Recorded ?Last Taken ?Type Liquid probiotic 5 ml PO DAILY 10/23/24 08/10/25 History meropenem 1 gram intravenous 1 g IV Q8 wound infection 37 days 08/17/25 Unknown Rx solution #111 ea L.acidophil,salivari-Bifido 1 cap PO TID probiotic #21 caps 08/18/25 Unknown Rx bifidum-Strep thermoph 175 mg capsule aspirin 81 mg tablet,delayed 81 mg PO BREAKFAST blood thinner 08/18/25 Unknown Rx release #30 tabs clopidogrel 75 mg tablet 75 mg PO DAILY antiplatelet #30 08/18/25 Unknown Rx tabs enoxaparin 40 mg/0.4 mL 40 mg (0.4 mL) subcut DAILY blood 08/18/25 Unknown Rx subcutaneous syringe thinner 7 days #2.8 mL food supplemt, lactose-reduced 120 ml PO 4X/DAY supplement 7 days 08/18/25 Unknown Rx 0.08 gram-1.5 kcal/mL oral liquid #5,688 mL (Ensure Plus High Protein) tramadol 50 mg tablet 50 mg PO Q6H PRN PRN Pain Score 08/18/25 Unknown Rx 4-10 7 days #28 tabs Allergy/AdvReac Type Severity Reaction Status Date / Time amoxicillin Allergy UTI Verified 08/05/25 09:28 Family History Father Cancer Brother Cancer Surgical History History of vascular access device H/O skin graft Hx of appendectomy Hx of tonsillectomy Social History (Updated 08/18/25 @ 19:[address] Jose Thompson MD) household members: spouse Smoking Status: Never smoker alcohol intake: never substance use type: does not use ROS Constitutional Constitutional: Reports weakness; Denies chills, fever(s) or weight gain ENT HEENT: Denies headache(s), nasal congestion or nasal discharge Cardiovascular Cardiovascular: Denies chest pain or palpitations Respiratory/Chest Respiratory/Chest: Denies cough, excessive phlegm production or shortness of breath with exertion Gastrointestinal Gastrointestinal: Denies abdominal pain, nausea or vomiting Genitourinary Genitourinary: Denies dysuria Musculoskeletal Musculoskeletal: Denies joint pain or joint swelling Integumentary Integumentary: Denies rash or wounds Neurologic Neurologic: Denies focal weakness, numbness or tingling Psychiatric Psychiatric: Denies anxiety, auditory hallucinations, depression, homicidal ideation or suicidal ideation Vital Signs Vital Signs Vital Signs: 08/18/25 13:59 08/18/25 13:59 Temperature 97.9 F Temperature Source Temporal Pulse Rate 76 Pulse Rhythm Regular Pulse Strength Normal (2+) Respiratory Rate 17 Respiratory Effort Normal Non-Labored Respiratory Depth Normal Respiratory Pattern Normal Blood Pressure 132/72 H Blood Pressure Mean 92 Blood Pressure Source Monitor Blood Pressure Position Semi-Fowlers Blood Pressure Location Left Arm Pulse Ox 100 Oxygen Delivery Method Room Air Room Air Weight Weight: 68.039 kg Body Mass Index (BMI) 21.5 Physical Exam Const alert General Appearance: cooperative HEENT normocephalic Eyes PERRL and EOMs intact bilaterally Neck supple, no JVD and no carotid bruits Chest Chest Narrative: Port in place. Resp normal respiratory effort, normal air movement and clear to auscultation bilaterally Cardio regular rate and regular rhythm GI normal to inspection, nondistended, normoactive bowel sounds, non-tender and non-distended Extremity normal capillary refill Extremity Narrative: Bilateral ankle wound VACs. General Extremity: Negative for edema Skin no rashes or lesions noted General Skin Exam: no breakdown Psych affect normal Appearance: appropriate Assessment & Plan Assessment/Plan (1) Debility: (2) Pressure ulcer of right ankle, stage 4: (3) Pressure ulcer of left ankle, stage 4: (4) Ankle osteomyelitis, right: QUALIFIERS: Osteomyelitis type: other chronic Qualified Code(s): M86.671 - Other chronic osteomyelitis, right ankle and foot (5) Acute postoperative anemia due to expected blood loss: (6) Paraplegia following spinal cord injury: (7) Liver cancer: (8) Neutropenia: (9) PAD (peripheral artery disease): PLAN: Plan 75 year old male with below past medical history hospitalized for bilateral ankle pressure ulcers, right ankle osteomyelitis, PAD, underwent debridement, Integra placement, Wound VAC's bilateral ankles, PAD right lower extremity stented, complicated by acute blood loss anemia, liver cancer, admitted to TCU with debility, here for rehabilitation, strengthening, wound care, intravenous antibiotics, prior to discharge home with . Debility - PT/OT. Dysphagia - ST. Pain - Tylenol 1000mg q6 prn pain (1-3), Tramadol 50mg q6 prn pain (4-5), Morphine 2mg po/sl q4 prn pain (6-10). Bowel - senna/colace 1 tablet bid, Magnesium citrate 300mL po x 1 prn, Dulcolax 10mg pr daily prn. Adult immunization - Administer pneumonia vaccine, covid vaccine, flu vaccine as appropriate. DVT prophylaxis - Lovenox 40mg sc daily. PAD s/p RLE stent - Aspirin 81mg daily, Plavix 75mg daily. Nutrition - Ensure Plus 120mL 4x/day. GI prophylaxis - Lactobacillus 1 capsule tid. Right ankle osteomyelitis - Meropenem 1gm iv q8, consult Dr. Anton to follow and length of treatment. Bilateral ankle wounds - s/p debridement, s/p integra, s/p wound VACs, consult Dr. Mac, consult wound nurse. Liver cancer - f/u Dr. Haynes.
[2025-08-18] MEDS: 0.9% Normal Saline (250mL Bag) 250 ML 15 ML IV (20:58)
[2025-08-18] MEDS: Meropenem 1 GM in 0.9% Normal Saline (100mL MB+) 100 ML IV (21:00)
[2025-08-18] MEDS: 0.9% Saline Lock 10 ML Syringe IV (21:02)
[2025-08-18] MEDS: Lactobacillis Acidophilus 1 CAP PO (21:08)
[2025-08-18] MEDS: Senna/Docusate Sodium 1 Tablet PO (21:09)
[2025-08-18] MEDS: morphine (oral solution) 10MG/0.5ML Syringe 2 MG SL/PO (21:23)
[2025-08-19] VITALS (10 sets, daily range): BP systolic 112–151; BP diastolic 44–75; PULSE 63–76; RESP 15–18; TEMP 35.9–36.5; O2SAT 99–100
[2025-08-19] MEDS: Lactobacillis Acidophilus 1 CAP PO ×2 (05:47→21:08)
[2025-08-19] MEDS: Ensure Plus High Protein 120 ML LIQUID PO (05:47)
--- NOTE | 2025-08-19 06:35 | PCA ---
Confirmation of air mattress change from [facility] to [facility], #[id number]
[2025-08-19] MEDS: Meropenem 1 GM in 0.9% Normal Saline (100mL MB+) 100 ML IV ×2 (06:50→22:14)
[2025-08-19] MEDS: 0.9% Saline Lock 10 ML Syringe IV ×2 (06:54→22:10)
--- NOTE | 2025-08-19 07:04 | NURSING ---
This AM, this nurse attempted to draw labs off port. First vial for labs drawn without issue, but second vial would not fill. Port flushed well but then not able to get blood return. Nurse supervisor type bar and segment contacted and also attempted but was unable to get blood return. Nurse supervisor type bar and segment deaccessed the port and reaccessed with new kit. Port flushed well and had good blood return.
[2025-08-19 07:12] LABS: Hematocrit 24.0 % (40-54); Hemoglobin 7.6 g/dL (13.0-16.5); Immature Granulocytes Count 0.040 X10^3/uL (0.0-0.0); Mean Corp Hgb Conc 31.7 g/dL (32-36); Mean Corpuscular Volume 100.8 fL (80-94); Mean Platelet Vol. 9.0 fl (6.2-12.0); NRBC Flagged by Analyzer 0 % (0-5); Platelet Count 357 K/mm3 (150-450); RBC Distribution Width CV 16.8 % (11.6-14.6); RBC Distribution Width SD 60.3 fl (35.1-43.9); Red Blood Count 2.38 M/mm3 (4.6-6.2); White Blood Count 7.3 K/mm3 (4.4-11.0)
[2025-08-19 07:32] LABS: AST(SGOT) 38 U/L (<=37); Alanine Aminotransfer ALT/SGPT 21 U/L (<=46); Albumin, Serum 2.3 g/dL (3.4-4.8); Alkaline Phosphatase 74 U/L (40-129); Anion Gap 7 (5-15); BUN 21 mg/dL (4-19); BUN/Creat Ratio 43.9 RATIO (10-20); Bilirubin, Direct 0.18 mg/dL (0.00-0.30); Calcium,Total 8.2 mg/dL (7.6-11.0); Carbon Dioxide 24.0 mmol/L (21.0-32.0); Chloride 104 mmol/L (98-108); Estimated Creatinine Clearance 76.78 ml/min (50-250); Globulin 3.7 g/dL (2.2-4.2); Glucose 110 mg/dL (70-99); Potassium 4.4 mmol/L (3.3-5.1)
[2025-08-19] MEDS: morphine (oral solution) 10MG/0.5ML Syringe 2 MG SL/PO (07:47)
--- NOTE | 2025-08-19 08:27 | NURSING ---
Addendum entered by Adriana Headley 08/19/25 10:24: Spoke with greenhouse manager, they will be able to do transfusion on acute side later today. Type and cross drawn from port. Original Note: Order for 2 units of blood, order faxed to infusion center. Called to see about scheduling, they will take a look and call back.
--- NOTE | 2025-08-19 09:15 | PCM.PN.SRG ---
Subjective Subjective Doing well overall Working with physical therapy today in the transitional care unit (working on upper body strength) Reiterated to the patient and his need for high-protein diet and high-protein intake in the setting of protein malnutrition Objective Data Objective Data Vital Signs: Vital Signs Temp Pulse Resp BP Pulse Ox O2 Del Method 97.9 F 76 17 132/72 H 100 Room Air 08/18/25 13:59 08/18/25 13:59 08/18/25 13:59 08/18/25 13:59 08/18/25 13:59 08/18/25 13:59 Oxygen Delivery Method Room Air Weight: 150 lb Body Mass Index (BMI) 21.5 Intake & Output: Intake and Output for Last 24 Hours 08/17/25 08/18/25 08/19/25 23:59 23:59 23:59 Intake Total 180 / 180 164 / 164 Output Total 500 / 500 1200 / 1200 Balance -320 / -320 -1036 / -1036 Lab / Micro Data 08/19/25 05:55 08/19/25 06:45 Labs: Laboratory Results - last 24 hr 08/19/25 05:55: WBC 7.3, RBC 2.38 L, Hgb 7.6 L, Hct 24.0 L, MCV 100.8 H, MCH 31.9, MCHC 31.7 L, RDW Std Deviation 60.3 H, RDW Coeff of Juvencio 16.8 H, Plt Count 357, MPV 9.0, Immature Gran % (Auto) 0.600, Neut % (Auto) 49.3, Lymph % (Auto) 26.5, [place] % (Auto) 11.4 H, Eos % (Auto) 10.7 H, Baso % (Auto) 1.5 H, Absolute Neuts (auto) 3.6, Absolute Lymphs (auto) 1.93, Nucleated RBC % 0, ESR 24 H 08/19/25 06:45: Sodium 135, Potassium 4.4, Chloride 104, Carbon Dioxide 24.0, Anion Gap 7, BUN 21 H, Creatinine 0.47 L, Estim Creat Clear Calc 76.78, Est GFR (MDRD) Non-Af 108, BUN/Creatinine Ratio 43.9 H, Glucose 110 H, Calcium 8.2, Total Bilirubin 0.36, Direct Bilirubin 0.18, AST 38, ALT 21, Alkaline Phosphatase 74, Total Protein 6.0, Albumin 2.3 L, Globulin 3.7 Physical Exam Narrative VACs holding suction on bilateral lower extremities. Serous fluid in the wound vacs No bleeding Legs and heels/feet are appropriately offloaded with the pressure offloading bed but also the pressure offloading boots Const alert and oriented x3 Assessment & Plan Assessment/Plan (1) Ankle osteomyelitis, right: QUALIFIERS: Osteomyelitis type: other chronic Qualified Code(s): M86.671 - Other chronic osteomyelitis, right ankle and foot (2) Pressure ulcer of right ankle, stage 4: (3) Pressure ulcer of left ankle, stage 4: PLAN: Plan Continue broad-spectrum antibiotics per infectious disease Continue pressure offloading Continue wound VAC on both ankles until wound VAC change on 24 August 2025 (this coming Sunday) Patient happy with the plan
[2025-08-19] MEDS: Tuberculin,Purif.prot.deriv. 50 TU/ML Vial 0.1 ML ID (09:20)
[2025-08-19] MEDS: Senna/Docusate Sodium 1 Tablet PO ×2 (09:21→21:08)
[2025-08-19] MEDS: Aspirin E.C. 81 MG Tablet PO (09:21)
--- NOTE | 2025-08-19 11:25 | MDS.RN ---
MDS Entry Tracker complete, Pain assessed.
--- NOTE | 2025-08-19 11:41 | NURSING ---
Installation Manager Note; Activity Asset: Abril Renteria prefers in room activities w/family over group. He has a tv if he choses to watch it and will read the paper. His family will be with him daily and bring in items he may need or want. His [place] environmental services director will visits as well. Staff will remind him of weekly activities and respect his right to say no.
--- NOTE | 2025-08-19 13:06 | NURSING ---
pt off unit via bed to [id number] for blood tx, report given to EMILY Tamayo
--- NOTE | 2025-08-19 13:24 | CASEMGMT ---
Social Work SW met with pt and pt's and completed initial assessment. Pt confirms code status as full code. Pt states he has completed advance directives and SW requested from that documents be brought in for scanning into the medical record. SW explained [facility] Medicare insurance and that continued stay is not guranteed with each review. Pt has been paraplegic for many years. Pt's home is handicap accessible and pt utilizes a wheelchair at baseline and has been independent. In September, pt was diagnosed with cancer and has been receiving chemotherapy threatments throughout the year. Pt has become increasingly weak as a result and now pt's provides assist with ADLs and IADLs. Pt has IV ATB that will run through 09/22 and wound vacs on ankles. Pt goal is to return home with his at time of discharge. SW will continue to follow for DC planning. HANNA Hardy
--- NOTE | 2025-08-19 13:35 | PCM.PN.ID ---
Physical Exam Narrative Feeling ok, now in TCU, no fever, no n/v/d. Const alert and no apparent distress General Appearance: cooperative Resp normal air movement and clear to auscultation bilaterally Cardio regular rate and regular rhythm GI soft to palpation, non-tender and non-distended Skin Skin Narrative: wound vac in place ID ID: Route of nutrition/ use of supplements: [] Nutritional Intake: [] IV Site: [] Callahan Catheter: [] Assessment & Plan Assessment/Plan (1) Ankle osteomyelitis, right: QUALIFIERS: Osteomyelitis type: other chronic Qualified Code(s): M86.671 - Other chronic osteomyelitis, right ankle and foot PLAN: Wound cx with enterobacter, MSSL, enterococcus, PsA, corynebacter. 05/2025 wound cx with E faecalis, AcB, and anaerobes. Reports amoxicillin allergy is years ago, had uti two weeks after completing course of amox. Initial surgery 08/14/25. Cont on 6 weeks meropenem, stop date 09/22/25 with weekly labs. Will follow, thank you
--- NOTE | 2025-08-19 15:09 | CHAPLAIN ---
Type of Pastoral Visit _x__ Initial Visit ___ Follow-up Visit ___ On-call Visit ___ General Patient Visit ___ Spiritual Assessment ___ Family Conference ___ Bereavement ___ Rapid Response ___ Code Blue ___ Other (describe below) Pastoral Care Referral From _x__ Patient ___ Family ___ Nurse ___ Physician ___ Lead Security Officer ___ Marine Propulsion Technician ___ Other (describe below) Sacrament/Intervention _x__ Active listening ___ Anointing ___ Confucianist ___ Bereavement ___ Communion ___ Jazmin exploration ___ ___ Life review _x__ Prayer ___ Reconciliation ___ Sacrament of Sick _x_ Supportive presence ___ Wedding ___ Other (describe below) Pastoral Comments pt was moved to [facility] for a blood transfusion and he was found there; spouse is with him; pt is resting but awakens to entrance of the deer farmer into room; pt acknowledges concern about his health; spouse says that they are being hopeful that he will make improvements; pt is a bit tearful when asked about his ability to handle this and if he would like to have prayer; pt welcomes prayer and affirms jazmin in God
[2025-08-19] MEDS: 0.9% Normal Saline (250mL Bag) 250 ML 15 ML IV (22:13)
[2025-08-20] MEDS: 0.9% Saline Lock 10 ML Syringe IV ×2 (05:17→22:46)
[2025-08-20] MEDS: Meropenem 1 GM in 0.9% Normal Saline (100mL MB+) 100 ML IV ×3 (05:20→22:59)
[2025-08-20 05:30] LABS: Albumin, Serum 2.5 g/dL (3.4-4.8)
[2025-08-20] MEDS: Lactobacillis Acidophilus 1 CAP PO ×3 (05:51→22:46)
[2025-08-20] MEDS: Aspirin E.C. 81 MG Tablet PO (08:20)
--- NOTE | 2025-08-20 10:15 | NURSING ---
Wound VAC to Left ankle alarming and saying there is a blockage. Wound Vac tubing appeared to be clogged by the trac pad. Trac pad removed and replaced. Wound Vac restarted and noted to be working. Will continue to monitor.
[2025-08-20 14:59] VITALS: BP 157/68; PULSE 92; RESP 15; TEMP 36.4; O2SAT 95
--- NOTE | 2025-08-20 18:45 | NURSING ---
Wound Vac noted to be only at 75mm hg and no drainage noted in canister since changing this AM. Wound Vac reinforced and New track pad applied. Changed position of Trac pad and Wound Vac now at 125mmhg. Will continue to monitor.
[2025-08-20 23:00] VITALS: RESP 16
[2025-08-21] MEDS: Lactobacillis Acidophilus 1 CAP PO ×3 (06:52→22:14)
[2025-08-21] MEDS: 0.9% Normal Saline (250mL Bag) 250 ML 15 ML IV (06:55)
[2025-08-21] MEDS: Meropenem 1 GM in 0.9% Normal Saline (100mL MB+) 100 ML IV ×3 (07:00→22:27)
[2025-08-21] MEDS: 0.9% Saline Lock 10 ML Syringe IV ×2 (07:00→14:33)
--- NOTE | 2025-08-21 07:42 | PCM.PN.DRR ---
Documented by User: Bridger Downing 08/21/25 08:20 TCU RX Drug Regimen Review Subjective/Objective Subjective/Objective Subjective: 75 year old male hospitalized for bilateral ankle pressure ulcers, right ankle osteomyelitis, PAD, underwent debridement, Integra placement, Wound VAC's bilateral ankles, PAD right lower extremity stented, complicated by acute blood loss anemia, liver cancer, admitted to TCU with debility, here for rehabilitation, strengthening, wound care, intravenous antibiotics, prior to discharge home with . Objective: Allergies amoxicillin Allergy (Verified 08/05/25 09:28) UTI Current Medications Generic Name Dose Route Start Last Admin Trade Name Freq PRN Reason Stop Dose Admin Acetaminophen 1,000 mg 08/18/25 19:44 08/20/25 23:07 Acetaminophen 500 Mg Tablet PO 1,000 mg Q6H PRN PRN Administration Pain Score 1-3 Aspirin 81 mg 08/19/25 08:00 08/20/25 08:20 Aspirin E.C. 81 Mg Tablet PO 81 mg BREAKFAST VINCENZO Administration Bisacodyl 10 mg 08/18/25 14:52 Bisacodyl 10 Mg Suppository RC DAILY PRN PRN Constipation Clopidogrel Bisulfate 75 mg 08/19/25 10:00 08/20/25 08:20 Clopidogrel Bisulfate 75 Mg Tablet PO 75 mg DAILY VINCENZO Administration Enoxaparin Sodium 40 mg 08/19/25 10:00 08/20/25 08:20 Enoxaparin 40 Mg/0.4 Ml Syringe SC 40 mg DAILY VINCENZO Administration Sodium Chloride 250 mls @ 15 mls/hr 08/18/25 14:16 08/21/25 06:55 IV 15 mls/hr .[id number] PRN Administration Saline Flush Meropenem 1 gm/ Sodium 100 mls @ 33 mls/hr 08/18/25 22:00 08/21/25 07:00 Chloride IV 09/22/25 22:01 33 mls/hr Q8 VINCENZO Administration Sodium Chloride 250 mls @ 15 mls/hr 08/19/25 13:40 IV .[id number] PRN Saline Flush Sodium Chloride 250 mls @ 15 mls/hr 08/19/25 13:40 IV .[id number] PRN Additional IVPB Infusion Magnesium Citrate 300 ml 08/18/25 14:52 Magnesium Citrate 300 Ml PO X1 PRN Constipation Morphine Sulfate 2 mg 08/18/25 19:50 08/19/25 07:47 Morphine (Oral Solution) 10mg/0.5ml Syringe SL/PO 2 mg Q4H PRN PRN Administration Pain Score 6-10 or Pre PT/OT Senna/Docusate Sodium 1 tablet 08/18/25 22:00 08/20/25 22:46 Senna/Docusate Sodium 1 Tablet PO Not Given BID VINCENZO Sodium Chloride 10 - 40 ml 08/18/25 14:16 08/21/25 07:00 0.9% Saline Lock 10 Ml Syringe IV 10 ml UD PRN Administration Port-a-Cath (VAD)/R Port Flush Sodium Chloride 10 - 40 ml 08/19/25 13:40 0.9% Saline Lock 10 Ml Syringe IV UD PRN Port-a-Cath (VAD)/R Port Flush Sodium Chloride 10 - 40 ml 08/19/25 13:40 0.9 % Nacl (Sterile) Posiflush 10 Ml IV UD PRN Port access or dressing change Tramadol HCl 50 mg 08/18/25 15:00 08/20/25 23:07 Tramadol 50 Mg Tablet PO 50 mg Q6H PRN PRN Administration Pain Score 4-5 or Pre PT/OT Tuberculin PPD 0.1 ml 08/26/25 10:00 Tuberculin,Purif.Prot.Deriv. 50 Tu/Ml Vial ID 08/26/25 10:01 X1 ONE Problem List Neutropenia (Acute) Debility (Acute) Ankle osteomyelitis, right (Acute) Acute postoperative anemia due to expected blood loss (Acute) PAD (peripheral artery disease) (Acute) Pressure ulcer of right ankle, stage 4 (Acute) Pressure ulcer of left ankle, stage 4 (Acute) Liver cancer (Acute) Paraplegia following spinal cord injury (Chronic) Vital Signs Temp Pulse Resp BP Pulse Ox O2 Del Method O2 Flow Rate 97.6 F L 92 16 157/68 H 95 Room Air 2 08/20/25 14:59 08/20/25 14:59 08/20/25 23:00 08/20/25 14:59 08/20/25 14:59 08/20/25 23:00 08/19/25 12:29 Oxygen Flow Rate (L/min) 2 Oxygen Delivery Method Room Air Weight: 68.039 kg Body Mass Index (BMI) 21.5 Sodium 135 mmol/L (133-145) 08/19/25 06:45 Potassium 4.4 mmol/L (3.3-5.1) 08/19/25 06:45 Chloride 104 mmol/L (98-108) 08/19/25 06:45 Carbon Dioxide 24.0 mmol/L (21.0-32.0) 08/19/25 06:45 Anion Gap 7 (5-15) 08/19/25 06:45 BUN 21 mg/dL (4-19) H 08/19/25 06:45 Creatinine 0.47 mg/dL (0.70-1.20) L 08/19/25 06:45 Est GFR (MDRD) Non-Af 108 (>60) 08/19/25 06:45 BUN/Creatinine Ratio 43.9 RATIO (10-20) H 08/19/25 06:45 Glucose 110 mg/dL (70-99) H 08/19/25 06:45 Assessment/Plan: 1. Pain - Tylenol 1000mg PO Q6H PRN pain (1-3) (2 administrations total, 1 per day), Tramadol 50mg PO Q6H PRN pain (4-5) (1 dose administered at this time), Morphine 2mg PO/SL Q4H PRN pain (6-10) (2 doses administered at this time) averaging 1 PRN opioid daily. Monitor pain scores before/after prn administration for response, PRN pain medication usage, symptoms of pain/resident distress and ability to participate in therapy. Last AST/ALT: 38/21. Check LFTs if resident develops symptoms of hepatoxicity. Consider monitoring LFTs if patient using > 3 gm/day of acetaminophen for prolonged period. Do not exceed 4000 mg in 24 hours. Monitor for constipation, respiratory depression (current RR range: 15-18), falls and sedation/delirium ([place]). 2. Bowel - senna/colace 1 tablet PO BID, Magnesium citrate 300mL PO x 1 PRN constipation (Resident has not used any prn doses at this time), Dulcolax 10mg DE daily PRN constipation (Resident has not used any prn doses at this time). Last document bowel movement: 08/19/25. Monitor for usage of prn medications, abdominal pain, frequency of bowel movements, diarrhea. Recommend holding bowel regimen if resident develops diarrhea. 3. DVT prophylaxis - Lovenox 40mg SC daily. Monitor for symptoms of VTE (new onset leg pain, swelling, erythema, SOB, chest pain, hypoxia) and bleeding. 4. PAD s/p RLE stent - Aspirin 81mg PO daily, Plavix 75mg PO daily. Monitor for chest pain, shortness of breath, exercise tolerance, BP (range since admission = 112/44 - 157/68). Monitor for GI upset, symptoms of bleeding (including melena, hemoptysis, hematuria, epistaxis, new-onset headache), and hemoglobin (last Hgb = 7.6 (08/19/25)). Monitor for symptoms of bleeding (including melena, hemoptysis, hematuria, epistaxis, new-onset headache), for allergic reactions and platelets if clinically indicated (can rarely cause TTP). 5. Nutrition - Ensure Plus 120mL PO 4x/day. Please monitor ability to tolerate feedings. 6. GI prophylaxis - Lactobacillus 1 capsule PO TID. Please monitor for diarrhea, indigestion, and gas. 7. Right ankle osteomyelitis - Meropenem 1gm IV Q8H, consult Dr. Anton to follow and length of treatment (stop date 09/22/25). Please monitor for headache, nausea, and development of a rash. Stop date entered for meropenem. 8. Bilateral ankle wounds - s/p debridement, s/p integra, s/p wound VACs, consult Dr. Mac, consult wound nurse. Please monitor for pain/redness around affected area and signs/symptoms of worsening/non-healing wounds. 9. Liver cancer - f/u Dr. Haynes. Assessment/Plan for indications treated with psychotropic medications: -Resident is not prescribed scheduled or prn psychotropic medications at the time of this drug regimen review. Medical chart and medication regimen reviewed. The following medication irregularities or issues were identified: - No recommendations for resident at this time. Date Date of Note: 08/21/25 Documented by User: Dr. Jose Thompson MD 08/21/25 08:01 TCU RX Drug Regimen Review Provider Comments Provider responsibility Provider Comments to Recommendations by Pharmacy Agree
[2025-08-21 09:18] VITALS: BP 150/52; PULSE 61; RESP 16; TEMP 36; O2SAT 99
--- NOTE | 2025-08-21 09:19 | ST.MBS ---
Modified Barium Swallow Patient Information Study Date: 08/21/25 Study Time: 09:30 Direct Billable Minutes: 85 Total Minutes procedure & reportin Diagnosis: Debility R53.81; Neutropenia D70.9 Referring Physician: Jose Thompson Chi Reason for Referral: Assess swallow function, assess risk for aspiration, and determine recommendations for least restrictive diet textures and compensatory strategies to improve swallowing safety. Medical History: Patient is a 75 year old male with below past medical history hospitalized for bilateral ankle pressure ulcers, right ankle osteomyelitis, PAD, underwent debridement, Integra placement, Wound VAC's bilateral ankles, PAD right lower extremity stented, complicated by acute blood loss anemia, liver cancer, admitted to TCU with debility, here for rehabilitation, strengthening, wound care, intravenous antibiotics, prior to discharge home with . He was admitted with orders for dysphagia evaluation d/t history and reported difficulty. During BSE 08/19/2025, pt had sensation of foods sticking he would attempt to clear (noise similar to hocking up phlegm, then re-swallowing) w/ most trials regardless of texture. Swallowing slightly improved w/ moistened textures and alternating bites/sips 1:1. He was recommended for regular textures (moistened) / thin liquids and MBSS to further assess concern for swallow dysfunction. PMHx: Open wound History of steroid therapy Low iron Difficulty swallowing History of edema Hx of peripheral vascular disease Wears hearing aid Wears glasses Cancer Uses wheelchair Functional voiding disorder Non-smoker Paraplegic immobility syndrome Liver masses Candidiasis Pruritus, unspecified Sx: History of vascular access device H/O skin graft Hx of appendectomy Hx of tonsillectomy PLOF: Patient and report increased difficulty with swallowing for past 6 months since initiation of chemo. It has progressively worsened. He was on a regular diet with thin liquids. Current Diet Ordered: Regular textures / Thin liquids Mental Status: WNL Respiratory Status: Oxygenating on Room Air Penetration-Aspiration Scale Penetration-Aspiration Scale: OBJECTIVE ASSESSMENT OF SWALLOW FUNCTION (QUANTITATIVE ? PER TRIAL): PENETRATION / ASPIRATION SCALE (ALEXANDRE): 1 = does not enter airway 2 = enters airway/above vocal folds/ejected 3 = enters airway/above vocal folds/not ejected 4 = enters airway/contacts vocal folds/ejected 5 = enters airway/contacts vocal folds/not ejected 6 = enters airway/below vocal folds/ejected 7 = enters airway/below vocal folds/not ejected despite effort 8 = enters airway/below vocal folds/no effort VIDEOFLOROSCOPIC SCALE SCORE (ALEXANDRE): Grade I = aspiration of material that has penetrated into the laryngeal vestibule, intact cough reflex Grade II = aspiration < 10 % of the bolus, intact cough reflex Grade III = aspiration of < 10 % of the bolus, reduced cough reflex or aspiration of > 10 % of the bolus, intact cough reflex Grade IV = aspiration of > 10 % of the bolus, reduced cough reflex Penetration-Aspiration Scale Score Thin Liquid via teaspoon: Result: 7= enters airways/below vocal folds/not ejected despite effort Comment: Weak, delayed cough Thin Liquid via teaspoon Trial 2: Result: 1= does not enter airway Thin Liquid via large single sip: cup: Result: 2= enter airway/above vocal folds/ejected Thin Liquid via small single sip: cup Effortful swallow: Result: 2= enter airway/above vocal folds/ejected [place] Thick Liquid via large single sip: cup: Result: 2= enter airway/above vocal folds/ejected Pudding via teaspoon: Result: 1= does not enter airway 1/2 Cookie: Result: 1= does not enter airway Thin Liquid via single sip: straw Effortful swallow: Result: 2= enter airway/above vocal folds/ejected Thin Liquid via single sip: straw Effortful swallow Trial 2: Result: 1= does not enter airway Thin Liquid via single sip: straw Effortful swallow Trial 3: Result: 2= enter airway/above vocal folds/ejected Comment: Esophageal screen - No retention of barium in the esophagus. Oral Phase Labial Seal: Interlabial escape, no progression to anterior lip Tongue Control During Bolus Hold: Posterior escape of less than half of bolus Bolus Preparation/Mastication: Timely and efficient chewing and mashing Bolus Transport/Lingual Motion: Delayed initiation of tongue motion Oral Residue: Residue collection on oral structures (piecemeal deglutition w/ larger sips) Pharyngeal Phase Initiation of Pharyngeal Swallow: Bolus head in pyriforms Soft Palate Elevation: Trace column of contrast/air between soft palate and pharyngeal wall Laryngeal Elevation: Partial superior movement thyroid cart/partial apprx aryt-epig petiole Anterior Hyoid Excursion: Partial anterior movement Epiglottic Movement: Partial inversion Laryngeal Vestibule Closure at Height of Swallow: Incomplete; narrow column of air/contrast in laryngeal vestibule Pharyngeal Stripping Wave: Present - diminished Pharyngoesophageal Segment Opening: Parital distension and partial duration; parital obstruction of flow Tongue Base Retraction: Wide column of contrast between tongue base & post. pharyngeal wall Pharyngeal Residue: Majority of contrast within or on pharyngeal structures Esophageal Phase Esophageal Clearance: Complete clearance Diagnosis/Impression Diagnosis: Mild-moderate oropharyngeal dysphagia R13.12 MBS Impressions: The oral phase is primarily marked by... -Decreased bolus control w/ premature posterior loss of <1/2 of thin liquids to the pyriform sinuses prior to swallow onset. -Delayed tongue motion for A-P transport. -Mild oral residue w/ larger liquid sips, which patient independently cleared w/ a second swallow. The pharyngeal phase is primarily marked by... -Decreased pharyngeal motility due to moderately decreased TB retraction, moderately decreased pharyngeal stripping wave, and mildly decreased UES opening/duration of opening w/ moderate pharyngeal residues, most noticeable w/ pudding and cookie. Multiple swallows effectively cleared pudding, but cookie required a liquid wash. -Decreased airway closure during the swallow due to decreased anterior hyoid excursion, laryngeal elevation, and epiglottic inversion. Aspiration of thin liquids by tsp w/ weak, delayed reflexive cough. Effortful, multiple swallows effectively decreased risk for aspiration w/ thin liquids. Recommendations Diet: Easy to Chew Textures and Thin Liquids Comment: Cough and re-swallow if sensing a tickle in throat. Frequent oral care. Crush medications in applesauce as needed. Compensatory Strategies: Small Bites, Small Sips, Sips by straw only, Slow Rate, Multiple Swallows (Multiple, Hard Swallows w/ food and drink), Alternate bites/solids and sips/liquids (1:1 ratio when consuming solids), Sitting upright and Remain sitting upright for 30 minutes after PO intake Supervision: Distant Supervision Recommend Repeat Modified Barium Swallow: TBD Need for Skilled Speech Therapy Services: Yes Comment: Continue per TCU dysphagia POC. Consider implementation of the following exercises: vocal adduction, Tamra, Effortful, CTAR, Chantal. Education Completed: 1. Described result of evaluation. (ALUMINUM HYDROXIDE PROCESS OPERATOR thoroughly reviewed results of MBSS w/ pt and his ), 2. Pt understands evaluation & agrees with goals and treatment plan., 4. Family/caregivers understand evaluation & agree w/ goals & tx plan., 5. Patient demonstrates recommended strategies., 6. Family/caregivers demonstrate recommended strategies. and 7. Pt requires further education on strategies & risks. Status Active ST Patient: Active Contact Information [facility] Speech Therapy:: Norma Valencia M.A. [facility]-ALUMINUM HYDROXIDE PROCESS OPERATOR Speech-Language Pathologist [address] [address] [email or web address] [phone]
[2025-08-21] MEDS: Aspirin E.C. 81 MG Tablet PO (09:20)
--- NOTE | 2025-08-21 09:24 | NURSING ---
staff assisting pt to WC for MBS at 0930, at side
--- NOTE | 2025-08-21 10:09 | NURSING ---
pt returned to floor.
--- NOTE | 2025-08-21 14:56 | NURSING ---
Addendum entered by Cat Merlos 08/21/25 19:44: 1 staple was noted imbedded in black foam on old dressing when removed. Original Note: pt called out, pt bleeding from RT foot around wound vac. wound vac dressing changed per order, pt continued to drip blood from lateral ankle ulcers during change. pt also bleeding from rectum, dr parmar notified, new order to DC lovenox, ultram & recheck HH. ultram discontinued d/t pt c/o it causing him to itch/hives. added to allergy list on chart.
[2025-08-21 16:00] VITALS: BP 142/48; PULSE 66; RESP 18; TEMP 36.2; O2SAT 96
[2025-08-21 16:45] VITALS: PULSE 66; RESP 17; O2SAT 96
[2025-08-21 16:52] LABS: Hematocrit 30.2 % (40-54); Hemoglobin 9.7 g/dL (13.0-16.5)
[2025-08-21] MEDS: morphine (oral solution) 10MG/0.5ML Syringe 2 MG SL/PO (19:38)
[2025-08-22] MEDS: Lactobacillis Acidophilus 1 CAP PO ×3 (05:48→21:31)
[2025-08-22] MEDS: Meropenem 1 GM in 0.9% Normal Saline (100mL MB+) 100 ML IV ×3 (05:55→21:36)
[2025-08-22] MEDS: 0.9% Normal Saline (250mL Bag) 250 ML 15 ML IV (05:55)
[2025-08-22] MEDS: Aspirin E.C. 81 MG Tablet PO (08:51)
--- NOTE | 2025-08-22 12:22 | NURSING ---
Dr. Mac notified that drainage was pooling under right wound vac. Per Dr. Mac will not be in today and okay to change wound vac. Wound Vac changed and pictures sent to Dr. Mac. No new orders at this time.
[2025-08-22 14:59] VITALS: BP 144/66; PULSE 83; RESP 16; TEMP 36.6; O2SAT 97
--- NOTE | 2025-08-22 17:09 | NURSING ---
Dr. Mac updated that right wound vac is pooling at the right lateral site picture sent secure message. Per Dr. Mac as long as its holding suction leave in place, apply ABDs and wrap lightly with madeline wrap.
[2025-08-22 18:47] VITALS: BP 142/85; PULSE 95; RESP 16; TEMP 36.6; O2SAT 96
[2025-08-22 20:00] VITALS: PULSE 80; RESP 16; O2SAT 97
[2025-08-22] MEDS: Senna/Docusate Sodium 1 Tablet PO (21:32)
[2025-08-22] MEDS: morphine (oral solution) 10MG/0.5ML Syringe 2 MG SL/PO (22:33)
--- NOTE | 2025-08-22 22:54 | NURSING ---
Patient noted with blood in stool, Dr. Thompson paged, Dr. Thompson updated via phone call, new orders: stool for occult blood, H&H tomorrow in AM, Hold ASA, Hold Plavix, orders verified by read back and acknowledged correct.
[2025-08-23] MEDS: morphine (oral solution) 10MG/0.5ML Syringe 2 MG SL/PO ×3 (03:50→23:58)
[2025-08-23] MEDS: Lactobacillis Acidophilus 1 CAP PO ×3 (05:26→20:54)
[2025-08-23] MEDS: 0.9% Saline Lock 10 ML Syringe IV ×2 (05:28→13:08)
[2025-08-23 05:35] LABS: Hematocrit 26.0 % (40-54); Hemoglobin 8.3 g/dL (13.0-16.5)
[2025-08-23] MEDS: Meropenem 1 GM in 0.9% Normal Saline (100mL MB+) 100 ML IV ×3 (06:45→21:35)
--- NOTE | 2025-08-23 09:50 | PCM.PN.SRG ---
Subjective Subjective Doing well today. Reports good therapy in the TCU (working on upper body strength) Issue with right VAC but has been changed and is now working Objective Data Objective Data Vital Signs: Vital Signs Temp Pulse Resp BP Pulse Ox O2 Del Method O2 Flow Rate 97.9 F 80 16 142/85 H 97 Room Air 2 08/22/25 18:47 08/22/25 20:00 08/22/25 20:00 08/22/25 18:47 08/22/25 20:00 08/22/25 20:00 08/19/25 12:29 Oxygen Flow Rate (L/min) 2 Oxygen Delivery Method Room Air Weight: 150 lb 0.005 oz Body Mass Index (BMI) 21.5 Intake & Output: Intake and Output for Last 24 Hours 08/21/25 08/22/25 08/23/25 23:59 23:59 23:59 Intake Total 1030 / 1030 1132 / 1132 350 / 350 Output Total 2600 / 2600 900 / 900 800 / 800 Balance -1570 / -1570 232 / 232 -450 / -450 Lab / Micro Data 08/23/25 05:20 08/19/25 06:45 Labs: Laboratory Results - last 24 hr 08/23/25 05:20: Hgb 8.3 L, Hct 26.0 L Micro: Microbiology 08/22/25 22:29 Stool Stool Occult Blood (NAPOLEON) - Final Occult Blood Positive Physical Exam Narrative VACs holding suction on bilateral lower extremities. Serous fluid in the wound vacs No bleeding Legs and heels/feet are appropriately offloaded with the pressure offloading bed but also the pressure offloading boots Const alert and oriented x3 Assessment & Plan Assessment/Plan (1) Ankle osteomyelitis, right: QUALIFIERS: Osteomyelitis type: other chronic Qualified Code(s): M86.671 - Other chronic osteomyelitis, right ankle and foot (2) Pressure ulcer of right ankle, stage 4: (3) Pressure ulcer of left ankle, stage 4: PLAN: Plan Continue broad-spectrum antibiotics per infectious disease Continue pressure offloading Continue wound VAC on both ankles until wound VAC change on 24 August 2025 (Tomorrow) Anticipate 2-3 weeks of VAC and then skin grafting Patient happy with the plan
[2025-08-23] MEDS: 0.9% Normal Saline (250mL Bag) 250 ML 15 ML IV (13:07)
[2025-08-23 16:00] VITALS: BP 146/68; PULSE 80; RESP 16; TEMP 36.5; O2SAT 99
[2025-08-23 17:32] VITALS: BP 146/68; PULSE 80; RESP 15; TEMP 36.6; O2SAT 99
[2025-08-23] MEDS: Senna/Docusate Sodium 1 Tablet PO (20:54)
[2025-08-24] MEDS: Lactobacillis Acidophilus 1 CAP PO ×3 (05:15→22:15)
[2025-08-24] MEDS: 0.9% Saline Lock 10 ML Syringe IV ×2 (05:19→14:54)
[2025-08-24] MEDS: Meropenem 1 GM in 0.9% Normal Saline (100mL MB+) 100 ML IV ×3 (05:19→22:15)
[2025-08-24 05:27] LABS: Hematocrit 25.9 % (40-54); Hemoglobin 8.1 g/dL (13.0-16.5)
--- NOTE | 2025-08-24 07:51 | NURSING ---
notified dr ledezma new consult
[2025-08-24 10:00] VITALS: BP 136/64; PULSE 74; RESP 18; TEMP 36.4; O2SAT 97
--- NOTE | 2025-08-24 12:46 | NURSING ---
Offered covid vaccine, VIS provided. Resident declines.
--- NOTE | 2025-08-24 14:30 | PCM.PN.SRG ---
Subjective Subjective Patient seen this afternoon with Radha wound RN, and family members at bedside. Over the weekend he developed bloody stool and was positive for occult blood in stool. His DAPT was held since Sunday. He reports to me that since his chemo he's had intermittent bloody stool, each episode lasting a few days before resolving. He didn't check if he had another episode of bloody stool today. Otherwise he says he's doing well. He's eating well. Objective Data Objective Data Vital Signs: Vital Signs Temp Pulse Resp BP Pulse Ox O2 Del Method O2 Flow Rate 97.8 F 80 15 146/68 H 99 Room Air 2 08/23/25 17:32 08/23/25 17:32 08/23/25 17:32 08/23/25 17:32 08/23/25 17:32 08/23/25 17:32 08/19/25 12:29 Oxygen Flow Rate (L/min) 2 Oxygen Delivery Method Room Air Weight: 150 lb 0.005 oz Body Mass Index (BMI) 21.5 Intake & Output: Intake and Output for Last 24 Hours 08/22/25 08/23/25 08/24/25 23:59 23:59 23:59 Intake Total 1132 / 1132 1660 / 1660 802 / 802 Output Total 900 / 900 1400 / 1400 800 / 800 Balance 232 / 232 260 / 260 2 / 2 Lab / Micro Data Attestation: I reviewed the patient's lab results. 08/24/25 05:16 08/19/25 06:45 Labs: Laboratory Results - last 24 hr 08/24/25 05:16: Hgb 8.1 L, Hct 25.9 L Micro: Microbiology 08/22/25 22:29 Stool Stool Occult Blood (NAPOLEON) - Final Occult Blood Positive Physical Exam Narrative Afebrile/VSS right groin site C/D/I. No hematoma Left leg with new wound VAC dressing placed already. Skin is pink and dry. Right leg Integra intact bilaterally, wound is clean. New wound VAC dressing applied with good seal bilaterally No leg edema. Assessment & Plan Assessment/Plan (1) Ankle osteomyelitis, right: QUALIFIERS: Osteomyelitis type: other chronic Qualified Code(s): M86.671 - Other chronic osteomyelitis, right ankle and foot (2) Pressure ulcer of left ankle, stage 4: (3) Pressure ulcer of right ankle, stage 4: PLAN: Plan Currently on Meropenem per infectious disease Continue pressure offloading Continue wound VAC. Changed today 08/24. Discussed bloody stool history and stable hgb results with Dr. Thompson and DAPT will be resume starting today. Continue to monitor closely. Anticipate 2-3 weeks of VAC and then skin grafting Patient happy with the plan Charges/Coding Procedures Integumentary 111xxx-113xx: [id number] Global Visit
--- NOTE | 2025-08-24 16:03 | WOUNDNOTE ---
wound photo: left lateral foot/ankle
--- NOTE | 2025-08-24 16:04 | WOUNDNOTE ---
wound photo: right medial ankle
--- NOTE | 2025-08-24 16:04 | WOUNDNOTE ---
wound photo: right lateral foot/ankle
[2025-08-24] MEDS: morphine (oral solution) 10MG/0.5ML Syringe 2 MG SL/PO ×2 (17:24→22:23)
[2025-08-25] MEDS: morphine (oral solution) 10MG/0.5ML Syringe 2 MG SL/PO ×2 (03:56→22:00)
[2025-08-25] MEDS: Meropenem 1 GM in 0.9% Normal Saline (100mL MB+) 100 ML IV ×3 (06:07→21:42)
[2025-08-25] MEDS: Lactobacillis Acidophilus 1 CAP PO ×3 (06:07→21:47)
[2025-08-25] MEDS: 0.9% Saline Lock 10 ML Syringe IV ×3 (06:41→21:40)
[2025-08-25 07:00] LABS: Hematocrit 27.1 % (40-54); Hemoglobin 8.6 g/dL (13.0-16.5)
[2025-08-25] MEDS: Aspirin E.C. 81 MG Tablet PO (09:12)
[2025-08-25 09:19] VITALS: BP 104/62; PULSE 96; RESP 16; TEMP 36.5; O2SAT 95
--- NOTE | 2025-08-25 09:21 | NURSING ---
Addendum entered by Raisa Reyna 08/25/25 11:27: Dr. Thompson updated on KUB. N.O. received for SSE. Order read back. Original Note: PT C/O of abdomen pain on the RUQ Dr. Thompson updated N.O. for KUB. Order read back.
--- NOTE | 2025-08-25 09:50 | RAD_ITS ---
PROCEDURE: ABDOMEN SINGLE VIEW 08/25/2025 REASON FOR EXAM: ABDOMEN PAIN TECHNIQUE: Procedure Code: RADABD Modality: DX Procedure: ABDOMEN SINGLE VIEW COMPARISON: No recent comparison examinations are available for review. FINDINGS: Dense enteric contents is noted within the sigmoid and descending colonic segments with large stool ball projecting over the rectum.. Vascular stent projects over the right superior pelvis. Degenerative and postsurgical changes of the spine without acute fracture or subluxation. Incompletely characterized catheter terminus within the superior cavoatrial junction. RAD/Abdomen Single View IMPRESSION: Moderate to severe colonic stool burden which can be seen with constipation. N o evidence of bowel obstruction. Reading Location: [id number]
--- NOTE | 2025-08-25 10:50 | PCM.PN.SRG ---
Subjective Subjective Patient seen with nursing and and Dr. Mac. He reports feeling bloated and some abdominal cramping. Denies nausea, vomiting. He did have small BM today. Objective Data Objective Data Vital Signs: Vital Signs Temp Pulse Resp BP Pulse Ox O2 Del Method O2 Flow Rate 97.7 F L 96 16 104/62 95 Room Air 2 08/25/25 09:19 08/25/25 09:19 08/25/25 09:19 08/25/25 09:19 08/25/25 09:19 08/25/25 09:19 08/19/25 12:29 Oxygen Flow Rate (L/min) 2 Oxygen Delivery Method Room Air Weight: 150 lb 0.005 oz Body Mass Index (BMI) 21.5 Intake & Output: Intake and Output for Last 24 Hours 08/23/25 08/24/25 08/25/25 23:59 23:59 23:59 Intake Total 1660 / 1660 1022 / 1022 200 / 200 Output Total 1400 / 1400 800 / 800 900 / 900 Balance 260 / 260 222 / 222 -700 / -700 Lab / Micro Data Attestation: I reviewed the patient's lab results. 08/25/25 06:45 08/19/25 06:45 Labs: Laboratory Results - last 24 hr 08/25/25 06:45: Hgb 8.6 L, Hct 27.1 L Micro: Microbiology 08/22/25 22:29 Stool Stool Occult Blood (NAPOLEON) - Final Occult Blood Positive Radiography Diagnostic Testing: Radiology Impression KUB X-Ray 08/25/25 09:50 IMPRESSION: Moderate to severe colonic stool burden which can be seen with constipation. No evidence of bowel obstruction. Reading Location: [id number] Physical Exam Narrative Afebrile/VSS per Dr. Mac's exam abdomen is distended, some tenderness with deep palpation diffusely Abdomen is not ridged Wound VAC with good seal bilaterally. Assessment & Plan Assessment/Plan (1) Ankle osteomyelitis, right: QUALIFIERS: Osteomyelitis type: other chronic Qualified Code(s): M86.671 - Other chronic osteomyelitis, right ankle and foot (2) Pressure ulcer of left ankle, stage 4: (3) Pressure ulcer of right ankle, stage 4: PLAN: Plan Currently on Meropenem per infectious disease Continue pressure offloading Continue wound VAC. Changed today 08/24. Plan for skin grafting Sunday 09/02. DAPT resumed yesterday, Hgb stable. Abdominal distension- KUB shows large stool burden. Awaiting radiology read. RN directed to advance bowel regimen. Anticipate 2-3 weeks of VAC and then skin grafting Patient happy with the plan Charges/Coding Procedures Integumentary 111xxx-113xx: [id number] Global Visit
[2025-08-25] MEDS: Polyethylene Glycol 3350 17 GM PACKET PO (12:03)
--- NOTE | 2025-08-25 14:24 | CASEMGMT ---
Social Work BIMS(15) and PHQ-2(0) completed at this time. CORRINA David
--- NOTE | 2025-08-25 15:32 | NURSING ---
Pt refusing enema at this time wants to wait and see if Miralx will work. Had a Large Bowel movement earlier this shift.
[2025-08-25 16:58] VITALS: BMI 21.4
[2025-08-25] MEDS: Senna/Docusate Sodium 1 Tablet 2 TABLET PO (21:41)
[2025-08-25] MEDS: 0.9% Normal Saline (250mL Bag) 250 ML 15 ML IV (21:42)
[2025-08-25 21:50] VITALS: PULSE 76; RESP 16; O2SAT 99
--- NOTE | 2025-08-25 23:06 | NURSING ---
Patient refusing SSE ordered by Dr. Thompson. Patient educated on the complications that may occur d/t impaction of stool and severe constipation. Patient reports he has had one large bowel movement earlier today. Patient agreed to take VINCENZO stool softeners at HS. Patient has another XL bowel movement this shift. This nurse continued to encourage use of stool softeners to prevent constipation, especially with concurrent use of narcotics. Patient verbalized understanding. This nurse also educated patient to increase his fluid intake to decrease risk of constipation. Call light in reach, patient denies further assistance and has no questions/concerns at this time.
[2025-08-26 05:13] LABS: Hematocrit 26.0 % (40-54); Hemoglobin 8.2 g/dL (13.0-16.5); Immature Granulocytes Count 0.030 X10^3/uL (0.0-0.0); Mean Corp Hgb Conc 31.5 g/dL (32-36); Mean Corpuscular Volume 97.0 fL (80-94); Mean Platelet Vol. 8.7 fl (6.2-12.0); NRBC Flagged by Analyzer 0 % (0-5); Platelet Count 321 K/mm3 (150-450); RBC Distribution Width CV 17.7 % (11.6-14.6); RBC Distribution Width SD 62.8 fl (35.1-43.9); Red Blood Count 2.68 M/mm3 (4.6-6.2); White Blood Count 8.7 K/mm3 (4.4-11.0)
[2025-08-26] MEDS: Meropenem 1 GM in 0.9% Normal Saline (100mL MB+) 100 ML IV ×3 (05:19→21:57)
[2025-08-26] MEDS: 0.9% Saline Lock 10 ML Syringe IV (05:23)
[2025-08-26] MEDS: Lactobacillis Acidophilus 1 CAP PO ×3 (05:24→21:56)
[2025-08-26 05:35] LABS: Albumin, Serum 2.4 g/dL (3.4-4.8); Anion Gap 6 (5-15); BUN 17 mg/dL (4-19); BUN/Creat Ratio 37.5 RATIO (10-20); Calcium,Total 7.7 mg/dL (7.6-11.0); Carbon Dioxide 23.9 mmol/L (21.0-32.0); Chloride 107 mmol/L (98-108); Estimated Creatinine Clearance 76.68 ml/min (50-250); Glucose 79 mg/dL (70-99); Potassium 4.4 mmol/L (3.3-5.1)
[2025-08-26] MEDS: Aspirin E.C. 81 MG Tablet PO (09:09)
[2025-08-26] MEDS: Senna/Docusate Sodium 1 Tablet 2 TABLET PO (09:09)
[2025-08-26] MEDS: Tuberculin,Purif.prot.deriv. 50 TU/ML Vial 0.1 ML ID (09:12)
[2025-08-26 09:24] VITALS: BP 137/64; PULSE 79; RESP 15; TEMP 36.4; O2SAT 94
--- NOTE | 2025-08-26 10:40 | NURSING ---
Pt's performed rectal stimulation per this is what she does at home to help felicitate bowel movements. Small amount of blood noted in toilet and on brief.
--- NOTE | 2025-08-26 10:41 | CASEMGMT ---
Social Work IDT met with patient and for care plan meeting. Discussed patient's progress in PT/OT/ST/SN/RDN. Educated to [facility] insurance with NRD 09/02 and continued stay is not guaranteed with each review. Provided pt/family with written communication of insurance process and copay coverage during stay. Pt's goal is to return home with a PLOF. Pt does have wounds, wound vac, IV ATB > 09/22; skin graph scheduled for 09/02. SW will continue to follow to assist with DC planning. Halie Parson APPEALS WRITER TEACHING PASTOR
[2025-08-27] MEDS: morphine (oral solution) 10MG/0.5ML Syringe 2 MG SL/PO ×3 (01:20→21:52)
[2025-08-27] MEDS: 0.9% Saline Lock 10 ML Syringe IV ×4 (01:28→20:33)
[2025-08-27] MEDS: Meropenem 1 GM in 0.9% Normal Saline (100mL MB+) 100 ML IV ×3 (05:33→20:32)
[2025-08-27] MEDS: Lactobacillis Acidophilus 1 CAP PO ×3 (05:33→20:26)
[2025-08-27 05:50] LABS: Hematocrit 25.8 % (40-54); Hemoglobin 8.2 g/dL (13.0-16.5)
[2025-08-27] MEDS: Aspirin E.C. 81 MG Tablet PO (08:24)
[2025-08-27 08:33] VITALS: BP 160/84; PULSE 79; RESP 16; TEMP 36.7; O2SAT 93
[2025-08-28] MEDS: Meropenem 1 GM in 0.9% Normal Saline (100mL MB+) 100 ML IV ×3 (05:50→22:22)
[2025-08-28] MEDS: 0.9% Saline Lock 10 ML Syringe IV ×3 (05:50→21:58)
[2025-08-28 06:02] LABS: Hematocrit 25.8 % (40-54); Hemoglobin 8.3 g/dL (13.0-16.5)
[2025-08-28 09:59] VITALS: BP 107/71; PULSE 89; RESP 18; TEMP 36.4; O2SAT 100
[2025-08-28] MEDS: Aspirin E.C. 81 MG Tablet PO (10:03)
--- NOTE | 2025-08-28 10:12 | CON.PCM.GI_ITS ---
HPI Consult Data Date of Consult: 08/28/25 HPI Narrative Reason for Consultation: Anemia HPI Narrative: TERI RAHMAN, is a 75-year-old male admitted on 08/11/25 for bilateral ankle wound debridement and irrigating wound VAC placement. * 08/11/25: Underwent initial procedure. Awoke from anesthesia without issues and transferred to the surgical floor with pressure-offloading air mattress. Hospital Medicine consulted for medical comanagement. * 08/12/25: Received 2 units of pRBC for decreased hemoglobin (Hgb) from 8.3 to 6.6. Remained stable post-transfusion. * 08/13/25: Underwent planned right lower extremity angiogram with Dr. Menjivar, resulting in an external iliac artery angioplasty and right common iliac artery stent placement. Started on dual antiplatelet therapy (DAPT) with Aspirin and Plavix (Clopidogrel). * 08/14/25 - 08/16/25: Stable. * 08/17/25: Underwent planned wound VAC removal with repeat debridement and replacement of wound VAC. * Current Concern: Hemoglobin has been trending down (specific values not provided in this section) in the setting of dual antiplatelet therapy. Gastroenterology (GI) was consulted for endoscopic evaluation of the GI tract. * Nutrition: Nutrition labs showed low albumin. Nutrition consulted. Patient started on Angel/Ensure supplements and encouraged increased protein intake.] [facility] Medical History Open wound History of steroid therapy Low iron Difficulty swallowing History of edema Hx of peripheral vascular disease Wears hearing aid Wears glasses Cancer Uses wheelchair Functional voiding disorder Non-smoker Paraplegic immobility syndrome Liver masses Candidiasis Pruritus, unspecified Home Medications ?Medication ?Instructions ?Recorded ?Last Taken ?Type Liquid probiotic 5 ml PO DAILY 10/23/2408/10 History meropenem 1 gram intravenous 1 g IV Q8 wound infection 37 days 08/17/25 Unknown Rx solution #111 ea L.acidophil,salivari-Bifido 1 cap PO TID probiotic #21 caps 08/18/25 Unknown Rx bifidum-Strep thermoph 175 mg capsule aspirin 81 mg tablet,delayed 81 mg PO BREAKFAST blood thinner 08/18/25 Unknown Rx release #30 tabs clopidogrel 75 mg tablet 75 mg PO DAILY antiplatelet #30 08/18/25 Unknown Rx tabs enoxaparin 40 mg/0.4 mL 40 mg (0.4 mL) subcut DAILY blood 08/18/25 Unknown Rx subcutaneous syringe thinner 7 days #2.8 mL food supplemt, lactose-reduced 120 ml PO 4X/DAY supple ment 7 days 08/18/25 Unknown Rx 0.08 gram-1.5 kcal/mL oral liquid #5,688 mL (Ensure Plus High Protein) tramadol 50 mg tablet 50 mg PO Q6H PRN PRN Pain Sc ore 08/18/25 Unknown Rx 4-10 7 days #28 tabs Allergy/AdvReac Type Severity Reaction Status Date / Time amoxicillin Allergy UTI Verified 08/05/25 09:28 tramadol (From Ultram) AdvReac Intermediate itching/hiv Verified 08/21/25 15:00 es Family History Father Cancer Brother Cancer Surgical History History of vascular access device H/O skin graft Hx of appendectomy Hx of tonsillectomy Social History (Updated 08/18/25 @ 19:[address] Jose Thompson MD) household members: spouse Smoking Status: Never smoker alcohol intake: never substance use type: does not use Lab / Micro Data 08/28/25 05:45 08/26/25 05:00 Labs: Laboratory Results - last 24 hr 08/28/25 05:45: Hgb 8.3 L, Hct 25.8 L Assessment & Plan Assessment/Plan (1) Anemia: PLAN: 75-year-old male with multiple active medical issues currently managed by Hospital Medicine, Surgery, and Consulting services. * Bilateral Ankle Wounds/Chronic Wounds: Status post serial debridements and wound VAC placement (latest on 08/17/25). * Plan: Continue wound care and follow surgical recommendations. Optimize nutrition for healing. * Anemia/Decreasing Hemoglobin: Likely multifactorial: * Acute Blood Loss: Received 2 units of pRBC on 08/12/25 for Hgb 6.6. * Occult/Chronic GI Bleeding: Hemoglobin has been trending down in the setting of dual antiplatelet therapy (Aspirin/Plavix). * Plan: GI consult accepted for endoscopic evaluation to rule out an upper/lower GI source of bleeding secondary to DAPT. Monitor Hgb/Hct closely. Continue DAPT as per Vascular Surgery/Cardiology recommendations. * Peripheral Artery Disease (PAD): Status post right common iliac artery stenting and external iliac angioplasty on 08/13/25. * Plan: Continue dual antiplatelet therapy (Aspirin + Plavix). Monitor groin access site. * Plan * Anemia: EGD and possible Colonoscopy to evaluate for GI bleeding source. S trict I/O monitoring. Monitor CBC daily. Transfuse pRBC for Hgb $<7.0$ or $<8.0$ if symptomatic or in the setting of active bleeding/PAD. * Cardiac/Vascular: Continue Aspirin and Plavix (DAPT). Monitor for signs of bleeding. Continue cardiac monitoring. Charges/Coding Visit Charges Inpatient E&M: 96433 [facility] Init L2
[2025-08-28] MEDS: Lactobacillis Acidophilus 1 CAP PO ×2 (14:04→21:59)
[2025-08-28 16:00] VITALS: BP 138/52; RESP 17; TEMP 36.3; O2SAT 100
[2025-08-28] MEDS: morphine (oral solution) 10MG/0.5ML Syringe 2 MG SL/PO (21:57)
[2025-08-28] MEDS: 0.9% Normal Saline (250mL Bag) 250 ML 15 ML IV (22:07)
[2025-08-28 22:24] VITALS: PULSE 80; RESP 16; O2SAT 99
[2025-08-29 01:50] VITALS: PULSE 90; RESP 16; O2SAT 98
[2025-08-29] MEDS: 0.9% Saline Lock 10 ML Syringe IV ×2 (04:44→22:22)
[2025-08-29] MEDS: morphine (oral solution) 10MG/0.5ML Syringe 2 MG SL/PO ×3 (04:44→22:43)
[2025-08-29] MEDS: Lactobacillis Acidophilus 1 CAP PO ×3 (04:57→21:25)
[2025-08-29] MEDS: Meropenem 1 GM in 0.9% Normal Saline (100mL MB+) 100 ML IV ×3 (04:58→22:21)
[2025-08-29 08:17] VITALS: BP 147/64; PULSE 74; RESP 18; TEMP 36.5; O2SAT 98
[2025-08-29] MEDS: Aspirin E.C. 81 MG Tablet PO (08:19)
[2025-08-29] MEDS: 0.9 % NaCl (Sterile) Posiflush 10 mL IV (14:35)
[2025-08-29] MEDS: 0.9% Normal Saline (250mL Bag) 250 ML 15 ML IV (22:21)
[2025-08-30] MEDS: Meropenem 1 GM in 0.9% Normal Saline (100mL MB+) 100 ML IV ×3 (05:55→21:25)
[2025-08-30] MEDS: 0.9% Saline Lock 10 ML Syringe IV ×2 (05:55→21:26)
[2025-08-30] MEDS: Lactobacillis Acidophilus 1 CAP PO ×3 (06:00→21:25)
[2025-08-30] MEDS: Aspirin E.C. 81 MG Tablet PO (10:02)
[2025-08-30] MEDS: morphine (oral solution) 10MG/0.5ML Syringe 2 MG SL/PO (21:26)
[2025-08-30] MEDS: 0.9% Normal Saline (250mL Bag) 250 ML 15 ML IV (21:27)
[2025-08-31] MEDS: Lactobacillis Acidophilus 1 CAP PO ×3 (05:42→21:02)
[2025-08-31] MEDS: Meropenem 1 GM in 0.9% Normal Saline (100mL MB+) 100 ML IV ×3 (05:42→21:10)
[2025-08-31] MEDS: 0.9% Saline Lock 10 ML Syringe IV ×4 (05:42→21:01)
[2025-08-31] MEDS: morphine (oral solution) 10MG/0.5ML Syringe 2 MG SL/PO ×3 (05:42→22:26)
--- NOTE | 2025-08-31 05:51 | NURSING ---
Pt states he had a medium bowel movement yesterday. Refusing mag citrate at this time. Per charting and STRAINER TENDER report, pt last BM was 08/27/25. Education provided to pt r/t bowel regimen and importance of preventing constipation. Pt declines mag citrate at this time, written communication left for Dr. Thompson
[2025-08-31] MEDS: Aspirin E.C. 81 MG Tablet PO (08:14)
[2025-08-31 08:19] VITALS: BP 164/98; PULSE 94; RESP 15; TEMP 36.4; O2SAT 97
--- NOTE | 2025-08-31 08:30 | RAD_ITS ---
PROCEDURE: ABDOMEN SINGLE VIEW 08/31/2025 REASON FOR EXAM: CONSTIPATION. TECHNIQUE: Procedure Code: RADABD Modality: DX Procedure: ABDOMEN SINGLE VIEW COMPARISON: 08/25/2025. FINDINGS: A large amount of stool is noted within the large and small bowel, similar to the previous study. No pathologically dilated loops of bowel to suggest a bowel obstruction. Severe degenerative changes are noted within both hips. Nonvisualization of the left femoral neck likely represents chronic destructive/erosive changes, unchanged from the previous study. Bridging of the visualized lower lumbar vertebra are noted, unchanged. RAD/Abdomen Single View IMPRESSION: As above. Reading Location: [id number]
[2025-08-31] MEDS: Polyethylene Glycol 3350 17 GM PACKET PO (09:23)
[2025-08-31] MEDS: Senna/Docusate Sodium 1 Tablet 2 TABLET PO ×2 (09:23→21:07)
--- NOTE | 2025-08-31 09:28 | MDS.RN ---
Information for the MDS was obtained from review of the clinical record, interview of resident, staff, and direct observation of resident?s care.
--- NOTE | 2025-08-31 15:35 | WOUNDNOTE ---
wound photo: left lateral ankle/foot
--- NOTE | 2025-08-31 15:36 | WOUNDNOTE ---
wound photo: right medial ankle/foot
--- NOTE | 2025-08-31 15:36 | WOUNDNOTE ---
wound photo: right lateral ankle/foot
--- NOTE | 2025-08-31 15:46 | PCM.PN.SRG ---
Subjective Subjective Patient seen with Dr. Mac with family members at bedside. His wound VAC was taken down to assess Integra and wounds. Objective Data Objective Data Vital Signs: Vital Signs Temp Pulse Resp BP Pulse Ox O2 Del Method O2 Flow Rate 97.5 F L 94 15 164/98 H 97 Room Air 2 08/31/25 08:19 08/31/25 08:19 08/31/25 08:19 08/31/25 08:19 08/31/25 08:19 08/31/25 08:19 08/19/25 12:29 Oxygen Flow Rate (L/min) 2 Oxygen Delivery Method Room Air Weight: 149 lb 12.8 oz Body Mass Index (BMI) 21.4 Intake & Output: Intake and Output for Last 24 Hours 08/29/25 08/30/25 08/31/25 23:59 23:59 23:59 Intake Total 1392 / 1392 1390 / 1390 1038.25 / 1038.25 Balance 1392 / 1392 1390 / 1390 1038.25 / 1038.25 Lab / Micro Data Attestation: I reviewed the patient's lab results. 08/28/25 05:45 08/26/25 05:00 Micro: Microbiology 08/22/25 22:29 Stool Stool Occult Blood (NAPOLEON) - Final Occult Blood Positive Radiography Diagnostic Testing: Radiology Impression KUB X-Ray 08/31/25 08:30 IMPRESSION: As above. Reading Location: [id number] Physical Exam Narrative Hypertensive, afebrile Sitting up, wound bed under Integra looks clean, moist. Edges of of dried integra edges were trimmed. No leg edema. Foot is pink and well perfused. Assessment & Plan Assessment/Plan (1) Pressure ulcer of right ankle, stage 4: (2) Pressure ulcer of left ankle, stage 4: (3) Pressure ulcer of left foot, stage 1: (4) Pressure ulcer of right foot, stage 2: (5) Ankle osteomyelitis, right: QUALIFIERS: Osteomyelitis type: other chronic Qualified Code(s): M86.671 - Other chronic osteomyelitis, right ankle and foot PLAN: Plan Currently on Meropenem per infectious disease Continue pressure offloading Continue wound VAC therapy. Changed today 08/31 Plan for skin grafting next Wednesday 12/17. Continue DAPT per vascular surgery Patient happy with the plan Charges/Coding Procedures Integumentary [id number]: [id number] Global Visit
[2025-08-31 21:00] VITALS: PULSE 67; RESP 16; O2SAT 99
[2025-08-31] MEDS: 0.9% Normal Saline (250mL Bag) 250 ML 15 ML IV (21:05)
--- NOTE | 2025-08-31 23:44 | NURSING ---
Patient has had several large bowel movements today. Patient refusing SSE. This nurse provided education to patient about the complications of severe constipation. Patient verbalized understanding and continues to refuse SSE. This nurse highly encouraged patient to take stool softeners if he is going to refuse SSE. This nurse spoke with patient and about the potential complications if he continues to refuse stool softeners, such as potentially getting a bowel obstruction. Patient states, well I don't want that. encouraged him to take stool softeners at HS. Senna administered at HS. Patient refused miralax for tonight.
[2025-09-01 01:35] VITALS: PULSE 82; RESP 16; O2SAT 98
[2025-09-01] MEDS: morphine (oral solution) 10MG/0.5ML Syringe 2 MG SL/PO ×2 (02:37→21:59)
[2025-09-01] MEDS: 0.9% Saline Lock 10 ML Syringe IV ×3 (06:26→22:10)
[2025-09-01] MEDS: Lactobacillis Acidophilus 1 CAP PO ×3 (06:27→21:59)
[2025-09-01] MEDS: Meropenem 1 GM in 0.9% Normal Saline (100mL MB+) 100 ML IV ×3 (06:28→22:10)
--- NOTE | 2025-09-01 06:51 | PCM.PN.SRG ---
Subjective Subjective Sleeping comfortably in bed today Objective Data Objective Data Vital Signs: Vital Signs Temp Pulse Resp BP Pulse Ox O2 Del Method O2 Flow Rate 97.5 F L 82 16 164/98 H 98 Room Air 2 08/31/25 08:19 09/01/25 01:35 09/01/25 01:35 08/31/25 08:19 09/01/25 01:35 09/01/25 01:35 08/19/25 12:29 Oxygen Flow Rate (L/min) 2 Oxygen Delivery Method Room Air Weight: 149 lb 12.8 oz Body Mass Index (BMI) 21.4 Intake & Output: Intake and Output for Last 24 Hours 08/30/25 08/31/25 09/01/25 23:59 23:59 23:59 Intake Total 1390 / 1390 1358.25 / 1358.25 100 / 100 Balance 1390 / 1390 1358.25 / 1358.25 100 / 100 Lab / Micro Data 08/28/25 05:45 08/26/25 05:00 Micro: Microbiology 08/22/25 22:29 Stool Stool Occult Blood (NAPOLEON) - Final Occult Blood Positive Radiography Diagnostic Testing: Radiology Impression KUB X-Ray 08/31/25 08:30 IMPRESSION: As above. Reading Location: [id number] Physical Exam Narrative Wound VAC dressings are holding suction over the bilateral ankles He is appropriately offloaded with the pressure offloading boots and the air mattress Assessment & Plan Assessment/Plan (1) Pressure ulcer of left ankle, stage 4: (2) Pressure ulcer of right ankle, stage 4: PLAN: Plan Continue wound VAC therapy for 1 week (changed wound VAC on Sunday, 07 September 2025) Plan for skin grafting on 09 September 2020
[2025-09-01] MEDS: Aspirin E.C. 81 MG Tablet PO (08:21)
[2025-09-01] MEDS: Polyethylene Glycol 3350 17 GM PACKET PO ×2 (08:24→21:59)
[2025-09-01] MEDS: Senna/Docusate Sodium 1 Tablet 2 TABLET PO (08:24)
[2025-09-01 08:30] VITALS: BP 159/60; PULSE 82; RESP 16; TEMP 36.4; O2SAT 93
--- NOTE | 2025-09-01 14:46 | NURSING ---
Pt returned from Ortho appt No new orders. Acme removed.
[2025-09-01 15:03] VITALS: BMI 23.6
[2025-09-02] MEDS: Lactobacillis Acidophilus 1 CAP PO ×3 (06:20→22:16)
[2025-09-02] MEDS: 0.9% Normal Saline (250mL Bag) 250 ML 15 ML IV (06:20)
[2025-09-02] MEDS: 0.9% Saline Lock 10 ML Syringe IV ×2 (06:20→22:16)
[2025-09-02] MEDS: Meropenem 1 GM in 0.9% Normal Saline (100mL MB+) 100 ML IV ×3 (06:21→22:35)
[2025-09-02 08:52] VITALS: BP 106/44; PULSE 72; RESP 16; TEMP 36.3; O2SAT 97
[2025-09-02] MEDS: Aspirin E.C. 81 MG Tablet PO (08:56)
[2025-09-02] MEDS: Polyethylene Glycol 3350 17 GM PACKET PO ×2 (09:00→22:21)
[2025-09-02 10:51] LABS: Hematocrit 27.2 % (40-54); Hemoglobin 9.0 g/dL (13.0-16.5); Immature Granulocytes Count 0.030 X10^3/uL (0.0-0.0); Mean Corp Hgb Conc 33.1 g/dL (32-36); Mean Corpuscular Volume 94.8 fL (80-94); Mean Platelet Vol. 8.7 fl (6.2-12.0); NRBC Flagged by Analyzer 0 % (0-5); Platelet Count 253 K/mm3 (150-450); RBC Distribution Width CV 16.7 % (11.6-14.6); RBC Distribution Width SD 58.8 fl (35.1-43.9); Red Blood Count 2.87 M/mm3 (4.6-6.2); White Blood Count 8.5 K/mm3 (4.4-11.0)
[2025-09-02 11:13] LABS: Anion Gap 8 (5-15); BUN 25 mg/dL (4-19); BUN/Creat Ratio 48.9 RATIO (10-20); Calcium,Total 8.4 mg/dL (7.6-11.0); Carbon Dioxide 24.9 mmol/L (21.0-32.0); Chloride 105 mmol/L (98-108); Estimated Creatinine Clearance 75.35 ml/min (50-250); Glucose 96 mg/dL (70-99); Potassium 4.3 mmol/L (3.3-5.1)
--- NOTE | 2025-09-02 14:38 | CHAPLAIN ---
Type of Pastoral Visit ___ Initial Visit ___ Follow-up Visit ___ On-call Visit ___ General Patient Visit ___ Spiritual Assessment ___ Family Conference ___ Bereavement ___ Rapid Response ___ Code Blue ___ Other (describe below) Pastoral Care Referral From ___ Patient ___ Family ___ Nurse ___ Physician ___ Gasoline Dragline Operator ___ Acetylene Cylinder Packing Mixer ___ Other (describe below) Sacrament/Intervention ___ Active listening ___ Anointing ___ Oriental Orthodox ___ Bereavement ___ Communion ___ Jazmin exploration ___ ___ Life review ___ Prayer ___ Reconciliation ___ Sacrament of Sick ___ Supportive presence ___ Wedding ___ Other (describe below) Pastoral Comments patient was soundly sleeping but his was in the room and able to give updates and any new information about physical care and plans for the future; offer of support will continue as desired or available
[2025-09-02 22:15] VITALS: RESP 16
[2025-09-02] MEDS: morphine (oral solution) 10MG/0.5ML Syringe 2 MG SL/PO (22:15)
[2025-09-03] MEDS: 0.9% Saline Lock 10 ML Syringe IV ×2 (05:00→09:29)
[2025-09-03] MEDS: Lactobacillis Acidophilus 1 CAP PO ×3 (05:01→20:56)
[2025-09-03] MEDS: morphine (oral solution) 10MG/0.5ML Syringe 2 MG SL/PO ×2 (05:08→21:09)
[2025-09-03] MEDS: 0.9% Normal Saline (250mL Bag) 250 ML 15 ML IV (05:09)
[2025-09-03] MEDS: Meropenem 1 GM in 0.9% Normal Saline (100mL MB+) 100 ML IV ×3 (05:14→20:55)
[2025-09-03 09:22] VITALS: BP 103/44; PULSE 75; RESP 17; TEMP 36.4; O2SAT 99
[2025-09-03] MEDS: Aspirin E.C. 81 MG Tablet PO (09:28)
[2025-09-03] MEDS: Polyethylene Glycol 3350 17 GM PACKET PO ×2 (09:32→20:58)
[2025-09-03 11:22] VITALS: RESP 16; O2SAT 98
--- NOTE | 2025-09-03 17:40 | US_ITS ---
PROCEDURE: US ABDOMEN LIMITED 09/03/2025 REASON FOR EXAM: LT UPPER ABDOMINAL MASS TECHNIQUE: Procedure Code: USABDL Modality: US Procedure: ABDOMEN LIMITED COMPARISON: Correlation with abdominal CT dated 10/15/2024. FINDINGS: Heterogeneous lobulated overall hypoechoic mass lesion in the subcutaneous soft tissues of the anterior left paramidline abdominal wall at the area of palpable clinical concern, measuring a proximally 2.3 x 2.1 x 2 cm. Internal echogenic irregular septations but no shadowing calcification is seen. Internal areas of vascularity are demonstrated on color Doppler. US/Abdomen Limited IMPRESSION: Heterogeneous lobulated mass lesion with internal vascularity in the anterior l eft paramidline abdominal wall subcutaneous soft tissues as described above, most likely a metastasis. Reading Location: [id number]
--- NOTE | 2025-09-03 17:45 | NURSING ---
dr parmar updated on pt hard mass to LUQ abdominal area just below rib cage, new order soft tissue ultrasound. pt & updated
[2025-09-04] MEDS: Lactobacillis Acidophilus 1 CAP PO ×3 (06:08→21:16)
[2025-09-04] MEDS: Meropenem 1 GM in 0.9% Normal Saline (100mL MB+) 100 ML IV ×3 (06:13→21:16)
[2025-09-04] MEDS: 0.9% Saline Lock 10 ML Syringe IV ×2 (06:21→14:58)
[2025-09-04] MEDS: morphine (oral solution) 10MG/0.5ML Syringe 2 MG SL/PO ×2 (06:21→18:15)
[2025-09-04] MEDS: Polyethylene Glycol 3350 17 GM PACKET PO (09:08)
[2025-09-04] MEDS: Aspirin E.C. 81 MG Tablet PO (09:08)
[2025-09-04 09:13] VITALS: BP 126/52; PULSE 77; RESP 16; TEMP 36.4; O2SAT 98
[2025-09-04] MEDS: 0.9% Normal Saline (250mL Bag) 250 ML 15 ML IV (15:01)
[2025-09-05] MEDS: Meropenem 1 GM in 0.9% Normal Saline (100mL MB+) 100 ML IV ×3 (06:08→21:28)
[2025-09-05] MEDS: Aspirin E.C. 81 MG Tablet PO (09:36)
[2025-09-05 10:20] VITALS: BP 107/58; PULSE 78; RESP 16; TEMP 36.2; O2SAT 96
[2025-09-05] MEDS: Lactobacillis Acidophilus 1 CAP PO ×2 (13:27→21:27)
[2025-09-05] MEDS: 0.9% Saline Lock 10 ML Syringe IV (21:26)
[2025-09-05] MEDS: 0.9% Normal Saline (250mL Bag) 250 ML 15 ML IV (21:27)
[2025-09-05] MEDS: morphine (oral solution) 10MG/0.5ML Syringe 2 MG SL/PO (23:21)
[2025-09-06] MEDS: Meropenem 1 GM in 0.9% Normal Saline (100mL MB+) 100 ML IV ×3 (05:33→21:29)
[2025-09-06] MEDS: 0.9% Saline Lock 10 ML Syringe IV ×3 (05:34→21:19)
[2025-09-06] MEDS: Lactobacillis Acidophilus 1 CAP PO ×3 (05:40→21:19)
[2025-09-06 08:40] VITALS: BP 136/60; PULSE 78; RESP 16; TEMP 36.2; O2SAT 100
[2025-09-06] MEDS: Aspirin E.C. 81 MG Tablet PO (08:42)
[2025-09-06 21:31] VITALS: PULSE 67; RESP 16; O2SAT 99
[2025-09-07] MEDS: morphine (oral solution) 10MG/0.5ML Syringe 2 MG SL/PO ×2 (00:28→21:43)
[2025-09-07] MEDS: 0.9% Saline Lock 10 ML Syringe IV ×2 (05:30→21:33)
[2025-09-07] MEDS: Meropenem 1 GM in 0.9% Normal Saline (100mL MB+) 100 ML IV ×3 (05:43→21:37)
[2025-09-07] MEDS: Lactobacillis Acidophilus 1 CAP PO ×3 (05:43→21:31)
[2025-09-07] MEDS: 0.9% Normal Saline (250mL Bag) 250 ML 15 ML IV (05:43)
[2025-09-07 09:10] VITALS: BP 121/63; PULSE 72; RESP 18; TEMP 36.4; O2SAT 99
[2025-09-07] MEDS: Aspirin E.C. 81 MG Tablet PO (09:16)
--- NOTE | 2025-09-07 10:49 | RAD_ITS ---
PROCEDURE: CHEST PA AND LATERAL 09/07/2025 REASON FOR EXAM: COUGHING UP BLOOD TECHNIQUE: Procedure Code: RADCXR Modality: DX Procedure: Three-view PA and lateral chest COMPARISON: AP chest of 02/25/2025. RAD/Chest PA and Lateral IMPRESSION: Right subclavian central venous catheter with port appear unchanged. Generalized osteopenia is again seen. Postsurgical changes of the lower thoracic spine again noted. No interval osseous change is evident. Lungs are moderately to moderately severely hyperinflated with increased inters titial markings, consistent with significant chronic lung disease. No acute pneumonic process is identified. No pleural effusion or pneumothorax is seen. The cardiomediastinal silhouette is stable, without evidence of cardiomegaly. Reading Location: [place] [id number]
[2025-09-07 12:56] LABS: Hematocrit 29.7 % (40-54); Hemoglobin 9.4 g/dL (13.0-16.5); Immature Granulocytes Count 0.030 X10^3/uL (0.0-0.0); Mean Corp Hgb Conc 31.6 g/dL (32-36); Mean Corpuscular Volume 95.8 fL (80-94); Mean Platelet Vol. 9.0 fl (6.2-12.0); NRBC Flagged by Analyzer 0 % (0-5); Platelet Count 218 K/mm3 (150-450); RBC Distribution Width CV 16.4 % (11.6-14.6); RBC Distribution Width SD 57.6 fl (35.1-43.9); Red Blood Count 3.10 M/mm3 (4.6-6.2); White Blood Count 8.7 K/mm3 (4.4-11.0)
--- NOTE | 2025-09-07 13:10 | NURSING ---
Speech therapy alerted this nurse to patient coughing and brining up blood with his sputum. Nurse entered room and noted pt sitting in wheelchair. Blood was noted on tissues in trash can with clear sputum. VSS. No temp noted. Paged Dr. Thompson. New orders for chest Xray, redraw labs, send sputum culture, and hold Plavix and aspirin. Pt notified and agreeable. In wheel chair with call light in reach.
[2025-09-07 13:34] LABS: AST(SGOT) 104 U/L (<=37); Alanine Aminotransfer ALT/SGPT 98 U/L (<=46); Albumin, Serum 3.0 g/dL (3.4-4.8); Alkaline Phosphatase 151 U/L (40-129); Anion Gap 7 (5-15); BUN 24 mg/dL (4-19); BUN/Creat Ratio 46.2 RATIO (10-20); Calcium,Total 8.7 mg/dL (7.6-11.0); Carbon Dioxide 23.2 mmol/L (21.0-32.0); Chloride 106 mmol/L (98-108); Estimated Creatinine Clearance 72.00 ml/min (50-250); Globulin 4.5 g/dL (2.2-4.2); Glucose 109 mg/dL (70-99); Potassium 4.0 mmol/L (3.3-5.1)
--- NOTE | 2025-09-07 14:16 | PCM.PN.SRG ---
Subjective Subjective Patient seen this morning with Dr. Mac and Radha crisostomo RN and at bedside. He had an abdominal ultrasound for a mass that's palpable on his abdomen. He states it's been present for about 4months and states his oncologist is aware of the lesion. Patient also reports he's been coughing some blood up as well as itching since yesterday. Objective Data Objective Data Vital Signs: Vital Signs Temp Pulse Resp BP Pulse Ox O2 Del Method O2 Flow Rate 97.6 F L 72 18 121/63 H 99 Room Air 2 09/07/25 09:10 09/07/25 09:10 09/07/25 09:10 09/07/25 09:10 09/07/25 09:10 09/07/25 09:10 08/19/25 12:29 Oxygen Flow Rate (L/min) 2 Oxygen Delivery Method Room Air Weight: 147 lb 3.2 oz Body Mass Index (BMI) 23.6 Intake & Output: Intake and Output for Last 24 Hours 09/05/25 09/06/25 09/07/25 23:59 23:59 23:59 Intake Total 1253 / 1253 1270 / 1270 800 / 800 Balance 1253 / 1253 1270 / 1270 800 / 800 Lab / Micro Data Attestation: I reviewed the patient's lab results. 09/07/25 12:40 09/07/25 12:40 Labs: Laboratory Results - last 24 hr 09/07/25 12:40: WBC 8.7, RBC 3.10 L, Hgb 9.4 L, Hct 29.7 L, MCV 95.8 H, MCH 30.3, MCHC 31.6 L, RDW Std Deviation 57.6 H, RDW Coeff of Juvenc[place] 16.4 H, Plt Count 218, MPV 9.0, Immature Gran % (Auto) 0.300, Neut % (Auto) 58.1, Lymph % (Auto) 14.9 L, [place] % (Auto) 8.6, Eos % (Auto) 17.2 H, Baso % (Auto) 0.9, Absolute Neuts (auto) 5.1, Absolute Lymphs (auto) 1.30, Nucleated RBC % 0, Sodium 136, Potassium 4.0, Chloride 106, Carbon Dioxide 23.2, Anion Gap 7, BUN 24 H, Creatinine 0.52 L, Estim Creat Clear Calc 72.00, Est GFR (MDRD) Non-Af 105, BUN/Creatinine Ratio 46.2 H, Glucose 109 H, Calcium 8.7, Total Bilirubin 0.57, AST 104 H, ALT 98 H, Alkaline Phosphatase 151 H, Total Protein 7.5, Albumin 3.0 L, Globulin 4.5 H, Albumin/Globulin Ratio 0.7 L Micro: Microbiology 09/06/25 05:34 Nasal Secretion SARS-CoV-2 Antigen (Rapid) - Final 09/04/25 06:00 Nasal Secretion SARS-CoV-2 Antigen (Rapid) - Final 08/22/25 22:29 Stool Stool Occult Blood (NAPOLEON) - Final Occult Blood Positive Radiography Diagnostic Testing: Radiology Impression Chest X-Ray 09/07/25 10:49 IMPRESSION: Right subclavian central venous catheter with port appear unchanged. Generalized osteopenia is again seen. Postsurgical changes of the lower thoracic spine again noted. No interval osseous change is evident. Lungs are moderately to moderately severely hyperinflated with increased interstitial markings, consistent with significant chronic lung disease. No acute pneumonic process is identified. No pleural effusion or pneumothorax is seen. The cardiomediastinal silhouette is stable, without evidence of cardiomegaly. Reading Location: [place] [id number] Physical Exam Narrative Afebrile/VSS, nontoxic appearing 3cm midline protrusion epigastric region wound VAC in place Multipodus boots in place Assessment & Plan Assessment/Plan (1) Pressure ulcer of left ankle, stage 4: (2) Pressure ulcer of right ankle, stage 4: PLAN: Plan Continue wound VAC therapy for 1 week, changed today. Liver enzymes are elevated with normal bilirubin levels likely secondary to Meropenem. Recommend monitoring per ID recommendations. Bloody sputum: He appears nontoxic, stable hgb, with normal vitals. Differential include irritation from endoscopy procedure, pneumonia, bronchitis, PE, lung cancer. CXR was negative for acute processes. His vitals have been stable and he appears nontoxic so lung infection, PE is lower on the differential. Recommend continual monitoring, discuss symptoms with Dr. Abraham and consider further imaging if further work up is indicated. Plan for skin grafting on 09 September 2025 Plan for 5 days of VAC therapy postoperatively tentatively. Charges/Coding Procedures Integumentary [id number]: [id number] Global Visit
--- NOTE | 2025-09-07 15:32 | WOUNDNOTE ---
wound photo: left lateral foot/ankle
[2025-09-08] MEDS: morphine (oral solution) 10MG/0.5ML Syringe 2 MG SL/PO ×2 (01:46→20:50)
[2025-09-08] MEDS: 0.9% Saline Lock 10 ML Syringe IV (05:56)
[2025-09-08] MEDS: Lactobacillis Acidophilus 1 CAP PO ×3 (05:56→20:52)
[2025-09-08] MEDS: Meropenem 1 GM in 0.9% Normal Saline (100mL MB+) 100 ML IV ×3 (06:01→21:19)
[2025-09-08 09:15] VITALS: BP 136/47; PULSE 70; RESP 17; TEMP 36.6; O2SAT 94
[2025-09-08 11:34] VITALS: BMI 23.7
--- NOTE | 2025-09-08 11:42 | NURSING ---
Phone call received rgarding pts surgery 09/09/25. NPO after midnight, hold AM medications. States will call in the morning for picker/puller time but to plan around 6:00 or 6:15 am. Pt and notified.
[2025-09-09 02:28] VITALS: BMI 23.7
[2025-09-09 05:01] VITALS: BP 107/51; PULSE 70; RESP 17; TEMP 36.9; O2SAT 98; BMI 23.7
[2025-09-09 05:56] LABS: Hematocrit 28.1 % (40-54); Hemoglobin 9.1 g/dL (13.0-16.5); Immature Granulocytes Count 0.040 X10^3/uL (0.0-0.0); Mean Corp Hgb Conc 32.4 g/dL (32-36); Mean Corpuscular Volume 95.9 fL (80-94); Mean Platelet Vol. 8.8 fl (6.2-12.0); NRBC Flagged by Analyzer 0 % (0-5); Platelet Count 213 K/mm3 (150-450); RBC Distribution Width CV 16.3 % (11.6-14.6); RBC Distribution Width SD 57.7 fl (35.1-43.9); Red Blood Count 2.93 M/mm3 (4.6-6.2); White Blood Count 8.6 K/mm3 (4.4-11.0)
[2025-09-09] MEDS: Meropenem 1 GM in 0.9% Normal Saline (100mL MB+) 100 ML IV ×3 (06:21→22:01)
[2025-09-09 06:49] LABS: Albumin, Serum 2.9 g/dL (3.4-4.8); Anion Gap 8 (5-15); BUN 26 mg/dL (4-19); BUN/Creat Ratio 44.2 RATIO (10-20); Calcium,Total 8.4 mg/dL (7.6-11.0); Carbon Dioxide 23.4 mmol/L (21.0-32.0); Chloride 105 mmol/L (98-108); Estimated Creatinine Clearance 72.00 ml/min (50-250); Glucose 86 mg/dL (70-99); Potassium 4.4 mmol/L (3.3-5.1)
--- NOTE | 2025-09-09 10:14 | NURSING ---
pt returned from surgery at this time, wound vac to bilat ankles, dressing to rt thigh donor site.
[2025-09-09 10:56] VITALS: BP 134/58; PULSE 78; RESP 16; TEMP 35.6; O2SAT 97
[2025-09-09] MEDS: 0.9% Normal Saline (1000mL) 1,000 ML 75 ML IV (11:03)
[2025-09-09 11:28] VITALS: RESP 16; O2SAT 98
[2025-09-09] MEDS: Lactobacillis Acidophilus 1 CAP PO ×2 (13:21→21:12)
[2025-09-09] MEDS: 0.9% Saline Lock 10 ML Syringe IV (22:01)
[2025-09-10] MEDS: 0.9% Saline Lock 10 ML Syringe IV ×2 (04:14→06:33)
[2025-09-10 04:33] LABS: Hematocrit 24.5 % (40-54); Hemoglobin 8.0 g/dL (13.0-16.5); Immature Granulocytes Count 0.020 X10^3/uL (0.0-0.0); Mean Corp Hgb Conc 32.7 g/dL (32-36); Mean Corpuscular Volume 95.7 fL (80-94); Mean Platelet Vol. 9.1 fl (6.2-12.0); NRBC Flagged by Analyzer 0 % (0-5); Platelet Count 204 K/mm3 (150-450); RBC Distribution Width CV 16.3 % (11.6-14.6); RBC Distribution Width SD 57.0 fl (35.1-43.9); Red Blood Count 2.56 M/mm3 (4.6-6.2); White Blood Count 7.6 K/mm3 (4.4-11.0)
[2025-09-10 05:27] LABS: Anion Gap 8 (5-15); BUN 27 mg/dL (4-19); BUN/Creat Ratio 47.6 RATIO (10-20); Calcium,Total 8.3 mg/dL (7.6-11.0); Carbon Dioxide 22.4 mmol/L (21.0-32.0); Chloride 105 mmol/L (98-108); Estimated Creatinine Clearance 72.00 ml/min (50-250); Glucose 92 mg/dL (70-99); Potassium 4.5 mmol/L (3.3-5.1)
[2025-09-10] MEDS: Lactobacillis Acidophilus 1 CAP PO ×3 (05:50→20:53)
[2025-09-10] MEDS: 0.9% Normal Saline (1000mL) 1,000 ML 75 ML IV ×2 (06:33→20:50)
[2025-09-10] MEDS: Meropenem 1 GM in 0.9% Normal Saline (100mL MB+) 100 ML IV ×3 (06:34→21:01)
[2025-09-10] MEDS: morphine (oral solution) 10MG/0.5ML Syringe 2 MG SL/PO ×4 (07:17→21:19)
[2025-09-10 08:51] VITALS: BP 134/64; PULSE 82; RESP 16; TEMP 36.4; O2SAT 99
[2025-09-10] MEDS: Aspirin E.C. 81 MG Tablet PO (08:56)
--- NOTE | 2025-09-10 10:24 | PCM.PN.ID ---
Physical Exam Narrative Feeling ok, doing well s/p procedure yesterday, pain controlled. No fever, no n/v/d. Const alert and no apparent distress General Appearance: cooperative Resp normal air movement and clear to auscultation bilaterally Cardio regular rate and regular rhythm GI soft to palpation, non-tender and non-distended Skin Skin Narrative: Bilateral lower legs with wound vacs in place ID ID: Route of nutrition/ use of supplements: [] Nutritional Intake: [] IV Site: [] Callahan Catheter: [] Assessment & Plan Assessment/Plan (1) Ankle osteomyelitis, right: QUALIFIERS: Osteomyelitis type: other chronic Qualified Code(s): M86.671 - Other chronic osteomyelitis, right ankle and foot PLAN: Wound cx with enterobacter, MSSL, enterococcus, PsA, corynebacter. 05/2025 wound cx with E faecalis, AcB, and anaerobes. Reports amoxicillin allergy is years ago, had uti two weeks after completing course of amox. Initial surgery 08/14/25. Now s/p bilat skin grafts placed 09/09/[address] Mac. Cont on 6 weeks meropenem, stop date 09/22/25 with weekly labs and picc removal at that time. Will follow prn
--- NOTE | 2025-09-10 16:53 | PN.SURG_ITS ---
Subjective Subjective Patient seen at TCU bedside with Dr. Mac and . He was sitting up in his chair with multipodus boots in place Objective Data Objective Data afebrile/VSS Wound VAC with good seal bilaterally No strikethrough bleeding on right thigh donor site Vital Signs: Vital Signs Temp Pulse Resp BP Pulse Ox O2 Del Method O2 Flow Rate 97.5 F L 82 16 134/64 H 99 Room Air 2 09/10/25 08:51 09/10/25 08:51 09/10/25 08:51 09/10/25 08:51 09/10/25 08:51 09/10/25 08:51 08/19/25 12:29 Oxygen Flow Rate (L/min) 2 Oxygen Delivery Method Room Air Weight: 147 lb 3.2 oz Body Mass Index (BMI) 23.7 Intake & Output: Intake and Output for Last 24 Hours 09/08/25 09/09/25 09/10/25 23:59 23:59 23:59 Intake Total 1020 / 1020 1340 / 1340 1540 / 1540 Balance 1020 / 1020 1340 / 1340 1540 / 1540 Lab / Micro Data 09/10/25 04:10 09/10/25 04:10 Labs: Laboratory Results - last 24 hr 09/10/25 04:10: WBC 7.6, RBC 2.56 L, Hgb 8.0 L, Hct 24.5 L, MCV 95.7 H, MCH 31.3, MCHC 32.7, RDW Std Deviation 57.0 H, RDW Coeff of Juvencio 16.3 H, Plt Count 204, MPV 9.1, Immature Gran % (Auto) 0.300, Neut % (Auto) 52.8, Lymph % (Auto) 16.6 L, [place] % (Auto) 12.2 H, Eos % (Auto) 17.4 H, Baso % (Auto) 0.7, Absolute Neuts (auto) 4.0, Absolute Lymphs (auto) 1.27, Nucleated RBC % 0, Sodium 136, Potassium 4.5, Chloride 105, Carbon Dioxide 22.4, Anion Gap 8, BUN 27 H, C reatinine 0.57 L, Estim Creat Clear Calc 72.00, Est GFR (MDRD) Non-Af 103, B UN/Creatinine Ratio 47.6 H, Glucose 92, Calcium 8.3 Micro: Microbiology 09/08/25 05:55 Nasal Secretion SARS-CoV-2 Antigen (Rapid) - Final 09/06/25 05:34 Nasal Secretion SARS-CoV-2 Antigen (Rapid) - Final 09/04/25 06:00 Nasal Secretion SARS-CoV-2 Antigen (Rapid) - Final 08/22/25 22:29 Stool Stool Occult Blood (NAPOLEON) - Final Occult Blood Positive Assessment & Plan Assessment/Plan (1) Pressure ulcer of left ankle, stage 4: (2) Pressure ulcer of right ankle, stage 4: PLAN: Plan Continue wound VAC therapy for 5 days postop. ID: Continue 6 weeks of Meropenem with end date on 09/22/25 per ID with monitoring labs Resumed DAPT. SQ Lovenox ordered to start today Charges/Coding Procedures Integumentary [id number]: [id number] Global Visit
--- NOTE | 2025-09-10 20:44 | NURSING ---
spouse expresses concern about new bleeding to right thigh donor site. Right thigh observed, observed saturated in red drainage. Contacted Dr. Mac via telephone, new order to reinforce right thigh donor site with ABD and madeline wrap, CBC in AM. Right thigh donor site reinforced per order.
[2025-09-10 20:50] VITALS: RESP 18
[2025-09-10] MEDS: Polyethylene Glycol 3350 17 GM PACKET PO (20:57)
[2025-09-11] MEDS: morphine (oral solution) 10MG/0.5ML Syringe 2 MG SL/PO ×2 (02:06→08:54)
[2025-09-11] MEDS: Lactobacillis Acidophilus 1 CAP PO ×3 (06:30→20:23)
[2025-09-11] MEDS: Meropenem 1 GM in 0.9% Normal Saline (100mL MB+) 100 ML IV ×3 (06:54→22:14)
[2025-09-11 07:07] LABS: Hematocrit 25.2 % (40-54); Hemoglobin 8.2 g/dL (13.0-16.5); Immature Granulocytes Count 0.010 X10^3/uL (0.0-0.0); Mean Corp Hgb Conc 32.5 g/dL (32-36); Mean Corpuscular Volume 95.5 fL (80-94); Mean Platelet Vol. 8.9 fl (6.2-12.0); NRBC Flagged by Analyzer 0 % (0-5); Platelet Count 200 K/mm3 (150-450); RBC Distribution Width CV 16.5 % (11.6-14.6); RBC Distribution Width SD 57.9 fl (35.1-43.9); Red Blood Count 2.64 M/mm3 (4.6-6.2); White Blood Count 6.4 K/mm3 (4.4-11.0)
--- NOTE | 2025-09-11 07:31 | NURSING ---
Written communication left for Dr. Thompson regarding Dr. Mac progress note stating Lovenox to be restarted but no current order in place, current hgb 8.2
[2025-09-11 08:33] VITALS: BP 150/66; PULSE 71; RESP 17; TEMP 36.6; O2SAT 99
[2025-09-11] MEDS: Aspirin E.C. 81 MG Tablet PO (08:37)
[2025-09-11] MEDS: Polyethylene Glycol 3350 17 GM PACKET PO ×2 (08:46→20:21)
[2025-09-11] MEDS: 0.9% Normal Saline (1000mL) 1,000 ML 75 ML IV ×2 (10:10→23:38)
--- NOTE | 2025-09-11 14:34 | WOUNDNOTE ---
In to see patient. present in room. 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 dressing was reinforced by nursing and ALON wrap was applied. no strikethrough bleeding at this time. will monitor.
[2025-09-11 20:00] VITALS: PULSE 77; RESP 16; O2SAT 96
[2025-09-11] MEDS: morphine (oral solution) 10MG/0.5ML Syringe 10 MG SL/PO (20:19)
--- NOTE | 2025-09-11 20:19 | NURSING ---
Written communication left for Dr. Thompson this AM regarding patient report of Roxanol 2mg ineffective for pain management, and requesting medication dose be increased. New order for Roxanol 10mg administered at this time per pt. request for 6/10 pain to bilat feet, patient states it gets worse with movement. Patient and spouse educated on new order and dose increased, spouse and patient agreeable and expresses thanks for new order. Med administered at this time. Spouse remains at bedside. Call light in reach.
[2025-09-11] MEDS: 0.9% Saline Lock 10 ML Syringe IV (22:13)
[2025-09-12] MEDS: morphine (oral solution) 10MG/0.5ML Syringe 10 MG SL/PO ×2 (04:03→20:07)
[2025-09-12] MEDS: Meropenem 1 GM in 0.9% Normal Saline (100mL MB+) 100 ML IV ×3 (06:11→22:36)
[2025-09-12] MEDS: Lactobacillis Acidophilus 1 CAP PO ×3 (06:14→20:16)
[2025-09-12] MEDS: Aspirin E.C. 81 MG Tablet PO (09:52)
[2025-09-12] MEDS: Polyethylene Glycol 3350 17 GM PACKET PO (09:56)
[2025-09-12] MEDS: 0.9% Normal Saline (1000mL) 1,000 ML 75 ML IV ×2 (14:44→20:18)
[2025-09-12 20:26] VITALS: BP 140/69; PULSE 78; RESP 16; TEMP 36.9; O2SAT 99
[2025-09-12 20:32] VITALS: RESP 16
[2025-09-13] MEDS: Lactobacillis Acidophilus 1 CAP PO ×3 (06:19→21:39)
[2025-09-13] MEDS: Meropenem 1 GM in 0.9% Normal Saline (100mL MB+) 100 ML IV ×3 (06:21→21:20)
[2025-09-13 08:44] VITALS: BP 129/45; PULSE 80; RESP 17; TEMP 36.9; O2SAT 97
[2025-09-13] MEDS: Aspirin E.C. 81 MG Tablet PO (08:47)
[2025-09-13] MEDS: 0.9% Normal Saline (1000mL) 1,000 ML 75 ML IV ×2 (09:48→21:20)
--- NOTE | 2025-09-13 20:24 | NURSING ---
Dr. Thompson updated via phone call on patient c/o dry, irritated sinus, new order for [place] spray nasal spray 2 spray TID PRN, order verified by read back and acknowledged correct.
[2025-09-13] MEDS: morphine (oral solution) 10MG/0.5ML Syringe 10 MG SL/PO (21:37)
[2025-09-14] MEDS: Lactobacillis Acidophilus 1 CAP PO ×3 (05:59→20:55)
[2025-09-14] MEDS: Meropenem 1 GM in 0.9% Normal Saline (100mL MB+) 100 ML IV ×3 (06:03→22:16)
[2025-09-14 09:08] VITALS: BP 123/44; PULSE 74; RESP 17; TEMP 36.4; O2SAT 99
[2025-09-14] MEDS: Aspirin E.C. 81 MG Tablet PO (09:12)
[2025-09-14] MEDS: morphine (oral solution) 10MG/0.5ML Syringe 10 MG SL/PO (09:19)
--- NOTE | 2025-09-14 10:09 | NURSING ---
Addendum entered by Cat Merlos 09/14/25 17:33: dr thompson dc'd lovenox and reduced morphine to 5mg per request. pt agreeable. Original Note: requesting that morphine be decreased, she feels pt getting to much and concerned about addiction. pt was started on 10mg end of last week d/t increased pain from skin graft surgery. message left with Dr Thompson. also concerned about lovenox, pt now has petechia on RT upper arm & HGB 8.2 on 09/11
--- NOTE | 2025-09-14 10:12 | CASEMGMT ---
Social Work SW spoke with pt and at bedside. Discussed setting DC date for 09/23, as pt's IV ATB are done on 09/22. Both agreed. has been active in pt's daily care and can provide assistance. Pt was active with [facility]. SW inquired if pt would like to use [facility] again or would like to see a list of other options. Pt electing [facility]. SW to coordinate. Pt denied DME needs. SW to update wound nurse. Both appreciative. - SW phoned [facility] to update on DC date. Plan: DC home with 09/23, [facility] PT/OT/SN Halie Parson [employer]
[2025-09-14] MEDS: 0.9% Normal Saline (1000mL) 1,000 ML 75 ML IV (11:59)
--- NOTE | 2025-09-14 16:24 | PCM.PN.SRG ---
Subjective Subjective Tolerating VACs No fevers or chills. Objective Data Objective Data Vital Signs: Vital Signs Temp Pulse Resp BP Pulse Ox O2 Del Method O2 Flow Rate 97.5 F L 74 17 123/44 H 99 Room Air 2 09/14/25 09:08 09/14/25 09:08 09/14/25 09:08 09/14/25 09:08 09/14/25 09:08 09/14/25 09:08 08/19/25 12:29 Oxygen Flow Rate (L/min) 2 Oxygen Delivery Method Room Air Weight: 147 lb 3.2 oz Body Mass Index (BMI) 23.7 Intake & Output: Intake and Output for Last 24 Hours 09/12/25 09/13/25 09/14/25 23:59 23:59 23:59 Intake Total 2537.5 / 2537.5 2645 / 2645 1680 / 1680 Balance 2537.5 / 2537.5 2645 / 2645 1680 / 1680 Lab / Micro Data 09/11/25 06:30 09/10/25 04:10 Micro: Microbiology 09/08/25 05:55 Nasal Secretion SARS-CoV-2 Antigen (Rapid) - Final 09/06/25 05:34 Nasal Secretion SARS-CoV-2 Antigen (Rapid) - Final 09/04/25 06:00 Nasal Secretion SARS-CoV-2 Antigen (Rapid) - Final 08/22/25 22:29 Stool Stool Occult Blood (NAPOLEON) - Final Occult Blood Positive Physical Exam Narrative Good graft take (VACs removed) Re-dressed with Adaptic Gauze Assessment & Plan Assessment/Plan (1) Liver cancer: (2) Pressure ulcer of left ankle, stage 4: PLAN: Plan Appears to have good graft take POD 5 from [facility] to the bilaterally feet and ankles Daily xeroform dresing changes to the foot/ankle bilaterally and to the right thigh donor site Continue IV antibiotics PSU to remove jade later this week [facility] to continue to follow Charges/Coding Procedures Integumentary 111xxx-113xx: [id number] Global Visit
--- NOTE | 2025-09-14 17:33 | NURSING ---
Dr Mac in and removed wound vacs to Bilat ankles & redressed them with xeroform and wrapped with gauze along with RT upper thigh. Rt Upper thigh bleeding through small amt, reinforced per DR Mac's verbal order. will monitor site.
[2025-09-14 20:00] VITALS: PULSE 73; RESP 16; O2SAT 98
[2025-09-14] MEDS: morphine (oral solution) 10MG/0.5ML Syringe 5 MG SL/PO (20:53)
[2025-09-14] MEDS: 0.9% Saline Lock 10 ML Syringe IV (22:16)
[2025-09-15] MEDS: 0.9% Normal Saline (1000mL) 1,000 ML 75 ML IV (01:06)
[2025-09-15] MEDS: Lactobacillis Acidophilus 1 CAP PO ×3 (05:48→20:27)
[2025-09-15] MEDS: Meropenem 1 GM in 0.9% Normal Saline (100mL MB+) 100 ML IV ×3 (06:40→21:45)
[2025-09-15] MEDS: 0.9% Saline Lock 10 ML Syringe IV ×2 (06:41→21:50)
--- NOTE | 2025-09-15 08:06 | PN.TCU_ITS ---
Subjective Subjective Resident seen, examined for regulatory visit. Dexter feels well, Dr. Mac saw his ankle wounds yesterday, photos appear well. He is having a petechia on arms, and easy bruising from his wounds. Lovenox stopped, but unfortunately DAPT cannot be stopped due to recent right lower extremity stent. Meropenem runs thru 09/22/2025. 08/28/2025 Dr. Friend EGD showed erosive esophagitis, duodenal angiodysplasia, treated, now on Pantoprazole 40mg bid, Sucralfate 1gm bid. Objective Data Objective Data Vital Signs: Vital Signs Temp Pulse Resp BP Pulse Ox O2 Del Method O2 Flow Rate 97.5 F L 73 16 123/44 H 98 Room Air 2 09/14/25 09:08 09/14/25 20:00 09/14/25 20:00 09/14/25 09:08 09/14/25 20:00 09/14/25 20:00 08/19/25 12:29 Oxygen Flow Rate (L/min) 2 Oxygen Delivery Method Room Air Weight: 66.769 kg Body Mass Index (BMI) 23.7 Intake & Output: Intake and Output for Last 24 Hours 09/13/25 09/14/25 09/15/25 23:59 23:59 23:59 Intake Total 2645 / 2645 2019 1083.75 / 1083.75 Balance 2645 / 2645 2019 1083.75 / 1083.75 Lab / Micro Data 09/11/25 06:30 09/10/25 04:10 Micro: Microbiology 09/15/25 05:51 Nasal Secretion SARS-CoV-2 Antigen (Rapid) - Final 09/08/25 05:55 Nasal Secretion SARS-CoV-2 Antigen (Rapid) - Final 09/06/25 05:34 Nasal Secretion SARS-CoV-2 Antigen (Rapid) - Final 09/04/25 06:00 Nasal Secretion SARS-CoV-2 Antigen (Rapid) - Final 08/22/25 22:29 Stool Stool Occult Blood (NAPOLEON) - Final Occult Blood Positive Physical Exam Const alert General Appearance: cooperative HEENT normocephalic Eyes PERRL and EOMs intact bilaterally Neck supple, no JVD and no carotid bruits Chest Chest Narrative: Port in place. Resp normal respiratory effort, normal air movement and clear to auscultation bilaterally Cardio regular rate and regular rhythm GI normal to inspection, nondistended, normoactive bowel sounds, non-tender and non-distended Extremity normal capillary refill Extremity Narrative: Bilateral ankle wounds per Dr. Mac. General Extremity: Negative for edema Skin no rashes or lesions noted General Skin Exam: no breakdown Psych affect normal Appearance: appropriate Assessment & Plan Assessment/Plan (1) Debility: (2) Pressure ulcer of right ankle, stage 4: (3) Pressure ulcer of left ankle, stage 4: (4) Ankle osteomyelitis, right: QUALIFIERS: Osteomyelitis type: other chronic Qualified Code(s): M86.671 - Other chronic osteomyelitis, right ankle and foot (5) Acute postoperative anemia due to expected blood loss: (6) Paraplegia following spinal cord injury: (7) Liver cancer: (8) Neutropenia: (9) PAD (peripheral artery disease): PLAN: Plan 75 year old male with below past medical history hospitalized for bilateral ankle pressure ulcers, right ankle osteomyelitis, PAD, underwent debridement, Integra placement, Wound VAC's bilateral ankles, PAD right lower extremity stented, complicated by acute blood loss anemia, liver cancer, admitted to TCU with debility, here for rehabilitation, strengthening, wound care, intravenous antibiotics, prior to discharge home with . * Debility - PT/OT. * Dysphagia - ST. * Pain - Tylenol 1000mg q6 prn pain, Morphine 5mg po/sl q4 prn pain (6-10). * Bowel - Miralax 17gm bid, senna/colace 2 tablet bid, Magnesium citrate 300mL po x 1 prn, Dulcolax 10mg pr daily prn. * Adult immunization - Administer pneumonia vaccine, covid vaccine, flu vaccine as appropriate. * DVT prophylaxis - Hold, petechiae, easy bleeding. * PAD s/p RLE stent - Aspirin 81mg daily, Plavix 75mg daily. * Nutrition - Ensure Plus 120mL 4x/day. * GI prophylaxis - Lactobacillus 1 capsule tid. * Right ankle osteomyelitis - Dr. Anton, Meropenem 1gm iv q8 thru 09/22/2025. * Bilateral ankle wounds - s/p debridement, s/p integra, s/p wound VACs, Dr. Mac. * Pruritus - Hydroxyzine 10mg tid prn. * Iron deficiency anemia - Ferrex 150mg daily. * Tinea Corporis - Nystatin powder topical bid. * Erosive esophagitis/duodenal angiodysplasia - Pantoprazole 40mg bid, Sucralfate 1gm bid thru 10/08/2024. * Liver cancer - f/u Dr. Haynes.
--- NOTE | 2025-09-15 08:29 | DS.PCM_ITS ---
Providers Date of Admission: 08/18/25 Primary Care Physician: ALEKSANDAR LAGUNA Consultations 08/18/25 14:58 Consult: Onc/Wound/perlite grinder Routine Comment: Reason for Consult:: ankle wounds 08/18/25 19:32 Consult: Infectious Disease Routine Consulting Provider: Hank Anton Reason for Consult: Right ankle osteomyelitis. EMERGENT Consult: No MD Notified: Yes Date Notified: 08/18/25 Time Notified: 19:33 Method of Notification: Text Consult: Plastic Surgery Routine Consulting Provider: Hank Mac Reason for Consult: Bilateral ankle wounds. EMERGENT Consult: No MD Notified: Yes Date Notified: 08/19/25 Time Notified: 08:29 Method of Notification: Text 08/26/25 19:42 Consult: Gastroenterology Routine Consulting Provider: [facility] Reason for Consult: Anemia, +hemoccult. EMERGENT Consult: No MD Notified: Yes Date Notified: 08/26/25 Time Notified: 19:42 Method of Notification: Text Reason For Visit: PERIPHERAL VASCULAR DISEASE UNSPECIFIED Diagnosis Discharge Diagnosis (1) Debility: Status: Acute Code(s): R53.81 - Other malaise (2) Pressure ulcer of right ankle, stage 4: Status: Acute Code(s): L89.514 - Pressure ulcer of right ankle, stage 4 (3) Pressure ulcer of left ankle, stage 4: Status: Acute Code(s): L89.524 - Pressure ulcer of left ankle, stage 4 (4) Ankle osteomyelitis, right: Status: Acute Code(s): M86.9 - Osteomyelitis, unspecified Qualifiers: Osteomyelitis type: other chronic Qualified Code(s): M86.671 - Other chronic osteomyelitis, right ankle and foot (5) Acute postoperative anemia due to expected blood loss: Status: Acute Code(s): D62 - Acute posthemorrhagic anemia (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 Code(s): G82.20 - Paraplegia, unspecified (7) Liver cancer: Status: Acute Code(s): C22.9 - Malignant neoplasm of liver, not specified as primary or secondary (8) Neutropenia: Status: Acute Code(s): D70.9 - Neutropenia, unspecified (9) PAD (peripheral artery disease): Status: Acute Code(s): I73.9 - Peripheral vascular disease, unspecified Plan 75 year old male with below past medical history hospitalized for bilateral ankle pressure ulcers, right ankle osteomyelitis, PAD, underwent debridement, Integra placement, Wound VAC's bilateral ankles, PAD right lower extremity stented, complicated by acute blood loss anemia, liver cancer, admitted to TCU with debility, here for rehabilitation, strengthening, wound care, intravenous antibiotics, prior to discharge home with . * Debility - PT/OT. * Dysphagia - ST. * Pain - Tylenol 1000mg q6 prn pain, Morphine 5mg po/sl q4 prn pain (6-10). * Bowel - Miralax 17gm bid, senna/colace 2 tablet bid, Magnesium citrate 300mL po x 1 prn, Dulcolax 10mg pr daily prn. * Adult immunization - Administer pneumonia vaccine, covid vaccine, flu vaccine as appropriate. * DVT prophylaxis - Hold, petechiae, easy bleeding. * PAD s/p RLE stent - Aspirin 81mg daily, Plavix 75mg daily. * Nutrition - Ensure Plus 120mL 4x/day. * GI prophylaxis - Lactobacillus 1 capsule tid. * Right ankle osteomyelitis - Dr. Anton, Meropenem 1gm iv q8 thru 09/22/2025. * Bilateral ankle wounds - s/p debridement, s/p integra, s/p wound VACs, Dr. Mac. * Pruritus - Hydroxyzine 10mg tid prn. * Iron deficiency anemia - Ferrex 150mg daily. * Tinea Corporis - Nystatin powder topical bid. * Erosive esophagitis/duodenal angiodysplasia - Pantoprazole 40mg bid, Sucralfate 1gm bid thru 10/08/2024. * Liver cancer - f/u Dr. Haynes. Medications at Discharge Home Medications L.acidophil,salivari-Bifido bifidum-Strep thermoph 175 mg capsule 1 cap PO TID probiotic #21 caps 08/18/25 aspirin 81 mg tablet,delayed release 81 mg PO BREAKFAST blood thinner #30 tabs 08/18/25 tramadol 50 mg tablet 50 mg PO Q6H PRN PRN Pain Score 4-10 7 days #28 tabs 08/18/25 acetaminophen 500 mg tablet 1,000 mg (2 x 500 mg) PO Q6H PRN PRN Pain Score 1-3 #0 tabs 09/15/25 clopidogrel 75 mg tablet 75 mg PO DAILY 30 days #30 tabs 09/15/25 hydroxyzine HCl 10 mg tablet 10 mg PO TID PRN PRN Itching 30 days #90 tabs 09/15/25 pantoprazole 40 mg tablet,delayed release 40 mg PO BID 30 days #60 tabs 09/15/25 polysaccharide iron complex 150 mg iron capsule (Ferrex) 150 mg PO DAILY 30 days #30 caps 09/15/25 sennosides 8.6 mg-docusate sodium 50 mg tablet (Stimulant Laxative Plus) 2 tab PO BID 30 days #120 tabs 09/15/25 sucralfate 1 gram tablet 1 g PO BIDAC 30 days #60 tabs 09/15/25 Hospital Course Operations - (See below.) Procedures None Summary of Care Provided Minutes Spent on Discharge: 35 Hospital Course: 75 year old male with below past medical history hospitalized for bilateral ankle pressure ulcers, right ankle osteomyelitis, PAD, underwent debridement, Integra placement, Wound VAC's bilateral ankles, PAD right lower extremity stented, complicated by acute blood loss anemia, liver cancer, admitted to TCU with debility, here for rehabilitation, strengthening, wound care, intravenous antibiotics, prior to discharge home with . Discharge home with 09/23/2025, [facility] PT/OT/SN. Physical Exam Const alert General Appearance: cooperative HEENT normocephalic Eyes PERRL and EOMs intact bilaterally Neck supple, no JVD and no carotid bruits Chest Chest Narrative: Port in place. Resp normal respiratory effort, normal air movement and clear to auscultation bilaterally Cardio regular rate and regular rhythm GI normal to inspection, nondistended, normoactive bowel sounds, non-tender and non-distended Extremity normal capillary refill Extremity Narrative: Bilateral ankle wounds per Dr. Mac. General Extremity: Negative for edema Skin no rashes or lesions noted General Skin Exam: no breakdown Psych affect normal Appearance: appropriate Weight / BMI Weight Weight: 66.769 kg Body Mass Index (BMI) 23.7 ABG / Lab / Microbiology Data 09/11/25 06:30 09/10/25 04:10 Microbiology: Microbiology 09/15/25 05:51 Nasal Secretion SARS-CoV-2 Antigen (Rapid) - Final 09/08/25 05:55 Nasal Secretion SARS-CoV-2 Antigen (Rapid) - Final 09/06/25 05:34 Nasal Secretion SARS-CoV-2 Antigen (Rapid) - Final 09/04/25 06:00 Nasal Secretion SARS-CoV-2 Antigen (Rapid) - Final 08/22/25 22:29 Stool Stool Occult Blood (NAPOLEON) - Final Occult Blood Positive D/C Instructions Discharge Activity: Return to Normal Activity Call your doctor if you observe: Fever of 101 or Higher, Inability to urinate, Inability to have a bowel movement, Shortness of breath, Dizziness, Fainting spells, Swelling in the ankles, Chest pain and Uncontrolled pain DC O2, CPAP, BIPAP Needs Home O2 Discharge instructions: No Additional Instructions: Discharge home with 09/23/2025, [facility] PT/OT/SN. Meaningful Use Info Meaningful Use Meaningful Use Diagnoses (Choose all that apply): None applicable Discharge Plan Admission Admit Date/Time: 08/18/25 13:24 Primary Reason for Your Visit: Debility. Attending Provider: Jose Thompson Chi Primary Care Provider: CHINTAN RILEY Consulting Providers: Hank Anton; Hank Mac; Radu Campbell; Gagan Abraham; Mary Ann Duarte; Angelica Meier; Niyah Overton Instructions Additional Instructions / Restrictions: Discharge home with 09/23/2025, [facility] PT/OT/SN. Discharge Orders/Prescriptions Prescriptions: New acetaminophen 500 mg Tablet 1,000 mg PO Q6H PRN PRN (Reason: Pain Score 1-3) Qty: 0 0RF polysaccharide iron complex [Ferrex 150] 150 mg iron Capsule 150 mg PO DAILY 30 Days Qty: 30 0RF clopidogrel 75 mg Tablet 75 mg PO DAILY 30 Days Qty: 30 0RF hydroxyzine HCl 10 mg Tablet 10 mg PO TID PRN PRN (Reason: Itching) 30 Days Qty: 90 0RF sennosides-docusate sodium [Stimulant Laxative Plus] 8.6-50 mg Tablet 2 tab PO BID 30 Days Qty: 120 0RF pantoprazole 40 mg Tablet,Delayed Release (Dr/Ec) 40 mg PO BID 30 Days Qty: 60 0RF sucralfate 1 gram Tablet 1 g PO BIDAC 30 Days Qty: 60 0RF Continued aspirin 81 mg Tablet,Delayed Release (Dr/Ec) 81 mg PO BREAKFAST Qty: 30 0RF L.acidoph,saliva-B.bif-S.therm 175 mg Capsule 1 cap PO TID Qty: 21 0RF tramadol 50 mg Tablet 50 mg PO Q6H PRN PRN (Reason: Pain Score 4-10) 7 Days Qty: 28 0RF Discontinued meropenem 1 gram Recon Soln 1 g IV Q8 37 Days Qty: 111 0RF Rx Instructions: stop date 09/22/25. Weekly bmp, cbc, LFT and esr. Fax to [phone]. Routine picc care per protocol. clopidogrel 75 mg Tablet 75 mg PO DAILY Qty: 30 0RF iron [id number] 150-800-140 mg-mcg-mg tablet 1 tab PO BID polyethylene glycol 3350 [ClearLax] 17 gram/dose powder 17 g PO BID Referrals / Follow Up: CHINTAN RILEY, H[employer]ER OPERATOR-[employer] [Primary Care Provider, Family Practice] Disposition Disposition (needs filled in before D/C Order can be placed): Home Health Service
[2025-09-15 09:30] VITALS: BP 118/50; PULSE 76; RESP 16; TEMP 36.5; O2SAT 100
[2025-09-15] MEDS: Aspirin E.C. 81 MG Tablet PO (09:32)
[2025-09-15 13:32] VITALS: PULSE 80; RESP 15; O2SAT 99
--- NOTE | 2025-09-15 14:35 | PCM.PN.SRG ---
Subjective Subjective Doing well overall Dressings changed on rounds today Objective Data Objective Data Vital Signs: Vital Signs Temp Pulse Resp BP Pulse Ox O2 Del Method O2 Flow Rate 97.7 F L 80 15 118/50 L 99 Room Air 2 09/15/25 09:30 09/15/25 13:32 09/15/25 13:32 09/15/25 09:30 09/15/25 13:32 09/15/25 13:32 08/19/25 12:29 Oxygen Flow Rate (L/min) 2 Oxygen Delivery Method Room Air Weight: 147 lb 3.2 oz Body Mass Index (BMI) 23.7 Intake & Output: Intake and Output for Last 24 Hours 09/13/25 09/14/25 09/15/25 23:59 23:59 23:59 Intake Total 2645 / 2645 2019 2422.50 / 2422.50 Balance 2645 / 2645 2019 2422.50 / 2422.50 Lab / Micro Data 09/11/25 06:30 09/10/25 04:10 Micro: Microbiology 09/15/25 05:51 Nasal Secretion SARS-CoV-2 Antigen (Rapid) - Final 09/08/25 05:55 Nasal Secretion SARS-CoV-2 Antigen (Rapid) - Final 09/06/25 05:34 Nasal Secretion SARS-CoV-2 Antigen (Rapid) - Final 09/04/25 06:00 Nasal Secretion SARS-CoV-2 Antigen (Rapid) - Final 08/22/25 22:29 Stool Stool Occult Blood (NAPOLEON) - Final Occult Blood Positive Physical Exam Narrative Wounds with still good skin graft take overall. Dressings changed. No signs of infection in the ankles Assessment & Plan Assessment/Plan (1) Liver cancer: (2) Pressure ulcer of left ankle, stage 4: PLAN: Plan Appears to have good graft take POD 6 from [facility] to the bilaterally feet and ankles Twice daily xeroform dresing changes to the foot/ankle bilaterally and to the right thigh donor site Continue IV antibiotics PSU to remove jade later this week [facility] to continue to follow Charges/Coding Procedures Integumentary 111xxx-113xx: [id number] Global Visit
--- NOTE | 2025-09-15 14:47 | NURSING ---
jade removed by wound nurse and Dr Mac, dressing changed to all skin graft sites and Rt upper thigh donor site. new order to DC IVF. pt resting in bed, incont care provided. repositioned in bed.
[2025-09-15] MEDS: morphine (oral solution) 10MG/0.5ML Syringe 5 MG SL/PO (20:29)
[2025-09-16] MEDS: morphine (oral solution) 10MG/0.5ML Syringe 5 MG SL/PO ×2 (02:26→22:44)
[2025-09-16] MEDS: Lactobacillis Acidophilus 1 CAP PO ×3 (06:02→22:06)
[2025-09-16] MEDS: Meropenem 1 GM in 0.9% Normal Saline (100mL MB+) 100 ML IV ×3 (06:09→22:05)
[2025-09-16] MEDS: 0.9% Saline Lock 10 ML Syringe IV ×3 (06:09→22:04)
[2025-09-16 06:37] LABS: Hematocrit 23.6 % (40-54); Hemoglobin 7.6 g/dL (13.0-16.5); Immature Granulocytes Count 0.020 X10^3/uL (0.0-0.0); Mean Corp Hgb Conc 32.2 g/dL (32-36); Mean Corpuscular Volume 94.8 fL (80-94); Mean Platelet Vol. 9.2 fl (6.2-12.0); NRBC Flagged by Analyzer 0 % (0-5); Platelet Count 219 K/mm3 (150-450); RBC Distribution Width CV 16.1 % (11.6-14.6); RBC Distribution Width SD 56.4 fl (35.1-43.9); Red Blood Count 2.49 M/mm3 (4.6-6.2); White Blood Count 6.1 K/mm3 (4.4-11.0)
[2025-09-16 07:15] LABS: Anion Gap 9 (7-18); BUN 23 mg/dL (4-19); BUN/Creat Ratio 38.1 RATIO (10-20); Calcium,Total 7.8 mg/dL (7.6-11.0); Carbon Dioxide 22.7 mmol/L (20.0-29.0); Chloride 108 mmol/L (96-106); Estimated Creatinine Clearance 72.00 ml/min (50-250); Glucose 80 mg/dL (70-99); Potassium 4.3 mmol/L (3.5-5.1)
[2025-09-16 09:51] VITALS: BP 115/46; PULSE 68; RESP 18; TEMP 36.8; O2SAT 100
[2025-09-16] MEDS: Aspirin E.C. 81 MG Tablet PO (09:53)
--- NOTE | 2025-09-16 10:39 | WOUNDNOTE ---
wound photo: left lateral foot/ankle
--- NOTE | 2025-09-16 10:40 | WOUNDNOTE ---
wound photo: right medial ankle
--- NOTE | 2025-09-16 11:00 | WOUNDNOTE ---
wound photo: right lateral ankle/foot
[2025-09-16 22:30] VITALS: PULSE 73; RESP 16; O2SAT 98
[2025-09-17] MEDS: morphine (oral solution) 10MG/0.5ML Syringe 5 MG SL/PO ×2 (03:36→23:27)
[2025-09-17] MEDS: Lactobacillis Acidophilus 1 CAP PO ×3 (06:13→21:37)
--- NOTE | 2025-09-17 06:21 | NURSING ---
Attempt to administer Merrem as ordered at this time, patient declines until after toileting. Patient assisted to toilet max assist x2 staff and spouse assist. Spouse remains at side, requests privacy at this time and states patient will utilize bathroom when done toileting.
[2025-09-17] MEDS: Meropenem 1 GM in 0.9% Normal Saline (100mL MB+) 100 ML IV ×3 (06:54→21:38)
[2025-09-17] MEDS: 0.9% Saline Lock 10 ML Syringe IV ×3 (06:54→21:45)
[2025-09-17] MEDS: 0.9% Normal Saline (250mL Bag) 250 ML 15 ML IV (07:00)
[2025-09-17 08:40] VITALS: BP 125/51; PULSE 75; RESP 16; TEMP 36.6; O2SAT 98
[2025-09-17] MEDS: Aspirin E.C. 81 MG Tablet PO (08:44)
--- NOTE | 2025-09-17 16:19 | NURSING ---
mepilex changed to LT knee, states pt got skin tear from the toilet paper dispenser during a transfer yesterday. small amt (quarter size) of shadow drng noted on dressing. towel wrapped around toilet paper dispenser to reduce any more skin tears with toilet transfers.
[2025-09-17 16:22] VITALS: PULSE 75; RESP 15; O2SAT 98
[2025-09-17] MEDS: Polyethylene Glycol 3350 17 GM PACKET PO (21:37)
[2025-09-18] MEDS: Lactobacillis Acidophilus 1 CAP PO ×3 (05:40→21:02)
[2025-09-18] MEDS: 0.9% Normal Saline (250mL Bag) 250 ML 15 ML IV (05:40)
[2025-09-18] MEDS: Meropenem 1 GM in 0.9% Normal Saline (100mL MB+) 100 ML IV ×3 (05:48→21:53)
[2025-09-18] MEDS: 0.9% Saline Lock 10 ML Syringe IV ×2 (05:55→21:49)
[2025-09-18] MEDS: Aspirin E.C. 81 MG Tablet PO (08:53)
--- NOTE | 2025-09-18 11:10 | CASEMGMT ---
Social Work NOMNC issued by [employer] with LCD 09/22. Team, pt and anticipating this and dc planned for 09/23. SW met with pt and spouse who are agreeable to dc 09/23 as planned. NOMNC signed and return to [facility]. HANNA Hardy
[2025-09-18 16:00] VITALS: BP 139/55; PULSE 74; RESP 16; TEMP 36.3; O2SAT 100
[2025-09-18] MEDS: morphine (oral solution) 10MG/0.5ML Syringe 5 MG SL/PO (21:11)
[2025-09-19] MEDS: 0.9% Saline Lock 10 ML Syringe IV ×3 (03:01→14:54)
[2025-09-19] MEDS: Lactobacillis Acidophilus 1 CAP PO ×3 (05:34→22:07)
[2025-09-19] MEDS: Meropenem 1 GM in 0.9% Normal Saline (100mL MB+) 100 ML IV ×3 (05:41→22:33)
[2025-09-19] MEDS: 0.9% Normal Saline (250mL Bag) 250 ML 15 ML IV (05:41)
[2025-09-19] MEDS: Aspirin E.C. 81 MG Tablet PO (10:52)
--- NOTE | 2025-09-19 21:15 | NURSING ---
Occult stool sample obtained. Results positive. Communication left for physician.
[2025-09-19] MEDS: morphine (oral solution) 10MG/0.5ML Syringe 5 MG SL/PO (22:39)
[2025-09-20] MEDS: morphine (oral solution) 10MG/0.5ML Syringe 5 MG SL/PO ×2 (04:32→21:38)
[2025-09-20] MEDS: Lactobacillis Acidophilus 1 CAP PO ×3 (05:17→21:39)
[2025-09-20] MEDS: Meropenem 1 GM in 0.9% Normal Saline (100mL MB+) 100 ML IV ×3 (06:51→21:38)
--- NOTE | 2025-09-20 07:01 | NURSING ---
Central Port was reaccessed this morning, patent and flushes well, new dressing applied.
[2025-09-20 07:07] LABS: Hematocrit 24.4 % (40-54); Hemoglobin 8.0 g/dL (13.0-16.5)
[2025-09-20] MEDS: Aspirin E.C. 81 MG Tablet PO (10:01)
--- NOTE | 2025-09-20 12:45 | NURSING ---
Dr Bowen notified of + occult stool. no new orders at this time. continue plan of care.
[2025-09-20] MEDS: 0.9% Saline Lock 10 ML Syringe IV (14:28)
[2025-09-20 16:00] VITALS: BP 128/40; PULSE 76; RESP 16; TEMP 36.6; O2SAT 100
[2025-09-21] MEDS: Lactobacillis Acidophilus 1 CAP PO ×3 (05:32→21:20)
[2025-09-21] MEDS: 0.9% Normal Saline (250mL Bag) 250 ML 15 ML IV (05:39)
[2025-09-21] MEDS: 0.9% Saline Lock 10 ML Syringe IV ×3 (05:40→21:14)
[2025-09-21] MEDS: Meropenem 1 GM in 0.9% Normal Saline (100mL MB+) 100 ML IV ×3 (05:40→21:20)
--- NOTE | 2025-09-21 08:19 | PCM.PN.SRG ---
Subjective Subjective Date of Procedure: 09/09/25 Pre-Operative Diagnosis: Bilateral ankle wounds s/p Integra Placement Post-Operative Diagnosis: Same Surgery/Procedure Performed: 1. Placement of split-thickness skin graft, right lateral malleolus wound 5 x 4 cm down to bone 2. Placement of split-thickness skin graft, right lateral foot wound, 1 x 1 cm down to bone 3. Placement of split-thickness skin graft, right medial malleolus wound 3 x 2 cm down to bone 4. Placement of split-thickness skin graft, left lateral ankle wound 5 x 4 cm down to bone Current encounter, 21 Sep 2025: Doing well overall and endorses good dressing changes and high protein intake. Objective Data Objective Data Vital Signs: Vital Signs Temp Pulse Resp BP Pulse Ox O2 Del Method O2 Flow Rate 97.8 F 76 16 128/40 H 100 Room Air 2 09/20/25 16:00 09/20/25 16:00 09/20/25 16:00 09/20/25 16:00 09/20/25 16:00 09/20/25 16:00 08/19/25 12:29 Oxygen Flow Rate (L/min) 2 Oxygen Delivery Method Room Air Weight: 147 lb 3.2 oz Body Mass Index (BMI) 23.7 Intake & Output: Intake and Output for Last 24 Hours 09/19/25 09/20/25 09/21/25 23:59 23:59 23:59 Intake Total 1489.75 / 1489.75 1020 / 1020 100 / 100 Balance 1489.75 / 1489.75 1020 / 1020 100 / 100 Lab / Micro Data 09/20/25 06:45 09/16/25 06:05 Micro: Microbiology 09/19/25 20:30 Stool Stool Occult Blood (NAPOLEON) - Final Occult Blood Positive 09/15/25 05:51 Nasal Secretion SARS-CoV-2 Antigen (Rapid) - Final 09/08/25 05:55 Nasal Secretion SARS-CoV-2 Antigen (Rapid) - Final 09/06/25 05:34 Nasal Secretion SARS-CoV-2 Antigen (Rapid) - Final 09/04/25 06:00 Nasal Secretion SARS-CoV-2 Antigen (Rapid) - Final 08/22/25 22:29 Stool Stool Occult Blood (NAPOLEON) - Final Occult Blood Positive Physical Exam Narrative Bilateral ankle wounds still present with some graft take. Right lateral foot wound healed with skin graft. No exposed bone on either side. Wounds with good granulation/soft tissue coverage over the bone. Assessment & Plan Assessment/Plan (1) Pressure ulcer of right ankle, stage 4: (2) Pressure ulcer of left ankle, stage 4: PLAN: Plan Changing to daily adaptic changes to the ankle wounds bilaterally. The lateral foot wound and the donor site on the thigh can be open to air with aqaufor lotion as needed for dry skin. Antibiotics end tomorrow, likely home 23 Sep 2025. [facility] will follow. Charges/Coding Procedures Integumentary 111xxx-113xx: [id number] Global Visit
--- NOTE | 2025-09-21 08:26 | WOUNDNOTE ---
wound photo: left lateral ankle/foot
--- NOTE | 2025-09-21 08:27 | WOUNDNOTE ---
wound photo: right medial ankle/foot
--- NOTE | 2025-09-21 08:28 | WOUNDNOTE ---
wound photo: right lateral ankle/foot
[2025-09-21] MEDS: Aspirin E.C. 81 MG Tablet PO (09:57)
[2025-09-21 10:00] VITALS: PULSE 70; RESP 18
[2025-09-21 12:49] VITALS: BP 104/34; PULSE 70; RESP 17; TEMP 37; O2SAT 98
[2025-09-21] MEDS: morphine (oral solution) 10MG/0.5ML Syringe 5 MG SL/PO (23:11)
[2025-09-22] MEDS: 0.9% Saline Lock 10 ML Syringe IV ×3 (05:03→22:12)
[2025-09-22] MEDS: Lactobacillis Acidophilus 1 CAP PO ×3 (05:06→21:17)
[2025-09-22] MEDS: 0.9% Normal Saline (250mL Bag) 250 ML 15 ML IV (05:10)
[2025-09-22] MEDS: Meropenem 1 GM in 0.9% Normal Saline (100mL MB+) 100 ML IV ×3 (05:10→22:12)
--- NOTE | 2025-09-22 05:41 | NURSING ---
Changed pt's foam dressing to left knee x3, Right hip. Pt tolerated well
[2025-09-22 08:32] VITALS: BP 151/73; PULSE 99; RESP 18; TEMP 36.6; O2SAT 98
[2025-09-22] MEDS: Aspirin E.C. 81 MG Tablet PO (08:34)
[2025-09-22 11:39] VITALS: BMI 24.9
--- NOTE | 2025-09-22 13:59 | WOUNDNOTE ---
Nursing had just changed dressings to bilateral ankles. will leave dressings in place and will plan to change dressings with Dr Mac in the am prior to patient's discharge home.
--- NOTE | 2025-09-22 14:41 | CASEMGMT ---
BIMS (15) and PHQ9 (4) interviews completed on this date for MDS assessment. HANNA Saucedo
[2025-09-22] MEDS: morphine (oral solution) 10MG/0.5ML Syringe 5 MG SL/PO (23:34)
[2025-09-23] MEDS: 0.9% Saline Lock 10 ML Syringe IV (05:49)
[2025-09-23] MEDS: Lactobacillis Acidophilus 1 CAP PO (06:01)
[2025-09-23 06:11] LABS: Hematocrit 23.9 % (40-54); Hemoglobin 7.8 g/dL (13.0-16.5); Immature Granulocytes Count 0.010 X10^3/uL (0.0-0.0); Mean Corp Hgb Conc 32.6 g/dL (32-36); Mean Corpuscular Volume 93.4 fL (80-94); Mean Platelet Vol. 8.8 fl (6.2-12.0); NRBC Flagged by Analyzer 0 % (0-5); Platelet Count 260 K/mm3 (150-450); RBC Distribution Width CV 15.5 % (11.6-14.6); RBC Distribution Width SD 53.8 fl (35.1-43.9); Red Blood Count 2.56 M/mm3 (4.6-6.2); White Blood Count 5.1 K/mm3 (4.4-11.0)
[2025-09-23 06:50] VITALS: PULSE 68; O2SAT 97
[2025-09-23 07:43] LABS: Anion Gap 7 (7-18); BUN 29 mg/dL (4-19); BUN/Creat Ratio 45.8 RATIO (10-20); Calcium,Total 8.3 mg/dL (7.6-11.0); Carbon Dioxide 23.5 mmol/L (20.0-29.0); Chloride 104 mmol/L (96-106); Estimated Creatinine Clearance 72.00 ml/min (50-250); Glucose 88 mg/dL (70-99); Potassium 4.4 mmol/L (3.5-5.1)
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
[2025-09-23] MEDS: Aspirin E.C. 81 MG Tablet PO (09:58)
[2025-09-23 10:03] VITALS: BP 113/47; PULSE 69; RESP 18; TEMP 36.7; O2SAT 98
== END 2025-09-23 11:59 | disposition home health service (06) | DRG 949 ==
PROVIDERS: Internal Medicine; Physician Assistant; Admitting Provider Family Medicine Geriatric Medicine; PCP Nurse Practitioner Family; Referring Provider Family Medicine Geriatric Medicine; Visit Provider Family Medicine Geriatric Medicine
DX: Z48.812 Encounter for surgical aftercare following surgery on the circulatory system (principal); L89.514 Pressure ulcer of right ankle, stage 4; L89.524 Pressure ulcer of left ankle, stage 4; K31.811 Angiodysplasia of stomach and duodenum with bleeding; K20.81 Other esophagitis with bleeding; D68.32 Hemorrhagic disorder due to extrinsic circulating anticoagulants; D62 Acute posthemorrhagic anemia; C22.9 Malignant neoplasm of liver, not specified as primary or secondary; G82.20 Paraplegia, unspecified; M86.671 Other chronic osteomyelitis, right ankle and foot; K22.10 Ulcer of esophagus without bleeding; I73.9 Peripheral vascular disease, unspecified; D50.9 Iron deficiency anemia, unspecified; L89.891 Pressure ulcer of other site, stage 1; M54.9 Dorsalgia, unspecified; L89.892 Pressure ulcer of other site, stage 2; D70.9 Neutropenia, unspecified; Z79.02 Long term (current) use of antithrombotics/antiplatelets; Z79.01 Long term (current) use of anticoagulants; Z79.82 Long term (current) use of aspirin; B96.89 Other specified bacterial agents as the cause of diseases classified elsewhere; G89.29 Other chronic pain; Z79.899 Other long term (current) drug therapy; B35.4 Tinea corporis; Z95.820 Peripheral vascular angioplasty status with implants and grafts; Z95.5 Presence of coronary angioplasty implant and graft; T45.525A Adverse effect of antithrombotic drugs, initial encounter; T39.015A Adverse effect of aspirin, initial encounter
CPT/HCPCS: 71046; 74018; 74230; 76705; 80048; 80053; 80076; 82040; 82274; 85014; 85018; 85025; 85652; 86850; 86900; 86901; 87811; 92526; 92610; 92611; 97110; 97150; 97162; 97166; 97530; 97535; 97802; J2185; P9016; A4216

== ENCOUNTER 2025-08-28 14:38 | Day surgery (SDC) | payer MEDICARE, SELFPAY ==
[2025-08-28] VITALS (9 sets, daily range): BP systolic 102–152; BP diastolic 49–81; PULSE 63–89; RESP 14–18; TEMP 36.1–36.3; O2SAT 98–100; BMI 24.1
--- NOTE | 2025-08-28 15:36 | PRE.ANES_ITS ---
ASA Classification* ASA Classification ASA Classification: 3 Assessment & Plan Anesthesia* Anesthesia Assessment Anesthesia Assessment: Discussed sedation and/or anesthesia options, risks, benefits, and alternatives with patient/parents/legal guardian/POA. Questions invited. The patient/parents/legal guardian/POA seems to understand and agrees to proceed with anesthesia plan. Reviewed the physical assessment, medical history, allergy history and patient home medications list prior to surgery/procedure/anesthetic and documented any changes. Performed airway and anesthesia risk assessments. Anesthesia Type Anesthesia Type: MAC (paraplegia) Anesthesia Focused Assessment* Temperature: 97.3 F Pulse Rate: 63 Blood Pressure: 140/81 Respiratory Rate: 18 Pulse Ox: 100 Airway Assessment Mouth opens: >3 cm Mallampati Score: II Labs Anesthesia Preop lab: CBC WBC, (4.4-11.0) 8.7 K/mm3 08/26/25, 05:00 RBC, (4.6-6.2) 2.68 M/mm3 L 08/26/25, 05:00 Hgb, (13.0-16.5) 8.3 g/dL L Today, 05:45 Hct, (40-54) 25.8 % L Today, 05:45 Plt Count, (150-450) 321 K/mm3 08/26/25, 05:00 CHEMISTRY Potassium, (3.3-5.1) 4.4 mmol/L 08/26/25, 05:00 Sodium, (133-145) 136 mmol/L 08/26/25, 05:00 BUN, (4-19) 17 mg/dL 08/26/25, 05:00 Creatinine, (0.70-1.20) 0.46 mg/dL L 08/26/25, 05:00 Glucose, (70-99) 79 mg/dL 08/26/25, 05:00 COAG Pre-Assessment Diagnosis/Proposed Procedure Planned Operative Procedure(s): EGD Anesthesia History Anesthesia History - laboratory phlebotomist: Anesthesia History - laboratory phlebotomist Hx Hospitalization No 08/05/25 09:31 Any Problems With Anesthesia No 08/17/25 05:39 Cholinesterase deficiency No 08/17/25 05:39 You/Your Family Experience No 08/17/25 05:39 fever (hyperthermia) with Relationship Recent Exposure to Contagious No 08/28/25 14:46 Disease Does patient have nerve No 08/17/25 05:39 stimulator Patient instructed to have device shut off --Does patient have Pacemaker No 08/28/25 14:46 or ICD? When Was Last Pacemaker Check QUESTION #4 FULL TEXT: You/Your Family Experience fever (hyperthermia) with Anesthesia Last Oral Intake Last Oral intake: Last Oral Intake NPO since 10:00 08/28/25 14:46 Meds taken in AM with sips of Yes 08/28/25 14:46 water? Meds patient instructed to med with applesauce this AM 08/28/25 14:46 take am of surgery PONV PONV - laboratory phlebotomist: PONV - laboratory phlebotomist Female HX of Motion Sickness HX of N/V After Surgery Non-Smoker Duration of Surgery greater than 60 minutes Number of Risk Factors PONV Score Height & Weight Height & Weight: Anesthesia: Height & Weight Height 5 ft 6 in 08/28/25 14:46 Weight: 67.9 kg 08/28/25 14:46 Body Mass Index (BMI) 24.1 08/28/25 14:46 Respiratory Assessment Respiratory Assessment - laboratory phlebotomist: Respiratory Tract Infection Hx - laboratory phlebotomist Hx Respiratory Tract Infection No 08/17/25 05:39 STOP Sleep Apnea STOP Sleep Apnea - laboratory phlebotomist: STOP Sleep Apnea - laboratory phlebotomist Hx Hypertension No 08/19/25 12:29 Hx Sleep Apnea No 08/18/25 13:59 CPAP BIPAP Do you snore loudly (louder than talking or can be heard Do you often feel tired/ fatigued/ sleepy during daytime? Has anyone observed you stop breathing during sleep? STOP Results QUESTION #5 FULL TEXT : Do you snore loudly (louder than talking or can be heard through closed doors)? Tobacco Use History Tobacco Use History - laboratory phlebotomist: Tobacco Use History - laboratory phlebotomist Tobacco Use Smoking Status Never smoker 08/18/25 19:26 Hx Tobacco Use No 08/18/25 13:59 Years Smoking Packs Smoked per Day Smoking Cessation Date was within the last 15 years Hx Smoking Cessation Date Hx Smoking Cessation Counseling Hematologic Medial History Hematologic Hx - laboratory phlebotomist: Hematologic Medical Hx - machine binding folder Hx of Blood Transfusion Hx of Transfusion in last 3 Months Date of Last Transfusion (if within last 3 months) Ever experience any problems with transfusion(s)? Specify any problems Hx of Preganancy in last 3 Months Nurse Filling Out Transfusion & Questions: Date: Time: Patient unable to answer at this time (ie. confused, unrespo /Reproduction History /Reproductive History - laboratory phlebotomist: /Reproductive Hx- laboratory phlebotomist Hx Now Gestational Age (in weeks): EDC: Hx Hx Para Hx Section SAB No 08/17/25 05:39 Does the father of the baby or his family experience fever w Father of the baby Malignant Hypertension history comment [facility] Medical History Open wound History of steroid therapy Low iron Difficulty swallowing History of edema Hx of peripheral vascular disease Wears hearing aid Wears glasses Cancer Uses wheelchair Functional voiding disorder Non-smoker Paraplegic immobility syndrome Liver masses Candidiasis Pruritus, unspecified Home Medications ?Medication ?Instructions ?Recorded ?Last Taken ?Type Liquid probiotic 5 ml PO DAILY 10/23/2408/10 History meropenem 1 gram intravenous 1 g IV Q8 wound infection 37 days 08/17/25 Unknown Rx solution #111 ea L.acidophil,salivari-Bifido 1 cap PO TID probiotic #21 caps 08/18/25 Unknown Rx bifidum-Strep thermoph 175 mg capsule aspirin 81 mg tablet,delayed 81 mg PO BREAKFAST blood thinner 08/18/25 Unknown Rx release #30 tabs clopidogrel 75 mg tablet 75 mg PO DAILY antiplatelet #30 08/18/25 Unknown Rx tabs enoxaparin 40 mg/0.4 mL 40 mg (0.4 mL) subcut DAILY blood 08/18/25 Unknown Rx subcutaneous syringe thinner 7 days #2.8 mL food supplemt, lactose-reduced 120 ml PO 4X/DAY supple ment 7 days 08/18/25 Unknown Rx 0.08 gram-1.5 kcal/mL oral liquid #5,688 mL (Ensure Plus High Protein) tramadol 50 mg tablet 50 mg PO Q6H PRN PRN Pain Sc ore 08/18/25 Unknown Rx 4-10 7 days #28 tabs Allergy/AdvReac Type Severity Reaction Status Date / Time amoxicillin Allergy UTI Verified 08/28/25 15:13 tramadol (From Ultram) AdvReac Intermediate itching/hiv Verified 08/28/25 15:13 es Family History Father Cancer Brother Cancer Surgical History History of vascular access device H/O skin graft Hx of appendectomy Hx of tonsillectomy Social History household members: spouse Smoking Status: Never smoker alcohol intake: never substance use type: does not use Review of Systems (Anesthesia) ROS Narrative System reviewed and no additional complaints, except as documented.
--- NOTE | 2025-08-28 16:00 | EGD_PTH ---
PATIENT: TERI RAHMAN LOC: EN U#:[id number] AGE/SX: 75/M ROOM: RE08/28/[address]: Dr. Gagan Abraham DO : 1950 BED: DIS: 08/28/2025 SPEC #: [id number] RECD: 08/31/25 07:53 STATUS: JESUS RESarah #: [id number] GUANAKITO: 08/28/25 16:[address]: Gagan Abraham DEPT: SURGICAL PATHOLOGY RECD BY: Surya Peterson ENTERED: 08/31/25 11:28 SP TYPE: EGD BIOPSY OT DR: CHINTAN RILEY, DENTAL INSURANCE COORDINATOR-Kurtis Tissues: A - Esophagus, NOS Procedures: Surgery Specimen Level IV HEADER OPERATION: EGD, biopsy, electrohemostasis PRE-OP DIAGNOSIS: Anemia TISSUE SUBMITTED: A- Distal esophagus biopsy MICROSCOPIC DIAGNOSIS A. Esophagus, distal, biopsy: - Squamous mucosa with reactive changes. - Columnar mucosa negative for goblet cell metaplasia. - Reactive epithelial change, negative for dysplasia. MICROSCOPIC DESCRIPTION Slides are reviewed. GROSS DESCRIPTION A. Received in fixative is one container labeled with the patient's name and designated Distal esophagus biopsy. The specimen consists of two irregular fragments of valero tissue, each measuring 0.3 cm. The specimen is totally submitted in one cassette. CO 08/31/2025 CPT:32317
[2025-08-28] MEDS: Lidocaine 1% (5 ml sdv) 5 ML Vial IV (16:17)
--- NOTE | 2025-08-28 16:17 | HP.PCM_ITS ---
HPI - General General Date of Admission: 08/28/25 Date of Service: 08/28/25 Chief Complaint: Anemia HPI Narrative TERI RAHMAN, is a 75 M who presents [ TERI RAHMAN, is a 75-year-old male admitted on 08/11/25 for bilateral ankle wound debridement and irrigating wound VAC placement. * 08/11/25: Underwent initial procedure. Awoke from anesthesia without issues and transferred to the surgical floor with pressure-offloading air mattress. Hospital Medicine consulted for medical comanagement. * 08/12/25: Received 2 units of pRBC for decreased hemoglobin (Hgb) from 8.3 to 6.6. Remained stable post-transfusion. * 08/13/25: Underwent planned right lower extremity angiogram with Dr. Menjivar, resulting in an external iliac artery angioplasty and right common iliac artery stent placement. Started on dual antiplatelet therapy (DAPT) with Aspirin and Plavix (Clopidogrel). * 08/14/25 - 08/16/25: Stable. * 08/17/25: Underwent planned wound VAC removal with repeat debridement and replacement of wound VAC. * Current Concern: Hemoglobin has been trending down (specific values not pr ovided in this section) in the setting of dual antiplatelet therapy. Gastroenterology (GI) was consulted for endoscopic evaluation of the GI tract. * Nutrition: Nutrition labs showed low albumin. Nutrition consulted. Patient started on Angel/Ensure supplements and encouraged increased protein intake.] ] [facility] Medical History Open wound History of steroid therapy Low iron Difficulty swallowing History of edema Hx of peripheral vascular disease Wears hearing aid Wears glasses Cancer Uses wheelchair Functional voiding disorder Non-smoker Paraplegic immobility syndrome Liver masses Candidiasis Pruritus, unspecified Home Medications ?Medication ?Instructions ?Recorded ?Last Taken ?Type Liquid probiotic 5 ml PO DAILY 10/23/2408/10 History meropenem 1 gram intravenous 1 g IV Q8 wound infection 37 days 08/17/25 Unknown Rx solution #111 ea L.acidophil,salivari-Bifido 1 cap PO TID probiotic #21 caps 08/18/25 Unknown Rx bifidum-Strep thermoph 175 mg capsule aspirin 81 mg tablet,delayed 81 mg PO BREAKFAST blood thinner 08/18/25 Unknown Rx release #30 tabs clopidogrel 75 mg tablet 75 mg PO DAILY antiplatelet #30 08/18/25 Unknown Rx tabs enoxaparin 40 mg/0.4 mL 40 mg (0.4 mL) subcut DAILY blood 08/18/25 Unknown Rx subcutaneous syringe thinner 7 days #2.8 mL food supplemt, lactose-reduced 120 ml PO 4X/DAY supple ment 7 days 08/18/25 Unknown Rx 0.08 gram-1.5 kcal/mL oral liquid #5,688 mL (Ensure Plus High Protein) tramadol 50 mg tablet 50 mg PO Q6H PRN PRN Pain Sc ore 08/18/25 Unknown Rx 4-10 7 days #28 tabs Allergy/AdvReac Type Severity Reaction Status Date / Time amoxicillin Allergy UTI Verified 08/28/25 15:13 tramadol (From Ultram) AdvReac Intermediate itching/hiv Verified 08/28/25 15:13 es Family History Father Cancer Brother Cancer Surgical History History of vascular access device H/O skin graft Hx of appendectomy Hx of tonsillectomy Social History household members: spouse Smoking Status: Never smoker alcohol intake: never substance use type: does not use ROS Constitutional Constitutional: Denies fatigue, fever(s), poor appetite, weight gain or weight loss Gastrointestinal Gastrointestinal: Denies belching, bloating, change in bowel habits, change in stool character, chewing difficulty, coffee ground emesis, constipation, cramping, diarrhea, dyspepsia, dysphagia, early satiety, excessive flatus, fecal incontinence, heartburn, hematemesis, hematochezia, hemorrhoids, loose stools, melena, nausea, odynophagia, rectal bleeding, tenesmus, vomiting or weight changes Vital Signs Vital Signs Vital Signs: 08/28/25 14:46 08/28/25 14:46 08/28/25 14:46 Temperature 97.3 F L Temperature Source Temporal Pulse Rate 63 Respiratory Rate 18 Respiratory Pattern Normal Blood Pressure 140/81 H Blood Pressure Mean 100 Blood Pressure Source Monitor Blood Pressure Position Sitting Blood Pressure Location Right Arm Baseline BP 107/71 Pulse Ox 100 Oxygen Delivery Method Room Air 08/28/25 15:36 Temperature 97.3 F L Temperature Source Pulse Rate 63 Respiratory Rate 18 Respiratory Pattern Blood Pressure 140/81 H Blood Pressure Mean Blood Pressure Source Blood Pressure Position Blood Pressure Location Baseline BP Pulse Ox 100 Oxygen Delivery Method Weight Weight: 149 lb 11.102 oz Body Mass Index (BMI) 24.1 Physical Exam Const alert, oriented x3, no apparent distress and healthy appearing General Appearance: cooperative GI normal to inspection, nondistended, normoactive bowel sounds, soft to palpation, non-tender and non-distended Percussion: normal to percussion Rectal Exam: deferred Assessment & Plan Assessment/Plan (1) Anemia: PLAN: Assessment & Plan Assessment/Plan (1) Anemia: PLAN: 75-year-old male with multiple active medical issues currently managed by Hospital Medicine, Surgery, and Consulting services. * Bilateral Ankle Wounds/Chronic Wounds: Status post serial debridements and wound VAC placement (latest on 08/17/25). * Plan: Continue wound care and follow surgical recommendations. Optimize nutrition for healing. * Anemia/Decreasing Hemoglobin: Likely multifactorial: * Acute Blood Loss: Received 2 units of pRBC on 08/12/25 for Hgb 6.6. * Occult/Chronic GI Bleeding: Hemoglobin has been trending down in the setting of dual antiplatelet therapy (Aspirin/Plavix). * Plan: GI consult accepted for endoscopic evaluation to rule out an upper/lower GI source of bleeding secondary to DAPT. Monitor Hgb/Hct closely. Continue DAPT as per Vascular Surgery/Cardiology recommendations. * Peripheral Artery Disease (PAD): Status post right common iliac artery stenting and external iliac angioplasty on 08/13/25. * Plan: Continue dual antiplatelet therapy (Aspirin + Plavix). Monitor groin access site. * Plan * Anemia: EGD and possible Colonoscopy to evaluate for GI bleeding source. Strict I/O monitoring. Monitor CBC daily. Transfuse pRBC for Hgb $<7.0$ or $<8.0$ if symptomatic or in the setting of active bleeding/PAD. * Cardiac/Vascular: Continue Aspirin and Plavix (DAPT). Monitor for signs of bleeding. Continue cardiac monitoring.
--- NOTE | 2025-08-28 16:33 | PCM.POST.ANE ---
Anesthesia: Postop Eval I Current Vital Signs Temperature: 97 F Pulse Rate: 79 Blood Pressure: 152/63 Respiratory Rate: 14 Pulse Ox: 99 Oxygen Delivery Method: Room Air Assessment Airway patent: Yes Spontaneous unlabored respirations: Yes Mental status: Awake and Calm nausea: No Vomiting: No Anesthesia Complication: No Fluid Hydration Crystalloid volume administer (ml): 200 Total IV fluid infused: 200 Progress Note Anesthesia document: Postop Eval 1 completed: Yes
--- NOTE | 2025-08-28 16:38 | OP.PROVAT_ITS ---
08/28/2025 Antonia Irizarry Re : Upper GI endoscopy procedure for Dexter Varma Dear Conrado This procedure was performed on Thursday, August 28, 2025. My impressions and recommendations are as follows: Impressions : - LA Grade D erosive esophagitis with bleeding. Biopsied. Treated with a heater probe. - A single bleeding angiodysplastic lesion in the stomach. Treated with a heater probe. - Multiple non-bleeding angiodysplastic lesions in the duodenum. Treated with a heater probe. Recommendations : - Discharge patient to a group home. - Resume previous diet. - Use Protonix (pantoprazole) 40 mg PO BID indefinitely. - Use sucralfate tablets 1 gram PO BID for 4 weeks. - Continue present medications. My findings are described in the full procedure note, which is enclosed. If I can be of further assistance, please feel free to contact me at . Sincerely, Gagan Abraham, 08/28/2025 4:38:32 PM This report has been signed electronically.
--- NOTE | 2025-08-28 16:38 | POSTOPAN2_ITS ---
Anesthesia Postop Eval I Sum Postop Eval Completion status Anesthesia document: Postop Eval 1 completed: Yes Anesthesia Postop Eval I Summary Anesthesia Postop Eval I Summary: Anesthesia Postop Eval I: Assessment Summary Airway patent Yes 08/28/25 16:33 MARINE RESOURCE ECONOMIST.MDOT Spontaneous unlabored Yes 08/28/25 16:33 MARINE RESOURCE ECONOMIST.MDOT respirations Mental status Awake,Calm 08/28/25 16:33 MARINE RESOURCE ECONOMIST.MDOT nausea No 08/28/25 16:33 MARINE RESOURCE ECONOMIST.MDOT Vomiting No 08/28/25 16:33 MARINE RESOURCE ECONOMIST.MDOT Anesthesia Postop Eval I: Fluid Summary Crystalloid volume administer 200 08/28/25 16:33 MARINE RESOURCE ECONOMIST.MDOT (ml) Colloids volume administered ( ml) Blood Product volume administered (ml) Total IV fluid infused 200 08/28/25 16:33 MARINE RESOURCE ECONOMIST.MDOT Anesthesia Postop Eval I: Summary Notes Anesthesia Complication No 08/28/25 16:33 MARINE RESOURCE ECONOMIST.MDOT Anesthesia Complication Comment: Post-operative progress note Anesthesia: Postop Eval II Evaluation Mental status: Awake and Calm Pain Level: 0 nausea: No Vomiting: No Complications Anesthesia Complication: No
--- NOTE | 2025-08-28 16:38 | OP.EGD_ITS ---
Patient Name: Dexter Varma Procedure Date: 08/28/2025 4:22 PM Date of : 1950 Age: 75 Procedure: Upper GI endoscopy Indications: Acute post hemorrhagic anemia, Iron deficiency anemia, Melena, Suspected upper gastrointestinal bleeding Providers: Gagan Abraham DO Medicines: Monitored Anesthesia Care Patient Profile: This is a 75 year old male. Refer to note in patient chart for documentation of history and physical. Patient has symptoms of acute epigastric abdominal pain. Complications: No immediate complications. Procedure: Pre-Anesthesia Assessment: - Prior to the procedure, a History and Physical was performed, and patient medications and allergies were reviewed. The patient is competent. The risks and benefits of the procedure and the sedation options and risks were discussed with the patient. All questions were answered and informed consent was obtained. Patient identification and proposed procedure were verified by the physician in the pre-procedure area. Mental Status Examination: alert and oriented. Airway Examination: normal oropharyngeal airway and neck mobility. Respiratory Examination: clear to auscultation. CV Examination: normal. Prophylactic Antibiotics: The patient does not require prophylactic antibiotics. Prior Anticoagulants: The patient has taken no anticoagulant or antiplatelet agents except for NSAID medication. ASA Grade Assessment: II - A patient with mild systemic disease. After reviewing the risks and benefits, the patient was deemed in satisfactory condition to undergo the procedure. The anesthesia plan was to use monitored anesthesia care (MAC). Immediately prior to administration of medications, the patient was re-assessed for adequacy to receive sedatives. The heart rate, respiratory rate, oxygen saturations, blood pressure, adequacy of pulmonary ventilation, and response to care were monitored throughout the procedure. The physical status of the patient was re-assessed after the procedure. After obtaining informed consent, the endoscope was passed under direct vision. Throughout the procedure, the patient's blood pressure, pulse, and oxygen saturations were monitored continuously. The Endoscope was introduced through the mouth, and advanced to the fourth part of the duodenum. Small bowel enteroscopy was deemed necessary. The upper GI endoscopy was accomplished without difficulty. The patient tolerated the procedure well. Scope In: 4:24:37 PM Scope Out: 4:30:32 PM Total Procedure Duration Time 0 hours 5 minutes 55 seconds Findings: LA Grade D (one or more mucosal breaks involving at least 75% of esophageal circumference) esophagitis with bleeding was found 35 to 40 cm from the incisors. Biopsies were taken with a cold forceps for histology. Verification of patient identification for the specimen was done. Coagulation for hemostasis using heater probe was successful. Estimated blood loss was minimal. A single 10 mm angiodysplastic lesion with bleeding was found in the gastric antrum. Coagulation for hemostasis using heater probe was successful. Estimated blood loss was minimal. Multiple 6 mm angiodysplastic lesions without bleeding were found in the duodenal bulb, in the second portion of the duodenum and in the fourth portion of the duodenum. Coagulation for destruction of remaining portion of lesion using heater probe was successful. Estimated blood loss was minimal. A pill was found in the upper third of the esophagus. Removal was accomplished with a jumbo forceps. Impression: - LA Grade D erosive esophagitis with bleeding. Biopsied. Treated with a heater probe. - A single bleeding angiodysplastic lesion in the stomach. Treated with a heater probe. - Multiple non-bleeding angiodysplastic lesions in the duodenum. Treated with a heater probe. Recommendation: - Discharge patient to a group home. - Resume previous diet. - Use Protonix (pantoprazole) 40 mg PO BID indefinitely. - Use sucralfate tablets 1 gram PO BID for 4 weeks. - Continue present medications. Procedure Code(s): --- Professional --- 83449, 59, Small intestinal endoscopy, enteroscopy beyond second portion of duodenum, not including ileum; with control of bleeding (eg, injection, bipolar cautery, unipolar cautery, laser, heater probe, stapler, plasma product support specialist) 30808, Small intestinal endoscopy, enteroscopy beyond second portion of duodenum, not including ileum; with removal of foreign body(s) 84551, 51, Small intestinal endoscopy, enteroscopy beyond second portion of duodenum, not including ileum; with biopsy, single or multiple CPT copyright 2021 [employer] [place] [employer]. All rights reserved. The codes documented in this report are preliminary and upon sales analyst review may be revised to meet current compliance requirements. Gagan Abraham DO 08/28/2025 4:38:32 PM This report has been signed electronically. Number of Addenda: 0 Note Initiated On: 08/28/2025 4:22 PM
--- NOTE | 2025-08-28 16:38 | PCM.POSTANE2 ---
Anesthesia Postop Eval I Sum Postop Eval Completion status Anesthesia document: Postop Eval 1 completed: Yes Anesthesia Postop Eval I Summary Anesthesia Postop Eval I Summary: Anesthesia Postop Eval I: Assessment Summary Airway patent Yes 08/28/25 16:33 ASSISTANT FINANCE MANAGER.MDOT Spontaneous unlabored Yes 08/28/25 16:33 ASSISTANT FINANCE MANAGER.MDOT respirations Mental status Awake,Calm 08/28/25 16:33 ASSISTANT FINANCE MANAGER.MDOT nausea No 08/28/25 16:33 ASSISTANT FINANCE MANAGER.MDOT Vomiting No 08/28/25 16:33 ASSISTANT FINANCE MANAGER.MDOT Anesthesia Postop Eval I: Fluid Summary Crystalloid volume administer 200 08/28/25 16:33 ASSISTANT FINANCE MANAGER.MDOT (ml) Colloids volume administered ( ml) Blood Product volume administered (ml) Total IV fluid infused 200 08/28/25 16:33 ASSISTANT FINANCE MANAGER.MDOT Anesthesia Postop Eval I: Summary Notes Anesthesia Complication No 08/28/25 16:33 ASSISTANT FINANCE MANAGER.MDOT Anesthesia Complication Comment: Post-operative progress note Anesthesia: Postop Eval II Evaluation Mental status: Awake and Calm Pain Level: 0 nausea: No Vomiting: No Complications Anesthesia Complication: No
--- NOTE | 2025-08-28 17:04 | HP.PCM_ITS ---
HPI - General General Date of Admission: 08/28/25 Date of Service: 08/28/25 Chief Complaint: Anemia HPI Narrative Reason for Consultation: Anemia HPI Narrative: TERI RAHMAN, is a 75-year-old male admitted on 08/11/25 for bilateral ankle wound debridement and irrigating wound VAC placement. * 08/11/25: Underwent initial procedure. Awoke from anesthesia without issues and transferred to the surgical floor with pressure-offloading air mattress. Hospital Medicine consulted for medical comanagement. * 08/12/25: Received 2 units of pRBC for decreased hemoglobin (Hgb) from 8.3 to 6.6. Remained stable post-transfusion. * 08/13/25: Underwent planned right lower extremity angiogram with Dr. Menjivar, resulting in an external iliac artery angioplasty and right common iliac artery stent placement. Started on dual antiplatelet therapy (DAPT) with Aspirin and Plavix (Clopidogrel). * 08/14/25 - 08/16/25: Stable. * 08/17/25: Underwent planned wound VAC removal with repeat debridement and replacement of wound VAC. * Current Concern: Hemoglobin has been trending down (specific values not provided in this section) in the setting of dual antiplatelet therapy. Gastroenterology (GI) was consulted for endoscopic evaluation of the GI tract. * Nutrition: Nutrition labs showed low albumin. Nutrition consulted. Patient started on Angel/Ensure supplements and encouraged increased protein intake.] ] FOR[facility] Medical History Open wound History of steroid therapy Low iron Difficulty swallowing History of edema Hx of peripheral vascular disease Wears hearing aid Wears glasses Cancer Uses wheelchair Functional voiding disorder Non-smoker Paraplegic immobility syndrome Liver masses Candidiasis Pruritus, unspecified Home Medications ?Medication ?Instructions ?Recorded ?Last Taken ?Type Liquid probiotic 5 ml PO DAILY 10/23/2408/10 History meropenem 1 gram intravenous 1 g IV Q8 wound infection 37 days 08/17/25 Unknown Rx solution #111 ea L.acidophil,salivari-Bifido 1 cap PO TID probiotic #21 caps 08/18/25 Unknown Rx bifidum-Strep thermoph 175 mg capsule aspirin 81 mg tablet,delayed 81 mg PO BREAKFAST blood thinner 08/18/25 Unknown Rx release #30 tabs clopidogrel 75 mg tablet 75 mg PO DAILY antiplatelet #30 08/18/25 Unknown Rx tabs enoxaparin 40 mg/0.4 mL 40 mg (0.4 mL) subcut DAILY blood 08/18/25 Unknown Rx subcutaneous syringe thinner 7 days #2.8 mL food supplemt, lactose-reduced 120 ml PO 4X/DAY supple ment 7 days 08/18/25 Unknown Rx 0.08 gram-1.5 kcal/mL oral liquid #5,688 mL (Ensure Plus High Protein) tramadol 50 mg tablet 50 mg PO Q6H PRN PRN Pain Sc ore 08/18/25 Unknown Rx 4-10 7 days #28 tabs Allergy/AdvReac Type Severity Reaction Status Date / Time amoxicillin Allergy UTI Verified 08/28/25 15:13 tramadol (From Ultram) AdvReac Intermediate itching/hiv Verified 08/28/25 15:13 es Family History Father Cancer Brother Cancer Surgical History History of vascular access device H/O skin graft Hx of appendectomy Hx of tonsillectomy Social History household members: spouse Smoking Status: Never smoker alcohol intake: never substance use type: does not use ROS Constitutional Constitutional: Denies fatigue, fever(s), poor appetite, weight gain or weight loss Gastrointestinal Gastrointestinal: Denies belching, bloating, change in bowel habits, change in stool character, chewing difficulty, coffee ground emesis, constipation, cramping, diarrhea, dyspepsia, dysphagia, early satiety, excessive flatus, fecal incontinence, heartburn, hematemesis, hematochezia, hemorrhoids, loose stools, melena, nausea, odynophagia, rectal bleeding, tenesmus, vomiting or weight changes Vital Signs Vital Signs Vital Signs: 08/28/25 14:46 08/28/25 14:46 08/28/25 14:46 Temperature 97.3 F L Temperature Source Temporal Pulse Rate 63 Respiratory Rate 18 Respiratory Pattern Normal Blood Pressure 140/81 H Blood Pressure Mean 100 Blood Pressure Source Monitor Blood Pressure Position Sitting Blood Pressure Location Right Arm Baseline BP 107/71 Pulse Ox 100 Oxygen Delivery Method Room Air 08/28/25 15:36 08/28/25 16:33 08/28/25 16:36 Temperature 97.3 F L 97 F L 97.1 F L Temperature Source Temporal Pulse Rate 63 79 89 Respiratory Rate 18 14 16 Respiratory Pattern Normal Blood Pressure 140/81 H 152/63 H 116/60 Blood Pressure Mean 78 Blood Pressure Source Monitor Blood Pressure Position Semi-Fowlers Blood Pressure Location Right Arm Baseline BP 107/71 Pulse Ox 100 99 99 Oxygen Delivery Method Room Air Room Air 08/28/25 16:40 08/28/25 16:45 08/28/25 16:50 Temperature Temperature Source Pulse Rate 82 83 77 Respiratory Rate 16 16 16 Respiratory Pattern Blood Pressure 102/49 L 125/54 H 122/70 H Blood Pressure Mean 66 77 87 Blood Pressure Source Monitor Monitor Monitor Blood Pressure Position Semi-Fowlers Semi-Fowlers Semi-Fowlers Blood Pressure Location Right Arm Right Arm Right Arm Baseline BP 107/71 107/71 107/71 Pulse Ox 98 98 98 Oxygen Delivery Method Room Air Room Air Room Air 08/28/25 17:00 Temperature 97.2 F L Temperature Source Temporal Pulse Rate 88 Respiratory Rate 16 Respiratory Pattern Blood Pressure 139/51 H Blood Pressure Mean 80 Blood Pressure Source Monitor Blood Pressure Position Semi-Fowlers Blood Pressure Location Left Arm Baseline BP 107/71 Pulse Ox 99 Oxygen Delivery Method Room Air Weight Weight: 149 lb 11.102 oz Body Mass Index (BMI) 24.1 Physical Exam Const alert, oriented x3, no apparent distress and healthy appearing General Appearance: cooperative GI normal to inspection, nondistended, normoactive bowel sounds, soft to palpation, non-tender and non-distended Percussion: normal to percussion Rectal Exam: deferred Assessment & Plan Assessment/Plan (1) Anemia:
--- NOTE | 2025-08-28 17:06 | NURSING ---
PT DOES NOT MEET PADSS SCORE D/T BLE WOUND VACS ON FEET. PT UNABLE TO AMBULATE TO MEET SCORE.
== END 2025-08-28 17:20 | disposition home or self-care (01) ==
LOC: EN 14:40 → AC 14:40
PROVIDERS: PCP Nurse Practitioner Family; Referring Provider Internal Medicine Gastroenterology; Visit Provider Internal Medicine Gastroenterology
PROC: 0DJ08ZZ Inspection of Upper Intestinal Tract, Via Natural or Artificial Opening Endoscopic (ICD-10-PCS; CPT 43235; principal; 2025-08-28 15:55)
DX: K31.811 Angiodysplasia of stomach and duodenum with bleeding (principal); G82.20 Paraplegia, unspecified; D62 Acute posthemorrhagic anemia; Z79.01 Long term (current) use of anticoagulants; Z95.820 Peripheral vascular angioplasty status with implants and grafts; Z79.899 Other long term (current) drug therapy; Z79.02 Long term (current) use of antithrombotics/antiplatelets; Z79.82 Long term (current) use of aspirin; D50.9 Iron deficiency anemia, unspecified; K22.11 Ulcer of esophagus with bleeding; T18.198A Other foreign object in esophagus causing other injury, initial encounter; W44.8XXA Other foreign body entering into or through a natural orifice, initial encounter
CPT/HCPCS: 44366; 88305; C1889

== ENCOUNTER 2025-09-09 05:52 | Day surgery (SDC) | payer MEDICARE, SELFPAY ==
--- NOTE | 2025-09-08 11:34 | PAT.ANESEVAL ---
Pre-Assessment Diagnosis/Proposed Procedure Planned Operative Procedure(s): DEBRIDEMENT OF BILATERAL LOWER EXTREMITIES WITH SPLIT THICKNESS SIDE Anesthesia History Anesthesia History - butt welder: Anesthesia History - butt welder Hx Hospitalization No 09/08/25 11:26 Any Problems With Anesthesia No 09/08/25 11:26 Cholinesterase deficiency No 09/08/25 11:26 You/Your Family Experience No 09/08/25 11:26 fever (hyperthermia) with Relationship Recent Exposure to Contagious No 08/17/25 05:39 Disease Does patient have nerve No 09/08/25 11:26 stimulator Patient instructed to have device shut off --Does patient have Pacemaker or ICD? When Was Last Pacemaker Check QUESTION #4 FULL TEXT: You/Your Family Experience fever (hyperthermia) with Anesthesia Last Oral Intake Last Oral intake: Last Oral Intake NPO since Meds taken in AM with sips of water? Meds patient instructed to take am of surgery PONV PONV - butt welder: PONV - butt welder Female No 09/08/25 11:26 HX of Motion Sickness No 09/08/25 11:26 HX of N/V After Surgery No 09/08/25 11:26 Non-Smoker No 09/08/25 11:26 Duration of Surgery greater No 09/08/25 11:26 than 60 minutes Number of Risk Factors PONV Score Height & Weight Height & Weight: Anesthesia: Height & Weight Height 5 ft 10 in 08/19/25 12:29 Respiratory Assessment Respiratory Assessment - butt welder: Respiratory Tract Infection Hx - butt welder Hx Respiratory Tract Infection No 09/08/25 11:26 STOP Sleep Apnea STOP Sleep Apnea - butt welder: STOP Sleep Apnea - butt welder Hx Hypertension No 09/08/25 11:26 Hx Sleep Apnea No 09/08/25 11:26 CPAP BIPAP Do you snore loudly (louder No 09/08/25 11:26 than talking or can be heard Do you often feel tired/ No 09/08/25 11:26 fatigued/ sleepy during daytime? Has anyone observed you stop No 09/08/25 11:26 breathing during sleep? STOP Results Negative 09/08/25 11:26 QUESTION #5 FULL TEXT : Do you snore loudly (louder than talking or can be heard through closed doors)? Tobacco Use History Tobacco Use History - butt welder: Tobacco Use History - butt welder Tobacco Use Smoking Status Never smoker 09/08/25 11:26 Hx Tobacco Use No 09/08/25 11:26 Years Smoking Packs Smoked per Day Smoking Cessation Date was within the last 15 years Hx Smoking Cessation Date Hx Smoking Cessation Counseling Hematologic Medial History Hematologic Hx - butt welder: Hematologic Medical Hx - cell operation supervisor Hx of Blood Transfusion No 09/08/25 11:26 Hx of Transfusion in last 3 No 09/08/25 11:26 Months Date of Last Transfusion (if within last 3 months) Ever experience any problems No 09/08/25 11:26 with transfusion(s)? Specify any problems Hx of Preganancy in last 3 N/A 09/08/25 11:26 Months Nurse Filling Out Transfusion [email or web address] 09/08/25 11:26 & Questions: Date: 09/08/25 09/08/25 11:26 Time: 09/08/25 11:26 Patient unable to answer at this time (ie. confused, unrespo /Reproduction History /Reproductive History - butt welder: /Reproductive Hx- butt welder Hx Now Gestational Age (in weeks): EDC: Hx Hx Para Hx Section SAB No 09/08/25 11:26 Does the father of the baby or his family experience fever w Father of the baby Malignant Hypertension history comment [facility] Medical History Open wound History of steroid therapy Low iron Difficulty swallowing History of edema Hx of peripheral vascular disease Wears hearing aid Wears glasses Cancer Uses wheelchair Functional voiding disorder Non-smoker Paraplegic immobility syndrome Liver masses Candidiasis Pruritus, unspecified Home Medications ?Medication ?Instructions ?Recorded ?Last Taken ?Type meropenem 1 gram intravenous 1 g IV Q8 wound infection 37 days 08/17/25 Unknown Rx solution #111 ea L.acidophil,salivari-Bifido 1 cap PO TID probiotic #21 caps 08/18/25 Unknown Rx bifidum-Strep thermoph 175 mg capsule aspirin 81 mg tablet,delayed 81 mg PO BREAKFAST blood thinner 08/18/25 09/07/25 Rx release #30 tabs clopidogrel 75 mg tablet 75 mg PO DAILY antiplatelet #30 08/18/25 09/07/25 Rx tabs tramadol 50 mg tablet 50 mg PO Q6H PRN PRN Pain Score 08/18/25 Unknown Rx 4-10 7 days #28 tabs iron fli-apd-GL-C-B12-Ca thr-succ 1 tab PO BID 09/08/25 Unknown History 150 mg-800 mcg-140 mg tablet polyethylene glycol 3350 17 17 g PO BID 09/08/25 Unknown History gram/dose oral powder (ClearLax) Allergy/AdvReac Type Severity Reaction Status Date / Time amoxicillin Allergy UTI Verified 09/08/25 11:21 tramadol (From [facility]) AdvReac Intermediate itching/hiv Verified 09/08/25 11:21 es Family History Father Cancer Brother Cancer Surgical History History of vascular access device H/O skin graft Hx of appendectomy Hx of tonsillectomy Social History household members: spouse Smoking Status: Never smoker alcohol intake: never substance use type: does not use Recommendation Anesthesia Recommendation Anesthesia recommendation: OPTIMIZED for anesthesia
[2025-09-09] VITALS (9 sets, daily range): BP systolic 109–142; BP diastolic 50–68; PULSE 66–97; RESP 16–20; TEMP 36.3–36.4; O2SAT 95–100; BMI 23.5
--- OUTSIDE RECORDS SUMMARY | 2025-09-09 05:55 | XMS RPT_ITS | CCD ---
Author Organization [facility] Care Team Providers Care Cold Rolling Machine Setter Name Role Phone KRISTINA DE LA ROSA APRN, CNP Primary Care Phys ician No print room worker, Md Primary Care Provider Argenis BUD Torre [...] Goode APRN, CNP Attending U klarissa Reese COIN MACHINE OPERATORKristina Melissa Primary Care Provi lauren Crista Fry Attending Provider Unavailable Kristina Pressley Referring Provider Freeman SURESH, Dr. Alvarado Attending Provider Dr. Jenny Millard MD Referring Provider Dr. Chevy Mishra DO Emergency Provider Hugh COIN MACHINE OPERATOR-C, Kristina Dunn Primary Care Provi lauren Dr. Chevy Mishra DO Attending Provider CALDERON SURESH, JENNIFER Attending Provider CALDERON SURESH, [facility] Referring Provider Loíza COIN MACHINE OPERATOR-C, Kristina Shaun Referring Provider Jak SURESH, Dr. Vargas Attending Provider Dianelys COIN MACHINE OPERATOR-C, Elzbieta Primary Care Provider Renetta SURESH, Dr. Harlan Eddy Attending Provider Renetta SURESH, Dr. Harlan Eddy Referring Provider ROSEMARY COIN MACHINE OPERATOR-C, CHINTAN Primary Care Provider [phone] Renetta SURESH, Dr. Harlan Eddy Other Provider ROSEMARY COIN MACHINE OPERATOR-C, CHINTAN Primary Care Physician CALDERON SURESH, [facility] Referring Provider Bubba SURESH, Dr. Mckinney Attending Physician Bubba SURESH, Dr. Mckinney Nurse Practitioner ROSEMARY COIN MACHINE OPERATOR-C, CHINTAN Referring Provider Goldie Ferrer Attending Physician Crista Fry Attending Unavailable Loíza COIN MACHINE OPERATOR, Kristina Dunn Primary Care Unav ailable ROSEMARY, CHINTAN Primary Care Unavailable Harlan Jackson Referring Unavailable Harlan Jackson Attending Unavailable ROSEMARY, CHINTAN Primary Care Unavailable Chevy Menjivar Consulting Unavailable Hank Mac Attending Unavailable Hank Mac Referring Unavailable ROSEMARY, CHINTAN Primary Care Unavailable ROSEMARY, CHINTAN Referring Unavailable Goldie Beasley Attending Unavailable Alicia Benedict Attending Unavailable Dianelys COIN MACHINE OPERATOR, Elzbieta Primary Care Unavailable Loíza COIN MACHINE OPERATOR, Kristina Dunn Referring Unav ailable Loíza COIN MACHINE OPERATOR, Kristina Dunn Referring Unav ailable Hugh COIN MACHINE OPERATOR, Kristina Shaun Primary Care Unav ailable Isckarus, [...] Attending Unavailable Wanek, Harlan Eddy Consulting Unavailable Loíza COIN MACHINE OPERATOR, Kristina Dunn Primary Care Unav ailable Isckarus, Mansour Referring Unavailable Isckarus, Naveenour Attending Unavailable ROSEMARY, CHINTAN Primary Care Unavailable GABRAIL, NASHAT Referring Unavailable Siska, Hank Attending Unavailable Loíza COIN MACHINE OPERATOR, Kristina Dunn Primary Care Unav ailable GABRAIL, NASHAT Referring Unavailable GABRAIL, CAMAT Attending Unavailable Loíza COIN MACHINE OPERATOR, Kristina Shaun Primary Care Unav ailable Chevy Mishra Attending Unavailable Siska, Hank Attending Unavailable ROSEMARY, CHINTAN Primary Care Unavailable ROSEMARY, CHINTAN Referring Unavailable ROSEMARY, CHINTAN Primary Care Unavailable Siska, Hank Attending Unavailable Allergies Allergy Classification Reported Allergen(s) Allergy Type Date of Onset Reaction(s) Facility (17 sources) Amoxicillin; Translations: [amoxicillin] Drug Allergy 3 Kidney structure (body structure), Other (See Comments) [facility] (4 sources) Penicillin; Translations: [penicillin] Drug Allergy Infectious disorder of kidney (disorder) [facility] (1 source) Amoxicillin Drug Allergy 5 [facility] Medications Current Medications Medication Drug [...] q4h, # 1 EA, 6 Refill(s), Pharmacy: [facility]/pharmacy #[id number], Cough in adult, 175.2, cm, 08/02/20 14:02:00 [...] 0 Refill(s), 10/20/24 11:24:00 AM EST, Pharmacy: [facility]/pharmacy #[id number], Candidiasis, 172, cm, 10/14/24 10:57:00 EST, [...] 07-21-2025 CEA 2.2 ng/mL Normal See Note: [facility] Comment on above: Result Comment: Refe rence Range: Non-Smoker: <2.5 Smoker: <5.0 This test was performed using the Siemens chemiluminescent method. Values obtained from different assay methods cannot be used interchangeably. CEA levels, regardless of value, should not be interpreted as absolute evidence of the presence or absence of disease. Performed By: #### 8 99, 978, 367, 89328, 763, 9633 #### [facility] [place] [address] [place] [address] Medical Laboratory Scientist: Willy Jolly MD #### 211 #### [facility] [address] [facility] [place], [place] Medical Laboratory Scientist: Marco A Zhang M.D.,PhD Leobardo 07-08-2025 CEA [...] Performed By: #### 8 99, 978, 367, 28058, 763, 4698 #### [facility] [address], [address] [place] [address] Medical Laboratory Scientist: Willy Jolly MD #### 211 #### [facility]/[place] [id number] [facility] [address] [place], [place] Medical Laboratory Scientist: Marco A Zhang M.D.,PhD MR/BMSOllie 07-03-2025 MR/BMSMarcS [facility] [address] [facility] [address] [place] [address] OFFICE VISIT Date of Service: 07/03/25 MR#: [id number] Acct: [id number] Name: DEXTER RAHMAN Rep #: [id number] : 1950 Provider: ED Bradshaw Age/Sex: [...] room air Intake Visit Reasons: Wound Care Can Sealer Required: No Accompanied by: Significant Other Allergies [...] other visu (more content not included)... [facility] CEAon 06-24-2025 CEA 2.1 ng/mL Normal See Note: [facility] Comment on above: Result Comment: Refe rence Range: Non-Smoker: <2.5 Smoker: <5.0 This test was performed using the Siemens chemiluminescent method. Values obtained from different assay methods cannot be used interchangeably. CEA levels, regardless of value, should not be interpreted as absolute evidence of the presence or absence of disease. Performed By: #### 8 99, 978, 367, 59739, 763, 4698 #### [facility] [address], [address] [place] [address] Medical Laboratory Scientist: Willy Jolly MD #### 211 #### [facility] [address] [facility] [place], [place] Medical Laboratory Scientist: Marco A Zhang M.D.,PhD Culture, Anaerobic Any [facility] tracy 06-24-2025 CUAN left ankle/leg #1 [...] vulgatus Beta Lactamase-Reportable Positive Anaerobic cocci [facility] Comment on above: Performed By: #### M 100.3000, M100.4001, M100.2000 ####[facility] [address] [facility] [place], [address] Wound Ctr History AND Physic ayana 06-24-2025 Wound Ctr History & Physical [facility] [address] [place] [address] H P Exam - Wound Care 06/24/25 1317 MR#: [id number] Acct: [id number] Name: JOSIAHDEXTER HEARD Mariaelena Rep #: [id number] : 1950 74 From: Hank Mac MD PCP: ALEKSANDAR LAGUNA Status:REG RCR Location: [facility] History of Present Illness Date of Service: [...] of the generated note prior to signature. [facility] Medical History (Updated 06/18/25 @ 12:48 [...] Recorded Date Recorded By Document 06/18/25 10:53 [id number] 06/18/25 11:02 RB Document 06/22/25 14:28 [id number] 06/22/25 14:40 06/18/25 06/22/25 10:53 14:28 - Today's Visit Information Type of service Initial Visit Follow-up Visit (Physician/SERVICE LIAISON REPRESENTATIVE ) Arrival Mode Wheelchair Wheelchair Transfer Assistance [...] Observation Observation (more content not included)... [facility] Ankle min 3 Viewson 06-23- 25 Ankle min 3 Views [facility] Imaging Services [address] [place] [address] Ankle min 3 Views MR#: [id number] Acct: [id number] Name: DEXTER RAHMAN Rep #: [id number] : 1950 M 74 From: Stefano Vaughan MD PCP: ALEKSANDAR LAGUNA Status: REG RCR Study: Ankle min 3 Views Date of Exam: 06/23/25 Exam# [id number] Ordering Dr: Hank Mac MD PROCEDURE: ANKLE [...] CC: ALEKSANDAR CAMP; Dr. Hank Mac MD Pack Press Operator: Signed [facility] Ankle min 3 Views [facility] Imaging Services [address] [place] [address] Ankle min 3 Views MR#: [id number] Acct: [id number] Name: DEXTER RAHMAN Rep #: [id number] : 1950 M 74 From: Stefano Vaughan MD PCP: ALEKSANDAR LAGUNA Status: REG RCR Study: Ankle min 3 Views Date of Exam: 06/23/25 Exam# [id number] Ordering Dr: Hank Mac MD PROCEDURE: ANKLE [...] MOSES-C CHINTAN CAMP; Dr. Hank Mac MD Pack Press Operator: Signed [facility] Culture, Anaerobic Any Sourc tracy 06-23-2025 CUAN right ankle/leg No anaerobic bacteria isolated. [facility] Comment on above: Performed By: #### M 100.4001, M100.2000, M100.3000 ####[facility] [address] [facility] [place], [address] Foot min 3 Viewson 5 Foot min 3 Views [facility] Imaging Services [address] [place] [address] Foot min 3 Views MR#: [id number] Acct: [id number] Name: DEXTER RAHMAN Rep #: [id number] : 1950 M 74 From: Stefano Vaughan MD PCP: ALEKSANDAR LAGUNA Status: REG RCR Study: Foot min 3 Views Date of Exam: 06/23/25 Exam# [id number] Ordering Dr: Hank Mac MD PROCEDURE: FOOT [...] CC: ALEKSANDAR CAMP; Dr. Hank Mac MD Pack Press Operator: Signed [facility] Foot min 3 Views [facility] Imaging Services [address] [place] [address] Foot min 3 Views MR#: [id number] Acct: [id number] Name: JOSIAH,ADEN Mariaelena Rep #: [id number] : 1950 M 74 From: Stefano Vaughan MD PCP: ALEKSANDAR LAGUNA Status: REG RCR Study: Foot min 3 Views Date of Exam: 06/23/25 Exam# [id number] Ordering Dr: Hank Mac MD PROCEDURE: FOOT [...] CC: ALEKSANDAR CAMP; Dr. Hank Mac MD Pack Press Operator: Signed [facility] Lower Ext Art Exam w/o Exerc shawn 06-23-2025 Lower Ext Art Exam w/o Exercis [facility] [address] [facility] [place] [address] Lower Ext Art Exam w/o Exercis 06/23/25 0830 MR#: [id number] Acct: [id number] Name: DEXTER RAHMAN Rep #: [id number] : 1950 74 From: Yariel Courtney MD [...] the left lower extremity. Ordering Physician: Hank aMc Referring Physician: Chintan Camp Performed By: CARTER, JESSICA RVT 06/23/252252 Date Yariel Courtney MD CC: ALEKSANDAR CAMP; Dr. Hank Mac MD; JENNIFER AMNCERA MD Date Dictated: 06/23/25829 Date Transcribed: 06/23/252252 Pack Press Operator: Signed [facility] Venous Duplex US - Jakob Extre mon 06-23-2025 Venous Duplex US - Jakob Extrem [facility] Cardiovascular Services [address] [place] [address] Venous Duplex US - Jakob Extrem 06/23/25814 MR#: [id number] Acct: [id number] Name: DEXTER RAHMAN Rep #: [id number] : 1950 74 From: Yariel Courtney MD [...] Larissa 06/23/252212 Date Yariel Courtney MD CC: COIN MACHINE OPERATOR-Kurtis CAMP; Dr. Hank Mac MD; JENNIFER MANCERA MD Date Dictated: 06/23/2515 Date Transcribed: 06/23/252212 Pack Press Operator: Signed [facility] Wound Cultureon 06-22-2025 WC right ankle/leg [...] S Vancomycin Islt NAPOLEON <=0.5 S [facility] Comment on above: Performed By: #### M 100.4001, M1.1999, #### [facility] [address] [facility], [address] Wound Cultureon 06-21-2025 WC left ankle/leg Enterococcus [...] TMP SMX Islt NAPOLEON <=20 S [facility] Comment on above: Performed By: #### M 100.3000, M100.4000, ####[facility] [address] [facility] [place], [address] Gram Stainon 06-19-2025 GS left ankle/leg Gram Stain Rare Gram positive cocci No cells seen [facility] Comment on above: Performed By: #### M 100.3000, M100.400, ####[facility] [address] [facility] [place], [place], [address] GS right ankle/leg Gram Stain Rare Gram positive cocci No cells seen [facility] Comment on above: Performed By: #### M 100.4001, M1.1999, ####[facility] [address] [place], [address] Anaerobic cultureOrdered By: Demarcus Hines on 06-18-2025 Bacteria identified Anaer cx Nom (Unsp spec) Bacteroides vulgatus [facility] Bacteria identified Anaer cx Nom (Unsp spec) Anaerobic cocci [facility] Bacteria identified Anaer cx Nom (Unsp spec) No anaerobic bacteria isolated. [facility] Gram stainOrdered By: Paolo Hines on 06-18-2025 Microscopic observation Gram stain Nom (Unsp spec) [facility] Microscopic observation Gram stain Nom (Unsp spec) [facility] Routine wound cultureOrdered By: Demarcus Hines on 06-18-2025 Microbial culture, routine Staphylococcus lugdunensis Abnormal [facility] Wound Ctr History AND Physic ayana 06-18-2025 Wound Ctr History & Physical [facility] [address] [place] [address] H P Exam - Wound Care 06/18/25 1226 MR#: [id number] Acct: [id number] Name: DEXTER RAHMAN Rep #: [id number] : 1950 74 From: Demarcus Hines DPM [...] rollo mattress that they did purchase from [employer] to try to decrease pressure to the sites. Previous offloading boots that they have been wearing to the lower extremities have not worked thus they did order new foam waffle boots but have only been wearing these for the last 2 weeks. Is assisted by wheelchair for transport. He denies N/V/F/chills. Denies further complaints. [facility] Medical History (Updated 06/18/25 @ 12:48 [...] injury Musculo (more content not included)... [facility] CEAon 06-11-2025 CEA 2.2 ng/mL Normal See Note: [facility] Comment on above: Result Comment: Refe rence Range: Non-Smoker: <2.5 Smoker: <5.0 This test was performed using the Siemens chemiluminescent method. Values obtained from different assay methods cannot be used interchangeably. CEA levels, regardless of value, should not be interpreted as absolute evidence of the presence or absence of disease. Performed By: #### 8 99, 978, 367, 64009, 763, 4667 #### [facility] [address] [facility], [address] [place] [address] Medical Laboratory Scientist: Willy Jolly MD #### 211 #### [facility] [address] [facility] [address] Medical Laboratory Scientist: Marco A Zhang M.D.,PhD CEAon 05-28-2025 CEA <2.0 Normal See Note: [facility] Comment on above: Order Comment: FASTI [...] INCORRECT, PLEASE CONTACT CLIENT SERVICES. PHONE NUMBER: [phone] Performed By: #### 5 463 #### [facility] [address], [address] [place] [address] Medical Laboratory Scientist: Willy Jolly MD CEAon 05-19-2025 CEA 2.2 [...] By: #### 9 78 #### [facility] [address], [address] [place] [address] Medical Laboratory Scientist: Willy Jolly MD CEAon 05-06-2025 CEA 2.3 [...] By: #### 5 463 #### [facility] [address], [address] [place] [address] Medical Laboratory Scientist: Willy Jolly MD CEAon 04-29-2025 CEA 2.4 [...] Performed By: #### 5 463 #### [facility] [address] [facility], [address] [place] [address] Medical Laboratory Scientist: Willy Jolly MD CXR for Line Placementon CXR for Line Placement [facility] Imaging Services [address] [place] [address] CXR for Line Placement MR#: [id number] Acct: [id number] Name: DEXTER RAHMAN Rep #: [id number] : 1950 M 74 From: Jerson Barker PCP: CHINTAN CAMP Status: [facility] Study: CXR for Line Placement Date of Exam: 02/25/25 Exam# [id number] Ordering Dr: Harlan Jackson MD PROCEDURE: CXR [...] stable, without evidence of cardiomegaly. Reading Location: [id number] CC: Dr. Harlan Jackson MD; CHINTAN CAMP Pack Press Operator: Signed [facility] Discharge Instructionon Discharge Instruction [facility] Medical Records Department [address] [place] [address] Instructions for Home/Discharge Instructions 02/25/25 1014 MR#: [id number] Acct: [id number] Name: DEXTER RAHMAN Rep #: [id number] : 1950 74 From: Harlan Jackson MD PCP: CHINTAN CAMP Status:REG [facility] Discharge Instructions Diet Discharge Diet: Light diet [...] Care Provider: CHINTAN CAMP Instructions Print Language: Cameroonian Discharge Orders/Prescriptions Prescriptions: New oxycodone-acetaminophen [Percocet] 5-325 [...] 02/25/25 1017 Harlan Jackson MD CC: CHINTAN ACMP Signed [facility] MR/POSTOP.Evangelina 02-25-2025 MR/POSTOP.[facility] Medical Records Department [address] [place] [address] Anesthesia Postop Eval I 02/25/25 1012 MR#: [id number] Acct: [id number] Name: DEXTER RAHMAN Rep #: [id number] : 1950 74 From: Ginny Luevano WELLNESS CONSULTANT PCP: CHINTAN CAMP COIN MACHINE OPERATORJean PaulC Status:REG SDC Y Race: C Location: [place] [address] Anesthesia: Postop Eval I Current Vital Signs [...] completed: Yes 02/25/25 1013 Date Ginny Luevano WELLNESS CONSULTANT Cosigner Signature: Date CC: Signed [facility] MR/ALVHAZQE3kk 02-25-2025 [facility] Medical Records Department [address] [place] [address] Anesthesia Postop Eval II 02/25/25 1055 MR#: [id number] Acct: [id number] Name: DEXTER RAHMAN Rep #: [id number] : 1950 74 From: Won Valenzuela MD PCP: CHINTAN CAMP COIN MACHINE OPERATORBelén Status:REG SDC Y Race: C Location: [place] [address] Anesthesia Postop Eval I Sum Postop Eval Completion status Anesthesia document: Postop Eval 1 completed: Yes Anesthesia Postop Eval I Summary Anesthesia Postop Eval I Summary: Anesthesia Postop Eval I: Assessment Summary Airway patent Yes 02/25/25 10:13 WELLNESS CONSULTANT.LMIL Spontaneous unlabored Yes 02/25/25 10:13 WELLNESS CONSULTANT.LMIL respirations Mental status Awake,Calm 02/25/25 10:13 WELLNESS CONSULTANT.LMIL nausea No 02/25/25 10:13 WELLNESS CONSULTANT.LMIL Vomiting No 02/25/25 10:13 WELLNESS CONSULTANT.LMIL Anesthesia Postop Eval I: Fluid Summary Crystalloid volume administer 400 02/25/25 10:13 WELLNESS CONSULTANT.LMIL (ml) Colloids volume administered ( ml) Blood Product volume administered (ml) Total IV fluid infused 400 02/25/25 10:13 WELLNESS CONSULTANT.LMIL Anesthesia Postop Eval I: Summary Notes Anesthesia Complication No 02/25/25 10:13 WELLNESS CONSULTANT.LMIL Anesthesia Complication Comment: Post-operative progress note Anesthesia: Postop Eval II Evaluation Mental status: Awake Pain Level: 0 nausea: No Vomiting: No Complications Anesthesia Complication: No 02/25/25 1055 Date Won Valenzuela MD Cosigner Signature: Date CC: Signed [facility] Operative Reporton 5 Operative Report [facility] Medical Records Department [address] [place] [address] Operative Report 02/25/25 1017 MR#: [id number] Acct: [id number] Name: DEXTER RAHMAN Rep #: [id number] : 1950 74 From: Harlan Jackson MD 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 Status:REG [facility] Location: [place] [address] Problems Associated Problem List Diagnoses (1) Liver cancer: Procedures Cardiovascular CF Procedures 33xxx-39xxx: 20722 Insert tunneled cv cath Operative Report (Standard) Operative Information Date of Procedure: 02/25/25 Pre-Operative Diagnosis: Liver cancer Post-Operative Diagnosis: Same Surgery/Procedure Performed: 1. Attempted left Mediport insertion 2. Successful right subclavian Mediport placement with C arm satellite tv installer: No Type of Anesthesia: MAC RN Documented [...] (if applicab (more content not included)... [facility] Surgery Visit Reporton 02-23 Surgery Visit Report [facility] [address] [place] [address]. [address] [place] [address] OFFICE VISIT Date of Service: 02/23/25 MR#: [id number] Acct: [id number] Name: DEXTER RAHMAN Rep #: [id number] : 1950 Provider: Dr. Alicia herrera MD Age/Sex: 74/M Location: [facility] Status: Signed Intake Vital Signs 12/12/24 [...] port placement. Patient was initially seen at [facility] and they went to [facility]. Order was sent to central scheduling who placed an order for patient to have a port draw and cancer center. Patient was brought up to our office from cancer center. Patient is taking part in a clinical trial there for liver cancer per patient and his . We do not have any records from the [facility] currently. Patient's last treatment was about [...] healthy appearing, comfortable and no acute distress [facility] Head: normocephalic and atraumatic Neck Neck: [...] the pa (more content not included)... [facility] ANTIBODY SCREEN, RBC W/REFL ID, TITER [...] By: #### 5 463 #### [facility] [address], [address] [place] [address] Medical Laboratory Scientist: Willy Jolly MD PARTIAL THROMBOPLASTIN TIME, ACTIVATEDon 02-13-2025 PARTIAL THROMBOPLASTIN TIME, ACTIVATED 20 sec Low -32 [facility] Comment on above: Result Comment: This test has not been validated for monitoring unfractionated heparin therapy. For testing that is validated for this type of therapy, please refer to the Heparin Anti-Xa assay (test code 73587). For additional information, please refer to http://education.9sky.com/faq/WDC479 (This link is being provided for informational/educational purposes only.) Performed By: #### 5 463 #### [facility] [place] [address] Medical Laboratory Scientist: Willy Jolly MD T3, FREE 02-13-2025 Free T3 [Mass/Vol] 3.1 pg/mL Normal 2.3-4.2 [facility] Comment on above: Performed By: #### 5 463 #### [facility] [place] [address] Medical Laboratory Scientist: Willy Jolly MD T4, FREE 02-13-2025 Free T4 [Mass/Vol] 1.4 ng/dL Normal 0.8-1.8 [facility] Comment on above: Performed By: #### 5 463 #### [facility] [address], [address] [place] [address] Medical Laboratory Scientist: Willy Jolly MD TSHon 02-13-2025 TSH Qn 3.16 m[IU]/L Normal 0.40-4.50 [facility] Comment on above: Performed By: #### 5 463 #### [facility] [address], [address] [place] [address] Medical Laboratory Scientist: Willy Jolly MD CEAon 02-12-2025 CEA 39.7 [...] Performed By: #### 8 99, 978, 367, 87094, 763, 4698 #### [facility] [address], [address] [place] [address] Medical Laboratory Scientist: Willy Jolly MD #### 211 #### [facility] [id number] [facility] [place] [place] Medical Laboratory Scientist: Marco A Zhang M.D.,PhD CEA 01-28-2025 CEA [...] Performed By: #### 8 99, 978, 367, 47427, 763, 4698 #### [facility] [address], [address] [place] [address] Medical Laboratory Scientist: Willy Jolly MD #### 211 #### [facility] [address] [facility] [place] Medical Laboratory Scientist: Marco A Zhang M.D.,PhD CEA 01-08-2025 CEA [...] By: #### 5 463 #### [facility] [address], [address] [place] [address] Medical Laboratory Scientist: Willy Jolly MD CEAon 12-31-2024 CEA 28.6 [...] By: #### 9 78 #### [facility] [address], [address] [place] [address] Medical Laboratory Scientist: Willy Jolly MD CEAon 12-17-2024 CEA 24.3 [...] By: #### 5 463 #### [facility] [address], [address] [place] [address] Medical Laboratory Scientist: Willy Jolly MD Emergency Department Summary on 12-12-2024 Emergency Department Summary [facility] Medical Records Department [address] [place] [address] Emergency Department Summary 12/12/24 MR#: [id number] Acct: [id number] Name: DEXTER RAHMAN Mariaelena Rep #: [id number] : 1950 74 From: Chevy Mishra DO [...] Patient denies any bowel or bladder changes. [facility] Medical History Paraplegic immobility syndrome Liver [...] 16:30 IMPRESSION: No acute fracture. Reading Location: [facility] X-rays of the right ribs were obtained. There are 5 views. On my independent interpretati (more content not included)... [facility] Ribs Uni Min 3V w/PA Cheston 12-12-2024 Ribs Uni Min 3V w/PA Chest [facility] [address] [place] [address] Ribs Uni Min 3V w/PA Chest MR#: [id number] Acct: [id number] Name: DEXTER RAHMAN Rep #: [id number] : 1950 M 74 From: Abisai Berg DO PCP: ALEKSANDAR Ty Status: REG ER Study: Ribs Uni Min 3V w/PA Chest Date of Exam: 12/12 Exam# [id number] Ordering Dr: Chevy Mishra DO PROCEDURE: RIBS [...] No acute fracture. Reading Location: GÉNESIS CC: COIN MACHINE OPERATOR-C Kristina Reese; Dr. Chevy Mishra DO Pack Press Operator: Signed [facility] ACTH, PLASMAon 11-01-2024 ACTH, PLASMA 7 pg/mL Normal 6-50 [facility] Comment on above: Result Comment: Reference range applies only to specimens collected between 7am-10am. Performed By: #### 8 99, 978, 367, 70611, 763, 4698 #### [facility] [address], [address] [place] [id number] Medical Laboratory Scientist: Willy Jolly MD #### 211 #### [facility] [address] [facility] [address] Medical Laboratory Scientist: Marco A Zhang M.D.,PhD CA 19-9on 11-01-2024 [...] Performed By: #### 8 99, 978, 367, 66178, 763, 4698 #### [facility] [address], [address] [place] [address] Medical Laboratory Scientist: Willy Jolly MD #### 211 #### [facility]/[place] [id number] [facility] [place], [place] Medical Laboratory Scientist: Marco A Zhang M.D.,PhD CEAon 11-01-2024 CEA [...] Performed By: #### 8 99, 978, 367, 07221, 763, 4698 #### [facility] [address], [address] [place] [address] Medical Laboratory Scientist: Willy Jolly MD #### 211 #### [facility] [id number] [place] [address] [place], [place] Medical Laboratory Scientist: Marco A Zhang M.D.,PhD CORTISOL, TOTALon 11-01-2024 CORTISOL, TOTAL 21.1 mcg/dL Normal [facility] Comment on above: Result Comment: Refe rence Range: For 8 a.m.(7-9 a.m.) Specimen: 4.0-22.0 Reference Range: For 4 p.m.(3-5 p.m.) Specimen: 3.0-17.0 * Please interpret above results accordingly * Performed By: #### 8 99, 978, 367, 65922, 763, 4698 #### [facility] [address], [address] [place] [address] Medical Laboratory Scientist: Willy Jolly MD #### 211 #### [facility]/[place] [id number] [facility] Dr [place] Medical Laboratory Scientist: Marco A Zhang M.D.,PhD PARTIAL THROMBOPLASTIN TIME, ACTIVATEDon 11-01-2024 PARTIAL THROMBOPLASTIN TIME, ACTIVATED 30 sec Normal 23-32 [facility] Comment on above: Result Comment: This test has not been validated for monitoring unfractionated heparin therapy. For testing that is validated for this type of therapy, please refer to the Heparin Anti-Xa assay (test code 37871). For additional information, please refer to http://education.9sky.com/faq/FJW602 (This link is being provided for informational/educational purposes only.) Performed By: #### 8 99, 978, 367, 46358, 763, 4698 #### [facility] [address], [address] [place] [address] Medical Laboratory Scientist: Willy Jolly MD #### 211 #### [facility] Dr [place] Medical Laboratory Scientist: Marco A Zhang M.D.,PhD TROPONIN I, HIGH [...] not sufficient to make the diagnosis of [place]. Performed By: #### 8 99, 978, 367, 98916, 763, 4698 #### [facility] [address], [address] [place] [address] Medical Laboratory Scientist: Willy Jolly MD #### 211 #### [facility]/[place] [id number] [facility] [place] Medical Laboratory Scientist: Marco A Zhang M.D.,PhD TSHon 11-01-2024 TSH Qn 3.27 m[IU]/L Normal 0.40-4.50 [facility] Comment on above: Performed By: #### 8 99, 978, 367, 30762, 763, 4698 #### [facility] [address], [address] [place] [address] Medical Laboratory Scientist: Willy Jolly MD #### 211 #### [facility] [address] [facility] [place], [place] Medical Laboratory Scientist: Marco A Zhang M.D.,PhD XR CHEST 2 [...] 10/30/2024 1:13:18 PM Ordering Provider: CHINTAN Biggs [facility] ALPHA FETOPROTEIN, TUMOR MAR Rajesh 10-29-2024 ALPHA FETOPROTEIN, TUMOR MARKER 1.4 ng/mL Normal <6.1 [facility] Comment on above: Result Comment: This test was performed using the Lucy [place] chemiluminescent method. Values obtained from different assay methods cannot be used interchangeably. AFP levels, regardless of value, should not be interpreted as absolute evidence of the presence or absence of disease. Performed By: #### 8 99, 978, 367, 34687, 763, 4698 #### [facility] [address], [address] [place] [address] Medical Laboratory Scientist: Willy Jolly MD #### 211 #### [facility] [address] [facility] [place], [place] Medical Laboratory Scientist: Marco A Zhang M.D.,PhD URINALYSIS, [facility] 10-29 Appearance (U) CLEAR Normal CLEAR [facility] Comment on above: Performed By: #### 5 463 #### [facility] of [place] [address] [place] [address] Medical Laboratory Scientist: Willy Jolly MD BACTERIA NONE SEEN Normal NONE SEEN [facility] Comment on above: Performed By: #### 5 463 #### [facility] of [place] [address] [place] [address] Medical Laboratory Scientist: Willy Jolly MD Bilirubin Ql (U) Negative Normal NEGATIVE [facility] Comment on above: Performed By: #### 5 463 #### [facility] of [place] [address] [place] [address] Medical Laboratory Scientist: Willy Jolly MD Color (U) YELLOW Normal YELLOW [facility] Comment on above: Performed By: #### 5 463 #### [facility] of [place] [address] [place] [address] Medical Laboratory Scientist: Willy Jolly MD Glucose Ql (U) Negative Normal NEGATIVE [facility] Comment on above: Performed By: #### 5 463 #### [facility] of [place] [address] [place] [address] Medical Laboratory Scientist: Willy Jolly MD HYALINE CAST NONE SEEN Normal NONE SEEN [facility] Comment on above: Performed By: #### 5 463 #### [facility] of [place] [address], [address] [place] [address] Medical Laboratory Scientist: Willy Jolly MD Ketones Ql (U) Negative Normal NEGATIVE [facility] Comment on above: Performed By: #### 5 463 #### [facility] of [place] [address], [address] [place] [address] Medical Laboratory Scientist: Willy Jolly MD Leukocyte esterase Test strip Ql (U) Negative Normal NEGATIVE [facility] Comment on above: Performed By: #### 5 463 #### [facility] [place] [address] Medical Laboratory Scientist: Willy Jolly MD Nitrite Ql (U) Negative Normal NEGATIVE [facility] Comment on above: Performed By: #### 5 463 #### [facility] [place] [address] Medical Laboratory Scientist: Willy Jolly MD NOTE Normal [facility] Comment on above: Result Comment: This urine was analyzed for the presence of WBC, RBC, bacteria, casts, and other formed elements. Only those elements seen were reported. Performed By: #### 5 463 #### [facility] [place] [address] Medical Laboratory Scientist: Willy Jolly MD OCCULT BLOOD Negative Normal NEGATIVE [facility] Comment on above: Performed By: #### 5 463 #### [facility] of [place] [address] Medical Laboratory Scientist: Willy Jolly MD pH (U) 5.5 [pH] Normal 5.0-8.0 [facility] Comment on above: Performed By: #### 5 463 #### [facility] [place] [address] Medical Laboratory Scientist: Willy Jolly MD Protein Ql (U) Negative Normal NEGATIVE [facility] Comment on above: Performed By: #### 5 463 #### [facility] of [place] [address] Medical Laboratory Scientist: Willy Jolly MD RBC NONE SEEN Normal < OR = 2 [facility] Comment on above: Performed By: #### 5 463 #### [facility] of [place] [address] Medical Laboratory Scientist: Willy Jolly MD Specific gravity (U) [Rel density] 1.016 Normal 1.001-1.03 5 [facility] Comment on above: Performed By: #### 5 463 #### [facility] of [facility] [address] , [address] [place] [address] Medical Laboratory Scientist: Willy Jolly MD SQUAMOUS EPITHELIAL CELLS NONE SEEN Normal < OR = 5 [facility] Comment on above: Performed By: #### 5 463 #### [facility] [address] , [address] [place] [address] Medical Laboratory Scientist: Willy Jolly MD WBC NONE SEEN Normal < OR = 5 [facility] Comment on above: Performed By: #### 5 463 #### [facility] [address], [address] [place] [address] Medical Laboratory Scientist: Willy Jolly MD Urine Cultureon 10-26-2024 URC #2 Organism is too fastidious for routine susceptibility studies. Staphylococcus epidermidis [place] Count 80,000-100,000 Aerococcus urinae Aerococcus urinae Staphylococcus epidermidis: REACTION cefOXitin Susc Islt POS Doxycycline Islt NAPOLEON 8 Clindamycin.induced Susc Islt NEG Gentamicin Islt NAPOLEON 1 S Linezolid Islt NAPOLEON 1 S Nitrofurantoin Islt NAPOLEON <=16 S Oxacillin Susc Islt >=4 R Tetracycline Islt NAPOLEON >=16 R TMP SMX Islt NAPOLEON 80 R Vancomycin Islt NAPOLEON 1 S [facility] Comment on above: Performed By: #### L 3300.0700, L500.4050, M100.2200, L100.0100, L400.0001 ####[facility] [address] [place], [place], [address] AFP, Tumor Markeron 10-25-19 25 AFP TUMOR MAYNOR < 1.8 Normal 0.0-8.4 [facility] Comment on above: Order Comment: N Result Comment: [facility] Electrochemiluminescence Immunoassay (ECLIA) Values obtained with different assay methods or kits cannot be used interchangeably. Results cannot be interpreted as absolute evidence of the presence or absence of malignant disease. This test is not interpretable in females. Performed at: [address] [id number] Clinical Documentation Consultant: Pelon Fermin PhD, Phone: [phone] Performed By: #### L 3300.0700, L500.4050, M100.2200, L100.0100, L400.0001 ####[facility] [address] [place], [address] Absolute neutrophil countOrd ered By: Jenny Millard on 10-23-2024 Neutrophils (Bld) [#/Vol] 9.1 10*3/uL High 2.0-7.7 [facility] Albumin to globulin ratioOrd ered By: Jenny Millard on 10-23-2024 Albumin/Globulin [Mass ratio] 0.4 {ratio} Low 0.9-2.4 [facility] Alpha fetoprotein measuremen t as tumor markerOrdered By: Jenny Millard on 10-23-2024 Tumor Marker Alpha Fetoprotein < 1.8 ng/mL 0.0-8.4 [facility] Comment on above: [employer] [facility] El ectrochemiluminescence Immunoassay(ECLIA)Values obtained with different assay methods or kits cannotbe used interchangeably. Results cannot be interpreted asabsolute evidence of the presence or absence of malignantdisease.This test is not interpretable in females.Performed at: [place] [id number] [place] [address]Lab Director: Pelon Fermin PhD, Phone: [phone] Bacteria LM.HPF (Urine sed) [#/Area]Ordered By: Jenny Millard on 10-23-2024 Urine Bacteria RARE /hpf None Seen [facility] Basophil percentageOrdered B y: eJnny Millard on 10-23-2024 Basophils/100 WBC (Bld) 1.0 % 0-1 [facility] Bilirubin Test strip Ql (U)O rdered By: Jenny Millard on 10-23-2024 Bilirubin Ql (U) Negative Negative [facility] Bilirubin, totalOrdered By: Jenny Millard on 10-23-2024 Bilirubin [Mass/Vol] 0.60 mg/dL 0.20-1.00 [facility] Comment on above: For patients on eltr ombopag therapy, use of Dimension [place] TBIL is not recommended. Blood urea nitrogen (BUN)/cr eatinine ratioOrdered By: Jenny Millard on 10-23-2024 Urea nitrogen/Creatinine [Mass ratio] 20.4 mg/mg High 10-20 [facility] CBC W/Diff, Automatedon 09-26 Absolute Lymph 1.71 X10 3/uL Normal 0.83-4.51 [facility] Comment on above: Performed By: #### L 3300.0700, L500.4050, M100.2200, L100.0100, L400.0001 ####[facility] [address] [place], [address] Absolute Neut 9.1 X10 3/uL High 2.0-7.7 [facility] Comment on above: Performed By: #### L 3300.0700, L500.4050, M100.2200, L100.0100, L400.0001 ####[facility] [address] [place], [address] Basophils/100 WBC (Bld) 1.0 % Normal 0-1 [facility] Comment on above: Performed By: #### L 3300.0700, L500.4050, M100.2200, L100.0100, L400.0001 ####[facility] [address] [place], [address] Eosinophils/100 WBC (Bld) 3.6 % Normal 0-5 [facility] Comment on above: Performed By: #### L 3300.0700, L500.4050, M100.2200, L100.0100, L400.0001 ####[facility] [address] [place], [address] Erythrocyte distribution width (RBC) [Ratio] 16.1 % High 11.6-14.6 [facility] Comment on above: Performed By: #### L 3300.0700, L500.4050, M100.2200, L100.0100, L400.0001 ####[facility] [address] [place], [address] Hematocrit (Bld) [Volume fraction] 36.9 % Low 40-54 [facility] Comment on above: Performed By: #### L 3300.0700, L500.4050, M100.2200, L100.0100, L400.0001 ####[facility] [address] [place], [address] Hemoglobin (Bld) [Mass/Vol] 11.4 g/dL Low 13.0-16.5 [facility] Comment on above: Performed By: #### L 3300.0700, L500.4050, M100.2200, L100.0100, L400.0001 ####[facility] [address] [place], [address] IG% 0.300 Normal 0.0-0.9 [facility] Comment on above: Result Comment: IG% - Immature Granulocytes (promyelocytes, myelocytes and metamyelocytes) > 1% indicates that a LEFT SHIFT is Present. Performed By: #### L 3300.0700, L500.4050, M100.2200, L100.0100, L400.0001 ####[facility] [address] [place], [address] Lymphocytes/100 WBC (Bld) 13.5 % Low 19-41 [facility] Comment on above: Performed By: #### L 3300.0700, L500.4050, M100.2200, L100.0100, L400.0001 ####[facility] [address] [place], [address] MCH (RBC) [Entitic mass] 24.7 pg Low 27.0-32.0 [facility] Comment on above: Performed By: #### L 3300.0700, L500.4050, M100.2200, L100.0100, L400.0001 ####[facility] [address] [place], [address] MCHC (RBC) [Mass/Vol] 30.9 g/dL Low 32-36 [facility] Comment on above: Performed By: #### L 3300.0700, L500.4050, M100.2200, L100.0100, L400.0001 ####[facility] [address] [place], [address] MCV (RBC) [Entitic vol] 80.0 fL Normal 80-94 [facility] Comment on above: Performed By: #### L 3300.0700, L500.4050, M100.2200, L100.0100, L400.0001 ####[facility] [address] [place], [address] Monocytes/100 WBC (Bld) 9.3 % Normal 0-10 [facility] Comment on above: Performed By: #### L 3300.0700, L500.4050, M100.2200, L100.0100, L400.0001 ####[facility] [address] [place], [address] Neutrophils/100 WBC (Bld) 72.3 % High 47-70 [facility] Comment on above: Performed By: #### L 3300.0700, L500.4050, M100.2200, L100.0100, L400.0001 ####[facility] [address] [place], [address] Nucleated RBC (Bld) [#/Vol] 0 10*3/uL Normal 0-5 [facility] Comment on above: Performed By: #### L 3300.0700, L500.4050, M100.2200, L100.0100, L400.0001 ####[facility] [address] [place], [address] Platelet mean volume (Bld) [Entitic vol] 8.7 fL Normal 6.2-12.0 [facility] Comment on above: Performed By: #### L 3300.0700, L500.4050, M100.2200, L100.0100, L400.0001 ####[facility] [address] [place], [address] Platelets (Bld) [#/Vol] 476 10*3/uL High 150-450 [facility] Comment on above: Performed By: #### L 3300.0700, L500.4050, M100.2200, L100.0100, L400.0001 ####[facility] [address] [place], [address] RBC (Bld) [#/Vol] 4.61 10*6/uL Normal 4.6-6.2 [facility] Comment on above: Performed By: #### L 3300.0700, L500.4050, M100.2200, L100.0100, L400.0001 ####[facility] [address] [place], [address] RDW SD 46.7 fl High 35.1-43.9 [facility] Comment on above: Performed By: #### L 3300.0700, L500.4050, M100.2200, L100.0100, L400.0001 ####[facility] [address] [place], [address] WBC (Bld) [#/Vol] 12.7 10*3/uL High 4.4-11.0 [facility] Comment on above: Performed By: #### L 3300.0700, L500.4050, M100.2200, L100.0100, L400.0001 ####[facility] [address] [place], [address] Carbon dioxide measurementOr dered By: Jenny Millard on 10-23-2024 CO2 [Moles/Vol] 25.0 mmol/L 21.0-32.0 [facility] Chloride measurementOrdered By: Jenny Millard on 10-23-2024 Chloride [Moles/Vol] 102 mmol/L 98-107 [facility] Comprehensive Metabolic Prof ilon 10-23-2024 Albumin [Mass/Vol] 2.6 g/dL Low 3.2-5.0 [facility] Comment on above: Performed By: #### L 3300.0700, L500.4050, M100.2200, L100.0100, L400.0001 ####[facility] [address] [place], [address] Albumin/Globulin [Mass ratio] 0.4 {ratio} Low 0.9-2.4 [facility] Comment on above: Performed By: #### L 3300.0700, L500.4050, M100.2200, L100.0100, L400.0001 ####[facility] [address] [place], [address] ALK P 117 U/L Normal 45-117 [facility] Comment on above: Performed By: #### L 3300.0700, L500.4050, M100.2200, L100.0100, L400.0001 ####[facility] [address] [place], [address] ALT [Catalytic activity/Vol] 22 U/L Normal 16-61 [facility] Comment on above: Performed By: #### L 3300.0700, L500.4050, M100.2200, L100.0100, L400.0001 ####[facility] [address] [place], [address] AST [Catalytic activity/Vol] 95 U/L High 15-37 [facility] Comment on above: Performed By: #### L 3300.0700, L500.4050, M100.2200, L100.0100, L400.0001 ####[facility] [address] [place], [address] Bilirubin [Mass/Vol] 0.60 mg/dL Normal 0.20-1.00 [facility] Comment on above: Result Comment: For patients on eltrombopag therapy, use of Dimension [place] TBIL is not recommended. Performed By: #### L 3300.0700, L500.4050, M100.2200, L100.0100, L400.0001 ####[facility] [address] [place], [address] BUN/CRE 20.4 RATIO High 10-20 [facility] Comment on above: Performed By: #### L 3300.0700, L500.4050, M100.2200, L100.0100, L400.0001 ####[facility] [address] [place], [address] CA,Total 9.2 mg/dL Normal 8.5-10.1 [facility] Comment on above: Performed By: #### L 3300.0700, L500.4050, M100.2200, L100.0100, L400.0001 ####[facility] [address] [place], [address] Chloride [Moles/Vol] 102 mmol/L Normal 98-107 [facility] Comment on above: Performed By: #### L 3300.0700, L500.4050, M100.2200, L100.0100, L400.0001 ####[facility] [address] [place], [address] CO2 [Moles/Vol] 25.0 mmol/L Normal 21.0-32.0 [facility] Comment on above: Performed By: #### L 3300.0700, L500.4050, M100.2200, L100.0100, L400.0001 ####[facility] [address] [place], [address] Creatinine [Mass/Vol] 0.74 mg/dL Normal 0.70-1.30 [facility] Comment on above: Result Comment: The validity of the calculated GFR GFRAA in patients over 70 years has not been determined. Clinical correlation is essential. Performed By: #### L 3300.0700, L500.4050, M100.2200, L100.0100, L400.0001 ####[facility] [address] [place], [address] EST GFR - AA 134 mL/min Normal >60 [facility] Comment on above: Result Comment: Afri can Montene[place]in GFR Calc Performed By: #### L 3300.0700, L500.4050, M100.2200, L100.0100, L400.0001 ####[facility] [address] [place], [address] GAP 7 Normal 5-15 [facility] Comment on above: Performed By: #### L 3300.0700, L500.4050, M100.2200, L100.0100, L400.0001 ####[facility] [address] [place], [address] GFR/1.73 sq M.predicted among non-blacks MDRD (S/P/Bld) [Vol rate/Area] 111 mL/min/{1.73_m2} Normal >60 [facility] Comment on above: Result Comment: Non- GFR Calc Performed By: #### L 3300.0700, L500.4050, M100.2200, L100.0100, L400.0001 ####[facility] [address] [place], [address] Globulin (S) [Mass/Vol] 6.4 g/dL High 2.2-4.2 [facility] Comment on above: Performed By: #### L 3300.0700, L500.4050, M100.2200, L100.0100, L400.0001 ####[facility] [address] [place], [address] Glucose [Mass/Vol] 98 mg/dL Normal 74-106 [facility] Comment on above: Performed By: #### L 3300.0700, L500.4050, M100.2200, L100.0100, L400.0001 ####[facility] [address] [place], [address] Potassium [Moles/Vol] 4.0 mmol/L Normal 3.5-5.1 [facility] Comment on above: Performed By: #### L 3300.0700, L500.4050, M100.2200, L100.0100, L400.0001 ####[facility] [address] [place], [address] Sodium [Moles/Vol] 134 mmol/L Low 136-145 [facility] Comment on above: Performed By: #### L 3300.0700, L500.4050, M100.2200, L100.0100, L400.0001 ####[facility] [address] [place], [address] T PROT 9.0 g/dL High 6.4-8.2 [facility] Comment on above: Performed By: #### L 3300.0700, L500.4050, M100.2200, L100.0100, L400.0001 ####[facility] [address] [place], [address] Urea nitrogen [Mass/Vol] 15 mg/dL Normal 7-18 [facility] Comment on above: Performed By: #### L 3300.0700, L500.4050, M100.2200, L100.0100, L400.0001 ####[facility] [address] [place], [address] Eosinophil percentageOrdered By: Jenny Millard on 10-23-2024 Eosinophils/100 WBC (Bld) 3.6 % 0-5 [facility] Epithelial cells.squamous LM Ql (Urine sed)Ordered By: Jenny Millard on 10-23-2024 Epithelial cells.squamous LM.HPF (Urine sed) [#/Area] 0 /[HPF] 0-5 [facility] Erythrocyte distribution wid th ratioOrdered By: Jenny Millard on 10-23-2024 Erythrocyte distribution width (RBC) [Ratio] 16.1 % High 11.6-14.6 [facility] Erythrocyte distribution wid th standard deviationOrdered By: Jenny Millard on 10-23-2024 Erythrocyte distribution width (RBC) [Entitic vol] 46.7 fL High 35.1-43.9 [facility] Estimated glomerular filtrat ion rate (GFR) AmericanOrdered By: Jenny Millard on 10-23-2024 Estimated GFR (MDRD) Amer 134 mL/min >60 [facility] Comment on above: GFR Calc Glomerular filtration rate ( GFR) estimationOrdered By: Jenny Millard on 10-23-2024 Estimated GFR (MDRD) Non-Af Amer 111 mL/min >60 [facility] Comment on above: Non- GFR Calc Glucose Ql (U)Ordered By: Paulo Millard on 10-23-2024 Urine Glucose (UA) Normal mg/dl Normal [facility] Glucose measurementOrdered B y: Jenny Millard on 10-23-2024 Glucose [Mass/Vol] 98 mg/dL 74-106 [facility] Hematocrit Auto (Bld) [Volum e fraction]Ordered By: Jenny Millard on 10-23-2024 Hematocrit (Bld) [Volume fraction] 36.9 % Low 40-54 [facility] Hemoglobin measurementOrdere d By: Jenny Millard on 10-23-2024 Hemoglobin (Bld) [Mass/Vol] 11.4 g/dL Low 13.0-16.5 [facility] Immature granulocytes/100 WB C Auto (Bld)Ordered By: Jenny Millard on 10-23-2024 Immature granulocytes/100 WBC (Bld) 0.300 % 0.0-0.9 [facility] Comment on above: IG% - Immature Granu locytes (promyelocytes, myelocytes and metamyelocytes) > 1% indicates that a LEFT SHIFT is Present. Ketones Test strip Ql (U)Ord ered By: Jenny Millard on 10-23-2024 Ketones Ql (U) Negative Negative [facility] - Chemistry and C hemistry - challengeOrdered By: Jenny Millard on 10-23-2024 AST [Catalytic activity/Vol] 95 U/L High 15-37 [facility] Lymphocytes Auto (Unsp spec) [#/Vol]Ordered By: Jenny Millard on 10-23-2024 Lymphocytes (Bld) [#/Vol] 1.71 10*3/uL 0.83-4.51 [facility] Lymphocytes/100 WBC Auto (Un sp spec)Ordered By: Jenny Millard on 10-23-2024 Lymphocytes/100 WBC (Bld) 13.5 % Low 19-41 [facility] MCV (mean corpuscular volume ) determinationOrdered By: [facility] on 10-23-2024 MCV (RBC) [Entitic vol] 80.0 fL 80-94 [facility] Mean corpuscular hemoglobin (MCH) determinationOrdered By: [facility] on 10-23-2024 MCH (RBC) [Entitic mass] 24.7 pg Low 27.0-32.0 [facility] Mean corpuscular hemoglobin concentration (MCHC) determinationOrdered By: Jenny Millard on 10-23-2024 MCHC (RBC) [Mass/Vol] 30.9 g/dL Low 32-36 [facility] Mean platelet volume determi nationOrdered By: [facility] on 10-23-2024 Platelet mean volume (Bld) [Entitic vol] 8.7 fL 6.2-12.0 [facility] Microscopic analysis of urin e for red blood cells (RBC)Ordered By: Jenny Millard on 10-23-2024 Urine RBC 0-5 SEEN /hpf 0-5 [facility] Monocyte percentageOrdered B y: Jenny Millard on 10-23-2024 Monocytes/100 WBC (Bld) 9.3 % 0-10 [facility] Mucus LM Ql (Urine sed)Order ed By: Jenny Millard on 10-23-2024 Mucus Ql (Urine sed) 1+ /hpf [facility] Neutrophil percentageOrdered By: Jenny Millard on 10-23-2024 Neutrophils/100 WBC (Bld) 72.3 % High 47-70 [facility] Nitrite Test strip Ql (U)Ord ered By: Jenny Millard on 10-23-2024 Nitrite Ql (U) Negative Negative [facility] Nucleated red blood cell per centageOrdered By: Jenny Millard on 10-23-2024 Nucleated RBC/100 WBC (Bld) [Ratio] 0 % 0-5 [facility] Oncology Visit Reporton 09-26 Oncology Visit Report [facility] [address] [place] [address] OFFICE VISIT Date of Service: 10/23/24 1452 MR#: [id number] Acct: [id number] Name: DEXTER RAHMAN Rep #: [id number] 1 : 1950 From: Jenny Millard MD Age/Sex: 74/M [place] [facility] Status: Signed HPI Subjective Date of Service [...] 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 Exam Physical Exam Narrative Patient was seen in a wheelchair, ECOG 2-3 Const General Appearance: ill appearing Positive for chronically and frail HEENT Face and Sinu (more content not included)... Normal [facility] Platelet countOrdered By: Paulo Millard on 10-23-2024 Platelets (Bld) [#/Vol] 476 10*3/uL High 150-450 [facility] Potassium measurementOrdered By: Jenny Millard on 10-23-2024 Potassium [Moles/Vol] 4.0 mmol/L 3.5-5.1 [facility] Protein Test strip Ql (U)Ord ered By: Jenny Millard on 10-23-2024 Protein Ql (U) 30 mg/dl High Negative [facility] RBC Auto (Bld) [#/Vol]Ordere d By: Jenny Millard on 10-23-2024 RBC (Bld) [#/Vol] 4.61 10*6/uL 4.6-6.2 [facility] Serum anion gap measurementO rdered By: Jenny Millard on 10-23-2024 Anion gap [Moles/Vol] 7 mmol/L 5-15 [facility] Serum globulin measurementOr dered By: Jenny Millard on 10-23-2024 Globulin (S) [Mass/Vol] 6.4 g/dL High 2.2-4.2 [facility] Serum or plasma alanine sanders otransferase (ALT) measurementOrdered By: Jenny Millard on 10-23-2024 ALT [Catalytic activity/Vol] 22 U/L 16-61 [facility] Serum or plasma albumin cassi urement (mass/volume)Ordered By: Jenny Millard on 10-23-2024 Albumin [Mass/Vol] 2.6 g/dL Low 3.2-5.0 [facility] Serum or plasma alkaline almaz sphatase measurementOrdered By: Jenny Millard on 10-23-2024 ALP [Catalytic activity/Vol] 117 U/L 45-117 [facility] Serum or plasma calcium cassi urement (mass/volume)Ordered By: Jenny Millard on 10-23-2024 Calcium [Mass/Vol] 9.2 mg/dL 8.5-10.1 [facility] Serum or plasma creatinine m easurement (mass/volume)Ordered By: Jenny Millard on 10-23-2024 Creatinine [Mass/Vol] 0.74 mg/dL 0.70-1.30 [facility] Comment on above: The validity of the calculated GFR & GFRAA in patients over 70 years has not been determined. Clinical correlation is essential. Serum or plasma urea nitroge n measurement (mass/volume)Ordered By: Jenny Millard on 10-23-2024 Urea nitrogen [Mass/Vol] 15 mg/dL 7-18 [facility] Sodium levelOrdered By: Naveen Millard on 10-23-2024 Sodium [Moles/Vol] 134 mmol/L Low 136-145 [facility] Total proteinOrdered By: Edward Millard on 10-23-2024 Protein [Mass/Vol] 9.0 g/dL High 6.4-8.2 [facility] Urinalysis, Completeon 10-23 BACTERIA RARE Normal None Seen [facility] Comment on above: Order Comment: COLLE CTOR TO SPECIFY Performed By: #### L 3300.0700, L500.4050, M100.2200, L100.0100, L400.0001 ####[facility] [address] [place], [address] CAST,WBC 0-5 SEEN Normal None Seen [facility] Comment on above: Order Comment: COLLE CTOR TO SPECIFY Performed By: #### L 3300.0700, L500.4050, M100.2200, L100.0100, L400.0001 ####[facility] [address] [place], [address] Mucus Ql (Urine sed) 1+ /hpf Normal [facility] Comment on above: Order Comment: YESSI CTOR TO SPECIFY Performed By: #### L 3300.0700, L500.4050, M100.2200, L100.0100, L400.0001 ####[facility] [address] [place], [address] RBC 0-5 SEEN Normal 0-5 [facility] Comment on above: Order Comment: YESSI CTOR TO SPECIFY Performed By: #### L 3300.0700, L500.4050, M100.2200, L100.0100, L400.0001 ####[facility] [address] [place], [address] WBC 50-100 SEEN Normal 0-5 [facility]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 volume administer 400 02/25/25 10:13 WELLNESS CONSULTANT.LMIL (ml) Colloids volume administered ( ml) Blood Product volume administered (ml) Total IV fluid infused 400 02/25/25 10:13 WELLNESS CONSULTANT.LMIL Anesthesia Postop Eval I: Summary Notes Anesthesia Complication No 02/25/25 10:13 WELLNESS CONSULTANT.LMIL Anesthesia Complication Comment: Post-operative progress note Anesthesia: Postop Eval II Evaluation Mental status: Awake Pain Level: 0 nausea: No Vomiting: No Complications Anesthesia Complication: No 02/25/25 1055 > Date _ Won Valenzuela MD Cosigner Signature: Date CC: ~ Signed [facility]06-04-2025 Radiology Diagnostic study note [facility] Imaging Services [address] [place] [address] CXR for Line Placement MR#: [id number] Acct: [id number] Name: DEXTER RAHMAN Rep #: [id number] : 1950 M 74 From: Eliezer Flynn MD PCP: CHINTAN CAMP Status: REG S DC Study:CXR for Line Placement Date of Exam: 02/25/25 Exam# [id number] Ordering Dr: St oziel Jackson MD PROCEDURE: [...] stable, without evidence of cardiomegaly. Reading Location: [address] CC: Dr. Harlan Jackson MD; CHINTAN CAMP ~ Pack Press Operator: Signed [facility]06-04-2025 Consult note Author Won [facility] Note Date/Time February 25, 2025 8:37a m [facility] Medical Records Department [address] [place] [address] Pre-Anesthesia Evaluation 02/25/25 0833 MR#: [id number] Acct: [id number] Name: DEXTER RAHMAN Rep #:[id number] : 1950 74 From: Won Valenzuela MD PCP: CHINTAN CAMP Status:REG S DC Y Race: C Location: [place] [address] ASA Classification* ASA Classification ASA Classification: 3 [...] PORT PLACEMENT Anesthesia History Anesthesia History - tool liaison: Anesthesia History - tool liaison Hx Hospitalization No 02/24/25 10:53 Any Problems [...] take am of surgery PONV PONV - tool liaison: PONV - tool liaison Female No 02/24/25 10:53 HX of Motion [...] 02/25/25 07:58 Respiratory Assessment Respiratory Assessment - tool liaison: Respiratory Tract Infection Hx - tool liaison Hx Respiratory Tract Infection No 02/24/25 10:53 STOP Sleep Apnea STOP Sleep Apnea - tool liaison: STOP Sleep Apnea - tool liaison Hx Hypertension No 02/24/25 10:53 Hx Sleep [...] Tobacco Use History Tobacco Use History - tool liaison: Tobacco Use History - tool liaison Tobacco Use Smoking Status Never smoker 02/24/25 10:53 Hx Tobacco Use No 02/24/25 10:53 Years Smoking Packs Smoked per Day Smoking Cessation Date was within the last 15 years Hx Smoking Cessation Date Hx Smoking Cessation Counseling Hematologic Medial History Hematologic Hx - tool liaison: Hematologic Medical Hx - drafter electrical Hx of Blood Transfusion No 02/24/25 10:53 Hx of Transfusion in last 3 No 02/24/25 10:53 Months Date of Last Transfusion (if within last 3 months) Ever experience any problems No 02/24/25 10:53 with transfusion(s)? Specify any problems Hx of Preganancy in last 3 N/A 02/24/25 10:53 Months Nurse Filling Out Transfusion [facility] 02/24/25 10:53 & Questions: Date: 02/24/25 02/24/25 10:53 Time: 10:54 02/24/25 10:53 Patient unable to answer at this time (ie. confused, unrespo /Reproduction History /Reproductive History - tool liaison: /Reproductive Hx- tool liaison Hx Now Gestational Age (in weeks): EDC: [...] MD Cosigner Signature: Date CC: ~ Signed [facility] Work Phone: 1(692) 356-126206-04-2025 History and physical note Author Harlan Jackson [facility] Note Date/Time February 25, 2025 8:35a m [facility] Medical Records Department [address] [place] [address] History & Physical Exam 02/25/25 0834 MR#: [id number] Acct: [id number] Name: DEXTER RAHMAN Rep #:[id number] : 1950 74 From: Harlan Jackson MD PCP: CHINTAN CAMP COIN MACHINE OPERATORBelén Status:REG S DC Location: [address] HPI - General General Date of Admission: 02/25/25 Date of Service: 02/25/25 Chief Complaint: Need for Mediport placement HPI Narrative DEXTER RAHMAN, is a 74 M who presents for elective Mediport placement surgerytoday. He is undergoing chemotherapy and he was recommended to have a Mediport placement [facility] Medical History (Updated 02/24/25 @ 11:00 [...] begin momentarily. Charges/Coding Visit Charges Inpatient E&M: 84785 Init Hosp L3 02/25/25 0835 <Electronically signed by Harlan Jackson MD> Cosigner Signature (if applicable): CC: Dr. Harlan Jackson MD; CHINTAN CAMP~ Signed [facility] Work Phone: 1(346) 413-445406-04-2025 Procedure note [facility] Medical Records Department [address] [place] [address] Operative Report 02/25/25 1017 MR#: [id number] Acct: [id number] Name: DEXTER RAHMAN Rep #:[id number] : 1950 74 From: Harlan Jackson MD PCP: CHINTAN CAMP Status:REG S DC Location: [place] [address] Problems Associated Problem List Diagnoses (1) Liver cancer: Procedures Cardiovascular CF Procedures 33xxx-39xxx: 31027 Insert tunneled cv cath Operative Report (Standard) Operative Information Date of Procedure: 02/25/25 Pre-Operative Diagnosis: Liver cancer Post-Operative Diagnosis: Same Surgery/Procedure Performed: 1. Attempted left Mediport insertion 2. Successful right subclavian Mediport placement with C arm satellite tv installer: No Type of Anesthesia: MAC RN Documented [...] Dr. Harlan Jackson MD; CHINTAN CAMP~ Signed [facility]-04-2025 Discharge summary [facility] Medical Records Department [address] [place] [address] Instructions for Home/Discharge Instructions 02/25/25 1014 MR#: [id number] Acct: [id number] Name: DEXTER RAHMAN Rep #:[id number] : [...] Care Provider: CHINTAN CAMP Instructions Print Language: Cameroonian Discharge Orders/Prescriptions Prescriptions: New oxycodone-acetaminophen [Percocet] 5-325 [...] 0RF Referrals / Follow Up: CHINTAN CAMP COIN MACHINE OPERATOR-C [Primary Care Provider] - Disposition Disposition (needs filled in before D/C Order can be placed): Home, Self Care 02/25/25 1017Harlan Jackson MD CC: CHINTAN LOPES-C ROSEMARY ~ Signed [facility]06-04-2025 Consult note [facility] Medical Records Department [address] [place] [address] Anesthesia Postop Eval I 02/25/25 1012 MR#: [id number] Acct: [id number] Name: DEXTER RAHMAN Rep #:[id number] : 1950 74 From: Ginny Luevano CRNA PCP: CHINTAN CAMP COIN MACHINE OPERATORBelén Status:REG S DC Y Race: C Location: [place] [address] Anesthesia: Postop Eval I Current Vital Signs [...] Eval 1 completed: Yes 02/25/25 1013 c WELLNESS CONSULTANT> Date _ Ginny Luevano CRNA Cosigner Signature: Date CC: ~ Signed [facility]06-04-2025 Consult note [facility] Medical Records Department [address] [address] Pre-Anesthesia Evaluation 02/25/25 0833 MR#: [id number] Acct: [id number] Name: DEXTER RAHMAN Rep #:[id number] : 1950 74 From: Won Valenzuela MD PCP: CHINTAN CAMP COIN MACHINE OPERATORBelén Status:REG S DC Y Race: C Location: [place] [address] ASA Classification* ASA Classification ASA Classification: 3 [...] PORT PLACEMENT Anesthesia History Anesthesia History - tool liaison: Anesthesia History - tool liaison Hx Hospitalization No 02/24/25 10:53 Any Problems [...] take am of surgery PONV PONV - tool liaison: PONV - tool liaison Female No 02/24/25 10:53 HX of Motion [...] 02/25/25 07:58 Respiratory Assessment Respiratory Assessment - tool liaison: Respiratory Tract Infection Hx - tool liaison Hx Respiratory Tract Infection No 02/24/25 10:53 STOP Sleep Apnea STOP Sleep Apnea - tool liaison: STOP Sleep Apnea - tool liaison Hx Hypertension No 02/24/25 10:53 Hx Sleep [...] Tobacco Use History Tobacco Use History - tool liaison: Tobacco Use History - tool liaison Tobacco Use Smoking Status Never smoker 02/24/25 10:53 Hx Tobacco Use No 02/24/25 10:53 Years Smoking Packs Smoked per Day Smoking Cessation Date was within the last 15 years Hx Smoking Cessation Date Hx Smoking Cessation Counseling Hematologic Medial History Hematologic Hx - tool liaison: Hematologic Medical Hx - drafter electrical Hx of Blood Transfusion No 02/24/25 10:53 Hx of Transfusion in last 3 No 02/24/25 10:53 Months Date of Last Transfusion (if within last 3 months) Ever experience any problems No 02/24/25 10:53 with transfusion(s)? Specify any problems Hx of Preganancy in last 3 N/A 02/24/25 10:53 Months Nurse Filling Out Transfusion [facility] 02/24/25 10:53 & Questions: Date: 02/24/25 02/24/25 10:53 Time: 10:54 02/24/25 10:53 Patient unable to answer at this time (ie. confused, unrespo /Reproduction History /Reproductive History - tool liaison: /Reproductive Hx- tool liaison Hx Now Gestational Age (in weeks): EDC: [...] MD Cosigner Signature: Date CC: ~ Signed [facility]06-04-2025 History and physical note [facility] Medical Records Department [address] [place] [address] History & Physical Exam 02/25/25 0834 MR#: [id number] Acct: [id number] Name: DEXTER RAHMAN Rep #:[id number] : 1950 74 From: Harlan Jackson MD PCP: CHINTAN CAMP COIN MACHINE OPERATORJean PaulC Status:REG S DC Location: [place] [address] HPI - General General Date of Admission: 02/25/25 Date of Service: 02/25/25 Chief Complaint: Need for Mediport placement HPI Narrative DEXTER RAHMAN, is a 74 M who presents for elective Mediport placement surgerytoday. He is undergoing chemotherapy and he was recommended to have a Mediport placement [facility] Medical History (Updated 02/24/25 @ 11:00 [...] begin momentarily. Charges/Coding Visit Charges Inpatient E&M: 03743 Init Hosp L3 02/25/25 0835 Cosigner Signature (if applicable): CC: Dr. Harlan Jackson MD; CHINTAN CAMP~ Signed [facility]-04-2025 [facility] Medical Records Department [address] [place] [address] History Physical Exam 02/25/25 0834 MR#: [id number] Acct: [id number] Name: DEXTER RAHMAN Rep #: [id number] : 1950 74 From: Harlan Jackson MD PCP: CHINTAN CAMP Status:[facility] Location: [place] [address] HPI - General General Date of Admission: 02/25/25 Date of Service: 02/25/25 Chief Complaint: Need for Mediport placement HPI Narrative DEXTER RAHMAN, is a 74 M who presents for elective Mediport placement surgery today. He is undergoing chemotherapy and he was recommended to have a Mediport placement [facility] Medical History (Updated 02/24/25 @ 11:00 [...] momentarily. Charges/Coding Visit Charges Inpatient E M: 47296 Init Hosp L3 02/25/25 0835 Cosigner Signature (if applicable): CC: Dr. Harlan Jackson MD; CHINTAN CAMP [facility] Evaluation note* Diagnosis Onset Date Resolution Status Admit Date Encounter for insertion of v enous access port acute February 23, 2025 3 :34pm Liver cancer acute February 23 3:34pm [facility] Work Phone: 1(954) 272-962306-02-2025 Evaluation note* Diagnosis Onset Date Resolution Status Admit Date Encounter for insertion of v enous access port acute February 23, 2025 3 :34pm Liver cancer acute February 23 3:34pm Liver cancer acute February 25 6:53am [facility] Work Phone: 1(685) 117-967606-02-2025 Progress [facility] [address] [facility] [place], [place] [id number] OFFICE VISIT Date of Service: 02/23/25 MR#: [id number] Acct: [id number] Name: DEXTER RAHMAN Rep #: [id number] : 1950 Provider: Dr. Blake Benedict MD Age/Sex: 74/M Location: [facility] Status: Signed Intake Vital Signs 12/12/24 [...] port placement. Patient was initially seen at [facility] and[facility]. Order was sent to central scheduling who placed an order for patient to have a port draw and cancer center. Patient was brought up to our office from cancer center. Patient is taking part in a clinical trial there for liver cancer per patient and his . We do not have any records from the [facility] currently. Patient's last treatment was about [...] healthy appearing, comfortable and no acute distress [facility] Head: normocephalic and atraumatic Neck Neck: [...] no further questions. Alicia Benedict M.D. Pager: [phone] [facility] [address] [place] [address], [address], [address] [place] [address] Office: [phone] Coding Level of Care Code Off vis,new,level 3 Diagnoses Encounter for insertion of venous access port Z45.2 Liver cancer C22.9 Clinical Quality Measures Falls Risk Screening/Assistive Devices Have you fallen in the past year?: No 02/23/25 1600 am > Date _ Alicia Benedict MD Cosigner Signature: Date (if applicable) CC: COIN MACHINE OPERATOR-C Kristina Reese; Dr. Harlan Jackson MD ~ [facility]06-02-2025 Progress note Author Alicia Benedict [facility] Note Date/Time February 23, 2025 4:00p m [facility] [address] [place] [address] OFFICE VISIT Date of Service: 02/23/25 MR#: [id number] Acct: [id number] Name: DEXTER RAHMAN Rep #: [id number] : 1950 Provider: Dr. Blake Benedict MD Age/Sex: 74/M Location: [facility] Status: Signed Intake Vital Signs 12/12/24 [...] port placement. Patient was initially seen at [facility] and they went to [facility]. Order was sent to central scheduling who placed an order for patient to have a port draw and cancer center. Patient was brought up to our office from cancer center. Patient is taking part in a clinical trial there for liver cancer per patient and his . We do not have any records from the [facility] currently. Patient's last treatment was about [...] no further questions. Alicia Benedict M.D. Pager: [phone] [facility] [address] [place] [address], [facility], [address] [place] [address] Office: [phone] Coding Level of Care Code Off vis,new,level 3 Diagnoses Encounter for insertion of venous access port Z45.2 Liver cancer C22.9 Clinical Quality Measures Falls Risk Screening/Assistive Devices Have you fallen in the past year?: No 02/23/25 1600 <Electronically signed by Alicia Du am, MD> Date _ Alicia Benedict MD Cosigner Signature: Date (if applicable) CC: COIN MACHINE OPERATOR-C Kristina Reese; Dr. Harlan Jackson MD ~ [facility] Work Phone: 1(727) 769-563103-21-2025 Radiology Diagnostic study note [facility] Imaging Services [address] [place] [id number] Ribs Uni Min 3V w/PA Chest MR#: [id number] Acct: [id number] Name: DEXTER RAHMAN Rep #: [id number] : 1950 M 74 From: Lisa Berg DO PCP: ALEKSANDAR Ty Status: REG ER Study:Ribs Uni Min 3V w/PA Chest Date of Exam : 12/12/24 Exam# [id number] Ordering Dr: Chevy Mishra DO PROCEDURE: RIBS [...] No acute fracture. Reading Location: GÉNESIS CC: COIN MACHINE OPERATORBelén Reese; Dr. Chevy Mishra DO ~ Pack Press Operator: [facility] Note* Exam Date Time Procedure Performing Provider Status 10/30/24 11:20 AM XR Chest 2 Views SAMI FALCON DO; A [facility] (Verified) [id number] ORIGINAL EXAMINATION: TWO XRAY VIEWS OF THE [...] Date: 10/30/2024 1:13:18 PM Ordering Provider: CHINTAN [facility]01-30-2025 Evaluation note* Diagnosis Onset Date Resolution Status Admit Date Liver masses acute September 2:38pm [facility] Work Phone: [phone]) 944-819301-22-2025 Note* Exam Date Time Procedure Performing Provider Status 10/15/24 3:[address] Abdomen w/ Contrast Contributor_sys LEANDRA [email or web address]; Auth (Verified) [id number] ORIGINAL EXAMINATION: CT ABDOMEN WITH CONTRAST10/15/2024 3:27 [...] 10/15/2024 8:35:39 PM Ordering Provider: KRISTINA REESE [facility]02-12-2024 Evaluation + Plan note Future Scheduled Tests Laboratory* Prostate Specific Antigen 11/05/23 * A1C Hemoglobin 11/05/23 * Complete Blood Count 10/14/24 * Gamma Glutamyl Transferase 10/14/24 * Lipid Profile 11/05/23 * Complete Metabolic Panel 10/14/24 * Complete Metabolic Panel 11/05/23 Radiology* XR Chest 2 Views (PA & Lateral) 03/05/24 [facility] 02-12-2024 Evaluation + Plan note Future Scheduled Tests Laboratory* Prostate Specific Antigen 11/05/23 * A1C Hemoglobin 11/05/23 * Complete Blood Count 10/14/24 * Gamma Glutamyl Transferase 10/14/24 * Lipid Profile 11/05/23 * Complete Metabolic Panel 10/14/24 * Complete Metabolic Panel 11/05/23 [facility] 04-05-2023 Hospital Discharge instructions* Discharge Instructions* [...] up to 6-12 months. [facility] History of Present illness Narrative* Bud Maciel [...] 12/27/2022 Bud Maciel PA-C [facility] Hospital Discharge instructions* Discharge Instructions* Shannon Villegas [...] at least 30. Use as directed. Call [facility] for any questions or concerns [phone]. documented [facility] encounter[facility]03-[facility]23 Miscellaneous Notes* Nursing - Mary Ann Luo [...] PM Attending Provider: Kristina Hairston MD Room/Bed: [facility] MAIN OR POOL ROOM/Pool Bed : [...] cm2 Operative Staff Surgeon(s): Kristina Hairston MD Foundry Melt Supervisor: Kavon Dave RN; Caitlin Pretty RN Scrub [...] epinephrine saline soaked sponges. I used the [place] to inject 1:1,000,000 epinephrine saline solution subdermally [...] Kristina Hairston MD 12/12/2022 documented in [facility] encounterAccess [facility] [place]23 Nurse Note* Nursing - Mary Ann Luo RN - 12/12/2022 5:14 PM EDT Pt and wanted to be discharged to the cafeteria to eat dinner while waiting for their ride. [facility]23 Plan of care note* Plan of Care - Mary Ann Luo RN - 12/12/2022 4:49 PM EDT Education completed [facility]03-21-2023 Plan of care note* Plan of Care - Gala Toscano RN - 12/12/2022 4:15 PM EDT Education continues. [facility]-21-[facility]23 Procedure note* Op Note - Kristina Hairston MD - 12/12/2022 3:51 PM EDT Operative Note Name: Dexter Thomas Admission Date: 12/12/2022 12:07 PM Attending Provider: Kristina Hairston MD Room/Bed: [facility] MAIN OR POOL ROOM/Pool Bed : [...] cm2 Operative Staff Surgeon(s): Kristina Hairston MD Foundry Melt Supervisor: Kavon Dave RN; Caitlin Pretty RN Scrub [...] epinephrine saline soaked sponges. I used the [place] to inject 1:1,000,000 epinephrine saline solution subdermally [...] for scar management. Kristina Hairston MD 12/12/2022 [facility] Attending History and physical note* Kristina Hairston [...] leaves, coconut oil Place of Treatment: Home, [facility] Burn Team Place of Injury: Work Intent [...] his left thigh. He presented to the [facility] Burn Team and has been applying burdock leaves, coconut oil, and B&W to the burn. After no improvement, he was referred to [facility] Burn [facility] by the [facility] Burn evp global product leadership. 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 Tetanus IG also given. 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 12:37 PM 12/07/2022 Bud Maciel PA-C [facility]03-21-2023 History and physical note* Kristina Hairston MD [...] leaves, coconut oil Place of Treatment: Home, [facility] Burn Team Place of Injury: Work Intent [...] his left thigh. He presented to the [facility] Burn Team and has been applying burdock leaves, coconut oil, and B&W to the burn. After no improvement, he was referred to [facility] Burn Center by the [facility] Burn evp global product leadership. 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 Tetanus IG also given. 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 Hairston Procedure: Excision of burn and placement of STSG Anticipated Date of Procedure: 12/12/22 Preoperative Clearance to be obtained by: [ ] [facility] Internal Medicine [ ] Presurgical Home [...] and 300mg TID starting POD #1 ED [facility]03-16-2023 Hospital Discharge instructions* Discharge Instructions* Nicole Holliday [...] madeline bandage.Follow up in one week Call [facility] for any questions or concerns [phone]. documented in this encounterAccess [facility] [place]03-16-2023 History of Present illness Narrative* Bud Maciel [...] leaves, coconut oil Place of Treatment: Home, [facility] Burn Team Place of Injury: Work Intent [...] his left thigh. He presented to the [facility] Burn Team and has been applying burdock leaves, coconut oil, and B&W to the burn. After no improvement, he was referred to [facility] Burn Center by the [facility] Burn evp global product leadership. 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 Tetanus IG also given. 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 [id number] Miscellaneous Notes* Addendum Note - Bud Maciel PA-C - 12/07/2022 10:30 AM EDT Encounter addended by: Bud Maciel PA-C on: 12/07/2022 2:17 PM Actions taken: Level of Service modified documented in this encounterAccess [facility] [place]03-16-2023 Note* Addendum Note - Bud Maciel PA-C - 12/07/2022 10:30 AM EDTEncounter addended by: Bud Maciel PA-C on: 12/07/2022 2:17 PM Actions taken: Level of Service modified [facility]11-28-2021 Note. MICRO - Microbiology PROCEDURE: Urine Culture [...] Locations *1: This test was performed at: [facility], [address] [place] [address], [address] , [facility] ([place])08-19-2021 Evaluation + Plan note Diagnostic Tests Pending * Urine Culture 08/19/21 Future Scheduled Tests Laboratory* Basic Metabolic Panel 05/31/21 [facility] 11-26-2021 Hospital Discharge instructions Patient Education [...] that stimulate the heart. This includes many fxie-zcg-bjdpzng cold and sinus decongestant pills and sprays, as well as diet pills. Check the warnings about high blood pressure onthe label. Before buying any fgdm-mbo-zpnjizc medicines or supplements, always ask the pharmacist [...] one of these at most pharmacies. The [place] [employer] recommends the following guidelines for [...] face You have problems speaking or seeing 0469-[address] [employer] [place] [address]. All rights reserved. This information is not [...] testing. For more information, contact CDC-INFO at [phone]. When to seek medical advice Call your [...] Testicle pain or swelling of the scrotum 6747-[address] [employer] [place] [address]. All rights reserved. This information is not intended as a substitute for professional medical care. Always follow yourhealthcare professional's instructions. Follow Up Care 08/19/2021 08:09:12 With:KRISTINA REESE Address: [address] [place] [address] [place] [address]- When:2-4 days Comments:Schedule appointment as soon as possibleReturn to ED if symptoms worsenREturn for symptoms as described. Follow up for urine culture results. Increase fluids With:RADHA ALVAREZ Address: [address] [place] [address]- Business (1) When:2-4 days Comments:Schedule appointment as soon as possibleReturn to ED if symptoms worsen [facility] 11-19-2021 Note. MICRO - Microbiology PROCEDURE: [...] Locations *1: This test was performed at: [address], [address] [place] [address] ([place])08-12-2021 Note. MICRO - Microbiology PROCEDURE: Blood Culture [...] Locations *1: This test was performed at: [address], [address]- , [facility] ([place])08-09-2021 Note. MICRO - Microbiology PROCEDURE: Urine Culture [...] Locations *1: This test was performed at: [facility], [address] [place] [address], [address]- , [facility] ([place])08-07-2021 Evaluation + Plan note Diagnostic Tests Pending * Urine Culture 08/07/21 Future Scheduled Tests Laboratory* Basic Metabolic Panel 05/31/21 [facility] 11-14-2021 Hospital Discharge instructions Patient Education [...] colored urine Decreased or absent urine output [id number] [employer]. [address] [place] [address]. All rights reserved. This information is not [...] Carry a medical ID card or a FantastecB drive. Or wear a medical alert bracelet [...] keep having episodes of high blood sugar. 9959-6601 [employer]. [address] [place] [address], [place] [id number]. All rights reserved. This information is not intended as a substitute for professional medical care. Always follow yourparkwood hospitalcare professional's instructions. 08/07/2021 11:56:41 Hypertension, To Be [...] blood pressure monitors at most pharmacies. The [place] [employer] recommends the following guidelines for [...] face You have problems speaking or seeing 9170-6227 [employer]. [address] [place] [address].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
[2025-09-09] MEDS: Lactated Ringers 1,000 ML 15 ML IV (06:15)
--- NOTE | 2025-09-09 07:07 | PRE.ANES_ITS ---
ASA Classification* ASA Classification ASA Classification: 3 Assessment & Plan Anesthesia* Anesthesia Assessment Anesthesia Assessment: Discussed sedation and/or anesthesia options, risks, benefits, and alternatives with patient/parents/legal guardian/POA. Questions invited. The patient/parents/legal guardian/POA seems to understand and agrees to proceed with anesthesia plan. Reviewed the physical assessment, medical history, allergy history and patient home medications list prior to surgery/procedure/anesthetic and documented any changes. Performed airway and anesthesia risk assessments. Anesthesia Type Anesthesia Type: MAC History Source History Obtained from:: Patient and Chart Anesthesia Focused Assessment* Temperature: 97.5 F Pulse Rate: 66 Blood Pressure: 142/52 Respiratory Rate: 16 Pulse Ox: 100 Oxygen Delivery Method: Room Air Airway Assessment Mouth opens: >3 cm Mallampati Score: IV Teeth Condition: Missing (Patient has a couple missing teeth. Rest of the teeth are tight.) Neck Range of motion (ROM): Limited ROM (Severe Restriction.) Labs Anesthesia Preop lab: CBC WBC, (4.4-11.0) 8.6 K/mm3 Today, 05:40 RBC, (4.6-6.2) 2.93 M/mm3 L Today, 05:40 Hgb, (13.0-16.5) 9.1 g/dL L Today, 05:40 Hct, (40-54) 28.1 % L Today, 05:40 Plt Count, (150-450) 213 K/mm3 Today, 05:40 CHEMISTRY Potassium, (3.3-5.1) 4.4 mmol/L Today, 05:40 Sodium, (133-145) 136 mmol/L Today, 05:40 BUN, (4-19) 26 mg/dL H Today, 05:40 Creatinine, (0.70-1.20) 0.59 mg/dL L Today, 05:40 Glucose, (70-99) 86 mg/dL Today, 05:40 COAG Pre-Assessment Diagnosis/Proposed Procedure Planned Operative Procedure(s): DEBRIDEMENT OF BILATERAL LOWER EXTREMITIES WITH SPLIT THICKNESS SIDE Anesthesia History Anesthesia History - product technician: Anesthesia History - product technician Hx Hospitalization No 09/08/25 11:26 Any Problems With Anesthesia No 09/08/25 11:26 Cholinesterase deficiency No 09/08/25 11:26 You/Your Family Experience No 09/08/25 11:26 fever (hyperthermia) with Relationship Recent Exposure to Contagious No 09/09/25 06:09 Disease Does patient have nerve No 09/08/25 11:26 stimulator Patient instructed to have device shut off --Does patient have Pacemaker No 09/09/25 06:09 or ICD? When Was Last Pacemaker Check QUESTION #4 FULL TEXT: You/Your Family Experience fever (hyperthermia) with Anesthesia Last Oral Intake Last Oral intake: Last Oral Intake NPO since 00:00 09/09/25 06:09 Meds taken in AM with sips of No 09/09/25 06:09 water? Meds patient instructed to take am of surgery PONV PONV - product technician: PONV - product technician Female No 09/08/25 11:26 HX of Motion Sickness No 09/08/25 11:26 HX of N/V After Surgery No 09/08/25 11:26 Non-Smoker No 09/08/25 11:26 Duration of Surgery greater No 09/08/25 11:26 than 60 minutes Number of Risk Factors PONV Score Height & Weight Height & Weight: Anesthesia: Height & Weight Height 5 ft 6 in 09/09/25 06:09 Weight: 66.075 kg 09/09/25 06:09 Body Mass Index (BMI) 23.5 09/09/25 06:09 Respiratory Assessment Respiratory Assessment - product technician: Respiratory Tract Infection Hx - product technician Hx Respiratory Tract Infection No 09/08/25 11:26 STOP Sleep Apnea STOP Sleep Apnea - product technician: STOP Sleep Apnea - product technician Hx Hypertension No 09/08/25 11:26 Hx Sleep Apnea No 09/08/25 11:26 CPAP BIPAP Do you snore loudly (louder No 09/08/25 11:26 than talking or can be heard Do you often feel tired/ No 09/08/25 11:26 fatigued/ sleepy during daytime? Has anyone observed you stop No 09/08/25 11:26 breathing during sleep? STOP Results Negative 09/08/25 11:26 QUESTION #5 FULL TEXT : Do you snore loudly (louder than talking or can be heard through closed doors)? Tobacco Use History Tobacco Use History - product technician: Tobacco Use History - product technician Tobacco Use Smoking Status Never smoker 09/08/25 11:26 Hx Tobacco Use No 09/08/25 11:26 Years Smoking Packs Smoked per Day Smoking Cessation Date was within the last 15 years Hx Smoking Cessation Date Hx Smoking Cessation Counseling Hematologic Medial History Hematologic Hx - product technician: Hematologic Medical Hx - temper mill roller Hx of Blood Transfusion No 09/08/25 11:26 Hx of Transfusion in last 3 No 09/08/25 11:26 Months Date of Last Transfusion (if within last 3 months) Ever experience any problems No 09/08/25 11:26 with transfusion(s)? Specify any problems Hx of Preganancy in last 3 N/A 09/08/25 11:26 Months Nurse Filling Out Transfusion [email or web address] 09/08/25 11:26 & Questions: Date: 09/08/25 09/08/25 11: Time: 09/08/25 11:26 Patient unable to answer at this time (ie. confused, unrespo /Reproduction History /Reproductive History - product technician: /Reproductive Hx- product technician Hx Now Gestational Age (in weeks): EDC: Hx Hx Para Hx Section SAB No 09/08/25 11:26 Does the father of the baby or his family experience fever w Father of the baby Malignant Hypertension history comment Active Medications Active Medications: Current Medications Generic Name Dose Route Start Last Admin Trade Name Freq PRN Reason Stop Dose Admin Lactated Ringer's 1,000 mls @ 15 mls/hr 09/09/25 06:00 09/09/25 06:15 IV 15 mls/hr .Q48H VINCENZO Administration PFSH Medical History Open wound History of steroid therapy Low iron Difficulty swallowing History of edema Hx of peripheral vascular disease Wears hearing aid Wears glasses Cancer Uses wheelchair Functional voiding disorder Non-smoker Paraplegic immobility syndrome Liver masses Candidiasis Pruritus, unspecified Home Medications ?Medication ?Instructions ?Recorded ?Last Taken ?Type meropenem 1 gram intravenous 1 g IV Q8 wound infection 37 days 08/17/25 09/09/25 Rx solution #111 ea L.acidophil,salivari-Bifido 1 cap PO TID probiotic #21 caps 08/18/25 Unknown Rx bifidum-Strep thermoph 175 mg capsule aspirin 81 mg tablet,delayed 81 mg PO BREAKFAST blood thinner 11/25/25 12/15/25 Rx release #30 tabs clopidogrel 75 mg tablet 75 mg PO DAILY antiplatelet #30 08/18/25 09/07/25 Rx tabs tramadol 50 mg tablet 50 mg PO Q6H PRN PRN Pain Sc ore 08/18/25 Unknown Rx 4-10 7 days #28 tabs iron jqy-jij-BW-C-B12-Ca thr-succ 1 tab PO BID 5 Unknown History 150 mg-800 mcg-140 mg tablet polyethylene glycol 3350 17 17 g PO BID 09/08/25 Unkno wn History gram/dose oral powder (ClearLax) Allergy/AdvReac Type Severity Reaction Status Date / Time amoxicillin Allergy UTI Verified 09/09/25 06:08 tramadol (From Ultram) AdvReac Intermediate itching/hiv Verified 09/09/25 06:08 es Family History Father Cancer Brother Cancer Surgical History History of vascular access device H/O skin graft Hx of appendectomy Hx of tonsillectomy Social History household members: spouse Smoking Status: Never smoker alcohol intake: never substance use type: does not use Review of Systems (Anesthesia) ROS Narrative System reviewed and no additional complaints, except as documented.
--- NOTE | 2025-09-09 07:26 | HP.PCM_ITS ---
HPI - General HPI Narrative TERI RAHMAN, is a 75 M who presents for skin grafts. Current Encounter (DATE OF SURGERY H&P UPDATE): I saw and examined the patient this morning in pre-operative holding. We discussed risks and benefits of today's surgery and they would like to proceed. NO CHANGE in health history since last seen and evaluated. Ready to proceed with surgery. [facility] Medical History Open wound History of steroid therapy Low iron Difficulty swallowing History of edema Hx of peripheral vascular disease Wears hearing aid Wears glasses Cancer Uses wheelchair Functional voiding disorder Non-smoker Paraplegic immobility syndrome Liver masses Candidiasis Pruritus, unspecified Home Medications ?Medication ?Instructions ?Recorded ?Last Taken ?Type meropenem 1 gram intravenous 1 g IV Q8 wound infection 37 days 08/17/25 09/09/25 Rx solution #111 ea L.acidophil,salivari-Bifido 1 cap PO TID probiotic #21 caps 08/18/25 Unknown Rx bifidum-Strep thermoph 175 mg capsule aspirin 81 mg tablet,delayed 81 mg PO BREAKFAST blood thinner 08/18/25 09/07/25 Rx release #30 tabs clopidogrel 75 mg tablet 75 mg PO DAILY antiplatelet #30 08/18/25 09/07/25 Rx tabs tramadol 50 mg tablet 50 mg PO Q6H PRN PRN Pain Sc ore 08/18/25 Unknown Rx 4-10 7 days #28 tabs iron gex-psy-XJ-C-B12-Ca thr-succ 1 tab PO BID 5 Unknown History 150 mg-800 mcg-140 mg tablet polyethylene glycol 3350 17 17 g PO BID 09/08/25 Unkno wn History gram/dose oral powder (ClearLax) Allergy/AdvReac Type Severity Reaction Status Date / Time amoxicillin Allergy UTI Verified 09/09/25 06:08 tramadol (From Ultram) AdvReac Intermediate itching/hiv Verified 09/09/25 06:08 es Family History Father Cancer Brother Cancer Surgical History History of vascular access device H/O skin graft Hx of appendectomy Hx of tonsillectomy Social History household members: spouse Smoking Status: Never smoker alcohol intake: never substance use type: does not use Vital Signs Vital Signs Vital Signs: 09/09/25 06:09 09/09/25 06:09 09/09/25 06:09 Temperature 97.5 F L Temperature Source Temporal Pulse Rate 66 Respiratory Rate 16 Respiratory Pattern Normal Blood Pressure 142/52 H Blood Pressure Mean 82 Blood Pressure Source Monitor Blood Pressure Position Sitting Blood Pressure Location Left Arm Baseline BP 142/52 Pulse Ox 100 Oxygen Delivery Method Room Air 09/09/25 07:12 Temperature 97.5 F L Temperature Source Pulse Rate 66 Respiratory Rate 16 Respiratory Pattern Blood Pressure 142/52 H Blood Pressure Mean Blood Pressure Source Blood Pressure Position Blood Pressure Location Baseline BP Pulse Ox 100 Oxygen Delivery Method Room Air Weight Weight: 145 lb 10.724 oz Body Mass Index (BMI) 23.5 Physical Exam Narrative VACs holding suction over ankle wounds Assessment & Plan Assessment/Plan (1) Pressure ulcer of right ankle, stage 4: (2) Pressure ulcer of left ankle, stage 4: PLAN: Plan I talked to the patient extensively about the risks of surgery, including bleeding, infection, damage to surrounding structures, poor scaring, surgical site dehiscence and wound formation, need for wound care, need for repeat operations, failure to obtain the desired result, DVT/PE, and the risks of anesthesia including , including stroke (from low blood pressure/ischemia or clot). The benefits and alternatives of this surgery were also discussed. All of their questions were answered, and they agreed to proceed with surgery. INTERVAL H&P PLAN, DATE OF SURGERY: We will proceed with surgery today.
[2025-09-09] MEDS: Lactated Ringers 1,000 ML 1000 ML IV (07:38)
[2025-09-09] MEDS: Midazolam 2 MG/2 ML Syringe IV (07:50)
[2025-09-09] MEDS: Epinephrine (1 mg/ml) 1 MG/ML VIAL (08:11)
[2025-09-09] MEDS: Mineral Oil, Light Sterile 10 ML Vial MC (08:12)
[2025-09-09] MEDS: Bupiv/Epi 0.25% 30 ML Vial (08:14)
[2025-09-09] MEDS: Lidocaine 1% /Epi 1:100 (20ml) 20 ML Vial (08:14)
[2025-09-09] MEDS: fentaNYL 100 MCG/2 ML Ampul IV (08:48)
--- NOTE | 2025-09-09 09:08 | PCM.POST.ANE ---
Anesthesia: Postop Eval I Current Vital Signs Temperature: 97.4 F Pulse Rate: 88 Blood Pressure: 118/54 Respiratory Rate: 20 Pulse Ox: 97 Oxygen Delivery Method: Room Air Assessment Airway patent: Yes Spontaneous unlabored respirations: Yes Mental status: Awake and Calm nausea: No Vomiting: No Anesthesia Complication: No Fluid Hydration Crystalloid volume administer (ml): 600 Total IV fluid infused: 600 Progress Note Anesthesia document: Postop Eval 1 completed: Yes
--- NOTE | 2025-09-09 09:23 | OP.PCM_ITS ---
Operative Report (Standard) Operative Information Date of Procedure: 09/09/25 Pre-Operative Diagnosis: Bilateral ankle wounds s/p Integra Placement Post-Operative Diagnosis: Same Surgery/Procedure Performed: 1. Placement of split-thickness skin graft, right lateral malleolus wound 5 x 4 cm down to bone 2. Placement of split-thickness skin graft, right lateral foot wound, 1 x 1 cm down to bone 3. Placement of split-thickness skin graft, right medial malleolus wound 3 x 2 cm down to bone 4. 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 Lehr Tender: Brandon Farias Tasks completed by library serials assistant: Closing and Harvesting grafts Type of Anesthesia: Local MAC (20 cc of 1% lidocaine with 1-200,000 epinephrine for the right thigh for hemostasis) RN Documented Start/Stop Times: Operation Date: 09/09/25 07:30 Case Time Into Pre-Op 09/09/25 05:56 Out of Pre-Op 09/09/25 07:33 Anesthesia Start 09/09/25 07:38 Into Room 09/09/25 07:38 Procedure Start 09/09/25 08:03 Procedure End 09/09/25 08:56 Out of Room 09/09/25 09:02 Anesthesia End 09/09/25 09:03 Into Recovery 09/09/25 09:04 Procedure Start Time: 08:03 Procedure Stop Time: 08:56 Select all DRAINS/GRAFTS/IMPLANTS that apply: None Estimated Blood Loss: 25 cc Specimen collected: No Description of surgery: Indications: Patient is a delightful 75-year-old male with bilateral ankle wounds in the setting of chronic immunosuppression (Avastin and other chemotherapeutic agents for metastatic colon cancer) who has a complicated past medical history including paraplegia who is status post Integra placement of the bilateral full- thickness ankle wounds (with initially exposed bone). He presents today for skin grafting in the setting of nearly 4 weeks of wound VAC therapy over the Integra. He understands the risks, benefits, and the alternatives to the procedure today and elected to proceed. Procedure details: Patient was correct identified in preoperative holding and taken back to the operating room he was administered sedation and prepped and draped in sterile fashion. A timeout was performed. The silicone layer of the Integra was removed and there was good incorporation of the Integra with revascularization. The area was cleaned with Irrisept wash carefully and a split-thickness skin graft at 04/1000's of an inch was harvested with a Sulma dermatome from the right thigh and meshed 1.5-1. It was then stapled into the wound beds on the bilateral ankles for the below noted sized split-thickness skin grafts: 1. Placement of split-thickness skin graft, right lateral malleolus wound 5 x 4 cm down to bone 2. Placement of split-thickness skin graft, right lateral foot wound, 1 x 1 cm down to bone 3. Placement of split-thickness skin graft, right medial malleolus wound 3 x 2 cm down to bone 4. Placement of split-thickness skin graft, left lateral ankle wound 5 x 4 cm down to bone Adaptic and a wound VAC was then placed over the grafts and both wound vacs were holding suction at the end of the case. Mepilex Ag was applied to the right thigh, as well as an ABD, Ioban, and a loose Castro wrap. Patient tolerated the procedure well. He was awakened and taken the PACU in stable condition. Postoperative plan: Wound vacs will stay in until Sunday, 14 September 2025 (do not change wound VAC until then). Surgical Findings: Good incorporation of the Integra over all of the wounds Ready for skin grafting No signs of acute infection Complications Complications: No
--- NOTE | 2025-09-09 22:01 | POSTOPAN2_ITS ---
Anesthesia Postop Eval I Sum Postop Eval Completion status Anesthesia document: Postop Eval 1 completed: Yes Anesthesia Postop Eval I Summary Anesthesia Postop Eval I Summary: Anesthesia Postop Eval I: Assessment Summary Airway patent Yes 09/09/25 09:09 CHEMICAL PROCESS EQUIPMENT [email or web address] Spontaneous unlabored Yes 09/09/25 09:09 CHEMICAL PROCESS EQUIPMENT OPERATOR.[email or web address] respirations Mental status Awake,Calm 09/09/25 09:09 CHEMICAL PROCESS EQUIPMENT OPERATOR.[email or web address] nausea No 09/09/25 09:09 CHEMICAL PROCESS EQUIPMENT OPERATOR.[email or web address] Vomiting No 09/09/25 09:09 CHEMICAL PROCESS EQUIPMENT OPERATOR.[email or web address] Anesthesia Postop Eval I: Fluid Summary Crystalloid volume administer 600 09/09/25 09:09 CHEMICAL PROCESS EQUIPMENT OPERATOR.[email or web address] (ml) Colloids volume administered ( ml) Blood Product volume administered (ml) Total IV fluid infused 600 09/09/25 09:09 CHEMICAL PROCESS EQUIPMENT OPERATOR.[email or web address] Anesthesia Postop Eval I: Summary Notes Anesthesia Complication No 09/09/25 09:09 CHEMICAL PROCESS EQUIPMENT OPERATOR.[email or web address] Anesthesia Complication Comment: Post-operative progress note Anesthesia: Postop Eval II Evaluation Mental status: Awake and Calm Pain Level: 2 nausea: No Vomiting: No Complications Anesthesia Complication: No
--- NOTE | 2025-09-09 22:01 | PCM.POSTANE2 ---
Anesthesia Postop Eval I Sum Postop Eval Completion status Anesthesia document: Postop Eval 1 completed: Yes Anesthesia Postop Eval I Summary Anesthesia Postop Eval I Summary: Anesthesia Postop Eval I: Assessment Summary Airway patent Yes 09/09/25 09:09 [email or web address] [email or web address] Spontaneous unlabored Yes 09/09/25 09:09 [email or web address] [email or web address] respirations Mental status Awake,Calm 09/09/25 09:09 [email or web address] nausea No 09/09/25 09:09 [email or web address] [email or web address] Vomiting No 09/09/25 09:09 [email or web address] [email or web address] Anesthesia Postop Eval I: Fluid Summary Crystalloid volume administer 600 09/09/25 09:09 [email or web address] [email or web address] (ml) Colloids volume administered ( ml) Blood Product volume administered (ml) Total IV fluid infused 600 09/09/25 09:09 [email or web address] [email or web address] Anesthesia Postop Eval I: Summary Notes Anesthesia Complication No 09/09/25 09:09 [email or web address] [email or web address] Anesthesia Complication Comment: Post-operative progress note Anesthesia: Postop Eval II Evaluation Mental status: Awake and Calm Pain Level: 2 nausea: No Vomiting: No Complications Anesthesia Complication: No
== END 2025-09-09 10:06 | disposition home or self-care (01) ==
LOC: SDC 05:52 → AC 05:53
PROVIDERS: PCP Nurse Practitioner Family; Referring Provider Surgery Plastic and Reconstructive Surgery; Visit Provider Surgery Plastic and Reconstructive Surgery
PROC: (CPT 15100; principal; 2025-09-09 07:15)
DX: L89.514 Pressure ulcer of right ankle, stage 4 (principal); L89.524 Pressure ulcer of left ankle, stage 4; G82.20 Paraplegia, unspecified; C18.9 Malignant neoplasm of colon, unspecified; E61.1 Iron deficiency; I73.9 Peripheral vascular disease, unspecified; Z79.82 Long term (current) use of aspirin; Z79.02 Long term (current) use of antithrombotics/antiplatelets; Z79.899 Other long term (current) drug therapy
CPT/HCPCS: 15100; 00400; A4216; J2405